=== PATIENT | female | born 1945 | race Caucasian/White ===

== ENCOUNTER 2020-06-08 09:06 | Outpatient (REF) | payer MEDICARE, SELFPAY | END 2020-06-08 09:07 | disposition home or self-care (01) | LOC: HO.LAB 09:06 | PROVIDERS: Visit Provider Internal Medicine | DX: Z20.822 Contact with and (suspected) exposure to COVID-19 (principal) | CPT/HCPCS: 36415; C9803; U0003; U0005 ==

== ENCOUNTER 2021-12-29 13:59 | Outpatient (REF) | payer OTHER, SELFPAY ==
[2021-12-29 16:30] LABS: Influenza A PCR NEGATIVE (Negative); Influenza B PCR NEGATIVE (Negative); Resp Syncy Virus RNA Qual PCR NEGATIVE (Negative); SARS COV2 PCR INHOUSE POSITIVE (Negative)
== END 2021-12-29 14:00 | disposition home or self-care (01) ==
LOC: HO.LNP 13:59
PROVIDERS: Visit Provider Family Medicine
DX: Z20.822 Contact with and (suspected) exposure to COVID-19 (principal); B34.9 Viral infection, unspecified
CPT/HCPCS: 0241U

== ENCOUNTER 2022-04-01 11:30 | Emergency (ER) | payer OTHER, SELFPAY ==
--- NOTE | ~2022-04-01 | CT_ITS ---
EXAMINATION: CT ABDOMEN AND PELVIS WITHOUT CONTRAST CLINICAL INFORMATION: Left flank pain. Evaluate for kidney stone. COMPARISON: 10/02/2017 TECHNIQUE: Multidetector volumetric imaging was performed from the superior aspect of the liver through the pubic symphysis. Sagittal and coronal reformatted images were obtained on the technologist's workstation. This CT examination was performed using dose optimization techniques as appropriate, variously including the following: *Automated exposure control *Adjustment of mA and/or kV according to patient size (this includes techniques or standardized protocols for targeted exams where dose is matched to indication/reason for exam; i.e. extremities or head) *Use of iterative reconstruction technique DLP: 951 mGy-cm FINDINGS: LUNG BASES: Minimal atelectasis of lower lobes. No pulmonary consolidation or pleural effusion. LIVER: The liver has normal size and shape. The hepatic steatosis has improved compared to 10/02/2017, and liver parenchyma has returned to a lower range of normal density. No evidence of liver mass. GALLBLADDER AND BILIARY TREE: Gallbladder is without radiopaque stones, wall thickening or pericholecystic fluid. No dilated bile ducts. PANCREAS: Normal. No edema, pancreatic ductal dilatation or mass. SPLEEN: Normal. ADRENAL GLANDS: Normal. KIDNEYS AND URETERS: The kidneys have normal size and cortical thickness. No perinephric edema or fluid collection. No urolithiasis or hydroureteronephrosis. BLADDER: Normal. No calculi or wall thickening. BOWEL AND PERITONEUM: There is either a very small hiatal hernia or mild gaseous distention of the esophageal vestibule. No evidence of edematous thickening of bowel griggs. The appendix is normal. Pancolonic diverticulosis without evidence of diverticulitis. No abdominal free fluid or free air. ABDOMINAL WALL: No significant findings. VASCULATURE: Atherosclerosis of the abdominal aorta without aneurysm. LYMPH NODES: No pathologic sized lymph nodes in the abdomen or pelvis. No inguinal lymphadenopathy. PELVIC VISCERA: Status post hysterectomy. No pelvic mass or free fluid. MUSCULOSKELETAL: Multilevel degenerative disc disease and multilevel spinal canal stenosis, which is worst at the L3-L4 and L4-L5 levels. 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 No suspicious bone lesions. CT/CT abdomen pelvis wo IV con IMPRESSION: * No acute imaging abnormalities in the abdomen or pelvis compared to 10/02/2017. * No nephrolithiasis or hydronephrosis. * Pancolonic diverticulosis without diverticulitis. * Multilevel degenerative disc disease and rotatory levoscoliosis of the lumbar spine. Chronic, severe spinal canal stenosis is present at L3-L4 and L4-L5.
--- NOTE | 2022-04-01 12:20 | ED.BACK ---
HPI - Back Pain/Injury General Chief Complaint: Back Pain/Injury <Kelsie Garcia CNP - Last Filed: 04/01/22 12:29> Stated Complaint: back pain <Kelsie Garcia CNP - Last Filed: 04/01/22 12:29> Time Seen by Provider: 04/01/22 13:40 <Kelsie Garcia CNP - Last Filed: 04/01/22 12:29> Source: patient <Jc Larios MD - Last Filed: 04/01/22 16:40> Mode of arrival: ambulatory <Jc Larios MD - Last Filed: 04/01/22 16:40> Limitations: language barrier <Jc Larios MD - Last Filed: 04/01/22 16:40> History of Present Illness HPI Narrative: 76-year-old female patient presents emergency department for evaluation of left-sided flank pain x2 weeks. Patient states the pain started suddenly while she was sitting. She does not recount any injury at the time of onset of the pain. She states the pain is a sharp, severe and is 8/10 at its worst. She states that since the onset the pain is been constant but waxes and wanes in intensity. The pain does not radiate to her abdomen or down her leg. She denied frequency, urgency or dysuria. She states this is her 1st episode of this type pain. She has been taking ibuprofen with some improvement of the pain. <Jc Larios MD - Last Filed: 04/01/22 16:40> MD elicited complaint: back pain <Jc Larios MD - Last Filed: 04/01/22 16:40> Onset (ago): week(s) (2) <Jc Larios MD - Last Filed: 04/01/22 16:40> Timing: constant (Waxes and wanes in intensity) <Jc Larios MD - Last Filed: 04/01/22 16:40> Severity: severe <Jc Larios MD - Last Filed: 04/01/22 16:40> Pain scale (0-10): 8 <Jc Larios MD - Last Filed: 04/01/22 16:40> Similar Symptoms Previously: No <Jc Larios MD - Last Filed: 04/01/22 16:40> Quality: sharp <Jc Larios MD - Last Filed: 04/01/22 16:40> Location: lumbar spine (Lumbar paraspinal muscles) <Jc Larios MD - Last Filed: 04/01/22 16:40> Radiation: none <Jc Larios MD - Last Filed: 04/01/22 16:40> Exacerbating factors: none <Jc Larios MD - Last Filed: 04/01/22 16:40> Relieving factors: none <Jc Larios MD - Last Filed: 04/01/22 16:40> Context: other (At rest) <Jc Larios MD - Last Filed: 04/01/22 16:40> Associated symptoms: denies other symptoms <Jc Larios MD - Last Filed: 04/01/22 16:40> Treatments prior to arrival: NSAIDS <Jc Larios MD - Last Filed: 04/01/22 16:40> Work related injury: No <Jc Larios MD - Last Filed: 04/01/22 16:40> Related Data Home Medications: Home Medications Medication Instructions Recorded Confirmed acetaminophen 650 mg 0 mg PO 12/29/21 tablet,extended release albuterol sulfate 90 mcg/actuation 0 mcg inhalation 12/29/21 aerosol inhaler (Ventolin HFA) amlodipine 5 mg tablet 5 mg PO DAILY 12/29/21 brimonidine 0.1 % eye drops 1 drp ophthalmic (eye) BID 12/29/21 (Alphagan P) fluticasone 250 mcg-salmeterol 50 1 ea inhalation BID 12/29/21 mcg/dose blistr powdr for inhalation (Wixela Inhub) losartan 100 1 tab PO DAILY 12/29/21 mg-hydrochlorothiazide 25 mg tablet multivitamin with folic acid 400 0 tab PO 12/29/21 mcg tablet (Daily-Clementina (with folic acid)) Previous Rx's Medication Instructions Recorded lidocaine 5 % topical patch 1 patch topical DAILY PRN pain #15 04/01/22 ea oxycodone 5 mg tablet 5 mg PO Q6H PRN pain #14 tabs 04/01/22 <Kelsie Garcia CNP - Last Filed: 04/01/22 12:29> Allergies/Adverse Reactions: Allergies Allergy/AdvReac Type Severity Reaction Status Date / Time Diltiazem HCl Allergy Unknown disoriented Uncoded 12/29/21 11:13 <Kelsie Garcia CNP - Last Filed: 04/01/22 12:29> Review of Systems Review of Systems: Yes all other systems are reviewed and are negative <Jc Larios MD - Last Filed: 04/01/22 16:40> [facility] Past Medical History [facility] Narrative: Past medical history: Hypertension, kidney infection. Past surgical history: Hernia repair, JUSTIN/BSO 5 years prior for uterine cancer. Social history: She denies tobacco, alcohol and drug use. <Jc Larios MD - Last Filed: 04/01/22 16:40> Social History Social History: Social History Alcohol intake: never Smoked in Last 30 Days: No Use of substances other than those prescribed or required for medical reasons: No Advance Directives: No <Kelsie Garcia CNP - Last Filed: 04/01/22 12:29> Physical Exam Vital Signs: Vital Signs: Last Vital Signs Temp 98.3 F 04/01/22 14:48 Pulse 72 04/01/22 14:48 Resp 16 04/01/22 14:48 BP 208/88 H 04/01/22 15:42 Pulse Ox 98 04/01/22 14:48 O2 Del Method 04/01/22 14:48 BMI result Body Mass Index 44.4 <Kelsie Garcia CNP - Last Filed: 04/01/22 12:29> Vital Signs: Last Vital Signs Temp 98.3 F 04/01/22 14:48 Pulse 72 04/01/22 14:48 Resp 16 04/01/22 14:48 BP 208/88 H 04/01/22 15:42 Pulse Ox 98 04/01/22 14:48 O2 Del Method 04/01/22 14:48 BMI result Body Mass Index 44.4 <MD Jean Vega Last Filed: 04/01/22 16:40> Const: General: cooperative and no acute distress <MD Jean Vega Last Filed: 04/01/22 16:40> Orientation/consciousness: oriented to person and oriented to place <MD Jean Vega Last Filed: 04/01/22 16:40> Limitations: no limitations <MD Jean Vega Last Filed: 04/01/22 16:40> HEENT: Head: Yes normal to inspection, Yes normocephalic and Yes atraumatic <MD Jean Vega Last Filed: 04/01/22 16:40> Ears: external ears normal <MD Jean Vega Last Filed: 04/01/22 16:40> General nose exam: Normal external nose present <MD Jean Vega Last Filed: 04/01/22 16:40> Face and sinus: Yes normal facial exam <MD Jean Vega Last Filed: 04/01/22 16:40> Mouth: Normal oral and palatal mucosa present <MD Jean Vega Last Filed: 04/01/22 16:40> Throat: Yes posterior oropharynx normal <MD Jean Vega Last Filed: 04/01/22 16:40> Eyes: General: appearance normal, both eyes and all related structures <MD Jean Vega Last Filed: 04/01/22 16:40> Pupils: Equal, round and reactive pupils present <MD Jean Vega Last Filed: 04/01/22 16:40> Neck: Neck: Yes normal visual inspection, Yes no lymphadenopathy, Yes trachea midline and Yes supple <MD Jean Vega Last Filed: 04/01/22 16:40> Chest: Chest palpation & inspection: normal inspection of the chest and normal palpation of entire chest wall <MD Jean Vega Last Filed: 04/01/22 16:40> Resp: Effort & Inspection: normal respiratory effort and able to speak in complete sentences <Jc Larios MD - Last Filed: 04/01/22 16:40> Auscultation: clear to auscultation bilaterally <MD Jean Vega Last Filed: 04/01/22 16:40> Cardio: Rate: regular rate <Jc Larios MD - Last Filed: 04/01/22 16:40> Rhythm: regular rhythm <Jc Larios MD - Last Filed: 04/01/22 16:40> Heart sounds: S1 normal heart sound present, S2 normal heart sound present and no murmurs <Jc Larios MD - Last Filed: 04/01/22 16:40> GI: Inspection: Yes normal to inspection <MD Jean Vega Last Filed: 04/01/22 16:40> Palpation (GI): Soft to palpation, nontender and no guarding <Jc Larios MD - Last Filed: 04/01/22 16:40> Auscultation: normal bowel sounds <MD Jean Vega Last Filed: 04/01/22 16:40> Back/Spine/Pelvis: Other: No spinal tenderness, patient does have tenderness palpation of her left lumbar sacral paraspinal muscles, there is no spasm of these muscles. <MD Jean Vega Last Filed: 04/01/22 16:40> Skin: General skin exam: no rashes or lesions noted <Jc Larios MD - Last Filed: 04/01/22 16:40> Neuro: General: oriented to person and oriented to place <MD Jean Vega Last Filed: 04/01/22 16:40> Cranial nerves: Yes CN's II-XII intact bilaterally and Yes Equal, round and reactive pupils present <MD Jean Vega Last Filed: 04/01/22 16:40> Cognition (Neuro): normal cognition <MD Jean Vega Last Filed: 04/01/22 16:40> Motor exam (neuro): 5/5 motor strength present throughout <Jc Larios MD - Last Filed: 04/01/22 16:40> Extrem: General: Yes normal to inspection <Jc Larios MD - Last Filed: 04/01/22 16:40> Psych: Appearance: grossly normal <Jc Larios MD - Last Filed: 04/01/22 16:40> Speech and movement: Normal speech and movement present <Jc Larios MD - Last Filed: 04/01/22 16:40> Affect: normal affect <Jc Larios MD - Last Filed: 04/01/22 16:40> Attitude: cooperative <Jc Larios MD - Last Filed: 04/01/22 16:40> Thought process: Normal thought process present <Jc Larios MD - Last Filed: 04/01/22 16:40> Thought content: Normal thought content present <Jc Larios MD - Last Filed: 04/01/22 16:40> Course Course Course Narrative: RME: 76-year-old female presenting to emergency department with complaints of left lower back pain, lateral side pain x 3 weeks, overall constant, made worse with position changes, while walking, and during the night with sleep. Also complaining of abdominal swelling/ bloating, pain with palpation left lower ABD. Denies fevers, chills, nausea, vomiting, constipation, diarrhea. Took tylenol a couple of times the first day without improvement, and did not take again. PE: diffuse L flank/ lower back tenderness, LLQ ABD tenderness with palpation Plan:CBC, CMP, Lipase, urinalysis <Kelsie Garcia CNP - Last Filed: 04/01/22 12:29> RME: 76-year-old female presenting to emergency department with complaints of left lower back pain, lateral side pain x 3 weeks, overall constant, made worse with position changes, while walking, and during the night with sleep. Also complaining of abdominal swelling/ bloating, pain with palpation left lower ABD. Denies fevers, chills, nausea, vomiting, constipation, diarrhea. Took tylenol a couple of times the first day without improvement, and did not take again. PE: diffuse L flank/ lower back tenderness, LLQ ABD tenderness with palpation Plan:CBC, CMP, Lipase, urinalysis 76-year-old female who presented to the emergency department for evaluation of left lower back pain x2 weeks with no radiation of the pain, pain came on at rest with no injury, the pain is been constant but waxing waning intensity with the pain being 8/10 at its worst. Physical examination did reveal lumbar sacral paraspinal muscle and lumbar spine. I did review the RME above. The patient's CBC and CMP were unremarkable. Urinalysis revealed 2+ leukocyte esterase, negative nitrates. Microscopic revealed 2 RBCs, 20 WBCs, 20 squamous cells, 1+ bacteria. This is catch specimen. CT scan of the abdomen pelvis did not reveal clear etiology for the patient's pain, there was no evidence of kidney stones or ureteral stones. 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 Patient did get improvement of her pain with acetaminophen 975 mg orally and 5 mg orally and oxycodone 5 mg. A lidocaine patch was applied to left lower back in the area of maximal tenderness. Patient was discharged home with a prescription for oxycodone lidocaine patches advised to take Tylenol. She was given printed and verbal instructions. <Jc Larios MD - Last Filed: 04/01/22 16:40> Medications Administered Discontinued Medications Generic Name Dose Route Start Last Admin Trade Name Freq PRN Reason Stop Dose Admin Acetaminophen 975 mg 04/01/22 13:54 04/01/22 14:05 Acetaminophen 325 Mg Tablet PO 04/01/22 13:55 975 mg ONCE STA Administration Oxycodone HCl 5 mg 04/01/22 13:54 04/01/22 14:05 Oxycodone Hcl Immed Release 5 Mg Tablet PO 04/01/22 13:55 5 mg ONCE STA Administration <Kelsie Garcia CNP - Last Filed: 04/01/22 12:29> Medications Administered Discontinued Medications Generic Name Dose Route Start Last Admin Trade Name Freq PRN Reason Stop Dose Admin Acetaminophen 975 mg 04/01/22 13:54 04/01/22 14:05 Acetaminophen 325 Mg Tablet PO 04/01/22 13:55 975 mg ONCE STA Administration Oxycodone HCl 5 mg 04/01/22 13:54 04/01/22 14:05 Oxycodone Hcl Immed Release 5 Mg Tablet PO 04/01/22 13:55 5 mg ONCE STA Administration <Jc Larios MD - Last Filed: 04/01/22 16:40> MDM - Back Pain/Injury Lab Data Result diagrams: : 04/01/22 13:00 04/01/22 13:00 <Kelsie Garcia CNP - Last Filed: 04/01/22 12:29> Labs: Lab Results 04/01/22 04/01/22 04/01/22 Range/Units 13:00 13:00 15:19 WBC 8.2 (4.8-10.8) X10*3/uL RBC 4.52 (4.20-5.50) X10*6/uL Hgb 12.8 (12.0-16.0) g/dl Hct 39.7 (37.0-47.0) % MCV 87.8 (80.0-98.0) fL MCH 28.3 (27.0-33.0) pg MCHC 32.2 (31.0-35.0) g/dl RDW 14.4 (11.0-16.0) % Plt Count 235 (160-400) X10*3/uL MPV 8.9 L (9.4-12.3) fL Immature Gran % (Auto) 0.2 (0.0-0.4) % Neut % (Auto) 66.7 (45-73) % Lymph % (Auto) 23.4 (20-40) % [place] % (Auto) 7.6 (2-11) % Eos % (Auto) 1.7 (0-4) % Baso % (Auto) 0.4 (0-2) % Lymph # (Auto) 1.9 (1.2-4.9) X10*3/uL [place] # (Auto) 0.6 (0.1-1.2) X10*3/uL Eos # (Auto) 0.1 (0.0-0.4) X10*3/uL Baso # (Auto) 0.0 (0.0-0.2) X10*3/uL Abs Immat Gran (auto) 0.02 (0.00-0.03) X10*3/uL Absolute Neuts (auto) 5.5 (2.0-8.3) x10*3/uL Absolute Nucleated RBC 0.000 (0.0-0.012) X10*3/uL Nucleated RBC % (auto) 0.0 (0.0-0.2) /100WBC Sodium 139 (135-145) mmol/L Potassium 4.3 (3.3-5.1) mmol/L Chloride 106 (96-108) mmol/L Carbon Dioxide 24 (22-29) mmol/L Anion Gap 13 (12-20) BUN 28 H (9-16) mg/dL Creatinine 0.84 (0.5-1.4) mg/dL Estim Creat Clear Calc 58.2 Estimated GFR > 60 Random Glucose 78 (60-115) mg/dL Calcium 9.3 (8.4-10.2) mg/dL Total Bilirubin 0.4 (0.0-1.0) mg/dL AST 11 (5-31) U/L ALT 11 (0-31) U/L Alkaline Phosphatase 82 (39-117) U/L Total Protein 7.3 (6.5-8.0) g/dL Albumin 4.0 (3.5-5.0) g/dL Lipase 24 (8-78) U/L Urine Color Yellow Urine Appearance Cloudy Urine pH 6.0 (5.0-9.0) Ur Specific [place] 1.020 (1.005-1.025) Urine Protein 30 (1+) H (Neg-Trace) mg/dL Urine Glucose (UA) Negative (Negative) mg/dL Urine Ketones Negative (Negative) mg/dL Urine Blood Negative (Negative) Urine Nitrite Negative (Negative) Ur Leukocyte Esterase Moderate (2+) H (Negative) Urine RBC 0-2 (0-2) /HPF Urine WBC 11-20 H (0-5) /HPF Ur Squamous Epith Cells 11-20 (0-2) /HPF Urine Bacteria 1+ (None Seen) Hyaline Casts 0-2 (0-2) /LPF <Kelsie Garcia, AYE - Last Filed: 04/01/22 12:29> Lab Results 04/01/22 04/01/22 04/01/22 Range/Units 13:00 13:00 15:19 WBC 8.2 (4.8-10.8) X10*3/uL RBC 4.52 (4.20-5.50) X10*6/uL Hgb 12.8 (12.0-16.0) g/dl Hct 39.7 (37.0-47.0) % MCV 87.8 (80.0-98.0) fL MCH 28.3 (27.0-33.0) pg MCHC 32.2 (31.0-35.0) g/dl RDW 14.4 (11.0-16.0) % Plt Count 235 (160-400) X10*3/uL MPV 8.9 L (9.4-12.3) fL Immature Gran % (Auto) 0.2 (0.0-0.4) % Neut % (Auto) 66.7 (45-73) % Lymph % (Auto) 23.4 (20-40) % [place] % (Auto) 7.6 (2-11) % Eos % (Auto) 1.7 (0-4) % Baso % (Auto) 0.4 (0-2) % Lymph # (Auto) 1.9 (1.2-4.9) X10*3/uL [place] # (Auto) 0.6 (0.1-1.2) X10*3/uL Eos # (Auto) 0.1 (0.0-0.4) X10*3/uL Baso # (Auto) 0.0 (0.0-0.2) X10*3/uL Abs Immat Gran (auto) 0.02 (0.00-0.03) X10*3/uL Absolute Neuts (auto) 5.5 (2.0-8.3) x10*3/uL Absolute Nucleated RBC 0.000 (0.0-0.012) X10*3/uL Nucleated RBC % (auto) 0.0 (0.0-0.2) /100WBC Sodium 139 (135-145) mmol/L Potassium 4.3 (3.3-5.1) mmol/L Chloride 106 (96-108) mmol/L Carbon Dioxide 24 (22-29) mmol/L Anion Gap 13 (12-20) BUN 28 H (9-16) mg/dL Creatinine 0.84 (0.5-1.4) mg/dL Estim Creat Clear Calc 58.2 Estimated GFR > 60 Random Glucose 78 (60-115) mg/dL Calcium 9.3 (8.4-10.2) mg/dL Total Bilirubin 0.4 (0.0-1.0) mg/dL AST 11 (5-31) U/L ALT 11 (0-31) U/L Alkaline Phosphatase 82 (39-117) U/L Total Protein 7.3 (6.5-8.0) g/dL Albumin 4.0 (3.5-5.0) g/dL Lipase 24 (8-78) U/L Urine Color Yellow Urine Appearance Cloudy Urine pH 6.0 (5.0-9.0) Ur Specific [place] 1.020 (1.005-1.025) Urine Protein 30 (1+) H (Neg-Trace) mg/dL Urine Glucose (UA) Negative (Negative) mg/dL Urine Ketones Negative (Negative) mg/dL Urine Blood Negative (Negative) Urine Nitrite Negative (Negative) Ur Leukocyte Esterase Moderate (2+) H (Negative) Urine RBC 0-2 (0-2) /HPF Urine WBC 11-20 H (0-5) /HPF Ur Squamous Epith Cells 11-20 (0-2) /HPF Urine Bacteria 1+ (None Seen) Hyaline Casts 0-2 (0-2) /LPF <Jc Larios MD - Last Filed: 04/01/22 16:40> Discharge Plan Discharge Clinical Impression: Back pain Qualifiers: Back pain location: low back pain Chronicity: acute Back pain laterality: left Sciatica presence: without sciatica Qualified Code(s): M54.50 - Low back pain, unspecified Degenerative joint disease (DJD) of lumbar spine Qualifiers: Spinal osteoarthritis complication: unspecified spinal osteoarthritis Qualified Code(s): M47.816 - Spondylosis without myelopathy or radiculopathy, lumbar region <Kelsie Garcia CNP - Last Filed: 04/01/22 12:29> Patient Disposition: Home, Self-Care <Kelsie Garcia CNP - Last Filed: 04/01/22 12:29> Instructions: Acute Low Back Pain (ED) <Kelsie Garcia CNP - Last Filed: 04/01/22 12:29> Additional Instructions: Your blood work was unremarkable. The CT scan of your abdomen pelvis did not reveal a clear cause for your back pain except that he will have arthritis of your lower spine which is most likely causing the pain. Take Tylenol (acetaminophen) 500 mg pills, 2 pills every 4-6 hours as needed for pain. For pain not relieved by Tylenol take oxycodone 5 mg pills, 1 pill every 4 hours as needed for pain. Do not drive or work while taking this medication since they can cause sleepiness. Oxycodone is a narcotic medication that can be addicting. If you are concerned about addiction you can ask the pharmacist for less pills or do not get this prescription filled. Use the lidocaine patch to the left side of the back or your having the pain. Apply the patch once a day and remove after 12 hours. Take your blood pressure medication when you get home and make sure that you take it daily. Follow-up with your doctor in 2 days. Please return to the emergency department if your symptoms get worse or if you develop any symptoms that are concerning to you. <Kelsie Garcia CNP - Last Filed: 04/01/22 12:29> Prescriptions: New oxycodone 5 mg tablet 5 mg PO Q6H PRN (Reason: pain) Qty: 14 0RF Rx Instructions: Patient may request partial refill; Partial Fill upon patient request. lidocaine 5 % adhesive patch,medicated 1 patch topical DAILY PRN (Reason: pain) Qty: 15 0RF Rx Instructions: leave on most painful area for up to 12 hrs No Action losartan-hydrochlorothiazide 100-25 mg tablet 1 tab PO DAILY fluticasone propion-salmeterol [Wixela Inhub] 250-50 mcg/dose blister with device 1 ea inhalation BID albuterol sulfate [Ventolin HFA] 90 mcg/actuation HFA aerosol inhaler 0 mcg inhalation Alphagan P 0.1 % drops 1 drp ophthalmic (eye) BID multivitamin with folic acid [Daily-Clementina (with folic acid)] 400 mcg tablet 0 tab PO amlodipine 5 mg tablet 5 mg PO DAILY acetaminophen 650 mg tablet extended release 0 mg PO <Kelsie Garcia CNP - Last Filed: 04/01/22 12:29>
[2022-04-01 12:21] VITALS: BP 145/91; PULSE 78; RESP 20; TEMP 36.3; O2SAT 98; BMI 44.4
[2022-04-01 13:04] LABS: MANUAL DIFF FLAG NO
[2022-04-01 13:05] LABS: Basophils Percent Auto 0.4 % (0-2); Eosinophils Absolute Auto 0.1 X10*3/uL (0.0-0.4); Eosinophils Percent Auto 1.7 % (0-4); Hematocrit 39.7 % (37.0-47.0); Hemoglobin 12.8 g/dl (12.0-16.0); Imm Gran Abs Auto 0.02 X10*3/uL (0.00-0.03); Imm Gran Pct Auto 0.2 % (0.0-0.4); Lymphocytes Absolute Auto 1.9 X10*3/uL (1.2-4.9); Lymphocytes Percent Auto 23.4 % (20-40); Mean Corpuscular HGB Conc 32.2 g/dl (31.0-35.0); Mean Corpuscular Hemoglobin 28.3 pg (27.0-33.0); Mean Corpuscular Volume 87.8 fL (80.0-98.0); Mean Platelet Volume 8.9 fL (9.4-12.3); Monocytes Absolute Auto 0.6 X10*3/uL (0.1-1.2); Monocytes Percent Auto 7.6 % (2-11); Neutrophils Absolute Auto 5.5 x10*3/uL (2.0-8.3); Neutrophils Percent Auto 66.7 % (45-73); Platelet Count 235 X10*3/uL (160-400); Red Blood Count 4.52 X10*6/uL (4.20-5.50); Red Cell Distribution Width 14.4 % (11.0-16.0); White Blood Count 8.2 X10*3/uL (4.8-10.8)
[2022-04-01 13:13] VITALS: BP 195/75; PULSE 78; RESP 18; TEMP 36.8; O2SAT 96
--- NOTE | 2022-04-01 13:19 | PC.NURSE ---
Addendum entered by Henrik Jimenez 04/01/22 15:44: Dr. Larios aware of BP Addendum entered by Henrik Jimenez 04/01/22 14:53: Provider aware of BP that is high Original Note: Provider aware of BP
[2022-04-01 13:28] LABS: Alanine Aminotransferase 11 U/L (0-31); Alkaline Phosphatase 82 U/L (39-117); Anion Gap 13 (12-20); Aspartate Amino Transferase 11 U/L (5-31); Bilirubin Total 0.4 mg/dL (0.0-1.0); Blood Urea Nitrogen 28 mg/dL (9-16); Calcium 9.3 mg/dL (8.4-10.2); Carbon Dioxide 24 mmol/L (22-29); Chloride 106 mmol/L (96-108); Creatinine Clr Calc Pharmacy 58.2; Estimated Glomerular Filt Rate > 60; Glucose Random 78 mg/dL (60-115); Lipase 24 U/L (8-78); Potassium 4.3 mmol/L (3.3-5.1); Sodium 139 mmol/L (135-145); Total Protein 7.3 g/dL (6.5-8.0)
[2022-04-01] MEDS: Acetaminophen 325 MG TABLET 975 MG PO (14:05)
[2022-04-01] MEDS: oxyCODONE HCl Immed Release 5 MG TABLET PO (14:05)
[2022-04-01 14:48] VITALS: BP 185/88; PULSE 72; RESP 16; TEMP 36.8; O2SAT 98
[2022-04-01 15:27] LABS: Appearance Urine Cloudy; Color Urine Yellow; Glucose Urine UA Negative (Negative); Leukocyte Esterase Urine Moderate (2+) (Negative); Nitrite Urine Negative (Negative); UMIC TRIGGER UACC YES; Urine Blood Negative (Negative); Urine Ketones Negative (Negative); Urine Protein 30 (1+) mg/dL (Neg-Trace)
[2022-04-01 15:41] LABS: Bacteria Urine 1+ (None Seen); Hyaline Casts Urine 0-2 /LPF (0-2); RBC Urine 0-2 /HPF (0-2); UACC Culture Trigger YES
[2022-04-01 15:42] VITALS: BP 208/88
[2022-04-01] MEDS: Lidocaine 4 % Patch ADH..PATCH 1 PATCH TRANSDERMA (16:40)
== END 2022-04-01 16:43 | disposition home or self-care (01) ==
PROVIDERS: Nurse Practitioner Family; Emergency Provider Emergency Medicine Emergency Medical Services
DX: M54.50 Low back pain, unspecified (principal); M47.816 Spondylosis without myelopathy or radiculopathy, lumbar region
CPT/HCPCS: 36415; 74176; 80053; 81001; 83690; 85025; 87086; 99284

== ENCOUNTER 2023-03-13 02:20 | Emergency (ER) | payer OTHER, SELFPAY ==
--- NOTE | ~2023-03-13 | CT_ITS ---
EXAMINATION: CT ABDOMEN AND PELVIS WITHOUT CONTRAST CLINICAL INFORMATION: Left flank pain COMPARISON: 04/01/2022. TECHNIQUE: Multidetector volumetric imaging was performed from the superior aspect of the liver through the pubic symphysis. Sagittal and coronal reformatted images were obtained on the technologist's workstation. This CT examination was performed using dose optimization techniques as appropriate, variously including the following: *Automated exposure control *Adjustment of mA and/or kV according to patient size (this includes techniques or standardized protocols for targeted exams where dose is matched to indication/reason for exam; i.e. extremities or head) *Use of iterative reconstruction technique DLP: 927 mGy-cm FINDINGS: LUNG BASES: There is scarring at the left lung base. LIVER, GALLBLADDER, AND BILIARY TREE: The liver is normal in size, shape, and attenuation. No focal hepatic lesion or biliary ductal dilatation is present. The gallbladder is unremarkable with no evidence of radiopaque gallstones, gallbladder wall thickening, or obvious pericholecystic inflammatory changes. PANCREAS: Unremarkable. SPLEEN: Unremarkable. ADRENAL GLANDS: Unremarkable. KIDNEYS AND URETERS: The kidneys are normal in size, shape, and attenuation. No hydronephrosis, hydroureter, or calculi seen. No perinephric stranding. BLADDER: Unremarkable. GASTROINTESTINAL TRACT: There is diffuse diverticulosis without evidence for acute diverticulitis. ABDOMINAL WALL: No significant hernia is appreciated. LYMPH NODES: Normal. VASCULAR: Unremarkable. PELVIC VISCERA: Unremarkable. OSSEOUS STRUCTURES: There is diffuse thoracolumbar disc degenerative change with multilevel thoracolumbar spinal canal narrowing and mild curvature of the lumbar spine to the left.. CT/CT abdomen pelvis wo IV con IMPRESSION: Diffuse diverticulosis without definitive evidence for acute diverticulitis. No acute intra-abdominal process. Fleischner guidelines were followed.
[2023-03-13 02:28] VITALS: BP 124/82; PULSE 72; O2SAT 98
[2023-03-13 02:37] VITALS: BP 198/83; PULSE 66; RESP 16; TEMP 36.9; O2SAT 97; BMI 48.5
--- NOTE | 2023-03-13 02:46 | ED_ITS ---
HPI - Back Pain/Injury General Chief Complaint: Back Pain/Injury Stated Complaint: lumbar pain Time Seen by Provider: 03/13/23 02:31 Source: patient and EMS Mode of arrival: EMS Limitations: no limitations History of Present Illness HPI Narrative: 77-year-old female came in for evaluation of Left-sided lower back pain radiating to the left groin area pain started about a week ago, pain is worse with movement and twisting her torso better when she sits still. Declined any trauma or injury to the back, patient had previous similar presentation with back pain last year. No fever, no chills, no dysuria, no frequent urination, no hematuria, no nausea, no vomiting, no diarrhea. Related Data Home Medications Medication Instructions Recorded Confirmed acetaminophen 650 mg 0 mg PO 12/29/21 tablet,extended release albuterol sulfate 90 mcg/actuation 0 mcg inhalation 12/29/21 aerosol inhaler (Ventolin HFA) amlodipine 5 mg tablet 5 mg PO DAILY 12/29/21 brimonidine 0.1 % eye drops 1 drp ophthalmic (eye) BID 12/29/21 (Alphagan P) fluticasone 250 mcg-salmeterol 50 1 ea inhalation BID 12/29/21 mcg/dose blistr powdr for inhalation (Wixela Inhub) losartan 100 1 tab PO DAILY 12/29/21 mg-hydrochlorothiazide 25 mg tablet multivitamin with folic acid 400 0 tab PO 12/29/21 mcg tablet (Daily-Clementina (with folic acid)) Previous Rx's Medication Instructions Recorded lidocaine 5 % topical patch 1 patch topical DAILY PRN pain #15 04/01/22 ea oxycodone 5 mg tablet 5 mg PO Q6H PRN pain #14 tabs 04/01/22 oxycodone 5 mg tablet 5 mg PO BID PRN pain #10 tabs 03/13/23 Allergies Allergy/AdvReac Type Severity Reaction Status Date / Time Diltiazem HCl Allergy Unknown disoriented Uncoded 12/29/21 11:13 Review of Systems 2 Review of Systems: All other systems are reviewed and are negative Constitutional: Reports as per HPI and Reports no additional constitutional complaints Eyes: Reports as per HPI and Reports no additional eye complaints Reports system reviewed and no additional complaints, except as documented Cardiovascular: Reports as per HPI and Reports no additional cardiovascular complaints Respiratory: Reports as per HPI and Reports no additional respiratory complaints Gastrointestinal: Reports as per HPI and Reports no additional gastrointestinal complaints Genitourinary: Reports no additional female genitourinary complaints Musculoskeletal: Reports no additional musculoskeletal complaints Skin/Breast: Reports system reviewed and no additional complaints, except as docu Psychiatric: Reports no additional psychiatric complaints Endocrine: Reports no additional endocrine complaints Hematologic/Lymphatic: Reports no additional hematologic/lymphatic complaints Allergic/Immunologic: Reports no additional allergic/immunologic complaints Reports system reviewed and no additional complaints, except as documented and Reports Abnormal speech present [facility] Social History Social History Alcohol intake: never Smoked in Last 30 Days: No Use of substances other than those prescribed or required for medical reasons: No Advance Directives: No Advance Directives Information Provided: No Physical Exam 2 Vital Signs: Vital Signs: Last Vital Signs Temp 97.8 F 03/13/23 03:48 Pulse 66 03/13/23 03:48 Resp 14 03/13/23 04:16 BP 159/73 H 03/13/23 04:16 Pulse Ox 94 03/13/23 03:48 O2 Del Method Room Air 03/13/23 03:48 BMI result Body Mass Index 48.5 Vital signs have been reviewed and appear to be correct. Blood pressure elevated. Heart rate normal. Respiratory rate normal. Temperature normal. Oxygen saturation normal. Appearance: Alert. Oriented X3. No acute distress. Head: Normal external exam. Normocephalic. Atraumatic. No Villegas signs noted. No raccoon eyes noted Eyes: PERRLA. EOMI. Conjunctiva and sclera normal. Eyelids normal. ENT: TM's Normal. Pharynx normal. Uvula midline. Moist mucous membranes. No trismus noted. No drooling noted. No muffled voice noted. Neck: Normal inspection. Neck supple. FROM. No adenopathy. Thyroid Normal. No meningeal signs. No neck mass noted. CVS: Normal heart rate and rhythm. Heart sound normal. No murmurs noted. Pulses normal throughout. Respiratory: No respiratory distress. Painless inspiration. Breath sounds normal. No wheezes/rales/rhonchi noted. Chest nontender. No accessory muscle usage noted or decreased air movement noted. Abdomen: Soft and nontender. Bowel sounds normal in all 4 quadrants. No distention noted. No organomegaly noted. No visible injury noted. Back: No CVA tenderness. Full range of motion noted. Skin: Skin warm and dry. Normal skin color. Normal skin turgor. No rashes/lesions/lacerations noted. Extremities: No lower extremity edema. Extremities exhibit normal range of motion. Extremities nontender. Neuro: Oriented X 3. Cranial nerve exam: II-XII are grossly intact No motor deficit. No sensory deficit. Reflexes normal. Course Course Course Narrative: Low back pain for 1 week patient had history of back pain in the past, received oxycodone in the emergency department patient feels better. Medications Administered Discontinued Medications Generic Name Dose Route Start Last Admin Trade Name Freq PRN Reason Stop Dose Admin Oxycodone HCl 5 mg 03/13/23 02:42 03/13/23 03:07 Oxycodone Hcl Immed Release 5 Mg Tablet PO 03/13/23 02:43 5 mg ONCE ONE Administration Medical Decision Making Differential Diagnosis Differential Diagnoses: The differential diagnosis associated with the presentation includes ( AAA, diverticulitis, muscular low back pain, lumbar radiculopathy, severe anemia, UTI, pyelonephritis, kidney stone, electrolyte abnormality.) Admission/Observation Consideration of admission/observation: Escalation of care including admission/observation considered Lab Data MDM Lab Attestation statement: I reviewed the patient's lab results. 03/13/23 03:25 03/13/23 03:25 Labs: Lab Results 03/13/23 Range/Units 03:25 WBC 6.6 (4.8-10.8) X10*3/uL RBC 4.10 L (4.20-5.50) X10*6/uL Hgb 11.9 L (12.0-16.0) g/dl Hct 37.1 (37.0-47.0) % MCV 90.5 (80.0-98.0) fL MCH 29.0 (27.0-33.0) pg MCHC 32.1 (31.0-35.0) g/dl RDW 13.7 (11.0-16.0) % Plt Count 210 (160-400) X10*3/uL MPV 8.9 L (9.4-12.3) fL Immature Gran % (Auto) 0.2 (0.0-0.4) % Neut % (Auto) 60.0 (45-73) % Lymph % (Auto) 26.5 (20-40) % [place] % (Auto) 10.1 (2-11) % Eos % (Auto) 2.7 (0-4) % Baso % (Auto) 0.5 (0-2) % Lymph # (Auto) 1.8 (1.2-4.9) X10*3/uL [place] # (Auto) 0.7 (0.1-1.2) X10*3/uL Eos # (Auto) 0.2 (0.0-0.4) X10*3/uL Baso # (Auto) 0.0 (0.0-0.2) X10*3/uL Abs Immat Gran (auto) 0.01 (0.00-0.03) X10*3/uL Absolute Neuts (auto) 4.0 (2.0-8.3) x10*3/uL Absolute Nucleated RBC 0.000 (0.0-0.012) X10*3/uL Nucleated RBC % (auto) 0.0 (0.0-0.2) /100WBC Sodium 141 (135-145) mmol/L Potassium 3.8 (3.3-5.1) mmol/L Chloride 111 H (96-108) mmol/L Carbon Dioxide 23 (22-29) mmol/L Anion Gap 11 L (12-20) BUN 18 H (9-16) mg/dL Creatinine 0.86 (0.5-1.4) mg/dL Estim Creat Clear Calc 59.1 Estimated GFR > 60 Random Glucose 105 (60-115) mg/dL Calcium 8.7 D (8.4-10.2) mg/dL Total Bilirubin 0.3 (0.0-1.0) mg/dL Direct Bilirubin 0.1 (0.0-0.5) mg/dL AST 13 (5-31) U/L ALT 9 (0-31) U/L Alkaline Phosphatase 62 (39-117) U/L Total Protein 7.1 (6.5-8.0) g/dL Albumin 3.7 (3.5-5.0) g/dL Lipase 19 (8-78) U/L Independent Interpretation I performed an independent interpretation of an: CT Scan ( Abdomen pelvis:Diffuse diverticulosis without definitive evidence for acute diverticulitis, No acute intra-abdominal process.) Radiology Impression Discussion of test interpretation with radiology: I have reviewed the radiologist's reading. Discharge Plan Discharge Clinical Impression: Strain of lumbar region Patient Disposition: Home, Self-Care Instructions: Muscle Strain (ED) Prescriptions: New oxycodone 5 mg tablet 5 mg PO BID PRN (Reason: pain) Qty: 10 0RF Rx Instructions: Partial Fill upon patient request. No Action oxycodone 5 mg tablet 5 mg PO Q6H PRN (Reason: pain) Qty: 14 0RF Rx Instructions: Patient may request partial refill; Partial Fill upon patient request. lidocaine 5 % adhesive patch,medicated 1 patch topical DAILY PRN (Reason: pain) Qty: 15 0RF Rx Instructions: leave on most painful area for up to 12 hrs losartan-hydrochlorothiazide 100-25 mg tablet 1 tab PO DAILY fluticasone propion-salmeterol [Wixela Inhub] 250-50 mcg/dose blister with device 1 ea inhalation BID albuterol sulfate [Ventolin HFA] 90 mcg/actuation HFA aerosol inhaler 0 mcg inhalation Alphagan P 0.1 % drops 1 drp ophthalmic (eye) BID multivitamin with folic acid [Daily-Clementina (with folic acid)] 400 mcg tablet 0 tab PO amlodipine 5 mg tablet 5 mg PO DAILY acetaminophen 650 mg tablet extended release 0 mg PO
[2023-03-13] MEDS: oxyCODONE HCl Immed Release 5 MG TABLET PO (03:07)
--- NOTE | 2023-03-13 03:17 | PC.NURSE ---
pt medicated per mar; tolerating po intake.
[2023-03-13 03:30] LABS: Basophils Percent Auto 0.5 % (0-2); Eosinophils Absolute Auto 0.2 X10*3/uL (0.0-0.4); Eosinophils Percent Auto 2.7 % (0-4); Hematocrit 37.1 % (37.0-47.0); Hemoglobin 11.9 g/dl (12.0-16.0); Imm Gran Abs Auto 0.01 X10*3/uL (0.00-0.03); Imm Gran Pct Auto 0.2 % (0.0-0.4); Lymphocytes Absolute Auto 1.8 X10*3/uL (1.2-4.9); Lymphocytes Percent Auto 26.5 % (20-40); MANUAL DIFF FLAG NO; Mean Corpuscular HGB Conc 32.1 g/dl (31.0-35.0); Mean Corpuscular Volume 90.5 fL (80.0-98.0); Mean Platelet Volume 8.9 fL (9.4-12.3); Monocytes Absolute Auto 0.7 X10*3/uL (0.1-1.2); Monocytes Percent Auto 10.1 % (2-11); Platelet Count 210 X10*3/uL (160-400); Red Cell Distribution Width 13.7 % (11.0-16.0); White Blood Count 6.6 X10*3/uL (4.8-10.8)
[2023-03-13 03:47] LABS: Alanine Aminotransferase 9 U/L (0-31); Albumin Level 3.7 g/dL (3.5-5.0); Alkaline Phosphatase 62 U/L (39-117); Anion Gap 11 (12-20); Aspartate Amino Transferase 13 U/L (5-31); Bilirubin Direct 0.1 mg/dL (0.0-0.5); Bilirubin Total 0.3 mg/dL (0.0-1.0); Blood Urea Nitrogen 18 mg/dL (9-16); Calcium 8.7 mg/dL (8.4-10.2); Carbon Dioxide 23 mmol/L (22-29); Chloride 111 mmol/L (96-108); Creatinine Clr Calc Pharmacy 59.1; Estimated Glomerular Filt Rate > 60; Glucose Random 105 mg/dL (60-115); Lipase 19 U/L (8-78); Potassium 3.8 mmol/L (3.3-5.1); Sodium 141 mmol/L (135-145); Total Protein 7.1 g/dL (6.5-8.0)
[2023-03-13 03:48] VITALS: BP 206/76; PULSE 66; RESP 17; TEMP 36.6; O2SAT 94
--- NOTE | 2023-03-13 03:53 | PC.NURSE ---
bp elevated; recheck at this time ; Dr. Rahman aware no new orders at this time. pt denies EAGLE/dizziness.
[2023-03-13 04:16] VITALS: BP 159/73; RESP 14
--- NOTE | 2023-03-13 05:10 | PC.NURSE ---
pt ambulatory to bathroom with steady gait; able to provide urine sample for ua; sent to lab.
[2023-03-13 05:27] LABS: Appearance Urine Clear; Color Urine Yellow; Glucose Urine UA Negative (Negative); Leukocyte Esterase Urine Negative (Negative); Nitrite Urine Negative (Negative); Specific Gravity - Urine 1.015 (1.005-1.025); UMIC TRIGGER UACC YES; Urine Blood Negative (Negative); Urine Ketones Negative (Negative); Urine Protein 30 (1+) mg/dL (Neg-Trace)
[2023-03-13 06:03] LABS: Bacteria Urine None Seen (None Seen); Hyaline Casts Urine 0-2 /LPF (0-2); RBC Urine 0-2 /HPF (0-2); Squamous Epithelial Cell Urine 0-2 /HPF (0-2); WBC Urine 0-5 /HPF (0-5)
[2023-03-13 06:30] VITALS: BP 186/69; PULSE 63; RESP 16; O2SAT 98
== END 2023-03-13 06:34 | disposition home or self-care (01) ==
PROVIDERS: Emergency Provider Emergency Medicine
DX: S39.012A Strain of muscle, fascia and tendon of lower back, initial encounter (principal); R10.2 Pelvic and perineal pain; X58.XXXA Exposure to other specified factors, initial encounter; Y93.9 Activity, unspecified; Y92.9 Unspecified place or not applicable; Y99.9 Unspecified external cause status; Z79.899 Other long term (current) drug therapy
CPT/HCPCS: 36415; 74176; 80048; 80076; 81001; 81003; 83690; 85025; 99284

== ENCOUNTER 2023-08-28 05:14 | Emergency (ER) | payer OTHER, SELFPAY ==
--- NOTE | ~2023-08-28 | CT_ITS ---
EXAMINATION: CT HEAD WITHOUT CONTRAST CLINICAL INFORMATION: Dizziness COMPARISON: CT head from 12/27/2018 TECHNIQUE: Contiguous axial imaging was performed from the skull base to vertex without intravenous administration of contrast. This CT examination was performed using dose optimization techniques as appropriate, variously including the following: *Automated exposure control *Adjustment of mA and/or kV according to patient size (this includes techniques or standardized protocols for targeted exams where dose is matched to indication/reason for exam; i.e. extremities or head) *Use of iterative reconstruction technique DLP: 659.94 mGy-cm FINDINGS: There is no evidence of acute intracranial hemorrhage or territorial infarction. Chronic white matter small vessel ischemic changes. No abnormal mass effect or midline shift is seen. Zendejas to white matter differentiation is well preserved. No extra-axial fluid collections are identified. The ventricles are normal in size. There is no abnormal attenuation within the brain parenchyma. Hyperostosis frontalis interna. The osseous structures and soft tissues are normal. The mastoid air cells and visualized portions of the paranasal sinuses are well aerated. CT/CT head/brain wo IV con IMPRESSION: 1. No acute intracranial pathology. 2. Chronic white matter small vessel ischemic changes.
[2023-08-28 05:21] VITALS: BP 180/90; BP 197/65; PULSE 70; PULSE 87; RESP 15; TEMP 36.6; O2SAT 95; O2SAT 96; BMI 44.4
--- NOTE | 2023-08-28 05:27 | ECG_ITS ---
Test Reason : DIZZINESS Blood Pressure : / mmHG Vent. Rate : 068 BPM Atrial Rate : 068 BPM P-R Int : 178 ms QRS Dur : 096 ms QT Int : 404 ms P-R-T Axes : 027 -17 031 degrees QTc Int : 429 ms Normal sinus rhythm Moderate voltage criteria for LVH, may be normal variant ( R in aVL , Juan Jose product ) Borderline ECG When compared with ECG of 27-DEC-2018 10:56, No significant change was found Referred By: Generic ED Physician Electronically Signed By:JAIRON RIVERA MD
[2023-08-28 05:49] LABS: MANUAL DIFF FLAG NO
[2023-08-28 05:51] LABS: Basophils Percent Auto 0.3 % (0-2); Eosinophils Absolute Auto 0.2 X10*3/uL (0.0-0.4); Eosinophils Percent Auto 2.6 % (0-4); Hematocrit 38.4 % (37.0-47.0); Hemoglobin 12.7 g/dl (12.0-16.0); Imm Gran Abs Auto 0.02 X10*3/uL (0.00-0.03); Imm Gran Pct Auto 0.3 % (0.0-0.4); Lymphocytes Absolute Auto 1.8 X10*3/uL (1.2-4.9); Lymphocytes Percent Auto 28.8 % (20-40); Mean Corpuscular HGB Conc 33.1 g/dl (31.0-35.0); Mean Corpuscular Hemoglobin 29.3 pg (27.0-33.0); Mean Corpuscular Volume 88.7 fL (80.0-98.0); Monocytes Absolute Auto 0.5 X10*3/uL (0.1-1.2); Neutrophils Absolute Auto 3.8 x10*3/uL (2.0-8.3); Platelet Count 219 X10*3/uL (160-400); Red Blood Count 4.33 X10*6/uL (4.20-5.50); Red Cell Distribution Width 14.1 % (11.0-16.0); White Blood Count 6.3 X10*3/uL (4.8-10.8)
[2023-08-28 05:59] VITALS: BP 197/65; PULSE 70; RESP 16; TEMP 36.6; O2SAT 96
[2023-08-28 06:05] LABS: Alanine Aminotransferase 15 U/L (0-31); Albumin Level 3.8 g/dL (3.5-5.0); Alkaline Phosphatase 68 U/L (39-117); Anion Gap 12 (12-20); Aspartate Amino Transferase 18 U/L (5-31); Bilirubin Total 0.4 mg/dL (0.0-1.0); Blood Urea Nitrogen 17 mg/dL (9-16); Calcium 9.1 mg/dL (8.4-10.2); Carbon Dioxide 26 mmol/L (22-29); Chloride 107 mmol/L (96-108); Creatinine Clr Calc Pharmacy 65.1; Estimated Glomerular Filt Rate > 60; Glucose Random 124 mg/dL (60-115); Potassium 3.7 mmol/L (3.3-5.1); Sodium 141 mmol/L (135-145); Total Protein 7.4 g/dL (6.5-8.0)
--- OUTSIDE RECORDS SUMMARY | 2023-08-28 06:05 | XMS_ITS | Continuity of Care Document ---
Author Organization [facility] Address Unknown Care Team Providers Care Back Digger Operator Name Role Phone Wil BECKHAM, Katy Mazariegos Primary Care Physician Encounter [facility] Date(s): 02/15/21 - 03/17/21 [facility] Allergies, Adverse Reactions, Alerts Substance Reaction Severity Status Ativan 1 Active 1Adverse effect: heightened anxiety reported Immunizations Given and Recorded Vaccine Date Status Refusal Reason SARS-CoV-2 (COVID-19) mRNA BNT-162b2 vac 09/10/20 Given SARS-CoV-2 (COVID-19) mRNA BNT-162b2 vac 08/20/20 Given influenza virus vaccine, inactivated 1 07/21/15 Gi salvatore influenza virus vaccine, inactivated 2 03/11/14 Gi salvatore pneumococcal 13-valent vaccine 01/13/15 Given Zoster Vaccine Live 03/17/14 Given tetanus/diphtheria/pertussis, acel(Tdap) 3 11/21/13 Given pneumococcal 23-valent vaccine 4 11/21/13 Given 1Admin Note: refuses 2Admin Note: pt refusing 3Result Comment: [11/21/2013] Ordered by Nilson Clifton 4Result Comment: [11/21/2013] Ordered by Zen Clifton Medications acetaminophen 650 mg oral tablet, extended release 1- 2 tablet, By Mouth, Every 8 hours, PRN Pain, (do not crush or chew) (not to exceed 6 tablets/day), # 100 tablet, 2 Refills, Maintenance, 01/20/21 15:16:00 EDT, ER Tablet, [id number], Partial fill upon patient request if the prescription is... Start Date: 01/20/21 Status: Ordered acetaminophen-codeine 300 mg-15 mg oral tablet 2 tablet, By Mouth, 2 times a day, PRN for pain, for 28 days, # 112 tablet, 0 Refills, Acute 03/23/21 17:06:00 EST, 02/23/21 17:06:00 EDT, [id number] Partial fill upon patient request if the prescription is for a schedule II opioid . Start Date: 02/23/21 Stop Date: 03/23/21 Status: Ordered amLODIPine 5 mg oral tablet 5 mg, 1, tablet, By Mouth, Daily, # 90 tablet, Refills 3, Tot. Refills 3, Maintenance, 10/27/20 19:35:00 EDT, Route to Pharmacy Electronically, [facility]pharm[facility] #[id number], 149.8, cm, 10/08/20 12:18:00 EDT, Height, 100.4, kg, 12/20/19 12:32:00 EDT, Dry Weight Start Date: 10/27/20 Status: Ordered Blood Pressure Monitor See Instructions, # 1 each, Maintenance, large cuff. DX: HTN, 05/12/15 13:32:29, Compound Start Date: 05/12/15 Status: Ordered CPAP Machine See Instructions, # 1 each, Maintenance, AutoCPAP 8-20, 09/14/18 17:50:04 EDT, Compound Start Date: 09/14/18 Status: Ordered duloxetine 20 mg oral enteric coated capsule 1 capsule, By Mouth, Daily, # 90 capsule, 1 Refills, [id number], 149.8, cm, 10/08/20 12:18:00 EDT, Height, 100.4, kg, 12/20/19 12:32:00 EDT, Dry Weight Start Date: 01/06/21 Status: Ordered Fish Oil 1000 mg oral capsule 1 capsule = 1,000 mg, By Mouth, 2 times a day, # 60 capsule, 11 Refills, Maintenance, 01/20/21 15:17:00 EDT, Capsule, [facility]/pharmacy #[id number], 149.8, cm, 01/20/21 13:08:00 EDT, Height, 100.4, kg, 12/20/2011:32:00 EDT, Dry Weight Start Date: 01/20/21 Status: Ordered hydrochlorothiazide-losartan 25 mg-100 mg oral tablet 1 tablet, By Mouth, Daily, # 90 tablet, 3 Refills, Maintenance, 10/27/20 19:34:00 EDT, [facility]/pharmacy#[id number], 1 tablet By Mouth Daily, 149.8, cm, 10/08/20 12:18:00 EDT, Height, 100.4, kg, 12/20/19 12:32:00 EDT, Dry Weight Start Date: 10/27/20 Status: Ordered lidocaine 5% topical ointment 1 application, Topically, 3 times a day, for shoulder or back pain. kinyarwanda. wash hands thoroughly after application, # 50 Gm, 2 Refills, Maintenance, 01/29/21 12:22:00 EDT, Ointment, [facility]/pharmacy #[id number], Partial fill upon patient request if the pres... Start Date: 01/29/21 Status: Ordered meclizine 25 mg oral tablet 1 tablet = 25 mg, By Mouth, Daily, PRN for dizziness, # 30 tablet, 1 Refills, Maintenance, 10/30/2009:34:00 EDT, Tablet, [facility]/pharmacy #[id number], 151, cm, 10/31/19 9:51:00 EDT, Height, 109.4, kg, 12/11/18 17:10:00 EDT, Dry Weight Start Date: 10/31/19 Status: Ordered Melatonin 3 mg oral tablet 1-3 tablet, By Mouth, Daily at bedtime, PRN for insomnia, Discontinue tizanidine, # 90 tablet, 3 Refills, Maintenance, 01/20/21 15:15:00 EDT, Tablet, [facility]/pharmacy #[id number], 1-3 tablet By Mouth Daily at bedtime,PRN:for insomnia,Instr:Discontinue tizanidin... Start Date: 01/20/21 Status: Ordered multivitamin Multiple Vitamins oral tablet 1 tablet, By Mouth, Daily, # 90 tablet, 3 Refills, Maintenance, 10/03/17 3:35:19 EDT, Tablet, 1 tablet By Mouth Daily Start Date: 10/03/17 Status: Ordered Shingrix intramuscular injection = 0.5 mL, Intramuscular, Once, repeat dose in 2 to 6 months, # 1 each, 0 Refills, Soft Stop, 07/29/20 14:09:00 EDT, Powder, [facility], Partial fill upon patient request if the prescription is for a schedule II opioid drug., 0.5 mL... Start Date: 07/29/20 Status: Ordered Spacer Spacer, See Instructions, # 1 each, Refills 0, Tot. Refills 0, Maintenance, Asthma (J45.909) CARMELA lifetime, 10/08/20 13:39:00 EDT, Compound, 149.8, cm, 10/08/20 12:18:00 EDT, Height, 100.4, kg, 12/20/19 12:32:00 EDT, Dry Weight Start Date: 10/08/20 Status: Ordered Ventolin HFA 108 mcg/inh inhalation aerosol with adapter 2 puffs, Inhalation, Every 6 hours, PRN for wheezing, use with spacer chamber, # 8 Gm, 6 Refills, Maintenance, 10/08/20 13:14:00 EDT, Aerosol, [id number], 149.8, cm, 10/08/20 12:18:00 EDT, Height, 100.4, kg, 12/20/19 12:32:00 EDT, Dry Weight Start Date: 10/08/20 Status: Ordered Voltaren 1% topical gel = 2 Gm, Topically, 4 times a day, # 100 Gm, 5 Refills, Maintenance, 01/20/21 15:17:00 EDT, [id number], Partial fill upon patient request if the prescription is for a schedule II opioid drug.,2 Gm Topically 4 times a day,x14 days, 149.8, cm, 0... Start Date: 01/20/21 Stop Date: 04/14/21 Status: Ordered Wixela Inhub 250 mcg-50 mcg inhalation powder 1 puffs, Inhalation, 2 times a day, # 180 Unknown, 1 Refills, Maintenance, 12/14/20 8:36:00 EDT, [id number], 90, resent under correct PCP, 1 puffs Inhalation 2 times a day, 149.8, cm, 10/08/20 12:18:00 EDT, Height, 100.4, kg, 12/20/19 12:32:00... Start Date: 12/14/20 Status: Ordered Problem List Condition Effective Dates Status Health Status Inform ant Benign hypertension with chr onic kidney disease, stage III(Confirmed) Active Bilateral cataracts(Confirmed) 1 Active CKD (chronic kidney disease) , stage III(Confirmed) Active Diverticulosis(Confirmed) 2 Active Elevated sed rate(Confirmed) Active GERD (gastroesophageal reflu x disease)(Confirmed) Active Generalized anxiety disorder(Confirmed) Active Glaucoma(Confirmed) Active Health Maintenance Alteration(Confirmed) 3 Active Status post bilateral knee replacements(Confirmed) 03/01/12 Active S/P JUSTIN-BSO (total abdominal hysterectomy and bilateral salpingo-oophorectomy)(Confirmed) 4 Active Osteoarthritis of lumbar spine(Confirmed) Active Mild persistent asthma(Confirmed) Active Depression, major, recurrent , mild(Confirmed) Active Hyperlipidemia, mixed(Confirmed) Active Morbid obesity with BMI of 4 0.0-44.9, adult(Confirmed) Active ANGEL (obstructive sleep apnea)(Confirmed) 5 01/30/19 Active OA (osteoarthritis)(Confirmed) 6 Active *[id number] Care Partn Kellee Rodriguez(Confirmed) Active 1followed by Dr. Grayson 2diverticulitis episode 01/04/2011. Went to [facility]. 3refuses colonoscopy secondary to endometrial carcinoma Stage 1A 5Untreated. See sleep medicine phone call: Eqipement to be removed due to non-use 6Arms, bilateral Social History Social History Type Response Smoking Status Never (less than 100 in lifetime) entered on: 02/18/21 Sex
--- OUTSIDE RECORDS SUMMARY | 2023-08-28 06:05 | XMS_ITS | Continuity of Care Document ---
Author Organization [facility] Address Unknown Care Team Providers Care Supervisor Marble Name Role Phone Wil BECKHAM, Katy Mazariegos Primary Care Physician [id number] Date(s): 01/22/21 - 03/24/21 [facility] Attending Physician: Katy De La Torre NP Admitting Physician: Katy De La Torre NP Allergies, Adverse Reactions, Alerts Substance Reaction Severity [...] Maintenance, 01/20/21 15:16:00 EDT, ER Tablet, [id number], Partial fill upon patient request if the prescription is... Start Date: 01/20/21 Status: Ordered amLODIPine 5 mg oral tablet 5 mg, 1, tablet, By Mouth, Daily, # 90 tablet, Refills 3, Tot. Refills 3, Maintenance, 10/27/20 19:35:00 EDT, Route to Pharmacy Electronically, [facility]/pharmacy #[id number], 149.8, cm, 10/08/20 12:18:00 EDT, Height, [...] Mouth, Daily, # 90 capsule, 1 Refills, [id number], 149.8, cm, 10/08/20 12:18:00 EDT, Height, 100.4, kg, 12/20/19 12:32:00 EDT, Dry Weight Start Date: 01/06/21 Status: Ordered Fish Oil 1000 mg oral capsule 1 capsule = 1,000 mg, By Mouth, 2 times a day, # 60 capsule, 11 Refills, Maintenance, 01/20/21 15:17:00 EDT, Capsule, [facility]/pharmacy #[id number], 149.8, cm, 01/20/21 13:08:00 EDT, Height, 100.4, kg, 12/20/2011:32:00 EDT, Dry Weight Start Date: 01/20/21 Status: Ordered hydrochlorothiazide-losartan 25 mg-100 mg oral tablet 1 tablet, By Mouth, Daily, # 90 tablet, 3 Refills, Maintenance, 10/27/20 19:34:00 EDT, [facility]/pharmacy#[id number], 1 tablet By Mouth Daily, 149.8, cm, 10/08/20 12:18:00 EDT, Height, 100.4, kg, 12/20/19 12:32:00 EDT, Dry Weight Start Date: 10/27/20 Status: Ordered lidocaine 5% topical ointment 1 application, Topically, 3 times a day, for shoulder or back pain. chadian. wash hands thoroughly after application, # 50 Gm, 2 Refills, Maintenance, 01/29/21 12:22:00 EDT, Ointment, [facility]/pharmacy #[id number], Partial fill upon patient request if the pres... Start Date: 01/29/21 Status: Ordered meclizine 25 mg oral tablet 1 tablet = 25 mg, By Mouth, Daily, PRN for dizziness, # 30 tablet, 1 Refills, Maintenance, 10/30/2009:34:00 EDT, Tablet, [facility]/pharmacy #[id number], 151, cm, 10/31/19 9:51:00 EDT, Height, 109.4, kg, 12/11/18 17:10:00 EDT, Dry Weight Start Date: 10/31/19 Status: Ordered Melatonin 3 mg oral tablet 1-3 tablet, By Mouth, Daily at bedtime, PRN for insomnia, Discontinue tizanidine, # 90 tablet, 3 Refills, Maintenance, 01/20/21 15:15:00 EDT, Tablet, [facility]/pharmacy #[id number], 1-3 tablet By Mouth Daily at bedtime,PRN:for [...] Refills, Soft Stop, 07/29/20 14:09:00 EDT, Powder, [facility], Partial fill upon patient request if the [...] 5 01/30/19 Active OA (osteoarthritis)(Confirmed) 6 Active *[phone] Care Partn Kellee Rodriguez(Confirmed) Active 1followed by Dr. Grayson 2diverticulitis episode 01/04/2011. Went to [facility]. 3refuses colonoscopy secondary to endometrial carcinoma Stage 1A 5Untreated. See sleep medicine phone call: Eqipement to be removed due to non-use 6Arms, bilateral Social History Social History Type Response Smoking Status Never (less than 100 in lifetime) entered on: 02/18/21 Sex
--- OUTSIDE RECORDS SUMMARY | 2023-08-28 06:05 | XMS_ITS | Continuity of Care Document ---
Author Organization [facility] Adult Address [address] [place] [address]- Care Team Providers Care Lap Hand Tool Name Role Phone Celeste BECKHAM, Aspen Primary Care Physician Encounter [facility] R [id number] Date(s): 10/31/19 - 11/07/19 [facility] Adult [address] [place] [address]- [facility] Encounter Diagnosis Preop examination(Discharge Diagnosis) - 10/31/19 Attending Physician: Russell Ramirez MD Allergies, Adverse Reactions, Alerts Substance Reaction Severity Status Ativan 1 Active 1Adverse effect: heightened anxiety reported Immunizations Given and Recorded Vaccine Date Status Refusal Reason influenza virus vaccine, inactivated 1 07/21/15 Gi salvatore influenza virus vaccine, inactivated 2 03/11/14 Gi salvatore pneumococcal 13-valent vaccine 01/13/15 Given Zoster Vaccine Live 03/17/14 Given tetanus/diphtheria/pertussis, acel(Tdap) 3 11/21/13 Given pneumococcal 23-valent vaccine 4 11/21/13 Given 1Admin Note: refuses 2Admin Note: pt refusing 3Result Comment: [11/21/2013] Ordered by Nilson Clifton 4Result Comment: [11/21/2013] Ordered by Zen Clifton Medications amLODIPine 5 mg oral tablet 5 mg, 1, tablet, By Mouth, Daily, # 90 tablet, Refills 0, Tot. Refills 0, Maintenance, 10/31/19 10:34:00 EDT, Route to Pharmacy Electronically, [facility]/pharmacy #[id number], 151, cm, 10/31/19 9:51:00 EDT, Height, 109.4, kg, 12/11/18 17:10:00 EDT, Dry Weight Start Date: 10/31/19 Status: Ordered Blood Pressure Monitor See Instructions, # 1 each, Maintenance, large cuff. DX: HTN, 05/12/15 13:32:29, Compound Start Date: 05/12/15 Status: Ordered CPAP Machine See Instructions, # 1 each, Maintenance, AutoCPAP 8-20, 09/14/18 17:50:04 EDT, Compound Start Date: 09/14/18 Status: Ordered Cymbalta 20 mg oral enteric coated capsule 1 capsule = 20 mg, By Mouth, Daily, # 30 capsule, 1 Refills, Maintenance, 07/08/19 8:57:00 EST, EC Capsule, [facility]/pharmacy #[id number], 151, cm, 06/06/19 15:24:00 EST, Height, 109.4, kg, 12/11/18 17:10:00 EDT, Dry Weight Start Date: 07/08/19 Status: Ordered Fish Oil 500 mg oral capsule 1 capsule = 500 mg, By Mouth, 2 times a day, # 180 capsule, 3 Refills, Maintenance, 05/09/19 10:47:00 EST Start Date: 05/09/19 Status: Ordered hydrochlorothiazide-losartan 25 mg-100 mg oral tablet 1 tablet, By Mouth, Daily, # 90 tablet, 1 Refills, Maintenance, 07/23/19 16:09:00 EDT, [facility]/pharmacy#[id number], 1 tablet By Mouth Daily, 151, cm, 06/06/19 15:24:00 EST, Height, 109.4, kg, 12/11/18 17:10:00 EDT, Dry Weight Start Date: 07/23/19 Status: Ordered ibuprofen 800 mg oral tablet 800 mg, 1, tablet, By Mouth, 2 times a day, PRN, # 60 tablet, Refills 1, Tot. Refills 1, Soft Stop,as needed for arthritis, 07/23/19 16:09:00 EDT, Route to Pharmacy Electronically, [facility]/pharmacy #[id number], 151, cm, 06/06/19 15:24:00 EST, Height, 109.4, kg... Start Date: 07/23/19 Stop Date: 09/21/19 Status: Ordered Lac-Hydrin 12% lotion 1 application, Topically, 2 times a day, # 400 Gm, 1 Refills, Maintenance, 09/17/19 11:45:00 EDT, Lotion, [facility]/pharmacy #[id number], 1 application Topically 2 times a day, 151, cm, 06/06/19 15:24:00 EST, Height, 109.4, kg, 12/11/18 17:10:00 EDT, Dry Weight Start Date: 09/17/19 Status: Ordered lidocaine 5% topical ointment 1 application, Topically, 3 times a day, wash hands thoroughly after application. norwegian, # 50 Gm,1 Refills, Maintenance, 02/27/19 16:48:00 EDT, Ointment, for bilateral shoulder and arm pain that has not responded to other medications, 1 application... Start Date: 02/27/19 Status: Ordered meclizine 25 mg oral tablet 1 tablet = 25 mg, By Mouth, Daily, PRN for dizziness, # 30 tablet, 1 Refills, Maintenance, 10/30/2009:34:00 EDT, Tablet, [facility]/pharmacy #[id number], 151, cm, 10/31/19 9:51:00 EDT, Height, 109.4, kg, 12/11/18 17:10:00 EDT, Dry Weight Start Date: 10/31/19 Status: Ordered multivitamin Multiple Vitamins oral tablet 1 tablet, By Mouth, Daily, # 90 tablet, 3 Refills, Maintenance, 10/03/17 3:35:19 EDT, Tablet, 1 tablet By Mouth Daily Start Date: 10/03/17 Status: Ordered omeprazole 20 mg oral enteric coated capsule 1 capsule = 20 mg, By Mouth, Daily, # 30 capsule, 3 Refills, Maintenance, 02/25/19 14:04:04 EDT, ECCapsule Start Date: 02/25/19 Status: Ordered tiZANidine 4 mg oral capsule 1 capsule = 4 mg, By Mouth, 3 times a day, # 270 capsule, 0 Refills, Maintenance, 07/23/19 16:09:00EDT, Capsule, [facility]/pharmacy #[id number], 151, cm, 06/06/19 15:24:00 EST, Height, 109.4, kg, 12/11/18 17:10:00 EDT, Dry Weight Start Date: 07/23/19 Status: Ordered traZODone 50 mg oral tablet See Instructions, 0.5 - 1 tablet By Mouth Daily at bedtime, # 30 each, Refills 1, Tot. Refills 1, Maintenance, 10/31/19 10:34:00 EDT, Instructions Replace Required Details, Route to Pharmacy Electronically, [facility]/pharmacy #[id number], 151, cm, 10/31/19 9:51:0... Start Date: 10/31/19 Status: Ordered Ventolin HFA 108 mcg/inh inhalation aerosol with adapter 2 puffs, Inhalation, Every 6 hours, PRN for wheezing, use with spacer chamber, # 8 Gm, 6 Refills, Maintenance, 08/24/17 11:08:17 EDT, Aerosol Start Date: 08/24/17 Status: Ordered Problem List Condition Effective Dates [...] 4 Active Osteoarthritis of lumbar spine(Confirmed) Active Depression, major, recurrent , mild(Confirmed) Active Morbid obesity with BMI of 4 0.0-44.9, adult(Confirmed) Active ANGEL (obstructive sleep apnea)(Confirmed) 5 01/30/19 Active OA (osteoarthritis)(Confirmed) 6 Active *[id number]-Care Partn Jeffery Mackenzie(Confirmed) Active 1followed by Dr. Grayson 2diverticulitis episode 01/04/2011. Went to [facility]. 3refuses colonoscopy secondary to endometrial carcinoma Stage 1A 5Untreated. See sleep medicine phone call: Eqipement to be removed due to non-use 6Arms, bilateral Diagnosis Diagnosis Type Effective Dates Health Status Clinical Service Informant Preop examination Discharge Diagnosis 10/31/19 Vital Signs Most recent to oldest [Reference Range]: 1 2 Height 151 cm (10/31/19 10:43 AM) 151 cm (10/31/19 9:51 AM) Weight 104.5 kg (10/31/19 9:51 AM) Oxygen Saturation [94-100 %] 98 % (10/31/19 9:51 AM) Pulse Rate [55-90 bpm] 71 bpm (10/31/19 9:51 AM) Body Mass Index [18.5-24.99] 45.83 *>HHI* (10/31/19 9:51 AM) Blood Pressure [90-138/55-84 mm Hg] 132/ 80mm Hg (10/31/19 10:43 AM) 140/80mm Hg *H* (10/31/19 9:51 AM) Blood pressure sites Arm, right (10/31/19 10:43 AM) Arm, right (10/31/19 9:51 AM) Social History Social History Type Response Smoking Status Never smoker entered on: 09/03/13 Sex
--- OUTSIDE RECORDS SUMMARY | 2023-08-28 06:05 | XMS_ITS | Continuity of Care Document ---
Author Organization [facility] Adult Address [address] [place] [address]- Care Team Providers Care Non Destructive Testing Inspector Name Role Phone Celeste BECKHAM, sApen Primary Care Physician Encounter [facility] Date(s): 06/06/19 - 06/13/19 [facility] Adult [address] [place] [id number]- [facility] Encounter Diagnosis Shoulder pain, bilateral(Discharge Diagnosis) - 06/06/19 Depression(Discharge Diagnosis) - 06/06/19 Insomnia(Discharge Diagnosis) - 06/06/19 Attending Physician: Aspen Alonso NP Allergies, Adverse Reactions, Alerts Substance Reaction [...] tablet, Refills 3, Tot. Refills 3, Maintenance, 02/25/19 13:24:42 EDT, Route to Pharmacy Electronically, [facility]- [id number], [facility] - [facility] Start Date: 02/25/19 Status: Ordered aspirin 81 mg oral tablet 1 tablet = 81 mg, By Mouth, Daily, # 30 tablet, 11 Refills, Maintenance, 09/18/18 9:16:20 EDT, Tablet Start Date: 09/18/18 Status: Ordered Blood Pressure Monitor See Instructions, # 1 each, Maintenance, large cuff. DX: HTN, 05/12/15 13:32:29, Compound Start Date: 05/12/15 Status: Ordered CPAP Machine See Instructions, # 1 each, Maintenance, AutoCPAP 8-20, 09/14/18 17:50:04 EDT, Compound Start Date: 09/14/18 Status: Ordered Cymbalta 20 mg oral enteric coated capsule 1 capsule = 20 mg, By Mouth, Daily, # 30 capsule, 1 Refills, Maintenance, 06/06/19 15:44:00 EST, ECCapsule, [facility]/pharmacy #[id number], 151, cm, 06/06/19 15:24:00 EST, Height, 109.4, kg, 12/11/18 17:10:00 EDT, Dry Weight Start Date: 06/06/19 Status: Ordered Fish Oil 500 mg oral capsule 1 capsule = 500 mg, By Mouth, 2 times a day, # 180 capsule, 3 Refills, Maintenance, 05/09/19 10:47:00 EST Start Date: 05/09/19 Status: Ordered hydrochlorothiazide-losartan 25 mg-100 mg oral tablet 1 tablet, By Mouth, Daily, # 90 tablet, 3 Refills, Maintenance, 11/21/18 14:25:41 EDT, 1 tablet By Mouth Daily Start Date: 11/21/18 Status: Ordered ibuprofen 800 mg oral tablet 800 mg, 1, tablet, By Mouth, 2 times a day, # 60 tablet, Refills 1, Tot. Refills 1, Soft Stop, 06/06/19 15:42:00 EST, Route to Pharmacy Electronically, [facility]/pharmacy #[id number], 151, cm, 06/06/19 15:24:00 EST, Height, 109.4, kg, 12/11/18 17:10:00 EDT, Dry W... Start Date: 06/06/19 Stop Date: 08/05/19 Status: Ordered lidocaine 5% topical ointment 1 application, Topically, 3 times a day, wash hands thoroughly after application. nigerian, # 50 Gm,1 Refills, Maintenance, 02/27/19 16:48:00 EDT, Ointment, for bilateral shoulder and arm pain that has not responded to other medications, 1 application... Start Date: 02/27/19 Status: Ordered meclizine 25 mg oral tablet 1 tablet = 25 mg, By Mouth, Daily, PRN for dizziness, # 30 tablet, 1 Refills, Maintenance, 199:02:47 EDT, Tablet Start Date: 12/04/18 Status: Ordered multivitamin Multiple Vitamins oral tablet 1 tablet, By Mouth, Daily, # 90 tablet, 3 Refills, Maintenance, 10/03/17 3:35:19 EDT, Tablet, 1 tablet By Mouth Daily Start Date: 10/03/17 Status: Ordered nystatin topical 802557 u/gm powder 1 application, Topically, 2 times a day, # 60 Gm, 3 Refills, Maintenance, 06/07/18 15:38:00 EST, Powder, 1 application Topically 2 times a day Start Date: 06/07/18 Status: Ordered omeprazole 20 mg oral enteric coated capsule 1 capsule = 20 mg, By Mouth, Daily, # 30 capsule, 3 Refills, Maintenance, 02/25/19 14:04:04 EDT, ECCapsule Start Date: 02/25/19 Status: Ordered tiZANidine 4 mg oral capsule 1 capsule = 4 mg, By Mouth, 3 times a day, # 90 capsule, 2 Refills, Maintenance, 06/06/19 15:41:00 EST, Capsule, [facility]/pharmacy #[id number], 151, cm, 06/06/19 15:24:00 EST, Height, 109.4, kg, 12/11/18 17:10:00 EDT, Dry Weight Start Date: 06/06/19 Status: Ordered traZODone 50 mg oral tablet See Instructions, 0.5 - 1 tablet By Mouth Daily at bedtime, # 30 each, Refills 1, Tot. Refills 1, Maintenance, 06/06/19 15:43:00 EST, Instructions Replace Required Details, Route to Pharmacy Electronically, [facility]/pharmacy #[id number], 151, cm, 06/06/19 15:24:... Start Date: 06/06/19 Status: Ordered Ventolin HFA 108 mcg/inh inhalation [...] 5 01/30/19 Active OA (osteoarthritis)(Confirmed) 6 Active *[id number] Partn Jeffery Mackenzie(Confirmed) Active 1followed by Dr. Grayson 2diverticulitis episode 01/04/2011. Went to [facility]. 3refuses colonoscopy secondary to endometrial carcinoma Stage 1A 5Untreated. See sleep medicine phone call: Eqipement to be removed due to non-use 6Arms, bilateral Diagnosis Diagnosis Type Effective Dates Health Status Clinical Service Informant Shoulder pain, bilateral Discharge Diagnosis 06/06/19 Depression Discharge Diagnosis 06/06/19 Insomnia Discharge Diagnosis 06/06/19 Vital Signs Most recent to oldest [Reference Range]: 1 Height 151 cm (06/06/19 3:24 PM) Weight 104.9 kg (06/06/19 3:24 PM) Oxygen Saturation [94-100 %] 97 % (06/06/19 3:24 PM) Pulse Rate [55-90 bpm] 90 bpm (06/06/19 3:24 PM) Body Mass Index [18.5-24.99] 46.01 *>HHI* (06/06/19 3:24 PM) Blood Pressure [90-138/55-84 mm Hg] 118/ 80mm Hg (06/06/19 3:24 PM) Temperature [96.8-100.4 DegF] 97.7 DegF (06/06/19 3:24 PM) Mode of Delivery (Oxygen) Room air (06/06/19 3:24 PM) Blood pressure sites Arm, right (06/06/19 3:24 PM) Temperature Route Oral (06/06/19 3:24 PM) Weight Obtained Via Standing scale (06/06/19 3:24 PM) Social History Social History Type Response Smoking Status Never smoker entered on: 09/03/13 Sex
--- OUTSIDE RECORDS SUMMARY | 2023-08-28 06:05 | XMS_ITS | Continuity of Care Document ---
Author Organization [facility] Adult Address [address] [place] [address]- Care Team Providers Care Auto Appraiser Name Role Phone Subha WRIGHT, Chiquita Primary Care Physician Encounter [facility] Date(s): 01/08/20 - 02/07/20 [facility] Adult [address] [place] [id number] [facility] Allergies, Adverse Reactions, Alerts Substance Reaction Severity [...] 10/31/19 10:34:00 EDT, Route to Pharmacy Electronically, [facility]/pharmacy #[id number], 151, cm, 10/31/19 9:51:00 EDT, Height, [...] Refills, Maintenance, 07/08/19 8:57:00 EST, EC Capsule, [facility]/pharmacy #[id number], 151, cm, 06/06/19 15:24:00 EST, Height, [...] tablet, 1 Refills, Maintenance, 07/23/19 16:09:00 EDT, [facility]/pharmacy#[id number], 1 tablet By Mouth Daily, 151, cm, 06/06/19 15:24:00 EST, Height, 109.4, kg, 12/11/18 17:10:00 EDT, Dry Weight Start Date: 07/23/19 Status: Ordered ibuprofen 800 mg oral tablet 800 mg, 1, tablet, By Mouth, 2 times a day, PRN, # 60 tablet, Refills 1, Tot. Refills 1, Soft Stop,as needed for arthritis, 01/09/20 15:17:00 EDT, Route to Pharmacy Electronically, [facility]/pharmacy #[id number], 149.8, cm, 12/26/19 11:12:00 EDT, Height, 100.4,... Start Date: 01/09/20 Stop Date: 03/09/20 Status: Ordered Lac-Hydrin 12% lotion 1 application, Topically, 2 times a day, # 400 Gm, 1 Refills, Maintenance, 09/17/19 11:45:00 EDT, Lotion, [facility], 1 application Topically 2 times a day, 151, cm, 06/06/19 15:24:00 EST, Height, 109.4, kg, 12/11/18 17:10:00 EDT, Dry Weight Start Date: 09/17/19 Status: Ordered lidocaine 5% topical ointment 1 application, Topically, 3 times a day, wash hands thoroughly after application. faroese, # 50 Gm,1 Refills, Maintenance, 02/27/19 16:48:00 EDT, Ointment, for bilateral shoulder and arm pain that has not responded to other medications, 1 application... Start Date: 02/27/19 Status: Ordered meclizine 25 mg oral tablet 1 tablet = 25 mg, By Mouth, Daily, PRN for dizziness, # 30 tablet, 1 Refills, Maintenance, 10/30/2009:34:00 EDT, Tablet, [facility]/pharmacy #[id number], 151, cm, 10/31/19 9:51:00 EDT, Height, [...] EDT, ECCapsule Start Date: 02/25/19 Status: Ordered oxyCODONE 5 mg oral tablet 5 mg, 1, tablet, By Mouth, Every 4 hours, PRN, Refills 0, Tot. Refills 0, Maintenance, Pain , Moderate, 12/26/19 8:19:00 EDT, Partial fill upon patient request Start Date: 12/26/19 Status: Ordered tiZANidine 4 mg oral capsule 1 capsule = 4 mg, By Mouth, 3 times a day, # 90 capsule, 0 Refills, Maintenance, 01/20/20 14:01:00 EDT, Capsule, [facility]/pharmacy #[id number], 149.8, cm, 12/26/19 11:12:00 EDT, Height, 100.4, kg, 12/20/19 12:32:00 EDT, Dry Weight Start Date: 01/20/20 Status: Ordered traZODone 50 mg oral tablet See Instructions, 0.5 - 1 tablet By Mouth Daily at bedtime, # 30 each, Refills 1, Tot. Refills 1, Maintenance, 10/31/19 10:34:00 EDT, Instructions Replace Required Details, Route to Pharmacy Electronically, [facility]/pharmacy #[id number], 151, cm, 10/31/19 9:51:0... Start Date: 10/31/19 [...] 5 01/30/19 Active OA (osteoarthritis)(Confirmed) 6 Active *[id number]-[facility] Partn Jeffery Mackenzie(Confirmed) Active 1followed by Dr. Grayson 2diverticulitis episode 01/04/2011. Went to [facility]. 3refuses colonoscopy secondary to endometrial carcinoma Stage 1A 5Untreated. See sleep medicine phone call: Eqipement to be removed due to non-use 6Arms, bilateral Social History Social History Type Response Smoking Status Never smoker entered on: 09/03/13 Sex
--- OUTSIDE RECORDS SUMMARY | 2023-08-28 06:05 | XMS_ITS | Continuity of Care Document ---
Author Organization [facility] Address [address] [place] [id number]- Care Team Providers Care Mounting Machine Operator Name Role Phone Lazara Thibodeaux MD Primary Care Physician [place] [facility] [place]23 [place] 04/06/23 [facility]/[address] [address]- [place] Allergies, Adverse Reactions, Alerts Substance Reaction Severity Status Ativan 1 anxiety Active Chocolate itching Active 1Adverse effect: heightened anxiety reported Immunizations [...] to exceed 6 tablets/day), # 100 tablet, 11 Refills, Maintenance, 07/22/22 12:36:00 EDT, ER Tablet, [id number], Partial fill upon patient request if the prescription i... Start Date: 07/22/22 Status: Ordered amLODIPine 5 mg oral tablet 5 mg, 1, tablet, By Mouth, Daily, # 30 tablet, Refills 11, Tot. Refills 11, Maintenance, 07/22/22 12:36:00 EDT, Route to Pharmacy Electronically, [facility]/pharmacy #[id number], 150, cm, 05/13/22 10:59:00 EST, Height, 108.2, kg, 04/21/21 14:07:00 EST, Dry Weight Start Date: 07/22/22 Status: Ordered Aspercreme Warming Pain Relief Patch 0.025% topical film See Instructions, Topically 3 times a day to affected area, # 42.5 Gm, 11 Refills, Acute 01/15/24 9:20:00 EDT, 01/13/23 9:20:00 EDT, [facility]/pharmacy #[id number], Partial fill upon patient request if the prescription is for a schedule II opioid drug., Topica... Start Date: 01/13/23 Stop Date: 01/15/24 Status: Ordered Blood Pressure Monitor See Instructions, # 1 each, Maintenance, large cuff. DX: HTN, 05/12/15 13:32:29, Compound Start Date: 05/12/15 Status: Ordered CPAP Machine See Instructions, # 1 each, Maintenance, AutoCPAP 8-20, 09/14/18 17:50:04 EDT, Compound Start Date: 09/14/18 Status: Ordered Diapers See Instructions, # 60 each, Refills 11, Tot. Refills 11, Maintenance, pull ups size large using 2/day Dx: incontinence, 04/03/23 9:13:00 EST, Supply, 150, cm, 01/06/23 9:32:00 EDT, Height, 107.54, kg, 01/06/23 9:32:00 EDT, Dry Weight Start Date: 04/03/23 Status: Ordered disposable bed pads disposable bed pads, See Instructions, # 60 each, Refills 11, Tot. Refills 11, Maintenance, using 2/day Dx: incontinence, 04/03/23 9:14:00 EST, Supply, 150, cm, 01/06/23 9:32:00 EDT, Height, 107.54, kg, 01/06/23 9:32:00 EDT, Dry Weight Start Date: 04/03/23 Status: Ordered duloxetine 20 mg oral enteric coated capsule 1 capsule, By Mouth, Daily, for 90 days, # 90 capsule, 3 Refills, Physician Stop 09/11/24 10:40:00 EDT, 09/17/23 10:40:00 EDT, [id number], 150, cm, 01/06/23 9:32:00 EDT, Height, 107.54, kg, 01/06/23 9:32:00 EDT, Dry Weight Start Date: 09/17/23 Stop Date: 09/11/24 Status: Ordered hydrochlorothiazide-losartan 25 mg-100 mg oral tablet 1 tablet, By Mouth, Daily, # 30 tablet, 11 Refills, Maintenance, 07/22/22 12:36:00 EDT, [id number], 1 tablet By Mouth Daily, 150, cm, 05/13/22 10:59:00 EST, Height, 108.2, kg, 04/21/21 14:07:00 EST, Dry Weight Start Date: 07/22/22 Status: Ordered lidocaine 5% topical ointment 1 application, Topically, 3 times a day, for shoulder or back pain. burkinan. wash hands thoroughly after application, # 50 Gm, 2 Refills, Maintenance, 07/22/22 12:36:00 EDT, Ointment, [id number], Partial fill upon patient request if the pres... Start Date: 07/22/22 Status: Ordered meclizine 25 mg oral tablet 1 tablet = 25 mg, By Mouth, 3 times a day, PRN for dizziness, # 30 tablet, 11 Refills, Acute 01/08/24 10:27:00 EDT, 07/24/23 12:37:00 EDT, Tablet, [id number], Partial fill upon patient request if the prescription is for a schedule II opioid dr... Start Date: 07/24/23 Stop Date: 01/08/24 Status: Ordered Melatonin 3 mg oral tablet 1-3 TABLET, By Mouth, Daily at bedtime, PRN NEEDED FOR SLEEP *STOP TIZANIDINE*, # 270 tablet, 11Refills, Maintenance, 07/22/22 12:36:00 EDT, [id number], 90, 1-3 TABLET By Mouth Daily at bedtime,PRN: NEEDED FOR SLEEP *STOP TIZANIDINE*, 15... Start Date: 07/22/22 Status: Ordered meloxicam 7.5 mg oral tablet 1 tablet = 7.5 mg, By Mouth, Daily, instead of nabumetone, # 30 tablet, 0 Refills, Maintenance, 03/10/23 10:02:00 EDT, Tablet, [id number], Partial fill upon patient request if the prescription is for a schedule II opioid drug., 150, cm, ... Start Date: 03/10/23 Status: Ordered multivitamin Multiple Vitamins oral tablet 1 tablet, By Mouth, Daily, # 30 tablet, 11 Refills, Maintenance, 07/22/22 12:36:00 EDT, Tablet, [facility], 1 tablet By Mouth Daily, 150, cm, 05/13/22 10:59:00 EST, Height, 108.2, kg, 04/21/21 14:07:00 EST, Dry Weight Start Date: 07/22/22 Status: Ordered nabumetone 750 mg oral tablet 1 tablet = 750 mg, By Mouth, 2 times a day, # 180 tablet, 3 Refills, Maintenance, 01/06/23 10:23:00EDT, Tablet, [id number], Partial fill upon patient request if the prescription is for a schedule II opioid drug., 150, cm, 01/06/23 9:32:00 EDT... Start Date: 01/06/23 Status: Ordered Spacer Spacer, See Instructions, # 1 each, Refills 11, Tot. Refills 11, Maintenance, Asthma (J45.909) CARMELA lifetime, 09/27/21 10:41:00 EDT, Compound, 150, cm, 09/27/21 10:05:00 EDT, Height, 108.2, kg, 04/21/21 14:07:00 EST, Dry Weight Start Date: 09/27/21 Status: Ordered Ventolin HFA 108 mcg/inh inhalation aerosol with adapter 2 puffs, Inhalation, Every 6 hours, PRN for wheezing, use with spacer chamber, # 18 Gm, 11 Refills,Maintenance, 01/06/23 10:27:00 EDT, Aerosol, [id number], 150, cm, 01/06/23 9:32:00 EDT, Height, 107.54, kg, 01/06/23 9:32:00 EDT, Dry Weight Start Date: 01/06/23 Status: Ordered Voltaren 1% topical gel = 2 Gm, Topically, 4 times a day, # 100 Gm, 11 Refills, Maintenance, 07/22/22 12:36:00 EDT, [id number], Partial fill upon patient request if the prescription is for a schedule II opioid drug., 2 Gm Topically 4 times a day, 150, cm, 05/13/22 10... Start Date: 07/22/22 Status: Ordered wipes wipes, See Instructions, # 2 pack/packet, Refills 11, Tot. Refills 11, Maintenance, for use with diaper changes Dx: incontinence, 04/03/23 9:14:00 EST, Supply, 150, cm, 01/06/23 9:32:00 EDT, Height, 107.54, kg, 01/06/23 9:32:00 EDT, Dry Weight Start Date: 04/03/23 Status: Ordered Wixela Inhub 250 mcg-50 mcg inhalation powder 1 puffs, Inhalation, 2 times a day, # 1 each, 11 Refills, Maintenance, 07/22/22 12:36:00 EDT, [id number], resent under correct PCP, 1 puffs Inhalation 2 times a day, 150, cm, 05/13/22 10:59:00 EST, Height, 108.2, kg, 04/21/21 14:07:00 EST, Dry... 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 Confirmed Active Diverticulosis 2 Confirmed Active Elevated sed rate Confirmed Active GERD (gastroesophageal reflux disease) Confirmed Active Generalized anxiety disorder Confirmed Active Glaucoma Confirmed Active Health Maintenance Alteration 3 Confirmed Active Status post bilateral knee replacements Confirmed 03/01/12 Active S/P JUSTIN-BSO (total abdominal hysterectomy and bilateral salpingo-oophorectomy ) 4 Confirmed Active Imbalance Confirmed Active Osteoarthritis of lumbar spine Confirmed Active Mild persistent asthma Confirmed Active Depression, major, recurrent, mild Confirmed Active Hyperlipidemia, mixed Confirmed Active Morbid obesity with BMI of 40.0-44.9, adult Confirmed Active ANGEL (obstructive sleep apnea) 5 Confirmed 01/30/19 Active OA (osteoarthritis) 6 Confirmed Active OA (osteoarthritis) of hip Confirmed Active *[id number] Printing Pressman Kellee Rodriguez Confirmed Active Severe obesity Confirmed Active Urine incontinence Confirmed Active 1followed by Dr. Grayson 2diverticulitis episode 01/04/2011. Went to [facility] 3refuses colonoscopy secondary to endometrial carcinoma Stage 1A 5Untreated. See sleep medicine phone call: Eqipement to be removed due to non-use 6Arms, bilateral Social History Social History Type Response Smoking Status Never (less than 100 in lifetime) entered on: 02/18/21 Sex Patient Care team information Care Team Personnel Name: Celine Max RN Position: [facility] SN RN Member Role: Primary Care Nurse Name: Briana Nicole RN Position: [facility] Onco RN Member Role: Primary Care Nurse Name: Lazara Thibodeaux MD Position: [facility] Physician - Primary Care Member Role: PCP Address: Address: [address] [place] [id number]- Name: Magdalena Reyes Position: [facility] Outreach Member Role: Lifetime Consulting Physician Name: Leesa Cross RN Position: [facility] RN Member Role: Primary Care Nurse Name: Hermelinda Santacruz RN Position: [facility] RN Member Role: Primary Care Nurse Care Team Related Persons Name: HARMAN BAY Address: home Name: KEL[place] Address: [place] [address]
--- OUTSIDE RECORDS SUMMARY | 2023-08-28 06:06 | XMS_ITS | Continuity of Care Document ---
Author Organization [facility] Address [address] [place] [address]- Care Team Providers Care Booth Manager Name Role Phone Lazara Thibodeaux MD Primary Care Physician [phone] [id number]/24/[facility]/[place] [address]- Attending Physician: Lazara Thibodeaux MD Admitting Physician: Lazara Thibodeaux MD Referring Physician: Lazara Thibodeaux MD Allergies, Adverse Reactions, Alerts Substance Reaction [...] tablets/day), # 100 tablet, 11 Refills, Maintenance, 09/27/21 10:40:00 EDT, ER Tablet, [facility]/pharmacy #[id number], Partial fill upon patient request if the prescription i... Start Date: 09/27/21 Status: Ordered amLODIPine 5 mg oral tablet 5 mg, 1, tablet, By Mouth, Daily, # 30 tablet, Refills 11, Tot. Refills 11, Maintenance, 09/27/21 10:40:00 EDT, Route to Pharmacy Electronically, [facility]/pharmacy #[id number], 150, cm, 09/27/21 10:05:00 EDT, Height, 108.2, kg, 04/21/21 14:07:00 EST, Dry Weight Start Date: 09/27/21 Status: Ordered Blood Pressure Monitor See Instructions, # 1 each, Maintenance, large cuff. DX: HTN, 05/12/15 13:32:29, Compound Start Date: 05/12/15 Status: Ordered CPAP Machine See Instructions, # 1 each, Maintenance, AutoCPAP 8-20, 09/14/18 17:50:04 EDT, Compound Start Date: 09/14/18 Status: Ordered duloxetine 20 mg oral enteric coated capsule 1 capsule, By Mouth, Daily, for 30 days, # 30 capsule, 11 Refills, Physician Stop 09/22/22 10:40:00EDT, 09/27/21 10:40:00 EDT, [facility]/pharmacy #207, 150, cm, 09/27/21 10:05:00 EDT, Height, 108.2, kg, 04/21/21 14:07:00 EST, Dry Weight Start Date: 09/27/21 Stop Date: 09/22/22 Status: Ordered hydrochlorothiazide-losartan 25 mg-100 mg oral tablet 1 tablet, By Mouth, Daily, # 30 tablet, 11 Refills, Maintenance, 09/27/21 10:41:00 EDT, [facility]/pharmacy #[id number], 1 tablet By Mouth Daily, 150, cm, 09/27/21 10:05:00 EDT, Height, 108.2, kg, 04/21/21 14:07:00 EST, Dry Weight Start Date: 09/27/21 Status: Ordered lidocaine 5% topical ointment 1 application, Topically, 3 times a day, for shoulder or back pain. macedonian. wash hands thoroughly after application, # 50 Gm, 2 Refills, Maintenance, 01/29/21 12:22:00 EDT, Ointment, [facility]/pharmacy #[id number], Partial fill upon patient request if the pres... Start Date: 01/29/21 Status: Ordered meclizine 25 mg oral tablet 1 tablet = 25 mg, By Mouth, 3 times a day, PRN for dizziness, # 30 tablet, 0 Refills, Acute 09/28/22 10:42:00 EDT, 09/27/21 10:42:00 EDT, Tablet, [facility]/pharmacy #[id number], Partial fill upon patient requestif the prescription is for a schedule II opioid cortez... Start Date: 09/27/21 Stop Date: 09/28/22 Status: Ordered Melatonin 3 mg oral tablet 1-3 tablet, By Mouth, Daily at bedtime, PRN for insomnia, Discontinue tizanidine, # 60 tablet, 11 Refills, Maintenance, 09/27/21 10:41:00 EDT, Tablet, [facility]/pharmacy #[id number], 1-3 tablet By Mouth Daily atbedtime,PRN:for insomnia,Instr:Discontinue tizanidi... Start Date: 09/27/21 Status: Ordered multivitamin Multiple Vitamins oral tablet 1 tablet, By Mouth, Daily, # 30 tablet, 11 Refills, Maintenance, 09/27/21 10:42:00 EDT, Tablet, [facility]/pharmacy #207, 1 tablet By Mouth Daily, 150, cm, 09/27/21 10:05:00 EDT, Height, 108.2, kg, 04/21/21 14:07:00 EST, Dry Weight Start Date: 09/27/21 Status: Ordered Spacer Spacer, See Instructions, # [...] spacer chamber, # 18 Gm, 11 Refills,Maintenance, 09/27/21 10:40:00 EDT, Aerosol, [facility]/pharmacy #[id number], 150, cm, 09/27/21 10:05:00 EDT, Height, 108.2, kg, 04/21/21 14:07:00 EST, Dry Weight Start Date: 09/27/21 Status: Ordered Voltaren 1% topical gel = 2 Gm, Topically, 4 times a day, # 100 Gm, 11 Refills, Maintenance, 09/27/21 10:40:00 EDT, [facility]/pharmacy #[id number], Partial fill upon patient request if the prescription is for a schedule II opioid drug., 2 Gm Topically 4 times a day, 150, cm, 09/27/21 10... Start Date: 09/27/21 Status: Ordered Wixela Inhub 250 mcg-50 mcg inhalation powder 1 puffs, Inhalation, 2 times a day, # 1 each, 11 Refills, Maintenance, 09/27/21 10:41:00 EDT, [facility]/pharmacy #207, resent under correct PCP, 1 puffs Inhalation 2 times a day, 150, cm, 09/27/21 10:05:00 EDT, Height, 108.2, kg, 04/21/21 14:07:00 EST, Dry... Start Date: 09/27/21 Status: Ordered Problem List Condition Confirmation Course [...] Active OA (osteoarthritis) of hip Confirmed Active *[id number] Intern Kellee Rodriguez Confirmed Active Severe obesity Confirmed Active 1followed by Dr. Grayson 2diverticulitis episode 01/04/2011. Went to [facility] 3refuses colonoscopy secondary to endometrial carcinoma Stage 1A 5Untreated. See sleep medicine phone call: Eqipement to be removed due to non-use 6Arms, bilateral Social History Social History Type Response Smoking Status Never (less than 100 in lifetime) entered on: 02/18/21 Sex Patient Care team information Care Team Personnel Name: Winter GATN, Celine Position: [facility] RN Member Role: Primary Care Nurse Name: Briana Nicole RN Position: [facility] Onco RN Member Role: Primary Care Nurse Name: Lazara Thibodeaux MD Position: [facility] Primary Care Physician Member Role: PCP Address: Address: [address] [place] [address] Name: Magdalena Reyes Position: [facility] Outreach Member Role: Lifetime Consulting Physician Name: Leesa Cross RN Position: [facility] RN Member Role: Primary Care Nurse Name: Hermelinda Santacruz RN Position: [facility] RN Member Role: Primary Care Nurse Care Team Related Persons Name: HARMAN BAY Address: home Name: KELSI SCHMID Address: [place] [address]
--- OUTSIDE RECORDS SUMMARY | 2023-08-28 06:06 | XMS_ITS | Continuity of Care Document ---
Author Organization [facility] Address Unknown Care Team Providers Care Sound Cutter Name Role Phone Maria Howard MD Primary Care Physician Encounter [facility] [place] Date(s): 03/22/21 - 06/09/21 [facility] Attending Physician: Anibal Valadez MD Admitting Physician: Anibal Valadez MD Allergies, Adverse Reactions, Alerts Substance Reaction [...] Maintenance, 01/20/21 15:16:00 EDT, ER Tablet, [id number], Partial fill upon patient request if the prescription is... Start Date: 01/20/21 Status: Ordered amLODIPine 5 mg oral tablet 5 mg, 1, tablet, By Mouth, Daily, # 90 tablet, Refills 3, Tot. Refills 3, Maintenance, 10/27/20 19:35:00 EDT, Route to Pharmacy Electronically, [facility]/pharmacy #[id number], 149.8, cm, 10/08/20 12:18:00 EDT, Height, [...] 90 capsule, 1 Refills, [facility] STORE [id number], 149.8, cm, 10/08/20 12:18:00 EDT, Height, 100.4, kg, 12/20/19 12:32:00 EDT, Dry Weight Start Date: 01/06/21 Status: Ordered hydrochlorothiazide-losartan 25 mg-100 mg oral tablet 1 tablet, By Mouth, Daily, # 90 tablet, 3 Refills, Maintenance, 10/27/20 19:34:00 EDT, [facility]/pharmacy#[id number], 1 tablet By Mouth Daily, 149.8, cm, 10/08/20 12:18:00 EDT, Height, 100.4, kg, 12/20/19 12:32:00 EDT, Dry Weight Start Date: 10/27/20 Status: Ordered lidocaine 5% topical ointment 1 application, Topically, 3 times a day, for shoulder or back pain. mosotho. wash hands thoroughly after application, # 50 Gm, 2 Refills, Maintenance, 01/29/21 12:22:00 EDT, Ointment, [facility]/pharmacy #[id number], Partial fill upon patient request if the pres... Start Date: 01/29/21 Status: Ordered meclizine 25 mg oral tablet 1 tablet = 25 mg, By Mouth, Daily, PRN for dizziness, # 30 tablet, 1 Refills, Maintenance, 04/07/2114:36:00 EST, Tablet, [facility]/pharmacy #[id number], 149.8, cm, 03/29/21 10:32:00 EST, Height, 100.4, kg, 12/20/19 12:32:00 EDT, Dry Weight Start Date: 04/07/21 Status: Ordered Melatonin 3 mg oral tablet 1-3 tablet, By Mouth, Daily at bedtime, PRN for insomnia, Discontinue tizanidine, # 90 tablet, 0 Refills, Maintenance, 05/25/21 18:09:00 EST, Tablet, [facility], 1-3 tablet By Mouth Daily at bedtime,PRN:for insomnia,Instr:Discontinue tiz... Start Date: 05/25/21 Status: Ordered multivitamin Multiple Vitamins oral tablet 1 tablet, By Mouth, Daily, # 90 tablet, 3 Refills, Maintenance, 10/03/17 3:35:19 EDT, Tablet, 1 tablet By Mouth Daily Start Date: 10/03/17 Status: Ordered oxyCODONE 5 mg oral tablet 5 mg, 1, tablet, By Mouth, Every 6 hours, PRN, Refills 0, Tot. Refills 0, Maintenance, Pain , Moderate, 04/22/21 10:13:00 EST, Partial fill upon patient request if the prescription is for a schedule II opioid drug. Start Date: 04/22/21 Status: Ordered Shingrix intramuscular injection = 0.5 mL, Intramuscular, Once, repeat dose in 2 to 6 months, # 1 each, 0 Refills, Soft Stop, 07/29/20 14:09:00 EDT, Powder, [facility], Partial fill upon patient request if the [...] 5 01/30/19 Active OA (osteoarthritis)(Confirmed) 6 Active *[id number] Care Partn Kellee Rodriguez(Confirmed) Active Severe obesity(Confirmed) Active 1followed by Dr. Grayson 2diverticulitis episode 01/04/2011. Went to [facility]. 3refuses colonoscopy secondary to endometrial carcinoma Stage 1A 5Untreated. See sleep medicine phone call: Eqipement to be removed due to non-use 6Arms, bilateral Social History Social History Type Response Smoking Status Never (less than 100 in lifetime) entered on: 02/18/21 Sex
--- OUTSIDE RECORDS SUMMARY | 2023-08-28 06:06 | XMS_ITS | Continuity of Care Document ---
Author Organization [facility] Address Unknown Care Team Providers Care Business Services Tech Name Role Phone Wil BECKHAM, Katy Mazariegos Primary Care Physician [place] [facility] [place]s): 03/04/21 - 04/03/21 [facility] Allergies, Adverse Reactions, Alerts Substance Reaction [...] Maintenance, 01/20/21 15:16:00 EDT, ER Tablet, [id number], Partial fill upon patient request if the prescription is... Start Date: 01/20/21 Status: Ordered amLODIPine 5 mg oral tablet 5 mg, 1, tablet, By Mouth, Daily, # 90 tablet, Refills 3, Tot. Refills 3, Maintenance, 10/27/20 19:35:00 EDT, Route to Pharmacy Electronically, [facility]/pharmacy #[id number], 149.8, cm, 10/08/20 12:18:00 EDT, Height, [...] Mouth, Daily, # 90 capsule, 1 Refills, [facility]ORE [id number], 149.8, cm, 10/08/20 12:18:00 EDT, Height, 100.4, kg, 12/20/19 12:32:00 EDT, Dry Weight Start Date: 01/06/21 Status: Ordered Fish Oil 1000 mg oral capsule 1 capsule = 1,000 mg, By Mouth, 2 times a day, # 60 capsule, 11 Refills, Maintenance, 01/20/21 15:17:00 EDT, Capsule, [facility]/pharmacy #207, 149.8, cm, 01/20/21 13:08:00 EDT, Height, 100.4, kg, 12/20/2011:32:00 EDT, Dry Weight Start Date: 01/20/21 Status: Ordered hydrochlorothiazide-losartan 25 mg-100 mg oral tablet 1 tablet, By Mouth, Daily, # 90 tablet, 3 Refills, Maintenance, 10/27/20 19:34:00 EDT, [facility]/pharmacy#[id number], 1 tablet By Mouth Daily, 149.8, cm, 10/08/20 12:18:00 EDT, Height, 100.4, kg, 12/20/19 12:32:00 EDT, Dry Weight Start Date: 10/27/20 Status: Ordered lidocaine 5% topical ointment 1 application, Topically, 3 times a day, for shoulder or back pain. honduran. wash hands thoroughly after application, # 50 Gm, 2 Refills, Maintenance, 01/29/21 12:22:00 EDT, [facility]ment, [id number] Partial fill upon patient request if the pres... Start Date: 01/29/21 Status: Ordered meclizine 25 mg oral tablet 1 tablet = 25 mg, By Mouth, Daily, PRN for dizziness, # 30 tablet, 1 Refills, Maintenance, 10/30/2009:34:00 EDT, Tablet, [facility]/pharmacy #[id number], 151, cm, 10/31/19 9:51:00 EDT, Height, 109.4, kg, 12/11/18 17:10:00 EDT, Dry Weight Start Date: 10/31/19 Status: Ordered Melatonin 3 mg oral tablet 1-3 tablet, By Mouth, Daily at bedtime, PRN for insomnia, Discontinue tizanidine, # 90 tablet, 3 Refills, Maintenance, 01/20/21 15:15:00 EDT, [facility]t, [id number]-3 tablet By Mouth Daily at [...] Refills, Soft Stop, 07/29/20 14:09:00 EDT, Powder, [facility], Partial fill upon patient request [...] 5 01/30/19 Active OA (osteoarthritis)(Confirmed) 6 Active *[id number] Care Partn sheldon Rodriguez(Confirmed) Active Severe obesity(Confirmed) Active 1followed by Dr. Grayson 2diverticulitis episode 01/04/2011. Went to [facility]. 3refuses colonoscopy secondary to endometrial carcinoma Stage 1A 5Untreated. See sleep medicine phone call: Eqipement to be removed due to non-use 6Arms, bilateral Social History Social History Type Response Smoking Status Never (less than 100 in lifetime) entered on: 02/18/21 Sex
--- OUTSIDE RECORDS SUMMARY | 2023-08-28 06:06 | XMS_ITS | Continuity of Care Document ---
Author Organization [facility] Address [address] [place] [address]- Care Team Providers Care Oil Field Pipeline Supervisor Name Role Phone Lazara Thibodeaux MD Primary Care Physician [place] [facility] [id number] Date(s): 07/22/22 - 08/21/22 [facility]/[address] [address]- Attending Physician: Admtr, Ar8 Allergies, Adverse Reactions, Alerts Substance Reaction Severity [...] Maintenance, 07/22/22 12:36:00 EDT, ER Tablet, [id number], Partial fill upon patient request if the prescription i... Start Date: 07/22/22 Status: Ordered amLODIPine 5 mg oral tablet 5 mg, 1, tablet, By Mouth, Daily, # 30 tablet, Refills 11, Tot. Refills 11, Maintenance, 07/22/22 12:36:00 EDT, Route to Pharmacy Electronically, [facility]/pharmacy #207, 150, cm, 05/13/22 10:59:00 EST, Height, 108.2, kg, 04/21/21 14:07:00 EST, Dry Weight Start Date: 07/22/22 Status: Ordered Blood Pressure Monitor See Instructions, [...] # 30 capsule, 11 Refills, Physician Stop 09/17/23 10:40:00EDT, 09/22/22 10:40:00 EDT, [facility]/pharmacy #207, 150, cm, 05/13/22 10:59:00 EST, Height, 108.2, kg, 04/21/21 14:07:00 EST, Dry Weight Start Date: 09/22/22 Stop Date: 09/17/23 Status: Ordered hydrochlorothiazide-losartan 25 mg-100 mg oral tablet 1 tablet, By Mouth, Daily, # 30 tablet, 11 Refills, Maintenance, 07/22/22 12:36:00 EDT, [facility]/pharmacy #207, 1 tablet By Mouth Daily, 150, cm, 05/13/22 10:59:00 EST, Height, 108.2, kg, 04/21/21 14:07:00 EST, Dry Weight Start Date: 07/22/22 Status: Ordered lidocaine 5% topical ointment 1 application, Topically, 3 times a day, for shoulder or back pain. turks and caicos islander. wash hands thoroughly after application, # 50 Gm, 2 Refills, Maintenance, 07/22/22 12:36:00 EDT, Ointment, [facility]/pharmacy #[id number], Partial fill upon patient request if the pres... Start Date: 07/22/22 Status: Ordered meclizine 25 mg oral tablet 1 tablet = 25 mg, By Mouth, 3 times a day, PRN for dizziness, # 30 tablet, 11 Refills, Acute 07/24/23 12:37:00 EDT, 09/28/22 10:42:00 EDT, Tablet, [facility]/pharmacy #207, Partial fill upon patient request if the prescription is for a schedule II opioid dr... Start Date: 09/28/22 Stop Date: 07/24/23 Status: Ordered Melatonin 3 mg oral tablet 1-3 TABLET, By Mouth, Daily at bedtime, PRN NEEDED FOR SLEEP *STOP TIZANIDINE*, # 270 tablet, 11Refills, Maintenance, 07/22/22 12:36:00 EDT, [facility]/pharmacy #207, 90, 1-3 TABLET By Mouth Daily at bedtime,PRN: NEEDED FOR SLEEP *STOP TIZANIDINE*, 15... Start Date: 07/22/22 Status: Ordered multivitamin Multiple Vitamins oral tablet 1 tablet, By Mouth, Daily, # 30 tablet, 11 Refills, Maintenance, 07/22/22 12:36:00 EDT, Tablet, [facility]/pharmacy #207, 1 tablet By Mouth Daily, 150, cm, 05/13/22 10:59:00 EST, Height, 108.2, kg, 04/21/21 14:07:00 EST, Dry Weight Start Date: 07/22/22 Status: Ordered nabumetone 750 mg oral tablet 1 tablet = 750 mg, By Mouth, 2 times a day, # 60 tablet, 0 Refills, Maintenance, 07/22/22 12:36:00 EDT, Tablet, [facility]/pharmacy #207, Partial fill upon patient request if the prescription is for a schedule II opioid drug., 150, cm, 05/13/22 10:59:00 EST... Start Date: 07/22/22 Status: Ordered Spacer Spacer, See Instructions, # [...] spacer chamber, # 18 Gm, 11 Refills,Maintenance, 07/22/22 12:36:00 EDT, Aerosol, [id number], 150, cm, 05/13/22 10:59:00 EST, Height, 108.2, kg, 04/21/21 14:07:00 EST, Dry Weight Start Date: 07/22/22 Status: Ordered Voltaren 1% topical gel = 2 Gm, Topically, 4 times a day, # 100 Gm, 11 Refills, Maintenance, 07/22/22 12:36:00 EDT, [id number], Partial fill upon patient request if the prescription is for a schedule II opioid drug., 2 Gm Topically 4 times a day, 150, cm, 05/13/22 10... Start Date: 07/22/22 Status: Ordered Wixela Inhub 250 mcg-50 mcg [...] Active OA (osteoarthritis) of hip Confirmed Active *[id number] Technical Support Assistant Kellee Rodriguez Confirmed Active Severe obesity Confirmed Active 1followed by Dr. Grayson 2diverticulitis episode 01/04/2011. Went to [facility] 3refuses colonoscopy secondary to endometrial carcinoma Stage 1A 5Untreated. See sleep medicine phone call: Eqipement to be removed due to non-use 6Arms, bilateral Social History Social History Type Response Smoking Status Never (less than 100 in lifetime) entered on: 02/18/21 Sex Note * Event Display: IR Special Procedures, Non-BH Authored Date: * Event Display: Non BH Cardiovascular Results Authored Date: * Angelic WRIGHT, Pati Martin: REVIEW Event Display: Non BH Lab Results Authored Date: * Event Display: X-Ray Hip/Groin, Non- BH Authored Date: * Liliana Clifton NP: REVIEW Event Display: Bone Density, Non-BH Authored Date: * Liliana Clifton NP: REVIEW Event Display: Laboratory Result Scanned Authored Date: * Event Display: Non BH Lab Results Authored Date: * Kylah Beltran: SIGN Kylah Beltran: SIGN, MODIFY Kylah Beltran: MODIFY, MODIFY, PERFORM, MODIFY, MODIFY, MODIFY, MODIFY, MODIFY, MODIFY, SIGN, VERIFY, MODIFY Event Display: Care Team Progress Note Authored Date: Patient: IRAJ BETH Age: 66 years Sex: Female : 1945 Associated Diagnoses: None Author: Yenni Jeffers Visit Information Chief Complaint: Care Team Progress Note. History of Present Illness - Pt has declined mental health services. 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 Care seems to be appropriate. House is clean her meals are made. Patient has refused prefills and does not want a nurse in the hime. She has struggle with medication compliance. Past Medical History Problem list All Problems Seasonal allergies / Confirmed Osteoarthritis / Confirmed Hypertension / Confirmed Hyperlipidemia / SNOMED CT 35781536 / Confirmed Glaucoma / Confirmed Edema / Confirmed Diverticulosis / SNOMED CT 6666377192 / Confirmed DDD (degenerative disc disease), lumbar / SNOMED CT [id number] / Confirmed Asthma / Confirmed Allergies Allergic Reactions (Selected) NKA Current medications (Selected) Outpatient Medications Incomplete Alphagan eye drops: Alphagan eye drops, 1 drop, Ophth Solution, Eyes, Both, Once, Routine, 03/21/078:00:00, 03/21/07 8:00:00, Stop date 03/21/07 8:00:00 Prescriptions Ordered Advair Diskus 500 mcg-50 mcg inhalation powder: 1 puffs, Inhalation, 2 times a day, # 60 each, 5 Refills, Maintenance Diovan HCT 12.5 mg-160 mg oral tablet: 1 tablet, By Mouth, 2 times a day, # 60 tablet, 5 Refills, Maintenance Lipitor 20 mg oral tablet: 1 tablet = 20 mg, By Mouth, Daily, DC other lipid lowering agents, # 30 tablet, 5 Refills, Maintenance Nebulizer Machine: See Instructions, 1, 0, 0, 06/11/08 16:03:47, as directed, ADS OPPTHS, Constant Indicator, Nebulizer Machine ProAir HFA 90 mcg/inh inhalation aerosol with adapter: 2 puffs, Inhalation, 4 times a day, PRN as needed for wheezing, # 1 each, 5 Refills, Maintenance Vicodin 500 mg-5 mg oral tablet: 1 tablet, By Mouth, 2 times a day, PRN as needed for pain, # 24 tablet, 0 Refills, Maintenance Vitamin D 20831 iu oral capsule: 1 capsule = 50,000 International_Units, By Mouth, Every week, # 8 capsule, 0 Refills, Maintenance acetaminophen 500 mg oral tablet: 2 tablet = 1,000 mg, By Mouth, 3 times a day, PRN for pain, turks and ca[place] islander directions DC IBUPROFEN, # 120 tablet, 0 Refills, Maintenance, Tablet albuterol 0.083% inhalation solution: 3 mL = 2.5 mg, Inhalation, Every 4 hours, PRN Wheezing/Shortness of Breath, turks and caicos islander please, # 100 each, 2 Refills, Maintenance automatic bp machine: automatic bp machine, See Instructions, # 1 units, Refills 0, Tot. Refills 0,Maintenance, use as directed, 02/03/10 13:55:26 calcium-vitamin D 600 mg-400 intl units oral tablet: 1 tablet, By Mouth, 2 times a day, # 60 tablet, 5 Refills, Maintenance, Tablet loratadine 10 mg oral tablet: See Instructions, 1 tab by mouth daily in the evening., # 30 tablet, 3 Refills, Maintenance omeprazole 20 mg oral enteric coated tablet: 1 tablet = 20 mg, By Mouth, Daily, # 30 tablet, 3 Refills, Maintenance walker with a seat and wheels: walker with a seat and wheels, See Instructions, # 1 units, Refills 0, Tot. Refills 0, Maintenance, as directed to assist in ambulation, 01/05/10 12:34:33 Documented Medications Documented Alphagan P 0.1% ophthalmic solution: 1, drops, Eyes, Both, 2 times a day, 0, 0, 10/30/06 13:10:53, Print JOSE Number, [id number], Constant Indicator Physical Examination Vital Signs Weight : Weight lb/oz. 02/22/2012 14:10 Weight lb/oz 227 lb 11 oz Impression and Plan Bilateral replacement of knee joints DDD (degenerative disc disease), lumbar Hyperlipidemia Moderate persistent asthma HTN - Hypertension Comprehensive Plan as follows --[facility] nurse will see if patient would accept blister packing through [facility] --[facility] will process PT referral --refused flu vax --bone density overdue --assess desire for pneumovax and zostavax--[facility] will book nurse visit if patient agrees--previouslydeclined -- check again with patient to see if willing to attend ophthalmology appt med list reviewed, diagnosis list updated, health maintenance needs reviewed, goal is improve med compliance and possibly address mental health further if patient will allow >30 mins on care coordination * yKlah Beltran: PERFORM Event Display: Care Team Progress Note Authored Date: [facility] nurse healthcare specialist presen at the care coordination meeting. * Debby Tucker: PERFORM Event Display: Radiology Results Scanned Authored Date: [id number] * Adwoa Johnsonrimar: PERFORM Event Display: Radiology Results Scanned Authored Date: [id number] * Debby Tucker: PERFORM Event Display: Radiology Results Scanned Authored Date: [id number] Patient Care team information Care Team Personnel Name: Celine Max RN Position: [facility] SN RN Member Role: Primary Care Nurse Name: Briana Nicole RN Position: [facility] Onco RN Member Role: Primary Care Nurse Name: Lazara Thibodeaux MD Position: [facility] Primary Care Physician Member Role: PCP Address: Address: [address] [place] [id number]- Name: Magdalena Reyes Position: [facility] Outreach Member Role: Lifetime Consulting Physician Name: Leesa Cross RN Position: [facility] RN Member Role: Primary Care Nurse Name: Hermelinda Santacruz RN Position: [facility] RN Member Role: Primary Care Nurse Care Team Related Persons Name: HARMAN BAY Address: home Name: [address] [place] Address: [place] [address]
--- OUTSIDE RECORDS SUMMARY | 2023-08-28 06:06 | XMS_ITS | Continuity of Care Document ---
Author Organization [facility] Address [address] [place] [address]- Care Team Providers Care Staff Reporter Name Role Phone Subha WRIGHT, Chiquita Primary Care Physician Encounter [facility] Date(s): 06/08/20 - 07/08/20 [facility] [address] [place] [address]- Attending Physician: Benjy Sal Admitting Physician: Admtr, Benjy Referring Physician: Admtr, Ar8 Allergies, Adverse Reactions, Alerts [...] Comment: [11/21/2013] Ordered by Zen Clifton Medications Advair Diskus 250 mcg-50 mcg inhalation powder 1, puffs, Inhalation, 2 times a day, # 180 each, Refills 1, Tot. Refills 1, Maintenance, 06/08/20 11:21:00 EST, Powder, Route to Pharmacy Electronically, [id number], [facility]/pharmacy #[id number], 149.8, cm, 06/08/20 10:55:00 EST, Heigh... Start Date: 06/08/20 Status: Ordered amLODIPine 5 mg oral tablet 5 mg, 1, tablet, By Mouth, Daily, # 90 tablet, Refills 1, Tot. Refills 1, Maintenance, 03/02/20 11:53:00 EDT, Route to Pharmacy Electronically, [facility]/pharmacy #207, 149.8, cm, 12/26/19 11:12:00 EDT, Height, 100.4, kg, 12/20/19 12:32:00 EDT, Dry Weight Start Date: 03/02/20 Status: Ordered Blood Pressure Monitor See Instructions, [...] Refills, Maintenance, 07/08/19 8:57:00 EST, EC Capsule, [facility]/pharmacy #[id number], 151, cm, 06/06/19 15:24:00 EST, Height, [...] Daily, # 90 tablet, 1 Refills, Maintenance, 05/12/20 14:40:00 EST, [facility]/pharmacy#[id number], 1 tablet By Mouth Daily, 149.8, cm, 12/26/19 11:12:00 EDT, Height, 100.4, kg, 12/20/19 12:32:00 EDT, Dry Weight Start Date: 05/12/20 Status: Ordered Lac-Hydrin 12% lotion 1 application, Topically, 2 times a day, # 400 Gm, 1 Refills, Maintenance, 09/17/19 11:45:00 EDT, Lotion, [facility]/pharmacy #[id number], 1 application Topically 2 times a day, 151, cm, 06/06/19 15:24:00 EST, Height, 109.4, kg, 12/11/18 17:10:00 EDT, Dry Weight Start Date: 09/17/19 Status: Ordered lidocaine 5% topical ointment 1 application, Topically, 3 times a day, wash hands thoroughly after application. telugu, # 50 Gm,1 Refills, Maintenance, 02/27/19 16:48:00 EDT, Ointment, for bilateral shoulder and arm pain that has not responded to other medications, 1 application... Start Date: 02/27/19 Status: Ordered meclizine 25 mg oral tablet 1 tablet = 25 mg, By Mouth, Daily, PRN for dizziness, # 30 tablet, 1 Refills, Maintenance, 10/30/2009:34:00 EDT, Tablet, [facility]/pharmacy #[id number], 151, cm, 10/31/19 9:51:00 EDT, Height, 109.4, kg, 12/11/18 17:10:00 EDT, Dry Weight Start Date: 10/31/19 Status: Ordered meclizine 25 mg oral tablet 1 tablet = 25 mg, By Mouth, Daily, PRN for dizziness, # 30 tablet, 1 Refills, Maintenance, 219:25:00 EST, Tablet, [facility]/pharmacy #[id number], 149.8, cm, 06/08/20 10:55:00 EST, Height, 100.4, kg, 12/20/19 12:32:00 EDT, Dry Weight Start Date: 07/07/20 Status: Ordered multivitamin Multiple Vitamins oral tablet [...] day, # 90 capsule, 0 Refills, Maintenance, 07/07/20 9:25:00 EST, Capsule, [facility]/pharmacy #[id number], 149.8, cm, 06/08/20 10:55:00 EST, Height, 100.4, kg, 12/20/19 12:32:00 EDT, Dry Weight Start Date: 07/07/20 Status: Ordered traZODone 50 mg oral tablet See Instructions, 0.5 - 1 tablet By Mouth Daily at bedtime, # 30 each, Refills 1, Tot. Refills 1, Maintenance, 10/31/19 10:34:00 EDT, Instructions Replace Required Details, Route to Pharmacy Electronically, [facility]/pharmacy #[id number], 151, cm, 10/31/19 9:51:0... Start Date: 10/31/19 Status: Ordered Ventolin HFA 108 mcg/inh inhalation aerosol with adapter 2 puffs, Inhalation, Every 6 hours, PRN for wheezing, use with spacer chamber, # 8 Gm, 6 Refills, Maintenance, 06/08/20 11:14:00 EST, [facility]erosol, [id number], 149.8, cm, 06/08/20 10:55:00 EST, Height, 100.4, kg, 12/20/19 12:32:00 EDT, Dry Weight Start Date: 06/08/20 Status: Ordered Problem List Condition Effective Dates [...] 5 01/30/19 Active OA (osteoarthritis)(Confirmed) 6 Active *[phone] Care Partn Kellee [place](Confirmed) Active 1followed by Dr. Grayson 2diverticulitis episode 01/04/2011. Went to [facility]. 3refuses colonoscopy secondary to endometrial carcinoma Stage 1A 5Untreated. See sleep medicine phone call: Eqipement to be removed due to non-use 6Arms, bilateral Social History Social History Type Response Smoking Status Never smoker entered on: 09/03/13 Sex
--- OUTSIDE RECORDS SUMMARY | 2023-08-28 06:06 | XMS_ITS | Continuity of Care Document ---
Author Organization [facility] Address [address] [place] [address]- Care Team Providers Care Sap Business Objects Consultant Name Role Phone Subha WRIGHT, Chiquita Primary Care Physician Encounter [facility] Date(s): 11/16/19 - 12/16/19 [facility] [address] [place] [address]- [facility] Allergies, Adverse Reactions, Alerts Substance [...] 07/23/19 16:09:00 EDT, Route to Pharmacy Electronically, [facility]/pharmacy #[id number], 151, cm, 06/06/19 15:24:00 EST, Height, 109.4, kg... Start Date: 07/23/19 Stop Date: 09/21/19 Status: Ordered Lac-Hydrin 12% lotion 1 application, Topically, 2 times a day, # 400 Gm, 1 Refills, Maintenance, 09/17/19 11:45:00 EDT, Lotion, [facility]/pharmacy #[id number], 1 application Topically 2 times a day, 151, cm, 06/06/19 15:24:00 EST, Height, 109.4, kg, 12/11/18 17:10:00 EDT, Dry Weight Start Date: 09/17/19 Status: Ordered lidocaine 5% topical ointment 1 application, Topically, 3 times a day, wash hands thoroughly after application. barbadian, # 50 Gm,1 Refills, Maintenance, 02/27/19 16:48:00 [...] capsule, 0 Refills, Maintenance, 07/23/19 16:09:00EDT, Capsule, [facility]/pharmacy #[id number], 151, [...] to Pharmacy Electronically, [facility]/pharmacy #[id number], 151, cm, 10/31/19 9:51:0... Start Date: 10/31/19 [...] 5 01/30/19 Active OA (osteoarthritis)(Confirmed) 6 Active *[phone]-Care Barrettn Jeffery Mackenzie(Confirmed) Active 1followed by Dr. Grayson 2diverticulitis episode 01/04/2011. Went to [facility] 3refuses colonoscopy secondary to endometrial carcinoma Stage 1A 5Untreated. See sleep medicine phone call: Eqipement to be removed due to non-use 6Arms, bilateral Social History Social History Type Response Smoking Status Never smoker entered on: 09/03/13 Sex
--- OUTSIDE RECORDS SUMMARY | 2023-08-28 06:06 | XMS_ITS | Continuity of Care Document ---
Author Organization [facility] Address [address] [place] [address]- Care Team Providers Care Multiple Pressure Riveter Operator Name Role Phone Lazara Thibodeaux MD Primary Care Physician Encounter [facility] Date(s): 03/28/22 - 04/27/22 [facility]/[address] [address]- [place] Allergies, Adverse Reactions, Alerts Substance Reaction [...] Refills, Maintenance, 09/27/21 10:40:00 EDT, ER Tablet, [id number], Partial fill upon patient request if the prescription i... Start Date: 09/27/21 Status: Ordered amLODIPine 5 mg oral tablet 5 mg, 1, tablet, By Mouth, Daily, # 30 tablet, Refills 11, Tot. Refills 11, Maintenance, 09/27/21 10:40:00 EDT, Route to Pharmacy Electronically, [facility]/pharmacy #207, 150, cm, 09/27/21 10:05:00 EDT, Height, [...] Physician Stop 09/22/22 10:40:00EDT, 09/27/21 10:40:00 EDT, [facility]/pharmacy #207, 150, cm, 09/27/21 10:05:00 EDT, Height, 108.2, kg, 04/21/21 14:07:00 EST, Dry Weight Start Date: 09/27/21 Stop Date: 09/22/22 Status: Ordered hydrochlorothiazide-losartan 25 mg-100 mg oral tablet 1 tablet, By Mouth, Daily, # 30 tablet, 11 Refills, Maintenance, 09/27/21 10:41:00 EDT, [facility]/pharmacy #207, 1 tablet By Mouth Daily, 150, cm, 09/27/21 10:05:00 EDT, Height, 108.2, kg, 04/21/21 14:07:00 EST, Dry Weight Start Date: 09/27/21 Status: Ordered lidocaine 5% topical ointment 1 application, Topically, 3 times a day, for shoulder or back pain. latvian. wash hands thoroughly after application, # 50 Gm, 2 Refills, Maintenance, 01/29/21 12:22:00 EDT, Ointment, [facility]/pharmacy #[id number], Partial fill upon patient request if the pres... Start Date: 01/29/21 Status: Ordered meclizine 25 mg oral tablet 1 tablet = 25 mg, By Mouth, 3 times a day, PRN for dizziness, # 30 tablet, 0 Refills, Acute 09/28/22 10:42:00 EDT, 09/27/21 10:42:00 EDT, Tablet, [facility]/pharmacy #207, Partial fill upon patient requestif the prescription is for a schedule II opioid cortez... Start Date: 09/27/21 Stop Date: 09/28/22 Status: Ordered Melatonin 3 mg oral tablet 1-3 tablet, By Mouth, Daily at bedtime, PRN for insomnia, Discontinue tizanidine, # 60 tablet, 11 Refills, Maintenance, 09/27/21 10:41:00 EDT, Tablet, [facility]/pharmacy #[id number], 1-3 tablet By Mouth Daily atbedtime,PRN:for insomnia,Instr:Discontinue tizanidi... Start Date: 09/27/21 Status: Ordered multivitamin Multiple Vitamins oral tablet 1 tablet, By Mouth, Daily, # 30 tablet, 11 Refills, Maintenance, 09/27/21 10:42:00 EDT, Tablet, [facility]/pharmacy #[id number], 1 tablet By Mouth Daily, 150, cm, [...] Gm, 11 Refills,Maintenance, 09/27/21 10:40:00 EDT, Aerosol, [facility]/pharmacy #2070, 150, cm, 09/27/21 10:05:00 EDT, Height, 108.2, kg, 04/21/21 14:07:00 EST, Dry Weight Start Date: 09/27/21 Status: Ordered Voltaren 1% topical gel = 2 Gm, Topically, 4 times a day, # 100 Gm, 11 Refills, Maintenance, 09/27/21 10:40:00 EDT, [id number], Partial fill upon patient request if the prescription is for a schedule II opioid drug., 2 Gm Topically 4 times a day, 150, cm, 09/27/21 10... Start Date: 09/27/21 Status: Ordered Wixela Inhub 250 mcg-50 mcg inhalation powder 1 puffs, Inhalation, 2 times a day, # 1 each, 11 Refills, Maintenance, 09/27/21 10:41:00 EDT, [id number], resent under correct PCP, [...] Active OA (osteoarthritis) of hip Confirmed Active *[phone] Molding Manager Kellee Rodriguez Confirmed Active Severe obesity Confirmed Active 1followed by Dr. Grayson 2diverticulitis episode 01/04/2011. Went to [facility]. 3refuses colonoscopy secondary to endometrial carcinoma Stage 1A 5Untreated. See sleep medicine phone call: Eqipement to be removed due to non-use 6Arms, bilateral Social History Social History Type Response Smoking Status Never (less than 100 in lifetime) entered on: 02/18/21 Sex Patient Care team information Care Team Personnel Name: Celine Max RN Position: [facility] RN Member Role: Primary Care Nurse Name: Briana Nicole RN Position: [facility] Onco RN Member Role: Primary Care Nurse Name: Lazara Thibodeaux MD Position: [facility] Primary Care Physician Member Role: PCP Address: Address: [address] [place] [id number]- Name: Magdalena Reyes Position: [facility] Outreach Member Role: Lifetime Consulting Physician Name: Leesa Cross RN Position: [facility] RN Member Role: Primary Care Nurse Name: Hermelinda Santacruz RN Position: [facility] RN Member Role: Primary Care Nurse Care Team Related Persons Name: HARMAN BAY Address: home Name: KELSI SCH[place]ID Address: [place] [address]
--- OUTSIDE RECORDS SUMMARY | 2023-08-28 06:06 | XMS_ITS | Continuity of Care Document ---
Author Organization [facility] Address [address] [place] [address]- Care Team Providers Care Azure Principal Solution Specialist Name Role Phone Lazara Thibodeaux MD Primary Care Physician Encounter [facility] [place] Date(s): 07/17/23 - 08/16/23 [facility]/[address] [address]- Allergies, Adverse Reactions, Alerts Substance Reaction Severity [...] to exceed 6 tablets/day), # 100 tablet, 3 Refills, Maintenance, 07/10/23 11:29:00 EST, ER Tablet, [facility], Partial fill upon patient request if the prescriptio... Start Date: 07/10/23 Status: Ordered amLODIPine 5 mg oral tablet 5 mg, 1, tablet, By Mouth, Daily, # 90 tablet, Refills 3, Tot. Refills 3, Maintenance, 07/10/23 11:29:00 EST, Route to Pharmacy Electronically, [facility], 150, cm, 07/10/23 10:33:00 EST, Height, 105.81, kg, 07/10/23 10:33:00 EST, Dry Weight Start Date: 07/10/23 Status: Ordered Aspercreme Warming Pain Relief Patch 0.025% topical film See Instructions, Topically 3 times a day to affected area, # 42.5 Gm, 3 Refills, Acute 07/10/24 11:29:00 EST, 01/15/24 9:20:00 EDT, [facility], Partial fill upon patient request if the prescription is for a schedule II opioid drug., To... Start Date: 01/15/24 Stop Date: 07/10/24 Status: Ordered Blood Pressure Monitor See Instructions, [...] Dry Weight Start Date: 04/03/23 Status: Ordered diclofenac 1% topical gel 1 application, Topically, 4 times a day, not to exceed 32 grams/day 2gm/application/area, # 100 Gm,11 Refills, Maintenance, 07/10/23 11:33:00 EST, Gel, [facility], Partial fill upon patient request if the prescription is for a schedule I... Start Date: 07/10/23 Status: Ordered disposable bed pads disposable bed [...] # 90 capsule, 3 Refills, Physician Stop 09/01/26 10:40:00 EDT, 09/06/25 10:40:00 EDT, [facility], 150, cm, 07/10/23 10:33:00 EST, Height, 105.81, kg, 07/10/23 10:33:00 EST, Dry Weight Start Date: 09/06/25 Stop Date: 09/01/26 Status: Ordered hydrochlorothiazide-losartan 25 mg-100 mg oral tablet 1 tablet, By Mouth, Daily, # 90 tablet, 3 Refills, Maintenance, 07/10/23 11:31:00 EST, [facility], 1 tablet By Mouth Daily, 150, cm, 07/10/23 10:33:00 EST, Height, 105.81, kg, 07/10/23 10:33:00 EST, Dry Weight Start Date: 07/10/23 Status: Ordered ibuprofen 600 mg oral tablet 600 mg, 1, tablet, By Mouth, 3 times a day, # 90 tablet, Refills 0, Tot. Refills 0, Acute 08/10/24 11:43:00 EDT, 07/10/24 11:42:00 EST, Route to Pharmacy Electronically, [facility], Partial fill upon patient request if the prescription is... Start Date: 07/10/24 Stop Date: 08/10/24 Status: Ordered ibuprofen 600 mg oral tablet 600 mg, 1, tablet, By Mouth, 3 times a day, # 90 tablet, Refills 0, Tot. Refills 0, Acute 07/10/24 11:42:00 EST, 07/10/23 11:41:00 EST, Route to Pharmacy Electronically, [facility], Partial fill upon patient request if the prescription is... Start Date: 07/10/23 Stop Date: 07/10/24 Status: Ordered lidocaine 5% topical ointment 1 application, Topically, 3 times a day, for shoulder or back pain. icelandic. wash hands thoroughly after application, # 50 Gm, 3 Refills, Maintenance, 07/10/23 11:31:00 EST, Ointment, [facility], Partial fill upon patient request if the... Start Date: 07/10/23 Status: Ordered meclizine 25 mg oral tablet 1 tablet = 25 mg, By Mouth, 3 times a day, PRN for dizziness, for 30 days, # 90 tablet, 11 Refills,Acute 05/02/25 10:27:00 EST, 05/07/24 10:27:00 EST, Tablet, [facility], Partial fill upon patient request if the prescription is for a sche... Start Date: 05/07/24 Stop Date: 05/02/25 Status: Ordered Melatonin 3 mg oral tablet 1-3 TABLET, By Mouth, Daily at bedtime, PRN NEEDED FOR SLEEP *STOP TIZANIDINE*, # 60 tablet, 3 Refills, Maintenance, 07/10/23 11:31:00 EST, [facility], 1-3 TABLET By Mouth Daily atbedtime,PRN: NEEDED FOR SLEEP *STOP TIZANIDINE*, 150,... Start Date: 07/10/23 Status: Ordered multivitamin Multiple Vitamins oral tablet 1 tablet, By Mouth, Daily, # 90 tablet, 3 Refills, Maintenance, 07/10/23 11:32:00 EST, Tablet, [facility], 1 tablet By Mouth Daily, 150, cm, 07/10/23 10:33:00 EST, Height, 105.81, kg,07/10/23 10:33:00 EST, Dry Weight Start Date: 07/10/23 Status: Ordered Spacer Spacer, See Instructions, # [...] use with spacer chamber, # 18 Gm, 3 Refills, Maintenance, 07/10/23 11:29:00 EST, Aerosol, [facility], 150, cm, 07/10/23 10:33:00 EST, Height, 105.81, kg, 07/10/23 10:33:00 EST, Dry Weight Start Date: 07/10/23 Status: Ordered wipes wipes, See Instructions, # [...] day, # 1 each, 11 Refills, Maintenance, 07/10/23 11:31:00 EST, [facility], resent under correct PCP, 1 puffs Inhalation 2 times a day, 150, cm, 07/09/2409:33:00 EST, Height, 105.81, kg, 07/10/23 10:33:00 EST... Start Date: 07/10/23 Status: Ordered Problem List Condition Confirmation Course [...] Active OA (osteoarthritis) of hip Confirmed Active *[id number] Equipment Records Supervisor Kellee Rodriguze Confirmed Active Severe obesity Confirmed Active Urine incontinence Confirmed Active 1followed by Dr. Grayson 2diverticulitis episode 01/04/2011. Went to [facility] 3refuses colonoscopy secondary to endometrial carcinoma Stage 1A 5Untreated. See sleep medicine phone call: Eqipement to be removed due to non-use 6Arms, bilateral Social History Social History Type Response Smoking Status Never (less than 100 in lifetime) entered on: 02/18/21 Sex Patient Care team information Care Team Personnel Name: Celine Max RN Position: [facility] SN RN Member Role: Primary Care Nurse Name: Briana Nicole RN Position: [facility] Onco RN Member Role: Primary Care Nurse Name: Lazara Thibodeaux MD Position: [facility] Physician - Primary Care Member Role: PCP Address: Address: [address] [place] [id number]- Name: Magdalena Reyes Position: [facility] Outreach Member Role: Lifetime Consulting Physician Name: Leesa Cross RN Position: [facility] SN RN Member Role: Primary Care Nurse Name: Hermelinda Santacruz RN Position: [facility] RN Member Role: Primary Care Nurse Care Team Related Persons Name: HARMAN BAY Address: home Name: KELSI [place] Address: [place] [address]
--- OUTSIDE RECORDS SUMMARY | 2023-08-28 06:06 | XMS_ITS | Continuity of Care Document ---
Author Organization [facility] Address [address] [place] [address]- Care Team Providers Care Television Reporter Name Role Phone Lazara Thibodeaux MD Primary Care Physician [phone] [place] [facility] [place](s): 01/12/23 - 02/11/23 [facility]/[address] [address]- [place] Allergies, Adverse Reactions, Alerts Substance Reaction [...] Maintenance, 07/22/22 12:36:00 EDT, ER Tablet, [id number], Partial fill upon patient request if the prescription i... Start Date: 07/22/22 Status: Ordered amLODIPine 5 mg oral tablet 5 mg, 1, tablet, By Mouth, Daily, # 30 tablet, Refills 11, Tot. Refills 11, Maintenance, 07/22/22 12:36:00 EDT, Route to Pharmacy Electronically, [facility]/pharmacy #207, 150, cm, 05/13/22 10:59:00 EST, Height, 108.2, kg, 04/21/21 14:07:00 EST, Dry Weight Start Date: 07/22/22 Status: Ordered Aspercreme Warming Pain Relief Patch 0.025% topical film See Instructions, Topically 3 times a day to affected area, # 42.5 Gm, 11 Refills, Acute 01/15/24 9:20:00 EDT, 01/13/23 9:20:00 EDT, [facility]/pharmacy #207, Partial fill upon patient request if [...] Stop 09/11/24 10:40:00 EDT, 09/17/23 10:40:00 EDT, [facility]/pharmacy #207, 150, cm, 01/06/23 9:32:00 EDT, Height, 107.54, kg, 01/06/23 9:32:00 EDT, Dry Weight Start Date: 09/17/23 Stop Date: 09/11/24 Status: Ordered hydrochlorothiazide-losartan 25 mg-100 mg oral tablet 1 tablet, By Mouth, Daily, # 30 tablet, 11 Refills, Maintenance, 07/22/22 12:36:00 EDT, [facility]/pharmacy #[id number], 1 tablet By Mouth Daily, 150, cm, 05/13/22 10:59:00 EST, Height, 108.2, kg, 04/21/21 14:07:00 EST, Dry Weight Start Date: 07/22/22 Status: Ordered lidocaine 5% topical ointment 1 application, Topically, 3 times a day, for shoulder or back pain. frisian. wash hands thoroughly after application, # 50 Gm, 2 Refills, Maintenance, 07/22/22 12:36:00 EDT, Ointment, [facility]/pharmacy #[id number], Partial fill upon patient request if the pres... Start Date: 07/22/22 Status: Ordered meclizine 25 mg oral tablet 1 tablet = 25 mg, By Mouth, 3 times a day, PRN for dizziness, # 30 tablet, 11 Refills, Acute 01/08/24 10:27:00 EDT, 07/24/23 12:37:00 EDT, Tablet, [facility]/pharmacy #207, Partial fill upon patient request if the prescription is for a schedule II opioid dr... Start Date: 07/24/23 Stop Date: 01/08/24 Status: Ordered Melatonin 3 mg oral tablet 1-3 TABLET, By Mouth, Daily at bedtime, PRN NEEDED FOR SLEEP *STOP TIZANIDINE*, # 270 tablet, 11Refills, Maintenance, 07/22/22 12:36:00 EDT, [facility]/pharmacy #[id number], 90, 1-3 TABLET By Mouth Daily at bedtime,PRN: NEEDED FOR SLEEP *STOP TIZANIDINE*, 15... Start Date: 07/22/22 Status: Ordered multivitamin Multiple Vitamins oral tablet 1 tablet, By Mouth, Daily, # 30 tablet, 11 Refills, Maintenance, 07/22/22 12:36:00 EDT, Tablet, [facility]/pharmacy #[id number], 1 tablet By Mouth Daily, 150, cm, 05/13/22 10:59:00 EST, Height, 108.2, kg, 04/21/21 14:07:00 EST, Dry Weight Start Date: 07/22/22 Status: Ordered nabumetone 750 mg oral tablet 1 tablet = 750 mg, By Mouth, 2 times a day, # 180 tablet, 3 Refills, Maintenance, 01/06/23 10:23:00EDT, Tablet, [id number], Partial fill upon patient [...] 11 Refills,Maintenance, 01/06/23 10:27:00 EDT, Aerosol, [id number], 150, cm, 01/06/23 9:32:00 EDT, [...] Active OA (osteoarthritis) of hip Confirmed Active *[id number] Green Marketer Kellee Rodriguez Confirmed Active Severe obesity Confirmed Active 1followed by Dr. Grayson 2diverticulitis episode 01/04/2011. Went to [facility] 3refuses colonoscopy secondary to endometrial carcinoma Stage 1A 5Untreated. See sleep medicine phone call: Eqipement to be removed due to non-use 6Arms, bilateral Social History Social History Type Response Smoking Status Never (less than 100 in lifetime) entered on: 02/18/21 Sex Patient Care team information Care Team Personnel Name: Celine Max RN Position: [facility] SN RN Member Role: Primary Care Nurse Name: Briana Nicole RN Position: [facility] Onco RN Member Role: Primary Care Nurse Name: Lazara Thibodeaux MD Position: [facility] Physician - Primary Care Member Role: PCP Address: Address: [address] [place] [address]- Name: Magdalena Reyes Position: [facility] Outreach Member Role: Lifetime Consulting Physician Name: Leesa Cross RN Position: [facility] RN Member Role: Primary Care Nurse Name: Hermelinda Santacruz RN Position: [facility] RN Member Role: Primary Care Nurse Care Team Related Persons Name: HARMAN BAY Address: home Name: KELSI SCHMID Address: [place] [address]
--- OUTSIDE RECORDS SUMMARY | 2023-08-28 06:06 | XMS_ITS | Continuity of Care Document ---
Author Organization [facility] Address [address] [place] [address]- Care Team Providers Care Cracker Sprayer Name Role Phone Wil BECKHAM, Katy Mazariegos Primary Care Physician Encounter [facility] [place] Date(s): 03/05/21 - 04/10/[address] [address] Attending Physician: Darryl Yanes MD Admitting Physician: Darryl Yanes MD Referring Physician: Darryl Yanes MD Allergies, Adverse Reactions, Alerts Substance Reaction [...] Maintenance, 01/20/21 15:16:00 EDT, ER Tablet, [id number], Partial fill upon patient request if the prescription is... Start Date: 01/20/21 Status: Ordered amLODIPine 5 mg oral tablet 5 mg, 1, tablet, By Mouth, Daily, # 90 tablet, Refills 3, Tot. Refills 3, Maintenance, 10/27/20 19:35:00 EDT, Route to Pharmacy Electronically, [facility]/pharmacy #207, 149.8, cm, 10/08/20 12:18:00 EDT, Height, [...] Daily, # 90 capsule, 1 Refills, [id number], 149.8, cm, 10/08/20 12:18:00 EDT, Height, 100.4, kg, 12/20/19 12:32:00 EDT, Dry Weight Start Date: 01/06/21 Status: Ordered Fish Oil 1000 mg oral capsule 1 capsule = 1,000 mg, By Mouth, 2 times a day, # 60 capsule, 11 Refills, Maintenance, 01/20/21 15:17:00 EDT, Capsule, [facility]/pharmacy #207, 149.8, cm, 01/20/21 13:08:00 EDT, Height, 100.4, kg, 12/20/2011:32:00 EDT, Dry Weight Start Date: 01/20/21 Status: Ordered hydrochlorothiazide-losartan 25 mg-100 mg oral tablet 1 tablet, By Mouth, Daily, # 90 tablet, 3 Refills, Maintenance, 10/27/20 19:34:00 EDT, [facility]/pharmacy#[id number], 1 tablet By Mouth Daily, 149.8, cm, 10/08/20 12:18:00 EDT, Height, 100.4, kg, 12/20/19 12:32:00 EDT, Dry Weight Start Date: 10/27/20 Status: Ordered lidocaine 5% topical ointment 1 application, Topically, 3 times a day, for shoulder or back pain. bruneian. wash hands thoroughly after application, # 50 Gm, 2 Refills, Maintenance, 01/29/21 12:22:00 EDT, Ointment, [facility]/pharmacy #[id number], Partial fill upon patient request if the pres... Start Date: 01/29/21 Status: Ordered meclizine 25 mg oral tablet 1 tablet = 25 mg, By Mouth, Daily, PRN for dizziness, # 30 tablet, 1 Refills, Maintenance, 04/07/2114:36:00 EST, Tablet, [facility]/pharmacy #[id number], 149.8, cm, 03/29/21 10:32:00 EST, Height, 100.4, kg, 12/20/19 12:32:00 EDT, Dry Weight Start Date: 04/07/21 Status: Ordered Melatonin 3 mg oral tablet 1-3 tablet, By Mouth, Daily at bedtime, PRN for insomnia, Discontinue tizanidine, # 90 tablet, 3 Refills, Maintenance, 01/20/21 15:15:00 EDT, Tablet, [facility]/pharmacy #207, 1-3 tablet By Mouth Daily at bedtime,PRN:for [...] Refills, Soft Stop, 07/29/20 14:09:00 EDT, Powder, [facility], Partial fill upon patient request if the [...] 5 01/30/19 Active OA (osteoarthritis)(Confirmed) 6 Active *[id number] Care Partn Kellee Rodriguez(Confirmed) Active Severe obesity(Confirmed) Active 1followed by Dr. Grayson 2diverticulitis episode 01/04/2011. Went to [facility]. 3refuses colonoscopy secondary to endometrial carcinoma Stage 1A 5Untreated. See sleep medicine phone call: Eqipement to be removed due to non-use 6Arms, bilateral Social History Social History Type Response Smoking Status Never (less than 100 in lifetime) entered on: 02/18/21 Sex
--- OUTSIDE RECORDS SUMMARY | 2023-08-28 06:06 | XMS_ITS | Continuity of Care Document ---
Author Organization [facility] Address [address] [place] [address]- Care Team Providers Care Parking Regulation Enforcement Officer Name Role Phone Wil BECKHAM, Katy Mazariegos Primary Care Physician Encounter [facility] [place] Date(s): 03/11/21 - 04/10/[address] [address] Attending Physician: AdmBenjy douglas Admitting Physician: Admtr, Benjy Referring Physician: Admtr, [...] Maintenance, 01/20/21 15:16:00 EDT, ER Tablet, [id number], Partial fill upon patient request if the prescription is... Start Date: 01/20/21 Status: Ordered amLODIPine 5 mg oral tablet 5 mg, 1, tablet, By Mouth, Daily, # 90 tablet, Refills 3, Tot. Refills 3, Maintenance, 10/27/20 19:35:00 EDT, Route to Pharmacy Electronically, [facility]/pharmacy #[id number], 149.8, cm, 10/08/20 12:18:00 EDT, Height, [...] Mouth, Daily, # 90 capsule, 1 Refills, [id number], 149.8, cm, 10/08/20 12:18:00 EDT, Height, 100.4, kg, 12/20/19 12:32:00 EDT, Dry Weight Start Date: 01/06/21 Status: Ordered Fish Oil 1000 mg oral capsule 1 capsule = 1,000 mg, By Mouth, 2 times a day, # 60 capsule, 11 Refills, Maintenance, 01/20/21 15:17:00 EDT, Capsule, [facility]/pharmacy #[id number], 149.8, cm, 01/20/21 13:08:00 EDT, Height, 100.4, kg, 12/20/2011:32:00 EDT, Dry Weight Start Date: 01/20/21 Status: Ordered hydrochlorothiazide-losartan 25 mg-100 mg oral tablet 1 tablet, By Mouth, Daily, # 90 tablet, 3 Refills, Maintenance, 10/27/20 19:34:00 EDT, [facility]/pharmacy#[id number], 1 tablet By Mouth Daily, 149.8, cm, 10/08/20 12:18:00 EDT, Height, 100.4, kg, 12/20/19 12:32:00 EDT, Dry Weight Start Date: 10/27/20 Status: Ordered lidocaine 5% topical ointment 1 application, Topically, 3 times a day, for shoulder or back pain. syriac. wash hands thoroughly after application, # 50 Gm, 2 Refills, Maintenance, 01/29/21 12:22:00 EDT, Ointment, [facility]/pharmacy #[id number], Partial fill upon patient request if the pres... Start Date: 01/29/21 Status: Ordered meclizine 25 mg oral tablet 1 tablet = 25 mg, By Mouth, Daily, PRN for dizziness, # 30 tablet, 1 Refills, Maintenance, 04/07/2114:36:00 EST, Tablet, [facility]/pharmacy #207, 149.8, cm, 03/29/21 10:32:00 EST, Height, 100.4, kg, 12/20/19 12:32:00 EDT, Dry Weight Start Date: 04/07/21 Status: Ordered Melatonin 3 mg oral tablet 1-3 tablet, By Mouth, Daily at bedtime, PRN for insomnia, Discontinue tizanidine, # 90 tablet, 3 Refills, Maintenance, 01/20/21 15:15:00 EDT, Tablet, [facility]/pharmacy #207, 1-3 tablet By Mouth Daily at [...] Refills, Soft Stop, 07/29/20 14:09:00 EDT, Powder, [facility], Partial fill upon patient request if [...] 5 01/30/19 Active OA (osteoarthritis)(Confirmed) 6 Active *[id number] [facility] [place](Confirmed) Active Severe obesity(Confirmed) Active 1followed by Dr. Grayson 2diverticulitis episode 01/04/2011. Went to [facility] 3refuses colonoscopy secondary to endometrial carcinoma Stage 1A 5Untreated. See sleep medicine phone call: Eqipement to be removed due to non-use 6Arms, bilateral Social History Social History Type Response Smoking Status Never (less than 100 in lifetime) entered on: 02/18/21 Sex
--- OUTSIDE RECORDS SUMMARY | 2023-08-28 06:06 | XMS_ITS | Continuity of Care Document ---
Author Organization [facility] Address [address] [place] [address]- Care Team Providers Care Mixed Animal Veterinarian Name Role Phone Freddy BECKHAM, Sophie Alvarado Primary Care Physici an [place] [facility] [place] [facility] [place] [address] [place] [address]- Attending Physician: Freddy BECKHAM, Sophie Alvarado Admitting Physician: Freddy BECKHAM, Sophie Alvarado Allergies, Adverse Reactions, Alerts Substance Reaction Severity [...] 11:21:00 EST, Powder, Route to Pharmacy Electronically, [id number], [facility]/pharmacy #[id number], 149.8, cm, 06/08/20 10:55:00 EST, Heigh... Start Date: 06/08/20 Status: Ordered amLODIPine 5 mg oral tablet 5 mg, 1, tablet, By Mouth, Daily, # 90 tablet, Refills 3, Tot. Refills 3, Maintenance, 10/27/20 19:35:00 EDT, Route to Pharmacy Electronically, [facility]/pharmacy #[id number], 149.8, cm, 10/08/20 12:18:00 EDT, Height, 100.4, [...] capsule = 20 mg, By Mouth, Daily, for depression label in Azeri, # 30 capsule, 2 Refills, Maintenance, 10/08/20 13:15:00 EDT, EC Capsule, [facility]/pharmacy #[id number], 149.8, cm, 10/08/20 12:18:00 EDT, Height, 100.4, kg, 12/20/19 12:32:00 EDT, Dry Weight Start Date: 10/08/20 Status: Ordered diclofenac 1% topical gel 1 application, Topically, 4 times a day, # 100 Gm, 5 Refills, Maintenance, 07/29/20 13:23:00 EDT, Gel, [facility]/pharmacy #[id number], Partial fill upon patient request if the prescription is for a schedule II opioid drug., 149.8, cm, 07/15/20 8:10:00 EST, Height... Start Date: 07/29/20 Status: Ordered Fish Oil 1000 mg oral capsule 1 capsule = 1,000 mg, By Mouth, 2 times a day, to repleace fish oil 500mg, # 60 capsule, 0 Refills,Maintenance, 11/23/20 15:31:00 EDT, Capsule, [facility]/pharmacy #[id number], Partial fill upon patient request if the prescription is for a schedule II opioid drug... Start Date: 11/23/20 Status: Ordered hydrochlorothiazide-losartan 25 mg-100 mg oral tablet 1 tablet, By Mouth, Daily, # 90 tablet, 3 Refills, Maintenance, 10/27/20 19:34:00 EDT, [facility]/pharmacy#[id number], 1 tablet By Mouth Daily, 149.8, cm, 10/08/20 12:18:00 EDT, Height, 100.4, kg, 12/20/19 12:32:00 EDT, Dry Weight Start Date: 10/27/20 Status: Ordered meclizine 25 mg oral tablet 1 tablet = 25 mg, By Mouth, Daily, PRN for dizziness, # 30 tablet, 1 Refills, Maintenance, 10/30/2009:34:00 EDT, Tablet, [facility]/pharmacy #207, 151, cm, 10/31/19 9:51:00 EDT, Height, [...] Refills, Soft Stop, 07/29/20 14:09:00 EDT, Powder, [facility], Partial fill upon patient request if the prescription is for a schedule II opioid drug., 0.5 mL... Start Date: 07/29/20 Status: Ordered Spacer Spacer, See Instructions, # 1 each, Refills 0, Tot. Refills 0, Maintenance, Asthma (J45.909) [facility] lifetime, 10/08/20 13:39:00 EDT, Compound, 149.8, cm, 10/08/20 12:18:00 EDT, Height, 100.4, kg, 12/20/19 12:32:00 EDT, Dry Weight Start Date: 10/08/20 Status: Ordered tiZANidine 4 mg oral capsule 1 capsule = 4 mg, By Mouth, 2 times a day, PRN muscle spasm, # 180 capsule, 0 Refills, Maintenance,10/08/20 13:37:00 EDT, Capsule, [id number], 149.8, cm, 10/08/20 12:18:00 EDT, [...] Dry Weight Start Date: 10/08/20 Status: Ordered Problem List Condition Effective Dates [...] 5 01/30/19 Active OA (osteoarthritis)(Confirmed) 6 Active *[id number] Care Partn sheldon Rodriguez(Confirmed) Active 1followed by Dr. Grayson 2diverticulitis episode 01/04/2011. Went to [facility]. 3refuses colonoscopy secondary to endometrial carcinoma Stage 1A 5Untreated. See sleep medicine phone call: Eqipement to be removed due to non-use 6Arms, bilateral Social History Social History Type Response Smoking Status Never (less than 100 in lifetime); Tobacco user in household: No entered on: 07/29/20 Sex
--- OUTSIDE RECORDS SUMMARY | 2023-08-28 06:06 | XMS_ITS | Continuity of Care Document ---
Author Organization [facility] Address Unknown Care Team Providers Care Booster Operator Name Role Phone Wil BECKHAM, Katy Mazariegos Primary Care Physician Encounter [facility] [place] Date(s): 01/29/21 - 02/28/21 [facility] Allergies, Adverse Reactions, Alerts Substance Reaction [...] Maintenance, 01/20/21 15:16:00 EDT, ER Tablet, [id number], Partial fill upon patient request if the prescription is... Start Date: 01/20/21 Status: Ordered acetaminophen-codeine 300 mg-15 mg oral tablet 2 tablet, By Mouth, 2 times a day, PRN for pain, for 28 days, # 112 tablet, 0 Refills, Acute 03/23/21 17:06:00 EST, 02/23/21 17:06:00 EDT, [id number] Partial fill upon patient request if the prescription is for a schedule II opioid . Start Date: 02/23/21 Stop Date: 03/23/21 Status: Ordered amLODIPine 5 mg oral tablet 5 mg, 1, tablet, By Mouth, Daily, # 90 tablet, Refills 3, Tot. Refills 3, Maintenance, 10/27/20 19:35:00 EDT, Route to Pharmacy Electronically, [facility]/pharmacy #[id number], 149.8, cm, 10/08/20 12:18:00 EDT, [...] Mouth, Daily, # 90 capsule, 1 Refills, [facility], 149.8, cm, 10/08/20 12:18:00 EDT, Height, 100.4, kg, 12/20/19 12:32:00 EDT, Dry Weight Start Date: 01/06/21 Status: Ordered Fish Oil 1000 mg oral capsule 1 capsule = 1,000 mg, By Mouth, 2 times a day, # 60 capsule, 11 Refills, Maintenance, 01/20/21 15:17:00 EDT, Capsule, [facility]/pharmacy #207, 149.8, cm, 01/20/21 13:08:00 EDT, Height, 100.4, kg, 12/20/2011:32:00 EDT, Dry Weight Start Date: 01/20/21 Status: Ordered hydrochlorothiazide-losartan 25 mg-100 mg oral tablet 1 tablet, By Mouth, Daily, # 90 tablet, 3 Refills, Maintenance, 10/27/20 19:34:00 EDT, [facility]/pharmacy#[id number], 1 tablet By Mouth Daily, 149.8, cm, 10/08/20 12:18:00 EDT, Height, 100.4, kg, 12/20/19 12:32:00 EDT, Dry Weight Start Date: 10/27/20 Status: Ordered lidocaine 5% topical ointment 1 application, Topically, 3 times a day, for shoulder or back pain. sami. wash hands thoroughly after application, # 50 Gm, 2 Refills, Maintenance, 01/29/21 12:22:00 EDT, Ointment, [facility]/pharmacy #[id number], Partial fill upon patient request if the pres... Start Date: 01/29/21 Status: Ordered meclizine 25 mg oral tablet 1 tablet = 25 mg, By Mouth, Daily, PRN for dizziness, # 30 tablet, 1 Refills, Maintenance, 10/30/2009:34:00 EDT, Tablet, [facility]/pharmacy #207, 151, cm, 10/31/19 9:51:00 EDT, Height, 109.4, kg, 12/11/18 17:10:00 EDT, Dry Weight Start Date: 10/31/19 Status: Ordered Melatonin 3 mg oral tablet 1-3 tablet, By Mouth, Daily at bedtime, PRN for insomnia, Discontinue tizanidine, # 90 tablet, 3 Refills, Maintenance, 01/20/21 15:15:00 EDT, Tablet, [facility]/pharmacy #[id number], 1-3 tablet By [...] Refills, Soft Stop, 07/29/20 14:09:00 EDT, Powder, [facility], Partial fill upon patient request if the prescription is for a schedule II opioid drug., 0.5 mL... Start Date: 07/29/20 Status: Ordered Spacer Spacer, See Instructions, # 1 each, Refills 0, Tot. Refills 0, Maintenance, Asthma (J45.909) CARMEAL lifetime, 10/08/20 13:39:00 EDT, Compound, 149.8, cm, 10/08/20 12:18:00 EDT, Height, 100.4, kg, 12/20/19 12:32:00 EDT, Dry Weight Start Date: 10/08/20 Status: Ordered Ventolin HFA 108 mcg/inh inhalation aerosol with adapter 2 puffs, Inhalation, Every 6 hours, PRN for wheezing, use with spacer chamber, # 8 Gm, 6 Refills, Maintenance, 10/08/20 13:14:00 EDT, [facility]erosol, [facility], 149.8, cm, 10/08/20 12:18:00 EDT, Height, [...] 5 01/30/19 Active OA (osteoarthritis)(Confirmed) 6 Active *[id number] Care Partn Kellee Rodriguez(Confirmed) Active 1followed by Dr. Grayson 2diverticulitis episode 01/04/2011. Went to [facility]. 3refuses colonoscopy secondary to endometrial carcinoma Stage 1A 5Untreated. See sleep medicine phone call: Eqipement to be removed due to non-use 6Arms, bilateral Social History Social History Type Response Smoking Status Never (less than 100 in lifetime) entered on: 02/18/21 Sex
--- OUTSIDE RECORDS SUMMARY | 2023-08-28 06:06 | XMS_ITS | Continuity of Care Document ---
Author Organization [facility] Address [address] [place] [address]- Care Team Providers Care Stock Unloader Name Role Phone Lazara Thibodeaux MD Primary Care Physician Encounter [facility] [place] Date(s): 03/10/23 - 05/07/23 [facility]/[address] [address]- Attending Physician: Lazara Thibodeaux MD Admitting Physician: Lazara Thibodeaux MD Allergies, Adverse Reactions, [...] Maintenance, 07/22/22 12:36:00 EDT, ER Tablet, [id number], Partial fill upon patient request if the prescription i... Start Date: 07/22/22 Status: Ordered amLODIPine 5 mg oral tablet 5 mg, 1, tablet, By Mouth, Daily, # 30 tablet, Refills 11, Tot. Refills 11, Maintenance, 07/22/22 12:36:00 EDT, Route to Pharmacy Electronically, [facility]/pharmacy #[id number], 150, cm, 05/13/22 10:59:00 EST, Height, 108.2, kg, 04/21/21 14:07:00 EST, Dry Weight Start Date: 07/22/22 Status: Ordered Aspercreme Warming Pain Relief Patch 0.025% topical film See Instructions, Topically 3 times a day to affected area, # 42.5 Gm, 11 Refills, Acute 01/15/24 9:20:00 EDT, 01/13/23 9:20:00 EDT, [facility]/pharmacy #[id number], Partial fill upon patient request if [...] tablet, 11 Refills, Maintenance, 07/22/22 12:36:00 EDT, [facility]/pharmacy #[id number], 1 tablet By Mouth Daily, 150, cm, 05/13/22 10:59:00 EST, Height, 108.2, kg, 04/21/21 14:07:00 EST, Dry Weight Start Date: 07/22/22 Status: Ordered lidocaine 5% topical ointment 1 application, Topically, 3 times a day, for shoulder or back pain. equatorial guinean. wash hands thoroughly after application, # 50 [...] tablet, 11Refills, Maintenance, 07/22/22 12:36:00 EDT, [facility], 90, 1-3 TABLET By Mouth Daily at bedtime,PRN: NEEDED FOR SLEEP *STOP TIZANIDINE*, 15... Start Date: 07/22/22 Status: Ordered meloxicam 7.5 mg oral tablet 1 tablet = 7.5 mg, By Mouth, Daily, instead of nabumetone, # 30 tablet, 0 Refills, Maintenance, 03/10/23 10:02:00 EDT, Tablet, [facility]/pharmacy #[id number], Partial fill upon patient request if the prescription is for a schedule II opioid drug., 150, cm, ... Start Date: 03/10/23 Status: Ordered multivitamin Multiple Vitamins oral tablet 1 tablet, By Mouth, Daily, # 30 tablet, 11 Refills, Maintenance, 07/22/22 12:36:00 EDT, Tablet, [facility]/pharmacy #[id number], 1 tablet By Mouth Daily, 150, cm, 05/13/22 10:59:00 EST, Height, 108.2, kg, 04/21/21 14:07:00 EST, Dry Weight Start Date: 07/22/22 Status: Ordered nabumetone 750 mg oral tablet 1 tablet = 750 mg, By Mouth, 2 times a day, # 180 tablet, 3 Refills, Maintenance, 01/06/23 10:23:00EDT, Tablet, [facility]/pharmacy #207, Partial fill upon patient request if [...] Refills, Maintenance, 07/22/22 12:36:00 EDT, [facility], resent under correct PCP, 1 puffs [...] Active OA (osteoarthritis) of hip Confirmed Active *[id number] Chain Saw Operator Kellee Rodriguez Confirmed Active Severe obesity Confirmed Active Urine incontinence Confirmed Active 1followed by Dr. Grayson 2diverticulitis episode 01/04/2011. Went to [facility] 3refuses colonoscopy secondary to endometrial carcinoma Stage 1A 5Untreated. See sleep medicine phone call: Eqipement to be removed due to non-use 6Arms, bilateral Social History Social History Type Response Smoking Status Never (less than 100 in lifetime) entered on: 02/18/21 Sex Patient Care team information Care Team Personnel Name: Celine Max RN Position: [facility] SN RN Member Role: Primary Care Nurse Name: Briana Nicole RN Position: [facility] Onco RN Member Role: Primary Care Nurse Name: Lazara Thibodeaux MD Position: [facility] Physician - Primary Care Member Role: PCP Address: Address: [address] [place] [id number]- Name: Magdalena Reyes Position: [facility] Outreach Member Role: Lifetime Consulting Physician Name: Leesa Cross RN Position: [facility] SN RN Member Role: Primary Care Nurse Name: Hermelinda Santacruz RN Position: [facility] RN Member Role: Primary Care Nurse Care Team Related Persons Name: HARMAN BAY Address: home Name: KELSI SCHMID Address: [place] [address]
--- OUTSIDE RECORDS SUMMARY | 2023-08-28 06:06 | XMS_ITS | Continuity of Care Document ---
Author Organization [facility] Address Unknown Care Team Providers Care Pediatric Allergist Name Role Phone Wil BECKHAM, Katy Mazariegos Primary Care Physician Encounter [facility] [place] Date(s): 01/29/21 - 02/28/21 [facility] Allergies, Adverse Reactions, Alerts Substance Reaction Severity [...] Maintenance, 01/20/21 15:16:00 EDT, ER Tablet, [facility], Partial fill upon patient request if the prescription is... Start Date: 01/20/21 Status: Ordered acetaminophen-codeine 300 mg-15 mg oral tablet 2 tablet, By Mouth, 2 times a day, PRN for pain, for 28 days, # 112 tablet, 0 Refills, Acute 03/23/21 17:06:00 EST, 02/23/21 17:06:00 EDT, [id number] Partial fill upon patient request if the prescription is for a schedule II opioid . Start Date: 02/23/21 Stop Date: 03/23/21 Status: Ordered amLODIPine 5 mg oral tablet 5 mg, 1, tablet, By Mouth, Daily, # 90 tablet, Refills 3, Tot. Refills 3, Maintenance, 10/27/20 19:35:00 EDT, Route to Pharmacy Electronically, [facility]/pharmacy #[id number], 149.8, cm, 10/08/20 12:18:00 EDT, [...] Mouth, Daily, # 90 capsule, 1 Refills, [facility] 7[facility], 149.8, cm, 10/08/20 12:18:00 EDT, Height, 100.4, kg, 12/20/19 12:32:00 EDT, Dry Weight Start Date: 01/06/21 Status: Ordered Fish Oil 1000 mg oral capsule 1 capsule = 1,000 mg, By Mouth, 2 times a day, # 60 capsule, 11 Refills, Maintenance, 01/20/21 15:17:00 EDT, Capsule, [facility]/pharmacy #207, 149.8, cm, 01/20/21 13:08:00 EDT, Height, 100.4, kg, 12/20/2011:32:00 EDT, Dry Weight Start Date: 01/20/21 Status: Ordered hydrochlorothiazide-losartan 25 mg-100 mg oral tablet 1 tablet, By Mouth, Daily, # 90 tablet, 3 Refills, Maintenance, 10/27/20 19:34:00 EDT, [facility]/pharmacy#[id number], 1 tablet By Mouth Daily, 149.8, cm, 10/08/20 12:18:00 EDT, Height, 100.4, kg, 12/20/19 12:32:00 EDT, Dry Weight Start Date: 10/27/20 Status: Ordered lidocaine 5% topical ointment 1 application, Topically, 3 times a day, for shoulder or back pain. maori. wash hands thoroughly after application, # 50 Gm, 2 Refills, Maintenance, 01/29/21 12:22:00 EDT, Ointment, [facility]/pharmacy #[id number], Partial fill upon patient request if the pres... Start Date: 01/29/21 Status: Ordered meclizine 25 mg oral tablet 1 tablet = 25 mg, By Mouth, Daily, PRN for dizziness, # 30 tablet, 1 Refills, Maintenance, 10/30/2009:34:00 EDT, Tablet, [facility]/pharmacy #207, 151, cm, 10/31/19 9:51:00 EDT, Height, 109.4, kg, 12/11/18 17:10:00 EDT, Dry Weight Start Date: 10/31/19 Status: Ordered Melatonin 3 mg oral tablet 1-3 tablet, By Mouth, Daily at bedtime, PRN for insomnia, Discontinue tizanidine, # 90 tablet, 3 Refills, Maintenance, 01/20/21 15:15:00 EDT, Tablet, [facility]/pharmacy #[id number], 1-3 tablet By Mouth Daily [...] Refills, Soft Stop, 07/29/20 14:09:00 EDT, Powder, [facility], Partial fill upon patient request [...] 5 01/30/19 Active OA (osteoarthritis)(Confirmed) 6 Active *[id number] Care Partn Kellee Rodriguez(Confirmed) Active 1followed by Dr. Grayson 2diverticulitis episode 01/04/2011. Went to [facility]. 3refuses colonoscopy secondary to endometrial carcinoma Stage 1A 5Untreated. See sleep medicine phone call: Eqipement to be removed due to non-use 6Arms, bilateral Social History Social History Type Response Smoking Status Never (less than 100 in lifetime) entered on: 02/18/21 Sex
--- OUTSIDE RECORDS SUMMARY | 2023-08-28 06:06 | XMS_ITS | Continuity of Care Document ---
Author Organization [facility] Address [address] [place] [address]- Care Team Providers Care Delinquent Tax Collector Name Role Phone Lazara Thibodeaux MD Primary Care Physician [place] [facility] [place](s): 01/06/23 - 02/05/23 [facility]/[address] [address]- Attending Physician: Benjy Sal Allergies, Adverse Reactions, Alerts Substance Reaction Severity [...] Maintenance, 07/22/22 12:36:00 EDT, ER Tablet, [id number], Partial fill upon patient request if the [...] a day, for shoulder or back pain. nepalese. wash hands thoroughly after application, # 50 [...] 07/24/23 12:37:00 EDT, Tablet, [facility]/pharmacy #[id number], Partial fill upon patient request if the prescription is for a schedule II opioid drEric. Start Date: 07/24/23 Stop Date: 01/08/24 Status: [...] tablet, 3 Refills, Maintenance, 01/06/23 10:23:00EDT, Tablet, [facility]/pharmacy #[id number], Partial fill upon [...] 11 Refills,Maintenance, 01/06/23 10:27:00 EDT, [facility]erosol, [facility], 150, cm, 01/06/23 9:32:00 EDT, Height, [...] Active OA (osteoarthritis) of hip Confirmed Active *[id number] Information Security Kellee Rodriguez Confirmed Active Severe obesity Confirmed Active 1followed by Dr. Grayson 2diverticulitis episode 01/04/2011. Went to [facility] 3refuses colonoscopy secondary to endometrial carcinoma Stage 1A 5Untreated. See sleep medicine phone call: Eqipement to be removed due to non-use 6Arms, bilateral Social History Social History Type Response Smoking Status Never (less than 100 in lifetime) entered on: 02/18/21 Sex Cardiology * Event Display: Non Cardiovascular Results Authored Date: Laboratory * Angelic WRIGHT, Pati S: REVIEW Event Display: Non Lab Results Authored Date: * Etienne BECKHAM, Liliana J: REVIEW Event Display: Laboratory Result Scanned Authored Date: * Event Display: Non BH Lab Results Authored Date: Note * Kylah Beltran: SIGN Kylah Beltran: SIGN, MODIFY Kylah Beltran: MODIFY, MODIFY, PERFORM, MODIFY, MODIFY, MODIFY, MODIFY, MODIFY, MODIFY, SIGN, VERIFY, MODIFY Event Display: Care Team Progress Note Authored Date: [id number] Patient: IRAJ BETH Age: 66 years Sex: Female : 1945 Associated Diagnoses: None Author: Yenni Jeffers Visit Information Chief Complaint: Care Team Progress Note. History of Present Illness - Pt has declined mental health services. Her ex-boyfriend is her SUBACUTE NURSE. Care seems to be appropriate. House is clean her meals are made. Patient has refused prefills and does not want a nurse in the hime. She has struggle with medication compliance. Past Medical History Problem list All Problems Seasonal allergies / Confirmed Osteoarthritis / Confirmed Hypertension / Confirmed Hyperlipidemia / SNOMED CT 67216685 / Confirmed Glaucoma / Confirmed Edema / Confirmed Diverticulosis / SNOMED CT 8910893664 / Confirmed DDD (degenerative disc disease), lumbar / SNOMED CT [id number] / Confirmed Asthma / Confirmed Allergies Allergic [...] 24 tablet, 0 Refills, Maintenance Vitamin D 16250 iu oral capsule: 1 capsule = 50,000 International_Units, By Mouth, Every week, # 8 capsule, 0 Refills, Maintenance acetaminophen 500 mg oral tablet: 2 tablet = 1,000 mg, By Mouth, 3 times a day, PRN for pain, nepalese directions DC IBUPROFEN, # 120 tablet, 0 Refills, Maintenance, Tablet albuterol 0.083% inhalation solution: 3 mL = 2.5 mg, Inhalation, Every 4 hours, PRN Wheezing/Shortness of Breath, nepalese please, # 100 each, 2 Refills, Maintenance [...] 0, 0, 10/30/06 13:10:53, Print JOSE Number, [id number], Constant Indicator Physical Examination Vital Signs Weight [...] allow >30 mins on care coordination * Kylah Beltran: PERFORM Event Display: Care Team Progress Note Authored Date: [id number] SCo nurse care associate presen at the care coordination meeting. Radiology * Event Display: IR Special Procedures, Non-BH Authored Date: * Event Display: X-Ray Hip/Groin, Non- BH Authored Date: * Liliana Clifton NP J: REVIEW Event Display: Bone Density, Non-BH Authored Date: * Debby Tucker: PERFORM Event Display: Radiology Results Scanned Authored Date: [id number] * Consuelo Johnson: PERFORM Event Display: Radiology Results Scanned Authored Date: [id number] * Debby Tucker: PERFORM Event Display: Radiology Results Scanned Authored Date: [id number] Patient Care team information Care Team Personnel Name: Celine Max RN Position: [facility] SN RN Member Role: Primary Care Nurse Name: Briana Nicole RN Position: [facility] Onco RN Member Role: Primary Care Nurse Name: Lazara Thibodeaux MD Position: [facility] Physician - Primary Care Member Role: PCP Address: Address: [address] [place] [id number]- Name: Magdalena Reyes Position: [facility] Outreach Member Role: Lifetime Consulting Physician Name: Leesa Cross RN Position: [facility] RN Member Role: Primary Care Nurse Name: Hermelinda Santacruz RN Position: [facility] RN Member Role: Primary Care Nurse Care Team Related Persons Name: HARMAN BAY Address: home Name: SCHMID KELSI Address: [place] [address]
--- OUTSIDE RECORDS SUMMARY | 2023-08-28 06:06 | XMS_ITS | Continuity of Care Document ---
Author Organization [facility] Address [address] [place] [address]- Care Team Providers Care Harvest Manager Name Role Phone Subha WRIGHT, Chiquita Primary Care Physician Encounter [facility] [place] Date(s): 05/20/20 - 06/19/20 [facility] [address] [place] [address]- Allergies, Adverse Reactions, Alerts Substance Reaction Severity [...] 11:21:00 EST, Powder, Route to Pharmacy Electronically, [id number], [facility]/pharmacy #[id number], 149.8, cm, 06/08/20 10:55:00 EST, Heigh... Start Date: 06/08/20 Status: Ordered amLODIPine 5 mg oral tablet 5 mg, 1, tablet, By Mouth, Daily, # 90 tablet, Refills 1, Tot. Refills 1, Maintenance, 03/02/20 11:53:00 EDT, Route to Pharmacy Electronically, [facility]/pharmacy #207, 149.8, cm, 12/26/19 11:12:00 [...] Refills, Maintenance, 07/08/19 8:57:00 EST, EC Capsule, [facility]/pharmacy #[id number], 151, cm, 06/06/19 15:24:00 EST, Height, 109.4, [...] tablet, 1 Refills, Maintenance, 05/12/20 14:40:00 EST, [facility]/pharmacy#207, 1 tablet By Mouth Daily, 149.8, cm, 12/26/19 11:12:00 EDT, Height, 100.4, kg, 12/20/19 12:32:00 EDT, Dry Weight Start Date: 05/12/20 Status: Ordered Lac-Hydrin 12% lotion 1 application, Topically, 2 times a day, # 400 Gm, 1 Refills, Maintenance, 09/17/19 11:45:00 EDT, Lotion, [facility]/pharmacy #207, 1 application Topically 2 times a day, 151, cm, 06/06/19 15:24:00 EST, Height, 109.4, kg, 12/11/18 17:10:00 EDT, Dry Weight Start Date: 09/17/19 Status: Ordered lidocaine 5% topical ointment 1 application, Topically, 3 times a day, wash hands thoroughly after application. bengali, # 50 Gm,1 Refills, Maintenance, 02/27/19 16:48:00 EDT, Ointment, for bilateral shoulder and arm pain that has not responded to other medications, 1 application... Start Date: 02/27/19 Status: Ordered meclizine 25 mg oral tablet 1 tablet = 25 mg, By Mouth, Daily, PRN for dizziness, # 30 tablet, 1 Refills, Maintenance, 10/30/2009:34:00 EDT, Tablet, [facility]/pharmacy #[id number], 151, cm, 10/31/19 9:51:00 [...] patient request Start Date: 12/26/19 Status: Ordered traZODone 50 mg oral tablet See Instructions, 0.5 - 1 tablet By Mouth Daily at bedtime, # 30 each, Refills 1, Tot. Refills 1, Maintenance, 10/31/19 10:34:00 EDT, Instructions Replace Required Details, Route to Pharmacy Electronically, [facility]/pharmacy #[id number], 151, cm, 10/31/19 9:51:0... [...] 5 01/30/19 Active OA (osteoarthritis)(Confirmed) 6 Active *[id number] Care Partn Kellee Rodriguez(Confirmed) Active 1followed by Dr. Grayson 2diverticulitis episode 01/04/2011. Went to [facility]. 3refuses colonoscopy secondary to endometrial carcinoma Stage 1A 5Untreated. See sleep medicine phone call: Eqipement to be removed due to non-use 6Arms, bilateral Social History Social History Type Response Smoking Status Never smoker entered on: 09/03/13 Sex
--- OUTSIDE RECORDS SUMMARY | 2023-08-28 06:06 | XMS_ITS | Continuity of Care Document ---
Author Organization [facility] ter Address [address] [place] [id number]- Care Team Providers Care Applied Behavior Science Specialist Name Role Phone Wil BECKHAM, Katy Mazariegos Primary Care Physician Encounter [facility] [place] Date(s): 04/21/21 - 04/22/[address] [address] Discharge Disposition: A-D/C Home Attending Physician: Papi Norton MD Admitting Physician: Papi Norton MD Referring Physician: Papi Norton MD Allergies, Adverse Reactions, Alerts Substance Reaction [...] Refills, Maintenance, 01/20/21 15:16:00 EDT, ER Tablet, [facility]/pharmacy #[id number], Partial fill upon patient request if the prescription is... Start Date: 01/20/21 Status: Ordered amLODIPine 5 mg oral tablet 5 mg, 1, tablet, By Mouth, Daily, # 90 tablet, Refills 3, Tot. Refills 3, Maintenance, 10/27/20 19:35:00 EDT, Route to Pharmacy Electronically, [facility]/pharmacy #207, 149.8, cm, 10/08/20 12:18:00 EDT, Height, 100.4, kg, 12/20/19 12:32:00 EDT, Dry Weight Start Date: 10/27/20 Status: Ordered amLODIPine 5 mg oral tablet 5 mg, Tablet, By Mouth, 04/22/21 9:00:00 EST Start Date: 04/22/21 Stop Date: 04/22/21 Status: Completed Blood Pressure Monitor See Instructions, # 1 each, Maintenance, large cuff. DX: HTN, 05/12/15 13:32:29, Compound Start Date: 05/12/15 Status: Ordered CPAP Machine See Instructions, # 1 each, Maintenance, AutoCPAP 8-20, 09/14/18 17:50:04 EDT, Compound Start Date: 09/14/18 Status: Ordered duloxetine 20 mg oral enteric coated capsule 1 capsule, By Mouth, Daily, # 90 capsule, 1 Refills, [id number], 149.8, cm, 10/08/20 12:18:00 EDT, Height, 100.4, kg, 12/20/19 12:32:00 EDT, Dry Weight Start Date: 01/06/21 Status: Ordered hydrochlorothiazide-losartan 25 mg-100 mg oral tablet 1 tablet, By Mouth, Daily, # 90 tablet, 3 Refills, Maintenance, 10/27/20 19:34:00 EDT, [facility]/pharmacy#[id number], 1 tablet By Mouth Daily, 149.8, cm, 10/08/20 12:18:00 EDT, Height, 100.4, kg, 12/20/19 12:32:00 EDT, Dry Weight Start Date: 10/27/20 Status: Ordered lidocaine 5% topical ointment 1 application, Topically, 3 times a day, for shoulder or back pain. amharic. wash hands thoroughly after application, # 50 Gm, 2 Refills, Maintenance, 01/29/21 12:22:00 EDT, Ointment, [facility]/pharmacy #207, Partial fill upon patient request if the pres... Start Date: 01/29/21 Status: Ordered meclizine 25 mg oral tablet 1 tablet = 25 mg, By Mouth, Daily, PRN for dizziness, # 30 tablet, 1 Refills, Maintenance, 04/07/2114:36:00 EST, Tablet, [facility]/pharmacy #[id number], 149.8, cm, 03/29/21 10:32:00 EST, Height, 100.4, kg, 12/20/19 12:32:00 EDT, Dry Weight Start Date: 04/07/21 Status: Ordered Melatonin 3 mg oral tablet 1-3 tablet, By Mouth, Daily at bedtime, PRN for insomnia, Discontinue tizanidine, # 90 tablet, 3 Refills, Maintenance, 01/20/21 15:15:00 EDT, Tablet, [facility]/pharmacy #[id number], 1-3 tablet By Mouth Daily at [...] opioid drug. Start Date: 04/22/21 Status: Ordered oxyCODONE 5 mg oral tablet 10 mg, Tablet, By Mouth, Every 6 hours, PRN for Pain , Severe, Routine, 04/21/21 11:39:00 EST Start Date: 04/21/21 Stop Date: 04/22/21 Status: Discontinued Shingrix intramuscular injection = 0.5 mL, Intramuscular, Once, repeat dose in 2 to 6 months, # 1 each, 0 Refills, Soft Stop, 07/29/20 14:09:00 EDT, Powder, [facility], Partial fill upon patient request if [...] 6 Refills, Maintenance, 10/08/20 13:14:00 EDT, Aerosol, [facility]/pharmacy #207, 149.8, cm, 10/08/20 12:18:00 EDT, [...] 1 Refills, Maintenance, 12/14/20 8:36:00 EDT, [facility], 90, resent under correct PCP, 1 puffs [...] 5 01/30/19 Active OA (osteoarthritis)(Confirmed) 6 Active *[id number] Care Partn Kellee Rodriguez(Confirmed) Active Severe obesity(Confirmed) Active 1followed by Dr. Grayson 2diverticulitis episode 01/04/2011. Went to [facility]. 3refuses colonoscopy secondary to endometrial carcinoma Stage 1A 5Untreated. See sleep medicine phone call: Eqipement to be removed due to non-use 6Arms, bilateral Vital Signs Most recent to oldest [Reference Range]: 1 2 3 Height 150 cm (04/22/21 7:04 AM) 150 cm (04/22/21 5:26 AM) 150 cm (04/21/21 11:55 PM) Weight 108.2 kg (04/21/21 2:07 PM) 104.5 kg (04/21/21 8:47 AM) 104.5 kg (04/16/21 3:18 PM) Oxygen Saturation [94-100 %] 100 % (04/22/21 7:04 AM) 97 % (04/22/21 5:26 AM) 97 % (04/21/21 11:55 PM) Pulse Rate [55-90 bpm] 78 bpm (04/22/21 7:04 AM) 79 bpm (04/22/21 5:26 AM) 109 bpm *H* (04/21/21 11:55 PM) Body Mass Index [18.5-24.99] 48.09 *>HHI* (04/21/21 2:07 PM) 46.44 *>HHI* (04/21/21 8:47 AM) 46.44 *>HHI* (04/16/21 3:18 PM) Blood Pressure [90-138/55-84 mm Hg] 147/63mm Hg *H* (04/22/21 7:41 AM) 147/63mm Hg *H* (04/22/21 7:04 AM) 121/73mm Hg (04/22/21 5:26 AM) Respiratory Rate [16-30 br/min] 18 br/min (04/22/21 7:42 AM) 18 br/min (04/22/21 7:04 AM) 18 br/min (04/22/21 5:26 AM) Temperature [96.8-100.4 DegF] 99.0 DegF (04/22/21 7:04 AM) 98.4 DegF (04/22/21 5:26 AM) 99.3 DegF (04/21/21 11:55 PM) Liters per Minute 2 L/min (04/21/21 12:00 PM) 5 L/min (04/21/21 11:30 AM) 5 L/min (04/21/21 11:15 AM) Mode of Delivery (Oxygen) Room air (04/22/21 7:04 AM) Room air (04/22/21 5:26 AM) Room air (04/21/21 11:55 PM) Blood pressure sites Arm, right (04/22/21 5:26 AM) Arm, right (04/21/21 11:55 PM) Arm, right (04/21/21 7:57 PM) Temperature Route Oral (04/22/21 7:04 AM) Oral (04/22/21 5:26 AM) Oral (04/21/21 11:55 PM) Dry Weight 108.2 kg (04/21/21 2:07 PM) 105.3 kg (04/21/21 8:47 AM) 104.5 kg (04/16/21 3:18 PM) Weight Obtained Via Bed scale (04/21/21 2:07 PM) Patient/family stated (04/16/21 3:18 PM) Dry Weight Obtained Via Standing scale (04/21/21 8:47 AM) Patient/family stated (04/16/21 3:18 PM) Social History Social History Type Response Smoking Status Never (less than 100 in lifetime) entered on: 02/18/21 Sex
--- OUTSIDE RECORDS SUMMARY | 2023-08-28 06:06 | XMS_ITS | Continuity of Care Document ---
Author Organization [facility] Adult Address [address] [place] [address]- Care Team Providers Care Adjunct Phlebotomy Instructor Name Role Phone Celeste BECKHAM, Aspen Primary Care Physician [phone] [place] [facility] [place] 08[place]16/19 [facility] [address] [place] [address]- [facility] Attending Physician: Not on Staff, Attending MD Allergies, Adverse Reactions, Alerts Substance Reaction [...] 13:24:42 EDT, Route to Pharmacy Electronically, [facility]- [id number], [facility] Start Date: 02/25/19 Status: Ordered aspirin 81 [...] Refills, Maintenance, 07/08/19 8:57:00 EST, EC Capsule, [facility]/pharmacy #[id number], 151, cm, 06/06/19 15:24:00 EST, Height, 109.4, kg, 12/11/18 17:10:00 EDT, Dry Weight Start Date: 07/08/19 Status: Ordered Fish Oil 500 mg oral capsule 1 capsule = 500 mg, By Mouth, 2 times a day, # 180 capsule, 3 Refills, Maintenance, 05/09/19 10:47:00 EST Start Date: 05/09/19 Status: Ordered gabapentin 100 mg oral capsule 1, capsule, By Mouth, 3 times a day, # 270 capsule, Refills 1, Tot. Refills 0, Maintenance, 08/06/19 9:46:00 EDT, Route to Pharmacy Electronically, [id number], 151, cm, 06/06/19 15:24:00 EST, Height, 109.4, kg, 12/11/18 17:10:00 EDT, Dry Weight Start Date: 08/06/19 Status: Ordered hydrochlorothiazide-losartan 25 mg-100 mg oral tablet 1 tablet, By Mouth, Daily, # 90 tablet, 1 Refills, Maintenance, 07/23/19 16:09:00 EDT, [facility]/pharmacy#[id number], 1 tablet By Mouth Daily, 151, cm, 06/06/19 15:24:00 EST, Height, 109.4, kg, 12/11/18 17:10:00 EDT, Dry Weight Start Date: 07/23/19 Status: Ordered ibuprofen 800 mg oral tablet 800 mg, 1, tablet, By Mouth, 2 times a day, PRN, # 60 tablet, Refills 1, Tot. Refills 1, Soft Stop,as needed for arthritis, 07/23/19 16:09:00 EDT, Route to Pharmacy Electronically, [facility]/pharmacy #[id number], 151, cm, 06/06/19 15:24:00 EST, Height, 109.4, kg... Start Date: 07/23/19 Stop Date: 09/21/19 Status: Ordered lidocaine 5% topical ointment 1 application, Topically, 3 times a day, wash hands thoroughly after application. italian, # 50 Gm,1 Refills, Maintenance, 02/27/19 16:48:00 EDT, Ointment, for bilateral shoulder and arm pain that has not responded to other medications, 1 application... Start Date: 02/27/19 Status: Ordered meclizine 25 mg oral tablet 1 tablet = 25 mg, By Mouth, Daily, PRN for dizziness, # 30 tablet, 0 Refills, Maintenance, 07/23/2015:09:00 EDT, Tablet, [facility]/pharmacy #[id number], 151, cm, 06/06/19 15:24:00 EST, Height, 109.4, kg, 12/11/18 17:10:00 EDT, Dry Weight Start Date: 07/23/19 Status: Ordered multivitamin Multiple Vitamins oral tablet 1 tablet, By Mouth, Daily, # 90 tablet, 3 Refills, Maintenance, 10/03/17 3:35:19 EDT, Tablet, 1 tablet By Mouth Daily Start Date: 10/03/17 Status: Ordered nystatin topical [id number] u/gm powder 1 application, Topically, 2 times [...] capsule, 0 Refills, Maintenance, 07/23/19 16:09:00EDT, Capsule, [facility]/pharmacy #[id number], 151, cm, 06/06/19 15:24:00 EST, Height, 109.4, kg, 12/11/18 17:10:00 EDT, Dry Weight Start Date: 07/23/19 Status: Ordered traZODone 50 mg oral tablet See Instructions, 0.5 - 1 tablet By Mouth Daily at bedtime, # 30 each, Refills 1, Tot. Refills 1, Maintenance, 07/05/19 9:34:00 EST, Instructions Replace Required Details, Route to Pharmacy Electronically, [facility]/pharmacy #[id number], 151, cm, 06/06/19 15:24:0... Start Date: 07/05/19 Status: Ordered Ventolin HFA 108 mcg/inh inhalation [...] 5 01/30/19 Active OA (osteoarthritis)(Confirmed) 6 Active *[id number]-[facility] Partn Jeffery Mackenzie(Confirmed) Active 1followed by Dr. Grayson 2diverticulitis episode 01/04/2011. Went to [facility]. 3refuses colonoscopy secondary to endometrial carcinoma Stage 1A 5Untreated. See sleep medicine phone call: Eqipement to be removed due to non-use 6Arms, bilateral Social History Social History Type Response Smoking Status Never smoker entered on: 09/03/13 Sex
--- OUTSIDE RECORDS SUMMARY | 2023-08-28 06:06 | XMS_ITS | Continuity of Care Document ---
Author Organization [facility] Address [address] [place] [address]- Care Team Providers Care Cover Cutter Name Role Phone Lazara Thibodeaux MD Primary Care Physician [place] [facility] [place]23 - 07/23/23 [facility]/[address] [address]- Attending Physician: Lazara Thibodeaux MD Admitting Physician: [...] Stop 09/11/24 10:40:00 EDT, 09/17/23 10:40:00 EDT, [facility]/pharmacy #[id number], 150, cm, 01/06/23 9:32:00 EDT, Height, 107.54, kg, 01/06/23 9:32:00 EDT, Dry Weight Start Date: 09/17/23 Stop Date: 09/11/24 Status: Ordered duloxetine 20 mg oral enteric coated capsule 1 capsule, By Mouth, Daily, for 90 days, # 90 capsule, 3 Refills, Physician Stop 09/06/25 10:40:00 EDT, 09/11/24 10:40:00 EDT, [facility], 150, cm, 07/10/23 10:33:00 EST, Height, 105.81, kg, 07/10/23 10:33:00 EST, Dry Weight Start Date: 09/11/24 Stop Date: 09/06/25 Status: Ordered duloxetine 20 mg oral enteric [...] a day, for shoulder or back pain. hebrew. wash hands thoroughly after application, # 50 [...] 3 Refills, Maintenance, 07/10/23 11:32:00 EST, Tablet, [facility], 1 tablet By Mouth Daily, [...] 3 Refills, Maintenance, 07/10/23 11:29:00 EST, Aerosol, [facility], 150, cm, 07/10/23 10:33:00 EST, [...] each, 11 Refills, Maintenance, 07/10/23 11:31:00 EST, [facility], resent under correct PCP, 1 puffs Inhalation 2 times a day, 150, cm, 07/09/2409:33:00 EST, Height, 105.81, kg, 07/10/23 10:33:00 EST... Start Date: 3/4/24 Status: Ordered Problem List Condition Confirmation Course [...] Active OA (osteoarthritis) of hip Confirmed Active *[id number] Roller Engraver Kellee Rodriguez Confirmed Active Severe obesity Confirmed Active Urine incontinence Confirmed Active 1followed by Dr. Grayson 2diverticulitis episode 01/04/2011. Went to [facility] 3refuses colonoscopy secondary to endometrial carcinoma Stage 1A 5Untreated. See sleep medicine phone call: Eqipement to be removed due to non-use 6Arms, bilateral Social History Social History Type Response Smoking Status Never (less than 100 in lifetime) entered on: 02/18/21 Sex Patient Care team information Care Team Personnel Name: Celine Max RN Position: [facility] SN RN Member Role: Primary Care Nurse Name: Briana Nicole RN Position: [facility] Onco RN Member Role: Primary Care Nurse Name: Lazara Thibodeaux MD Position: [facility] Physician - Primary Care Member Role: PCP Address: Address: [address] [place] [address]- Name: Magdalena Reyes Position: [facility] Outreach Member Role: Lifetime Consulting Physician Name: Leesa Cross RN Position: [facility] SN RN Member Role: Primary Care Nurse Name: Hermelinda Santacruz RN Position: [facility] RN Member Role: Primary Care Nurse Care Team Related Persons Name: HARMAN BAY Address: home Name: KELSI SCHMID Address: [place] [address]
--- OUTSIDE RECORDS SUMMARY | 2023-08-28 06:06 | XMS_ITS | Continuity of Care Document ---
Author Organization [facility] Address [address] [place] [address]- Care Team Providers Care Utility Supervisor [employer] Name Role Phone Freddy BECKHAM, Sophie Alvarado Primary Care Physici an Encounter [facility] Date(s): 09/04/20 - 10/04/20 [facility] [address] [place] [address]- Allergies, Adverse Reactions, Alerts Substance Reaction Severity [...] 11:21:00 EST, Powder, Route to Pharmacy Electronically, [id number], [facility]/pharmacy #[id number], 149.8, cm, 06/08/20 10:55:00 EST, Heigh... Start Date: 06/08/20 Status: Ordered amLODIPine 5 mg oral tablet 5 mg, 1, tablet, By Mouth, Daily, # 90 tablet, Refills 1, Tot. Refills 1, Maintenance, 03/02/20 11:53:00 EDT, Route to Pharmacy Electronically, [facility]/pharmacy #207, 149.8, cm, 12/26/19 11:12:00 EDT, [...] Refills, Maintenance, 07/08/19 8:57:00 EST, EC Capsule, [facility]/pharmacy #207, 151, cm, 06/06/19 15:24:00 EST, Height, 109.4, kg, 12/11/18 17:10:00 EDT, Dry Weight Start Date: 07/08/19 Status: Ordered diclofenac 1% topical gel 1 application, Topically, 4 times a day, # 100 Gm, 5 Refills, Maintenance, 07/29/20 13:23:00 EDT, Gel, [facility]/pharmacy #[id number], Partial fill upon patient request if the prescription is for a schedule II opioid drug., 149.8, cm, 07/15/20 8:10:00 EST, Height... Start Date: 07/29/20 Status: Ordered Fish Oil 500 mg oral capsule 1 capsule = 500 mg, By Mouth, 2 times a day, # 180 capsule, 3 Refills, Maintenance, 05/09/19 10:47:00 EST Start Date: 05/09/19 Status: Ordered hydrochlorothiazide-losartan 25 mg-100 mg oral tablet 1 tablet, By Mouth, Daily, # 90 tablet, 1 Refills, Maintenance, 05/12/20 14:40:00 EST, [facility]/pharmacy#[id number], 1 tablet By Mouth [...] a day, wash hands thoroughly after application. ukrainian, # 50 Gm,1 Refills, Maintenance, 02/27/19 16:48:00 EDT, Ointment, for bilateral shoulder and arm pain that has not responded to other medications, 1 application... Start Date: 02/27/19 Status: Ordered meclizine 25 mg oral tablet 1 tablet = 25 mg, By Mouth, Daily, PRN for dizziness, # 30 tablet, 1 Refills, Maintenance, 10/30/2009:34:00 EDT, Tablet, [facility]/pharmacy #[id number], 151, cm, 10/31/19 9:51:00 EDT, Height, 109.4, kg, 12/11/18 17:10:00 EDT, Dry Weight Start Date: 10/31/19 Status: Ordered meclizine 25 mg oral tablet 1 tablet = 25 mg, By Mouth, Daily, PRN for dizziness, # 30 tablet, 1 Refills, Maintenance, :25:00 EST, Tablet, [facility]/pharmacy #[id number], 149.8, cm, 06/08/20 10:55:00 EST, Height, [...] patient request Start Date: 12/26/19 Status: Ordered Shingrix intramuscular injection = 0.5 mL, Intramuscular, Once, repeat dose in 2 to 6 months, # 1 each, 0 Refills, Soft Stop, 07/29/20 14:09:00 EDT, Powder, [facility], Partial fill upon patient request if the prescription is for a schedule II opioid drug., 0.5 mL... Start Date: 07/29/20 Status: Ordered tiZANidine 4 mg oral capsule 1 capsule = 4 mg, By Mouth, 3 times a day, # 180 capsule, 0 Refills, Maintenance, 07/31/20 7:10:00 EDT, Capsule, [facility], 149.8, cm, 07/29/20 13:29:00 EDT, Height, 100.4, kg, 12/20/19 12:32:00 EDT, Dry Weight Start Date: 07/31/20 Stop Date: 09/29/20 Status: Ordered traZODone 50 mg oral tablet See Instructions, 0.5 - 1 tablet By Mouth Daily at bedtime, # 30 each, Refills 1, Tot. Refills 1, Maintenance, 10/31/19 10:34:00 EDT, Instructions Replace Required Details, Route to Pharmacy Electronically, [facility]/pharmacy #[id number], 151, cm, 10/31/19 9:51:0... Start Date: 10/31/19 Status: Ordered Tylenol 8 Hour 650 mg oral tablet, extended release 2 tablet = 1,300 mg, By Mouth, Every 8 hours, PRN as needed for fever, for 30 days, # 200 tablet, 3Refills, Acute 11/26/20 13:34:00 EDT, 07/29/20 13:34:00 EDT, ER Tablet, [facility]/pharmacy #[id number], Partialfill upon patient request if the prescription is fo... Start Date: 07/29/20 Stop Date: 11/26/20 Status: Ordered Ventolin HFA 108 mcg/inh inhalation aerosol with adapter 2 puffs, Inhalation, Every 6 hours, PRN for wheezing, use with spacer chamber, # 8 Gm, 6 Refills, Maintenance, 06/08/20 11:14:00 EST, Aerosol, [facility]/pharmacy #[id number], 149.8, cm, 06/08/20 10:55:00 EST, Height, [...] 5 01/30/19 Active OA (osteoarthritis)(Confirmed) 6 Active *[id number] Care Partn sheldon Rodriguez(Confirmed) Active 1followed by Dr. Grayson 2diverticulitis episode 01/04/2011. Went to [facility]. 3refuses colonoscopy secondary to endometrial carcinoma Stage 1A 5Untreated. See sleep medicine phone call: Eqipement to be removed due to non-use 6Arms, bilateral Social History Social History Type Response Smoking Status Never (less than 100 in lifetime); Tobacco user in household: No entered on: 07/29/20 Sex
--- OUTSIDE RECORDS SUMMARY | 2023-08-28 06:06 | XMS_ITS | Continuity of Care Document ---
Author Organization [facility] Address Unknown Care Team Providers Care Student Counselor Name Role Phone Maria Howard MD Primary Care Physician Encounter [facility] [place] Date(s): 04/12/21 - 05/12/21 [facility] Attending Physician: Matheus Johnson MD Admitting Physician: Matheus Johnson MD Allergies, Adverse Reactions, Alerts Substance Reaction [...] Maintenance, 01/20/21 15:16:00 EDT, ER Tablet, [id number], Partial fill upon patient request if the prescription is... Start Date: 01/20/21 Status: Ordered amLODIPine 5 mg oral tablet 5 mg, 1, tablet, By Mouth, Daily, # 90 tablet, Refills 3, Tot. Refills 3, Maintenance, 10/27/20 19:35:00 EDT, Route to Pharmacy Electronically, [facility]/pharmacy #[id number], 149.8, cm, 10/08/20 12:18:00 EDT, Height, [...] Mouth, Daily, # 90 capsule, 1 Refills, [id number], 149.8, cm, 10/08/20 12:18:00 EDT, Height, 100.4, kg, 12/20/19 12:32:00 EDT, Dry Weight Start Date: 01/06/21 Status: Ordered hydrochlorothiazide-losartan 25 mg-100 mg oral tablet 1 tablet, By Mouth, Daily, # 90 tablet, 3 Refills, Maintenance, 10/27/20 19:34:00 EDT, [facility]/pharmacy#[id number], 1 tablet By Mouth Daily, 149.8, cm, 10/08/20 12:18:00 EDT, Height, 100.4, kg, 12/20/19 12:32:00 EDT, Dry Weight Start Date: 10/27/20 Status: Ordered lidocaine 5% topical ointment 1 application, Topically, 3 times a day, for shoulder or back pain. [facility]. wash hands thoroughly after application, # 50 Gm, 2 Refills, Maintenance, 01/29/21 12:22:00 EDT, Ointment, [facility]/pharmacy #[id number], Partial fill upon patient request if the pres... Start Date: 01/29/21 Status: Ordered meclizine 25 mg oral tablet 1 tablet = 25 mg, By Mouth, Daily, PRN for dizziness, # 30 tablet, 1 Refills, Maintenance, 04/07/2114:36:00 EST, Tablet, [id number] 149.8, cm, 03/29/21 10:32:00 EST, Height, 100.4, kg, 12/20/19 12:32:00 EDT, Dry Weight Start Date: 04/07/21 Status: Ordered Melatonin 3 mg oral tablet 1-3 tablet, By Mouth, Daily at bedtime, PRN for insomnia, Discontinue tizanidine, # 90 tablet, 3 Refills, Maintenance, 01/20/21 15:15:00 EDT, Tablet, [facility]/pharmacy #[id number], 1-3 tablet By Mouth Daily at [...] Refills, Soft Stop, 07/29/20 14:09:00 EDT, Powder, [facility], Partial fill upon patient request if the prescription is for a schedule II opioid drug., 0.5 mL... Start Date: 07/29/20 Status: Ordered Spacer Spacer, See Instructions, # 1 each, Refills 0, Tot. Refills 0, Maintenance, Asthma (J45.909) CARMELA lifetime, 10/08/20 13:39:00 EDT, Compound, 149.8, cm, 10/08/20 12:18:00 EDT, Height, 100.4, kg, 08/14/20 12:32:00 EDT, Dry Weight Start Date: 10/08/20 [...] 5 01/30/19 Active OA (osteoarthritis)(Confirmed) 6 Active *[phone] Care Partn Kellee [place](Confirmed) Active Severe obesity(Confirmed) Active 1followed by Dr. Grayson 2diverticulitis episode 01/04/2011. Went to [facility]. 3refuses colonoscopy secondary to endometrial carcinoma Stage 1A 5Untreated. See sleep medicine phone call: Eqipement to be removed due to non-use 6Arms, bilateral Social History Social History Type Response Smoking Status Never (less than 100 in lifetime) entered on: 02/18/21 Sex
--- OUTSIDE RECORDS SUMMARY | 2023-08-28 06:06 | XMS_ITS | Continuity of Care Document ---
Author Organization [facility] Address [address] [place] [id number]- Care Team Providers Care Outside Maintenance Worker Name Role Phone Lazara Thibodeaux MD Primary Care Physician [phone] [place] [facility] [place]23 - 07/05/23 [facility]/[address] [address]- [place] Allergies, Adverse Reactions, Alerts Substance Reaction [...] Maintenance, 07/22/22 12:36:00 EDT, ER Tablet, [id number], Partial fill upon patient request if the prescription i... Start Date: 07/22/22 Status: Ordered amLODIPine 5 mg oral tablet 5 mg, 1, tablet, By Mouth, Daily, # 30 tablet, Refills 11, Tot. Refills 11, Maintenance, 07/22/22 12:36:00 EDT, Route to Pharmacy Electronically, [facility]/pharmacy #[id number], 150, cm, 05/13/22 10:59:00 EST, Height, 108.2, kg, 04/21/21 14:07:00 EST, Dry Weight Start Date: 07/22/22 Status: Ordered Aspercreme Warming Pain Relief Patch 0.025% topical film See Instructions, Topically 3 times a day to affected area, # 42.5 Gm, 11 Refills, Acute 01/15/24 9:20:00 EDT, 01/13/23 9:20:00 EDT, [facility]/pharmacy #[id number], Partial fill upon patient [...] tablet, 11 Refills, Maintenance, 07/22/22 12:36:00 EDT, [facility]/pharmacy #[id number], 1 tablet By Mouth Daily, 150, cm, 05/13/22 10:59:00 EST, Height, 108.2, kg, 04/21/21 14:07:00 EST, Dry Weight Start Date: 07/22/22 Status: Ordered lidocaine 5% topical ointment 1 application, Topically, 3 times a day, for shoulder or back pain. eritrean. wash hands thoroughly after application, # 50 Gm, 2 Refills, Maintenance, 07/22/22 12:36:00 EDT, Ointment, [facility]/pharmacy #[id number], Partial fill upon patient [...] prescription is for a schedule II opioid drCarrillo.. Start Date: 07/24/23 Stop Date: 01/08/24 Status: [...] Refills, Maintenance, 07/22/22 12:36:00 EDT, Tablet, [id number], 1 tablet By Mouth Daily, 150, [...] Gm, 11 Refills, Maintenance, 07/22/22 12:36:00 EDT, [facility]/pharmacy #[id number], Partial fill upon patient [...] each, 11 Refills, Maintenance, 07/22/22 12:36:00 EDT, [facility]/pharmacy #[id number], resent under correct PCP, 1 puffs [...] Active OA (osteoarthritis) of hip Confirmed Active *[id number] Officer Lieutenant Kellee Rodriguez Confirmed Active Severe obesity Confirmed Active Urine incontinence Confirmed Active 1followed by Dr. Grayson 2diverticulitis episode 01/04/2011. Went to [facility] 3refuses colonoscopy secondary to endometrial carcinoma Stage 1A 5Untreated. See sleep medicine phone call: Eqipement to be removed due to non-use 6Arms, bilateral Social History Social History Type Response Smoking Status Never (less than 100 in lifetime) entered on: 02/18/21 Sex Patient Care team information Care Team Personnel Name: Celine Max RN Position: [facility] SN RN Member Role: Primary Care Nurse Name: Briana Nicole RN Position: [facility] Onco RN Member Role: Primary Care Nurse Name: Lazara Thibodeaux MD Position: [facility] Physician - Primary Care Member Role: PCP Address: Address: [address] [place] [address]- Name: Magdalena Reyes Position: [facility] Outreach Member Role: Lifetime Consulting Physician Name: Leesa Cross RN Position: [facility] RN Member Role: Primary Care Nurse Name: Hermelinda Santacruz RN Position: [facility] RN Member Role: Primary Care Nurse Care Team Related Persons Name: HARMAN BAY Address: home Name: KELSI SCH[place] Address: [place] [address]
--- OUTSIDE RECORDS SUMMARY | 2023-08-28 06:06 | XMS_ITS | Continuity of Care Document ---
Author Organization [facility] Address Unknown Care Team Providers Care It Program Manager Name Role Phone Lazara Thibodeaux MD Primary Care Physician [phone] [place] [facility] [place] 07/23/21 - 08/22/21 [facility] Allergies, Adverse Reactions, Alerts Substance [...] Maintenance, 01/20/21 15:16:00 EDT, ER Tablet, [facility], Partial fill upon patient request if the prescription is... Start Date: 01/20/21 Status: Ordered amLODIPine 5 mg oral tablet 5 mg, 1, tablet, By Mouth, Daily, # 90 tablet, Refills 3, Tot. Refills 3, Maintenance, 10/27/20 19:35:00 EDT, Route to Pharmacy Electronically, [facility]/pharmacy #[id number], 149.8, cm, 10/08/20 [...] Mouth, Daily, # 90 capsule, 1 Refills, [facility] STORE [id number], 149.8, cm, 10/08/20 12:18:00 EDT, Height, 100.4, kg, 12/20/19 12:32:00 EDT, Dry Weight Start Date: 01/06/21 Status: Ordered hydrochlorothiazide-losartan 25 mg-100 mg oral tablet 1 tablet, By Mouth, Daily, # 90 tablet, 3 Refills, Maintenance, 10/27/20 19:34:00 EDT, [facility]/pharmacy#[id number], 1 tablet By Mouth Daily, 149.8, cm, 10/08/20 12:18:00 EDT, Height, 100.4, kg, 12/20/19 12:32:00 EDT, Dry Weight Start Date: 10/27/20 Status: Ordered lidocaine 5% topical ointment 1 application, Topically, 3 times a day, for shoulder or back pain. hungarian. wash hands thoroughly after application, # 50 Gm, 2 Refills, Maintenance, 01/29/21 12:22:00 EDT, Ointment, [facility]/pharmacy #[id number], Partial fill upon patient request if the pres... Start Date: 01/29/21 Status: Ordered meclizine 25 mg oral tablet 1 tablet = 25 mg, By Mouth, Daily, PRN for dizziness, # 30 tablet, 1 Refills, Maintenance, 04/07/2114:36:00 EST, Tablet, [facility]/pharmacy #[id number], 149.8, cm, 03/29/21 10:32:00 EST, Height, 100.4, kg, 12/20/19 12:32:00 EDT, Dry Weight Start Date: 04/07/21 Status: Ordered Melatonin 3 mg oral tablet 1-3 tablet, By Mouth, Daily at bedtime, PRN for insomnia, Discontinue tizanidine, # 90 tablet, 0 Refills, Maintenance, 05/25/21 18:09:00 EST, Tablet, [facility] 3, 1-3 tablet By Mouth Daily at [...] Refills, Soft Stop, 07/29/20 14:09:00 EDT, Powder, [facility], Partial fill upon patient request [...] 5 01/30/19 Active OA (osteoarthritis)(Confirmed) 6 Active *[id number] Care Partn Kellee Rodriguez(Confirmed) Active Severe obesity(Confirmed) Active 1followed by Dr. Grayson 2diverticulitis episode 01/04/2011. Went to [facility] 3refuses colonoscopy secondary to endometrial carcinoma Stage 1A 5Untreated. See sleep medicine phone call: Eqipement to be removed due to non-use 6Arms, bilateral Social History Social History Type Response Smoking Status Never (less than 100 in lifetime) entered on: 02/18/21 Sex
--- OUTSIDE RECORDS SUMMARY | 2023-08-28 06:06 | XMS_ITS | Continuity of Care Document ---
Author Organization [facility] Address Unknown Care Team Providers Care Strategic Business Development Name Role Phone Lazara Thibodeaux MD Primary Care Physician [place] [facility] [place] [id number] Date(s): 09/27/21 - 10/27/21 [facility] Attending Physician: AdmtrBenjy Allergies, Adverse Reactions, Alerts Substance Reaction Severity [...] Maintenance, 09/27/21 10:40:00 EDT, ER Tablet, [id number], Partial fill upon patient request if the prescription i... Start Date: 09/27/21 Status: Ordered amLODIPine 5 mg oral tablet 5 mg, 1, tablet, By Mouth, Daily, # 30 tablet, Refills 11, Tot. Refills 11, Maintenance, 09/27/21 10:40:00 EDT, Route to Pharmacy Electronically, [facility]/pharmacy #207, 150, cm, 09/27/21 10:05:00 EDT, Height, [...] Physician Stop 09/22/22 10:40:00EDT, 09/27/21 10:40:00 EDT, [facility]/pharmacy #1, 150, cm, 09/27/21 10:05:00 EDT, Height, 108.2, kg, 04/21/21 14:07:00 EST, Dry Weight Start Date: 09/27/21 Stop Date: 09/22/22 Status: Ordered hydrochlorothiazide-losartan 25 mg-100 mg oral tablet 1 tablet, By Mouth, Daily, # 30 tablet, 11 Refills, Maintenance, 09/27/21 10:41:00 EDT, [facility]/pharmacy #207, 1 tablet By Mouth Daily, 150, cm, 09/27/21 10:05:00 EDT, Height, 108.2, kg, 04/21/21 14:07:00 EST, Dry Weight Start Date: 09/27/21 Status: Ordered lidocaine 5% topical ointment 1 application, Topically, 3 times a day, for shoulder or back pain. malaysian. wash hands thoroughly after application, # 50 Gm, 2 Refills, Maintenance, 01/29/21 12:22:00 EDT, Ointment, [facility]/pharmacy #[id number], Partial fill upon patient request if the pres... Start Date: 01/29/21 Status: Ordered meclizine 25 mg oral tablet 1 tablet = 25 mg, By Mouth, 3 times a day, PRN for dizziness, # 30 tablet, 0 Refills, Acute 09/28/22 10:42:00 EDT, 09/27/21 10:42:00 EDT, Tablet, [facility]/pharmacy #[id number], Partial fill upon patient requestif the prescription is for a schedule II opioid cortez... Start Date: 09/27/21 Stop Date: 09/28/22 Status: Ordered Melatonin 3 mg oral tablet 1-3 tablet, By Mouth, Daily at bedtime, PRN for insomnia, Discontinue tizanidine, # 60 tablet, 11 Refills, Maintenance, 09/27/21 10:41:00 EDT, Tablet, [facility]/pharmacy #[id number], 1-3 tablet By Mouth Daily atbedtime,PRN:for insomnia,Instr:Discontinue tizanidi... Start Date: 09/27/21 Status: Ordered multivitamin Multiple Vitamins oral tablet 1 tablet, By Mouth, Daily, # 30 tablet, 11 Refills, Maintenance, 09/27/21 10:42:00 EDT, Tablet, [facility]/pharmacy #[id number], 1 tablet By Mouth Daily, 150, [...] Gm, 11 Refills,Maintenance, 09/27/21 10:40:00 EDT, Aerosol, [facility]/pharmacy #[id number], 150, cm, 09/27/21 10:05:00 EDT, Height, 108.2, kg, 04/21/21 14:07:00 EST, Dry Weight Start Date: 09/27/21 Status: Ordered Voltaren 1% topical gel = 2 Gm, Topically, 4 times a day, # 100 Gm, 11 Refills, Maintenance, 09/27/21 10:40:00 EDT, 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) Active Diverticulosis(Confirmed) 2 Active Elevated sed rate(Confirmed) Active GERD (gastroesophageal reflu x disease)(Confirmed) Active Generalized anxiety disorder(Confirmed) Active Glaucoma(Confirmed) Active Health Maintenance Alteration(Confirmed) 3 Active Status post bilateral knee replacements(Confirmed) 03/01/12 Active S/P JUSTIN-BSO (total abdominal hysterectomy and bilateral salpingo-oophorectomy)(Confirmed) 4 Active Imbalance(Confirmed) Active Osteoarthritis of lumbar spine(Confirmed) Active Mild persistent asthma(Confirmed) Active Depression, major, recurrent , mild(Confirmed) Active Hyperlipidemia, mixed(Confirmed) Active Morbid obesity with BMI of 4 0.0-44.9, adult(Confirmed) Active ANGEL (obstructive sleep apnea)(Confirmed) 5 01/30/19 Active OA (osteoarthritis)(Confirmed) 6 Active OA (osteoarthritis) of hip(Confirmed) Active *[id number] Care Partn er Kellee [place](Confirmed) Active Severe obesity(Confirmed) Active 1followed by Dr. Grayson 2diverticulitis episode 01/04/2011. Went to [facility] 3refuses colonoscopy secondary to endometrial carcinoma Stage 1A 5Untreated. See sleep medicine phone call: Eqipement to be removed due to non-use 6Arms, bilateral Social History Social History Type Response Smoking Status Never (less than 100 in lifetime) entered on: 02/18/21 Sex
--- OUTSIDE RECORDS SUMMARY | 2023-08-28 06:06 | XMS_ITS | Continuity of Care Document ---
Author Organization [facility] Address [address] [place] [address]- Care Team Providers Care Public Relations Director Name Role Phone Wil BECKHAM, Katy Mazariegos Primary Care Physician En[place] [facility] [place] Date(s): 08/12/20 - 09/11/20 [facility] De Ivana [address] [place] [id number]- Allergies, Adverse Reactions, Alerts Substance Reaction Severity [...] 11:21:00 EST, Powder, Route to Pharmacy Electronically, [id number], [facility]/pharmacy #207, 149.8, cm, 06/08/20 10:55:00 EST, Heigh... Start Date: 06/08/20 Status: Ordered amLODIPine 5 mg oral tablet 5 mg, 1, tablet, By Mouth, Daily, # 90 tablet, Refills 1, Tot. Refills 1, Maintenance, 03/02/20 11:53:00 EDT, Route to Pharmacy Electronically, [facility]/pharmacy #207, 149.8, cm, 12/26/19 11:12:00 EDT, [...] Refills, Maintenance, 07/08/19 8:57:00 EST, EC Capsule, [facility]/pharmacy #207, 151, cm, 06/06/19 15:24:00 EST, Height, 109.4, kg, 12/11/18 17:10:00 EDT, Dry Weight Start Date: 07/08/19 Status: Ordered diclofenac 1% topical gel 1 application, Topically, 4 times a day, # 100 Gm, 5 Refills, Maintenance, 07/29/20 13:23:00 EDT, Gel, [facility]/pharmacy #[id number], Partial fill upon patient request [...] tablet, 1 Refills, Maintenance, 05/12/20 14:40:00 EST, [id number], 1 tablet By Mouth Daily, 149.8, cm, [...] a day, wash hands thoroughly after application. east timore[place], # 50 Gm,1 Refills, Maintenance, 02/27/19 16:48:00 EDT, Ointment, for bilateral shoulder and arm pain that has not responded to other medications, 1 application... Start Date: 02/27/19 Status: Ordered meclizine 25 mg oral tablet 1 tablet = 25 mg, By Mouth, Daily, PRN for dizziness, # 30 tablet, 1 Refills, Maintenance, 10/30/2009:34:00 EDT, Tablet, [facility], 151, cm, 10/31/19 9:51:00 EDT, Height, 109.4, kg, 12/11/18 17:10:00 EDT, Dry Weight Start Date: 10/31/19 Status: Ordered meclizine 25 mg oral tablet 1 tablet = 25 mg, By Mouth, Daily, PRN for dizziness, # 30 tablet, 1 Refills, Maintenance, :25:00 EST, Tablet, [id number], 149.8, cm, 06/08/20 10:55:00 EST, [...] Refills, Soft Stop, 07/29/20 14:09:00 EDT, Powder, [facility], Partial fill upon patient request if the prescription is for a schedule II opioid drug., 0.5 mL... Start Date: 07/29/20 Status: Ordered tiZANidine 4 mg oral capsule 1 capsule = 4 mg, By Mouth, 3 times a day, # 180 capsule, 0 Refills, Maintenance, 07/31/20 7:10:00 EDT, Capsule, [facility], 149.8, cm, 07/29/20 13:29:00 EDT, Height, 100.4, kg, 12/20/19 12:32:00 EDT, Dry Weight Start Date: 07/31/20 Stop Date: 09/29/20 Status: Ordered traZODone 50 mg oral tablet See Instructions, 0.5 - 1 tablet By Mouth Daily at bedtime, # 30 each, Refills 1, Tot. Refills 1, Maintenance, 10/31/19 10:34:00 EDT, Instructions Replace Required Details, Route to Pharmacy Electronically, [facility]/pharmacy #[id number], 151, cm, 10/31/19 9:51:0... Start Date: 10/31/19 Status: Ordered Tylenol 8 Hour 650 mg oral tablet, extended release 2 tablet = 1,300 mg, By Mouth, Every 8 hours, PRN as needed for fever, for 30 days, # 200 tablet, 3Refills, Acute 11/26/20 13:34:00 EDT, 07/29/20 13:34:00 EDT, ER Tablet, [facility]/pharmacy #[id number], Partialfill upon patient request if the prescription is fo... Start Date: 07/29/20 Stop Date: 11/26/20 Status: Ordered Ventolin HFA 108 mcg/inh inhalation aerosol with adapter 2 puffs, Inhalation, Every 6 hours, PRN for wheezing, use with spacer chamber, # 8 Gm, 6 Refills, Maintenance, 06/08/20 11:14:00 EST, Aerosol, [facility]/pharmacy #[id number], 149.8, cm, 06/08/20 10:55:00 EST, [...] 5 01/30/19 Active OA (osteoarthritis)(Confirmed) 6 Active *[id number] Care Partn er Kellee Rodriguez(Confirmed) Active 1followed by Dr. Grayson 2diverticulitis episode 01/04/2011. Went to [facility]. 3refuses colonoscopy secondary to endometrial carcinoma Stage 1A 5Untreated. See sleep medicine phone call: Eqipement to be removed due to non-use 6Arms, bilateral Social History Social History Type Response Smoking Status Never (less than 100 in lifetime); Tobacco user in household: No entered on: 07/29/20 Sex
--- OUTSIDE RECORDS SUMMARY | 2023-08-28 06:07 | XMS_ITS | Continuity of Care Document ---
Author Organization [facility] Address [address] [place] [address]- Care Team Providers Care Economics Instructor Name Role Phone Lazara Thibodeaux MD Primary Care Physician [place] [facility] [place] 12/28/22 - 01/27/23 [facility]/[address] [address]- [place] Allergies, Adverse Reactions, Alerts Substance Reaction [...] Maintenance, 07/22/22 12:36:00 EDT, ER Tablet, [id number], Partial fill upon patient request if the prescription i... Start Date: 07/22/22 Status: Ordered amLODIPine 5 mg oral tablet 5 mg, 1, tablet, By Mouth, Daily, # 30 tablet, Refills 11, Tot. Refills 11, Maintenance, 07/22/22 12:36:00 EDT, Route to Pharmacy Electronically, [facility]/pharmacy #207, 150, cm, 05/13/22 10:59:00 EST, Height, 108.2, kg, 04/21/21 14:07:00 EST, Dry Weight Start Date: 07/22/22 Status: Ordered Aspercreme Warming Pain Relief Patch 0.025% topical film See Instructions, Topically 3 times a day to affected area, # 42.5 Gm, 11 Refills, Acute 01/15/24 9:20:00 EDT, 01/13/23 9:20:00 EDT, [facility]/pharmacy #207, Partial fill upon patient request [...] 09/11/24 10:40:00 EDT, 09/17/23 10:40:00 EDT, [facility]/pharmacy #207, 150, cm, 01/06/23 9:32:00 EDT, Height, 107.54, kg, 01/06/23 9:32:00 EDT, Dry Weight Start Date: 09/17/23 Stop Date: 09/11/24 Status: Ordered hydrochlorothiazide-losartan 25 mg-100 mg oral tablet 1 tablet, By Mouth, Daily, # 30 tablet, 11 Refills, Maintenance, 07/22/22 12:36:00 EDT, [facility]/pharmacy #[id number], 1 tablet By Mouth Daily, 150, cm, 05/13/22 10:59:00 EST, Height, 108.2, kg, 04/21/21 14:07:00 EST, Dry Weight Start Date: 07/22/22 Status: Ordered lidocaine 5% topical ointment 1 application, Topically, 3 times a day, for shoulder or back pain. wolof. wash hands thoroughly after application, # 50 Gm, 2 Refills, Maintenance, 07/22/22 12:36:00 EDT, Ointment, [facility]/pharmacy #[id number], Partial fill upon patient request if the pres... Start Date: 07/22/22 Status: Ordered meclizine 25 mg oral tablet 1 tablet = 25 mg, By Mouth, 3 times a day, PRN for dizziness, # 30 tablet, 11 Refills, Acute 01/08/24 10:27:00 EDT, 07/24/23 12:37:00 EDT, Tablet, [facility]/pharmacy #207, Partial fill upon patient request if the prescription is for a schedule II opioid dr... Start Date: 07/24/23 Stop Date: 01/08/24 Status: Ordered Melatonin 3 mg oral tablet 1-3 TABLET, By Mouth, Daily at bedtime, PRN NEEDED FOR SLEEP *STOP TIZANIDINE*, # 270 tablet, 11Refills, Maintenance, 07/22/22 12:36:00 EDT, [facility]/pharmacy #[id number], 90, 1-3 TABLET By Mouth Daily at bedtime,PRN: NEEDED FOR SLEEP *STOP TIZANIDINE*, 15... Start Date: 07/22/22 Status: Ordered multivitamin Multiple Vitamins oral tablet 1 tablet, By Mouth, Daily, # 30 tablet, 11 Refills, Maintenance, 07/22/22 12:36:00 EDT, Tablet, [facility]/pharmacy #[id number], 1 tablet By Mouth Daily, [...] Active OA (osteoarthritis) of hip Confirmed Active *[id number] Visual Associate Kellee Rodriguez Confirmed Active Severe obesity Confirmed Active 1followed by Dr. Grayson 2diverticulitis episode 01/04/2011. Went to [facility] 3refuses colonoscopy secondary to endometrial carcinoma [...] Primary Care Member Role: PCP Address: Address: [address] [place] [id number]- Name: Magdalena Reyes Position: [facility] Outreach Member Role: Lifetime Consulting Physician Name: Leesa Cross RN Position: [facility] RN Member Role: Primary Care Nurse Name: Hermelinda Santacruz RN Position: [facility] RN Member Role: Primary Care Nurse Care Team Related Persons Name: HARMAN BAY Address: home Name: KELSI [place]ID Address: [place] [address]
--- OUTSIDE RECORDS SUMMARY | 2023-08-28 06:07 | XMS_ITS | Continuity of Care Document ---
Author Organization [facility] Address [address] [place] [address]- Care Team Providers Care Curriculum Facilitator Name Role Phone Freddy BECKHAM, Sophie Alvarado Primary Care Physici an [place] [facility] [place] [facility] Ivana [address] [place] [id number]- Attending Physician: Admtr, Ar8 Allergies, Adverse Reactions, [...] 11:21:00 EST, Powder, Route to Pharmacy Electronically, [id number], [facility]/pharmacy #[id number], 149.8, cm, 06/08/20 10:55:00 EST, Heigh... Start Date: 06/08/20 Status: Ordered amLODIPine 5 mg oral tablet 5 mg, 1, tablet, By Mouth, Daily, # 90 tablet, Refills 3, Tot. Refills 3, Maintenance, 10/27/20 19:35:00 EDT, Route to Pharmacy Electronically, [facility]/pharmacy #[id number], 149.8, cm, 10/08/20 12:18:00 EDT, Height, [...] By Mouth, Daily, for depression label in Occitan, # 30 capsule, 2 Refills, Maintenance, 10/08/20 13:15:00 EDT, EC Capsule, [facility]/pharmacy #[id number], 149.8, cm, 10/08/20 12:18:00 EDT, Height, 100.4, kg, 12/20/19 12:32:00 EDT, Dry Weight Start Date: 10/08/20 Status: Ordered diclofenac 1% topical gel 1 application, Topically, 4 times a day, # 100 Gm, 5 Refills, Maintenance, 07/29/20 13:23:00 EDT, Gel, [facility]/pharmacy #207, Partial fill upon patient request if the prescription is for a schedule II opioid drug., 149.8, cm, 07/15/20 8:10:00 EST, Height... Start Date: 07/29/20 Status: Ordered Fish Oil 1000 mg oral capsule 1 capsule = 1,000 mg, By Mouth, 2 times a day, to repleace fish oil 500mg, # 60 capsule, 0 Refills,Maintenance, 11/23/20 15:31:00 EDT, Capsule, [facility]/pharmacy #[id number], Partial fill upon patient request if the prescription is for a schedule II opioid drug... Start Date: 11/23/20 Status: Ordered hydrochlorothiazide-losartan 25 mg-100 mg oral tablet 1 tablet, By Mouth, Daily, # 90 tablet, 3 Refills, Maintenance, 10/27/20 19:34:00 EDT, [facility]/pharmacy#[id number], 1 tablet By Mouth Daily, 149.8, cm, 10/08/20 12:18:00 EDT, Height, 100.4, kg, 12/20/19 12:32:00 EDT, Dry Weight Start Date: 10/27/20 Status: Ordered meclizine 25 mg oral tablet 1 tablet = 25 mg, By Mouth, Daily, PRN for dizziness, # 30 tablet, 1 Refills, Maintenance, 10/30/2009:34:00 EDT, Tablet, [facility]/pharmacy #207, 151, cm, 10/31/19 9:51:00 EDT, Height, [...] Refills, Soft Stop, 07/29/20 14:09:00 EDT, Powder, [facility], Partial fill upon patient request [...] 5 01/30/19 Active OA (osteoarthritis)(Confirmed) 6 Active *[id number] Care Partn Kellee Rodriguez(Confirmed) Active 1followed by Dr. Grayson 2diverticulitis episode 01/04/2011. Went to [facility]. 3refuses colonoscopy secondary to endometrial carcinoma Stage 1A 5Untreated. See sleep medicine phone call: Eqipement to be removed due to non-use 6Arms, bilateral Social History Social History Type Response Smoking Status Never (less than 100 in lifetime); Tobacco user in household: No entered on: 07/29/20 Sex
--- OUTSIDE RECORDS SUMMARY | 2023-08-28 06:07 | XMS_ITS | Continuity of Care Document ---
Author Organization [facility] Address [address] [place] [address]- Care Team Providers Care Creative Services Designer Name Role Phone Lazara Thibodeaux MD Primary Care Physician [phone] Encounter [facility] Date(s): 03/09/23 - 04/08/23 [facility]/[address] [address]- [place] Allergies, Adverse Reactions, Alerts Substance Reaction [...] Maintenance, 07/22/22 12:36:00 EDT, ER Tablet, [id number], Partial fill upon patient request if the prescription i... Start Date: 07/22/22 Status: Ordered amLODIPine 5 mg oral tablet 5 mg, 1, tablet, By Mouth, Daily, # 30 tablet, Refills 11, Tot. Refills 11, Maintenance, 07/22/22 12:36:00 EDT, Route to Pharmacy Electronically, [facility]/pharmacy #[id number], 150, cm, 05/13/22 10:59:00 EST, Height, 108.2, kg, 04/21/21 14:07:00 EST, Dry Weight Start Date: 07/22/22 Status: Ordered Aspercreme Warming Pain Relief Patch 0.025% topical film See Instructions, Topically 3 times a day to affected area, # 42.5 Gm, 11 Refills, Acute 01/15/24 9:20:00 EDT, 01/13/23 9:20:00 EDT, [facility]/pharmacy #[id number], Partial fill upon patient request if [...] Active OA (osteoarthritis) of hip Confirmed Active *[id number] Molded Grid And Parts Inspector Kellee Rodriguez Confirmed Active Severe obesity Confirmed Active Urine incontinence Confirmed Active 1followed by Dr. Grayson 2diverticulitis episode 01/04/2011. Went to [facility] 3refuses colonoscopy secondary to endometrial carcinoma Stage 1A 5Untreated. See sleep medicine phone call: Eqipement to be removed due to non-use 6Arms, bilateral Social History Social History Type Response Smoking Status Never (less than 100 in lifetime) entered on: 02/18/21 Sex Patient Care team information Care Team Personnel Name: Celine Max RN Position: [facility] SN RN Member Role: Primary Care Nurse Name: Briana Nicole RN Position: [facility] Onco RN Member Role: Primary Care Nurse Name: Lazara Thibodeaux MD Position: [facility] Physician - Primary Care Member Role: PCP Address: Address: [address] [place] [address]- Name: Magdalena Reyes Position: [facility] Outreach Member Role: Lifetime Consulting Physician Name: Leesa Cross RN Position: [facility] RN Member Role: Primary Care Nurse Name: Hermelinda Santacruz RN Position: [facility] RN Member Role: Primary Care Nurse Care Team Related Persons Name: HARMAN BAY Address: home Name: KELSI SCHMID Address: [place] [address]
--- OUTSIDE RECORDS SUMMARY | 2023-08-28 06:07 | XMS_ITS | Continuity of Care Document ---
Author Organization [facility] Address Unknown Care Team Providers Care Photograph Finisher Name Role Phone Maria Howard MD Primary Care Physician Encounter [facility] Date(s): 04/12/21 - 05/12/21 [facility] Attending Physician: Matheus Johnson MD Admitting Physician: [...] Maintenance, 01/20/21 15:16:00 EDT, ER Tablet, [id number], Partial fill upon patient request if the prescription is... Start Date: 01/20/21 Status: Ordered amLODIPine 5 mg oral tablet 5 mg, 1, tablet, By Mouth, Daily, # 90 tablet, Refills 3, Tot. Refills 3, Maintenance, 10/27/20 19:35:00 EDT, Route to Pharmacy Electronically, [facility]/pharmacy #[id number], 149.8, cm, 10/08/20 12:18:00 EDT, [...] Daily, # 90 capsule, 1 Refills, [facility] STORE [id number], 149.8, cm, 10/08/20 12:18:00 EDT, Height, 100.4, kg, 12/20/19 12:32:00 EDT, Dry Weight Start Date: 01/06/21 Status: Ordered hydrochlorothiazide-losartan 25 mg-100 mg oral tablet 1 tablet, By Mouth, Daily, # 90 tablet, 3 Refills, Maintenance, 10/27/20 19:34:00 EDT, [facility]/pharmacy#[id number], 1 tablet By Mouth Daily, 149.8, cm, 10/08/20 12:18:00 EDT, Height, 100.4, kg, 12/20/19 12:32:00 EDT, Dry Weight Start Date: 10/27/20 Status: Ordered lidocaine 5% topical ointment 1 application, Topically, 3 times a day, for shoulder or back pain. mauritanian. wash hands thoroughly after application, # 50 Gm, 2 Refills, Maintenance, 01/29/21 12:22:00 EDT, Ointment, [facility]/pharmacy #[id number], Partial fill upon patient request if the pres... Start Date: 01/29/21 Status: Ordered meclizine 25 mg oral tablet 1 tablet = 25 mg, By Mouth, Daily, PRN for dizziness, # 30 tablet, 1 Refills, Maintenance, 04/07/2114:36:00 EST, [id number] 149.8, cm, 03/29/21 10:32:00 EST, Height, 100.4, kg, 12/20/19 12:32:00 EDT, Dry Weight Start Date: 04/07/21 Status: Ordered Melatonin 3 mg oral tablet 1-3 tablet, By Mouth, Daily at bedtime, PRN for insomnia, Discontinue tizanidine, # 90 tablet, 3 Refills, Maintenance, 01/20/21 15:15:00 EDT, Tablet, [facility]/pharmacy #[id number], 1-3 tablet By Mouth Daily [...] Refills, Soft Stop, 07/29/20 14:09:00 EDT, Powder, [facility], Partial fill upon patient request if [...] 5 01/30/19 Active OA (osteoarthritis)(Confirmed) 6 Active *[id number] Care Partn Kellee [place](Confirmed) Active Severe obesity(Confirmed) Active 1followed by Dr. Grayson 2diverticulitis episode 01/04/2011. Went to [facility]. 3refuses colonoscopy secondary to endometrial carcinoma Stage 1A 5Untreated. See sleep medicine phone call: Eqipement to be removed due to non-use 6Arms, bilateral Social History Social History Type Response Smoking Status Never (less than 100 in lifetime) entered on: 02/18/21 Sex
--- OUTSIDE RECORDS SUMMARY | 2023-08-28 06:07 | XMS_ITS | Continuity of Care Document ---
Author Organization [facility] Address [address] [place] [address]- Care Team Providers Care Patient Biller Name Role Phone Lazara Thibodeaux MD Primary Care Physician [place] [facility] [place]s): 07/27/23 - 08/26/23 [facility]/[address] [address]- Allergies, Adverse Reactions, Alerts Substance Reaction Severity [...] a day, for shoulder or back pain. cuban. wash hands thoroughly after application, # 50 [...] Active OA (osteoarthritis) of hip Confirmed Active *[id number] File Keeper Kellee Rodriguez Confirmed Active Severe obesity Confirmed Active Urine incontinence Confirmed Active 1followed by Dr. Grayson 2diverticulitis episode 01/04/2011. Went to [facility] 3refuses colonoscopy secondary to endometrial carcinoma Stage 1A 5Untreated. See sleep medicine phone call: Eqipement to be removed due to non-use 6Arms, bilateral Social History Social History Type Response Smoking Status Never (less than 100 in lifetime) entered on: 02/18/21 Sex Patient Care team information Care Team Personnel Name: Celine Max RN Position: [facility] SN RN Member Role: Primary Care Nurse Name: Briana Nicole RN Position: [facility] Onco RN Member Role: Primary Care Nurse Name: Lazara Thibodeaux MD Position: [facility] Physician - Primary Care Member Role: PCP Address: Address: [address] [place] [address]- Name: Magdalena Reyes Position: [facility] Outreach Member Role: Lifetime Consulting Physician Name: Leesa Cross RN Position: [facility] RN Member Role: Primary Care Nurse Name: Hermelinda Santacruz RN Position: [facility] RN Member Role: Primary Care Nurse Care Team Related Persons Name: HARMAN BAY Address: home Name: KELSI SCHMID Address: [place] [address]
--- OUTSIDE RECORDS SUMMARY | 2023-08-28 06:07 | XMS_ITS | Continuity of Care Document ---
Author Organization [facility] ter Address [address] [place] [address]- Care Team Providers Care Anode Adjuster Name Role Phone Freddy BECKHAM, Sophie Alvarado Primary Care Physici an Encounter [facility] Date(s): 10/15/20 - 11/16/[address] [address]- Attending Physician: Freddy BECKHAM, Sophie Alvarado Admitting Physician: Freddy BECKHAM, Sophie Alvarado Referring Physician: Freddy BECKHAM, Sophie Alvarado Allergies, Adverse [...] 11:21:00 EST, Powder, Route to Pharmacy Electronically, [id number], [id number] 149.8, cm, 06/08/20 10:55:00 EST, Heigh... Start Date: 06/08/20 Status: Ordered amLODIPine 5 mg oral tablet 5 mg, 1, tablet, By Mouth, Daily, # 90 tablet, Refills 3, Tot. Refills 3, Maintenance, 10/27/20 19:35:00 EDT, Route to Pharmacy Electronically, [facility]/pharmacy #[id number], 149.8, cm, 10/08/20 12:18:00 [...] By Mouth, Daily, for depression label in Danish, # 30 capsule, 2 Refills, Maintenance, 10/08/20 13:15:00 EDT, EC Capsule, [facility]/pharmacy #2070, 149.8, cm, 10/08/20 12:18:00 EDT, Height, 100.4, kg, 12/20/19 12:32:00 EDT, Dry Weight Start Date: 10/08/20 Status: Ordered diclofenac 1% topical gel 1 application, Topically, 4 times a day, # 100 Gm, 5 Refills, Maintenance, 07/29/20 13:23:00 EDT, Gel, [facility]/pharmacy #[id number], Partial fill upon patient request if the prescription is for a schedule II opioid drug., 149.8, cm, 07/15/20 8:10:00 EST, Height... Start Date: 07/29/20 Status: Ordered Fish Oil 500 mg oral capsule 1 capsule = 500 mg, By Mouth, 2 times a day, # 180 capsule, 3 Refills, Maintenance, 10/08/20 13:43:00 EDT, [facility]/pharmacy #[id number], 149.8, cm, 10/08/20 12:18:00 EDT, Height, 100.4, kg, 12/20/19 12:32:00 EDT, Dry Weight Start Date: 10/08/20 Status: Ordered hydrochlorothiazide-losartan 25 mg-100 mg oral tablet 1 tablet, By Mouth, Daily, # 90 tablet, 3 Refills, Maintenance, 10/27/20 19:34:00 EDT, [facility]/pharmacy#2071, 1 tablet By Mouth Daily, 149.8, cm, 10/08/20 12:18:00 EDT, Height, 100.4, kg, 12/20/19 12:32:00 EDT, Dry Weight Start Date: 10/27/20 Status: Ordered meclizine 25 mg oral tablet 1 tablet = 25 mg, By Mouth, Daily, PRN for dizziness, # 30 tablet, 1 Refills, Maintenance, 10/30/2009:34:00 EDT, Tablet, [facility]/pharmacy #207, 151, cm, 10/31/19 9:51:00 [...] Dry Weight Start Date: 10/08/20 Status: Ordered Tylenol 8 Hour 650 mg oral tablet, extended release 2 tablet = 1,300 mg, By Mouth, Every 8 hours, PRN as needed for fever, for 30 days, # 200 tablet, 3Refills, Acute 11/26/20 13:34:00 EDT, 07/29/20 13:34:00 EDT, ER Tablet, [id number], Partial[facility] upon patient request if the [...] 5 01/30/19 Active OA (osteoarthritis)(Confirmed) 6 Active *[id number] Care Partn Kellee Rodriguez(Confirmed) Active 1followed by Dr. Grayson 2diverticulitis episode 01/04/2011. Went to [facility]. 3refuses colonoscopy secondary to endometrial carcinoma Stage 1A 5Untreated. See sleep medicine phone call: Eqipement to be removed due to non-use 6Arms, bilateral Social History Social History Type Response Smoking Status Never (less than 100 in lifetime); Tobacco user in household: No entered on: 07/29/20 Sex
--- OUTSIDE RECORDS SUMMARY | 2023-08-28 06:07 | XMS_ITS | Continuity of Care Document ---
Author Organization [facility] ter Address [address] [place] [address]- Care Team Providers Care Barrel Racer Name Role Phone Celeste BECKHAM, Aspen Primary Care Physician [phone] Encounter [facility] Date(s): 12/25/19 - 12/26/[address] [address]- [facility] Discharge Disposition: A-D/C Home Attending Physician: Papi [...] 10/31/19 10:34:00 EDT, Route to Pharmacy Electronically, [facility]/pharmacy #[id number], 151, cm, 10/31/19 9:51:00 [...] Refills, Maintenance, 07/08/19 8:57:00 EST, EC Capsule, [facility]/pharmacy #[id number], 151, cm, 06/06/19 15:24:00 [...] tablet, 1 Refills, Maintenance, 07/23/19 16:09:00 EDT, [facility]/pharmacy#[id number], 1 tablet By Mouth Daily, 151, cm, 06/06/19 15:24:00 EST, Height, 109.4, kg, 12/11/18 17:10:00 EDT, Dry Weight Start Date: 07/23/19 Status: Ordered ibuprofen 800 mg oral tablet 800 mg, 1, tablet, By Mouth, 2 times a day, PRN, # 60 tablet, Refills 1, Tot. Refills 1, Soft Stop,as needed for arthritis, 07/23/19 16:09:00 EDT, Route to Pharmacy Electronically, [facility]/pharmacy #[id number], 151, cm, 06/06/19 15:24:00 [...] a day, wash hands thoroughly after application. polish, # 50 Gm,1 Refills, Maintenance, 02/27/19 16:48:00 EDT, Ointment, for bilateral shoulder and arm pain that has not responded to other medications, 1 application... Start Date: 02/27/19 Status: Ordered meclizine 25 mg oral tablet 1 tablet = 25 mg, By Mouth, Daily, PRN for dizziness, # 30 tablet, 1 Refills, Maintenance, 10/30/2009:34:00 EDT, Tablet, [id number], 151, cm, 10/31/19 9:51:00 EDT, Height, [...] capsule, 0 Refills, Maintenance, 07/23/19 16:09:00EDT, Capsule, [id number], 151, cm, 06/06/19 15:24:00 EST, Height, 109.4, kg, 12/11/18 17:10:00 EDT, Dry Weight Start Date: 07/23/19 Status: Ordered traZODone 50 mg oral tablet See Instructions, 0.5 - 1 tablet By Mouth Daily at bedtime, # 30 each, Refills 1, Tot. Refills 1, Maintenance, 10/31/19 10:34:00 EDT, Instructions Replace Required Details, Route to Pharmacy Electronically, [facility]/pharmacy #[id number], 151, cm, 10/31/19 9:51:0... [...] 5 01/30/19 Active OA (osteoarthritis)(Confirmed) 6 Active *[id number]-Care Partn Jeffery Mackenzie(Confirmed) Active 1followed by Dr. Grayson 2diverticulitis episode 01/04/2011. Went to [facility]. 3refuses colonoscopy secondary to endometrial carcinoma Stage 1A 5Untreated. See sleep medicine phone call: Eqipement to be removed due to non-use 6Arms, bilateral Vital Signs Most recent to oldest [Reference Range]: 1 2 3 Height 149.8 cm (12/26/19 11:12 AM) 149.8 cm (12/26/19 7:11 AM) 149.8 cm (12/26/19 5:02 AM) Weight 104 kg (12/25/19 7:04 AM) 100.4 kg (12/20/19 12:32 PM) Oxygen Saturation [94-100 %] 98 % (12/26/19 11:12 AM) 94 % (12/26/19 7:11 AM) 96 % (12/26/19 5:02 AM) Pulse Rate [55-90 bpm] 67 bpm (12/26/19 11:12 AM) 77 bpm (12/26/19 7:11 AM) 70 bpm (12/26/19:02 AM) Body Mass Index [18.5-24.99] 46.35 *>HHI* (12/25/19 7:04 AM) 44.74 *>HHI* (12/20/19 12:32 PM) Blood Pressure [90-138/55-84 mm Hg] 105/42mm Hg (12/26/19 11:12 AM) 135/72mm Hg (12/26/19 7:11 AM) 123/46mm Hg (12/26/19 5:02 AM) Respiratory Rate [16-30 br/min] 18 br/min (12/26/19 11:12 AM) 18 br/min (12/26/19 7:11 AM) 18 br/min (12/26/19 6:55 AM) Temperature [96.8-100.4 DegF] 98.1 DegF (12/26/19 11:12 AM) 98.2 DegF (12/26/19 7:11 AM) 97.8 DegF (12/26/19 5:02 AM) Liters per Minute 6 L/min (12/25/19 10:00 AM) 6 L/min (12/25/19 9:45 AM) 6 L/min (12/25/19 9:30 AM) Mode of Delivery (Oxygen) Room air (12/26/19 11:12 AM) Room air (12/26/19 7:11 AM) Room air (12/26/19 5:02 AM) Blood pressure sites Arm, right (12/26/19 11:12 AM) Arm, left (12/26/19 7:11 AM) Arm, right (12/25/19 4:18 PM) Temperature Route Oral (12/26/19 11:12 AM) Oral (12/26/19 7:11 AM) Oral (12/26/19 5:02 AM) Dry Weight 100.4 kg (12/20/19 12:32 PM) Weight Obtained Via Standing scale (12/25/19 7:04 AM) Patient/family stated (12/20/19 12:32 PM) Dry Weight Obtained Via Patient/family s tated (12/20/19 12:32 PM) Social History Social History Type Response Smoking Status Never smoker entered on: 09/03/13 Sex
--- OUTSIDE RECORDS SUMMARY | 2023-08-28 06:07 | XMS_ITS | Continuity of Care Document ---
Author Organization [facility] Address [address] [place] [address]- Care Team Providers Care Doctor Of Nursing Practice Name Role Phone Lazara Thibodeaux MD Primary Care Physician En[place] [facility] [id number] Date(s): 05/13/22 - 06/12/22 [facility] [address]- Attending Physician: Admtr, Ar8 Allergies, Adverse Reactions, [...] Maintenance, 09/27/21 10:40:00 EDT, ER Tablet, [id number], Partial fill upon patient request if the prescription i... Start Date: 09/27/21 Status: Ordered amLODIPine 5 mg oral tablet 5 mg, 1, tablet, By Mouth, Daily, # 30 tablet, Refills 11, Tot. Refills 11, Maintenance, 09/27/21 10:40:00 EDT, Route to Pharmacy Electronically, [facility]/pharmacy #[id number], 150, cm, 09/27/21 10:05:00 EDT, Height, [...] Physician Stop 09/22/22 10:40:00EDT, 09/27/21 10:40:00 EDT, [facility]/pharmacy #207, 150, cm, 09/27/21 10:05:00 EDT, Height, 108.2, kg, 04/21/21 14:07:00 EST, Dry Weight Start Date: 09/27/21 Stop Date: 09/22/22 Status: Ordered hydrochlorothiazide-losartan 25 mg-100 mg oral tablet 1 tablet, By Mouth, Daily, # 30 tablet, 11 Refills, Maintenance, 09/27/21 10:41:00 EDT, [facility]/pharmacy #[id number], 1 tablet By Mouth Daily, 150, cm, 09/27/21 10:05:00 EDT, Height, 108.2, kg, 04/21/21 14:07:00 EST, Dry Weight Start Date: 09/27/21 Status: Ordered lidocaine 5% topical ointment 1 application, Topically, 3 times a day, for shoulder or back pain. tristanian. wash hands thoroughly after application, # 50 Gm, 2 Refills, Maintenance, 01/29/21 12:22:00 EDT, Ointment, [facility]/pharmacy #[id number], Partial fill upon patient request if the pres... Start Date: 01/29/21 Status: Ordered meclizine 25 mg oral tablet 1 tablet = 25 mg, By Mouth, 3 times a day, PRN for dizziness, # 30 tablet, 0 Refills, Acute 09/28/22 10:42:00 EDT, 09/27/21 10:42:00 EDT, Tablet, [facility]/pharmacy #[id number], Partial fill upon patient requestif the prescription is for a schedule II opioid cortez... Start Date: 09/27/21 Stop Date: 09/28/22 Status: Ordered Melatonin 3 mg oral tablet 1-3 TABLET, By Mouth, Daily at bedtime, PRN NEEDED FOR SLEEP *STOP TIZANIDINE*, # 270 tablet, 11Refills, Maintenance, 05/18/22 9:54:00 EST, [facility] STORE [id number], 90, TAKE 1-3 TABLET BY MOUTH EVERY DAYAT BEDTIME NEEDED FOR SLEEP *STOP TIZANIDINE*, 1... Start Date: 05/18/22 Status: Ordered multivitamin Multiple Vitamins oral tablet 1 tablet, By Mouth, Daily, # 30 tablet, 11 Refills, Maintenance, 09/27/21 10:42:00 EDT, Tablet, [facility]/pharmacy #[id number], 1 tablet By Mouth Daily, 150, cm, 09/27/21 10:05:00 EDT, Height, 108.2, kg, 04/21/21 14:07:00 EST, Dry Weight Start Date: 09/27/21 Status: Ordered nabumetone 750 mg oral tablet 1 tablet = 750 mg, By Mouth, 2 times a day, # 60 tablet, 0 Refills, Maintenance, 05/13/22 11:54:00 EST, Tablet, [facility]/pharmacy #[id number], Partial fill upon patient request if the prescription is for a schedule II opioid drug., 150, cm, 05/13/22 10:59:00 EST... Start Date: 05/13/22 Status: Ordered Spacer Spacer, See Instructions, # [...] Gm, 11 Refills,Maintenance, 09/27/21 10:40:00 EDT, Aerosol, [id number], 150, cm, 09/27/21 10:05:00 EDT, Height, [...] Active OA (osteoarthritis) of hip Confirmed Active *[id number] Engrosser Kellee Rodriguez Confirmed Active Severe obesity Confirmed Active 1followed by Dr. Grayson 2diverticulitis episode 01/04/2011. Went to [facility] 3refuses colonoscopy secondary to [...] Results Authored Date: * Angelic WRIGHT, Pati S: REVIEW Event Display: Non BH Lab Results [...] mental health services. 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 Care seems to be appropriate. House is clean her meals are made. Patient has refused prefills and does not want a nurse in the hime. She has struggle with medication compliance. Past Medical History Problem list All Problems Seasonal allergies / Confirmed Osteoarthritis / Confirmed Hypertension / Confirmed Hyperlipidemia / SNOMED CT [id number] / Confirmed Glaucoma / Confirmed Edema / Confirmed Diverticulosis / SNOMED CT 5210320389 / Confirmed DDD (degenerative disc disease), lumbar / SNOMED CT [id number] / Confirmed Asthma / Confirmed Allergies Allergic [...] 24 tablet, 0 Refills, Maintenance Vitamin D 99924 iu oral capsule: 1 capsule = 50,000 International_Units, By Mouth, Every week, # 8 capsule, 0 Refills, Maintenance acetaminophen 500 mg oral tablet: 2 tablet = 1,000 mg, By Mouth, 3 times a day, PRN for pain, tristanian directions DC IBUPROFEN, # 120 tablet, 0 Refills, Maintenance, Tablet albuterol 0.083% inhalation solution: 3 mL = 2.5 mg, Inhalation, Every 4 hours, PRN Wheezing/Shortness of Breath, tristanian please, # 100 each, 2 Refills, Maintenance [...] 0, 0, 10/30/06 13:10:53, Print JOSE Number, [id number], Constant Indicator Physical Examination Vital Signs Weight [...] Display: Care Team Progress Note Authored Date: [id number] SCo nurse gericare aide teacher presen at the care coordination meeting. * Debby Tucker: PERFORM Event Display: Radiology Results Scanned Authored Date: [id number] * Adwoa Johnsonrimar: PERFORM Event Display: Radiology Results Scanned Authored Date: [id number] * Debby Tucker: PERFORM Event Display: Radiology Results Scanned Authored Date: [id number] Patient Care team information Care Team Personnel Name: Celine Max RN Position: [facility] SN RN Member Role: Primary Care Nurse Name: Briana Nicole RN Position: [facility] Onco RN Member Role: Primary Care Nurse Name: Lazara Thibodeaux MD Position: [facility] Primary Care Physician Member Role: PCP Address: Address: [address] [place] [address]- Name: Magdalena Reyes Position: [facility] Outreach Member Role: Lifetime Consulting Physician Name: Leesa Cross RN Position: [facility] RN Member Role: Primary Care Nurse Name: Hermelinda Santacruz RN Position: [facility] RN Member Role: Primary Care Nurse Care Team Related Persons Name: HARMAN BAY Address: home Name: KELSI SCH[place] Address: [place] [address]
--- OUTSIDE RECORDS SUMMARY | 2023-08-28 06:07 | XMS_ITS | Continuity of Care Document ---
Author Organization [facility] Address [address] [place] [address]- Care Team Providers Care Chief Investment Officer Name Role Phone Lazara Thibodeaux MD Primary Care Physician [phone] Encounter [facility] [place] Date(s): 12/28/22 - 01/29/23 [facility]/[address] [address]- Attending Physician: Lazara Thibodeaux MD Admitting Physician: [...] 07/22/22 12:36:00 EDT, Route to Pharmacy Electronically, [facility]/pharmacy #[id number], 150, cm, 05/13/22 10:59:00 EST, Height, 108.2, kg, 04/21/21 14:07:00 EST, Dry Weight Start Date: 07/22/22 Status: Ordered Aspercreme Warming Pain Relief Patch 0.025% topical film See Instructions, Topically 3 times a day to affected area, # 42.5 Gm, 11 Refills, Acute 01/15/24 9:20:00 EDT, 01/13/23 9:20:00 EDT, [facility]/pharmacy #[id number], Partial fill upon patient request [...] Stop 09/11/24 10:40:00 EDT, 09/17/23 10:40:00 EDT, [facility]/pharmacy #207, 150, cm, 01/06/23 9:32:00 EDT, Height, 107.54, kg, 01/06/23 9:32:00 EDT, Dry Weight Start Date: 09/17/23 Stop Date: 09/11/24 Status: Ordered hydrochlorothiazide-losartan 25 mg-100 mg oral tablet 1 tablet, By Mouth, Daily, # 30 tablet, 11 Refills, Maintenance, 07/22/22 12:36:00 EDT, [facility]/pharmacy #[id number], 1 tablet By Mouth Daily, 150, cm, 05/13/22 10:59:00 EST, Height, 108.2, kg, 04/21/21 14:07:00 EST, Dry Weight Start Date: 07/22/22 Status: Ordered lidocaine 5% topical ointment 1 application, Topically, 3 times a day, for shoulder or back pain. croatian. wash hands thoroughly after application, # 50 Gm, 2 Refills, Maintenance, 07/22/22 12:36:00 EDT, Ointment, [facility]/pharmacy #[id number], Partial fill upon patient request if the pres... Start Date: 07/22/22 Status: Ordered meclizine 25 mg oral tablet 1 tablet = 25 mg, By Mouth, 3 times a day, PRN for dizziness, # 30 tablet, 11 Refills, Acute 01/08/24 10:27:00 EDT, 07/24/23 12:37:00 EDT, Tablet, [facility]/pharmacy #207, Partial fill upon patient request if the prescription is for a schedule II opioid drCarrillo.. Start Date: 07/24/23 Stop Date: 01/08/24 Status: Ordered Melatonin 3 mg oral tablet 1-3 TABLET, By Mouth, Daily at bedtime, PRN NEEDED FOR SLEEP *STOP TIZANIDINE*, # 270 tablet, 11Refills, Maintenance, 07/22/22 12:36:00 EDT, [facility]/pharmacy #207, 90, 1-3 TABLET By Mouth Daily at bedtime,PRN: NEEDED FOR SLEEP *STOP TIZANIDINE*, 15... Start Date: 07/22/22 Status: Ordered multivitamin Multiple Vitamins oral tablet 1 tablet, By Mouth, Daily, # 30 tablet, 11 Refills, Maintenance, 07/22/22 12:36:00 EDT, Tablet, [facility]/pharmacy #[id number], 1 tablet By Mouth Daily, [...] Gm, 11 Refills,Maintenance, 01/06/23 10:27:00 EDT, Aerosol, [facility]/pharmacy #[id number], 150, cm, 01/06/23 9:32:00 EDT, Height, 107.54, kg, 01/06/23 9:32:00 EDT, Dry Weight Start Date: 01/06/23 Status: Ordered Voltaren 1% topical gel = 2 Gm, Topically, 4 times a day, # 100 Gm, 11 Refills, Maintenance, 07/22/22 12:36:00 EDT, [facility]/pharmacy #[id number], Partial fill upon patient request [...] Active OA (osteoarthritis) of hip Confirmed Active *[id number] Aircraft Maintenance Technician Kellee Rodriguez Confirmed Active Severe obesity Confirmed [...] Team Personnel Name: Celine Max RN Position: [facility] SN RN Member Role: Primary Care Nurse Name: Briana Nicole RN Position: [facility] Onco RN Member Role: Primary Care Nurse Name: Lazara Thibodeaux MD Position: [facility] Physician - Primary Care Member Role: PCP Address: Address: [address] [place] [address]- Name: Magdalena Reyes Position: [facility] Outreach Member Role: Lifetime Consulting Physician Name: Leesa Cross RN Position: [facility] RN Member Role: Primary Care Nurse Name: Hermelinda Santacruz RN Position: [facility] RN Member Role: Primary Care Nurse Care Team Related Persons Name: HARMAN BAY Address: home Name: KELSI SCHMID Address: [place] [address]
--- OUTSIDE RECORDS SUMMARY | 2023-08-28 06:07 | XMS_ITS | Continuity of Care Document ---
Author Organization [facility] Address [address] [place] [address]- Care Team Providers Care Public Accountant Name Role Phone Lazara Thibodeaux MD Primary Care Physician Encounter [facility] [id number] Date(s): 08/11/22 - 09/16/[address] [address] Attending Physician: Lazara Thibodeaux MD Admitting Physician: [...] Refills, Maintenance, 07/22/22 12:36:00 EDT, ER Tablet, [facility]/pharmacy #[id number], Partial fill upon patient request if the prescription i... Start Date: 07/22/22 Status: Ordered amLODIPine 5 mg oral tablet 5 mg, 1, tablet, By Mouth, Daily, # 30 tablet, Refills 11, Tot. Refills 11, Maintenance, 07/22/22 12:36:00 EDT, Route to Pharmacy Electronically, [facility]/pharmacy #207, 150, cm, 05/13/22 10:59:00 EST, [...] Physician Stop 09/17/23 10:40:00EDT, 09/22/22 10:40:00 EDT, [facility]/pharmacy #207, 150, cm, 05/13/22 10:59:00 EST, Height, 108.2, kg, 04/21/21 14:07:00 EST, Dry Weight Start Date: 09/22/22 Stop Date: 09/17/23 Status: Ordered hydrochlorothiazide-losartan 25 mg-100 mg oral tablet 1 tablet, By Mouth, Daily, # 30 tablet, 11 Refills, Maintenance, 07/22/22 12:36:00 EDT, [facility]/pharmacy #207, 1 tablet By Mouth Daily, 150, cm, 05/13/22 10:59:00 EST, Height, 108.2, kg, 04/21/21 14:07:00 EST, Dry Weight Start Date: 07/22/22 Status: Ordered lidocaine 5% topical ointment 1 application, Topically, 3 times a day, for shoulder or back pain. panamanian. wash hands thoroughly after application, # 50 Gm, 2 Refills, Maintenance, 07/22/22 12:36:00 EDT, Ointment, [facility]/pharmacy #207, Partial fill upon patient request if the pres... Start Date: 07/22/22 Status: Ordered meclizine 25 mg oral tablet 1 tablet = 25 mg, By Mouth, 3 times a day, PRN for dizziness, # 30 tablet, 11 Refills, Acute 07/24/23 12:37:00 EDT, 09/28/22 10:42:00 EDT, Tablet, [facility]/pharmacy #[id number], Partial fill upon patient request if the prescription is for a schedule II opioid drCarrillo.. Start Date: 09/28/22 Stop Date: 07/24/23 Status: Ordered Melatonin 3 mg oral tablet 1-3 TABLET, By Mouth, Daily at bedtime, PRN NEEDED FOR SLEEP *STOP TIZANIDINE*, # 270 tablet, 11Refills, Maintenance, 07/22/22 12:36:00 EDT, [facility]/pharmacy #[id number], 90, 1-3 TABLET By Mouth Daily at bedtime,PRN: NEEDED FOR SLEEP *STOP TIZANIDINE*, 15... Start Date: 07/22/22 Status: Ordered multivitamin Multiple Vitamins oral tablet 1 tablet, By Mouth, Daily, # 30 tablet, 11 Refills, Maintenance, 07/22/22 12:36:00 EDT, Tablet, [facility]/pharmacy #[id number], 1 tablet By Mouth Daily, 150, cm, 05/13/22 10:59:00 EST, Height, 108.2, kg, 04/21/21 14:07:00 EST, Dry Weight Start Date: 07/22/22 Status: Ordered nabumetone 750 mg oral tablet 1 tablet = 750 mg, By Mouth, 2 times a day, # 60 tablet, 0 Refills, Maintenance, 07/22/22 12:36:00 EDT, Tablet, [facility]/pharmacy #[id number], Partial fill upon patient request if [...] Active OA (osteoarthritis) of hip Confirmed Active *[id number] Kinesiology Professor Kellee Rodrgiuez Confirmed Active Severe obesity Confirmed Active 1followed by Dr. Grayson 2diverticulitis episode 01/04/2011. Went to [facility]. 3refuses colonoscopy secondary to endometrial carcinoma Stage 1A 5Untreated. See sleep medicine phone call: Eqipement to be removed due to non-use 6Arms, bilateral Social History Social History Type Response Smoking Status Never (less than 100 in lifetime) entered on: 02/18/21 Sex Patient Care team information Care Team Personnel Name: Celine Max RN Position: [facility] SN RN Member Role: Primary Care Nurse Name: Briana Nicole RN Position: [facility] Onco RN Member Role: Primary Care Nurse Name: Lazara Thibodeaux MD Position: [facility] Primary Care Physician Member Role: PCP Address: Address: [address] [place] [address]- Name: Magdalena Reyes Position: [facility] Outreach Member Role: Lifetime Consulting Physician Name: Leesa Cross RN Position: [facility] RN Member Role: Primary Care Nurse Name: Hermelinda Santacruz RN Position: [facility] RN Member Role: Primary Care Nurse Care Team Related Persons Name: HARMAN BAY Address: home Name: KELSI SCHMID Address: [place] [address]
--- OUTSIDE RECORDS SUMMARY | 2023-08-28 06:07 | XMS_ITS | Continuity of Care Document ---
Author Organization [facility] Address Unknown Care Team Providers Care Body Cleaner Name Role Phone Maria Howard MD Primary Care Physician [place] [facility] Date(s): 04/12/21 - 05/13/21 [facility] Attending Physician: Matheus Johnson MD Admitting Physician: Matheus Johnson MD Allergies, Adverse Reactions, Alerts Substance Reaction Severity Status Ativan 1 anxiety Active Chocolate itching Active 1Adverse effect: heightened anxiety reported Immunizations Given and Recorded Vaccine Date Status Refusal Reason SARS-CoV-2 (COVID-19) mRNA BNT-162b2 vac 09/10/20 Given SARS-CoV-2 (COVID-19) mRNA BNT-162b2 vac 08/20/20 Given influenza virus vaccine, inactivated 1 07/21/15 Gi salvaotre influenza virus vaccine, inactivated 2 03/11/14 Gi [...] Maintenance, 01/20/21 15:16:00 EDT, ER Tablet, [facility]acy [id number], Partial fill upon patient request if the prescription is... Start Date: 01/20/21 Status: Ordered amLODIPine 5 mg oral tablet 5 mg, 1, tablet, By Mouth, Daily, # 90 tablet, Refills 3, Tot. Refills 3, Maintenance, 10/27/20 19:35:00 EDT, Route to Pharmacy Electronically, [facility]/pharmacy #[id number], 149.8, cm, 10/08/20 [...] Mouth, Daily, # 90 capsule, 1 Refills, [facility] STORE [id number], 149.8, cm, 10/08/20 12:18:00 EDT, Height, 100.4, kg, 12/20/19 12:32:00 EDT, Dry Weight Start Date: 01/06/21 Status: Ordered hydrochlorothiazide-losartan 25 mg-100 mg oral tablet 1 tablet, By Mouth, Daily, # 90 tablet, 3 Refills, Maintenance, 10/27/20 19:34:00 EDT, [facility]/pharmacy#[id number], 1 tablet By Mouth Daily, 149.8, cm, 10/08/20 12:18:00 EDT, Height, 100.4, kg, 12/20/19 12:32:00 EDT, Dry Weight Start Date: 10/27/20 Status: Ordered lidocaine 5% topical ointment 1 application, Topically, 3 times a day, for shoulder or back pain. finnish. wash hands thoroughly after application, # 50 Gm, 2 Refills, Maintenance, 01/29/21 12:22:00 EDT, Ointment, [facility]/pharmacy #[id number], Partial fill upon patient request if the pres... Start Date: 01/29/21 Status: Ordered meclizine 25 mg oral tablet 1 tablet = 25 mg, By Mouth, Daily, PRN for dizziness, # 30 tablet, 1 Refills, Maintenance, 04/07/2114:36:00 EST, [id number] 149.8, cm, 03/29/21 10:32:00 EST, Height, 100.4, kg, 12/20/19 12:32:00 EDT, Dry Weight Start Date: 04/07/21 Status: Ordered Melatonin 3 mg oral tablet 1-3 tablet, By Mouth, Daily at bedtime, PRN for insomnia, Discontinue tizanidine, # 90 tablet, 3 Refills, Maintenance, 01/20/21 15:15:00 EDT, Tablet, [facility]/pharmacy #[id number], 1-3 tablet By [...] Refills, Soft Stop, 07/29/20 14:09:00 EDT, Powder, [facility], Partial fill upon patient request if [...] 5 01/30/19 Active OA (osteoarthritis)(Confirmed) 6 Active *[id number] Care Partn Kellee [place](Confirmed) Active Severe obesity(Confirmed) Active 1followed by Dr. Grayson 2diverticulitis episode 01/04/2011. Went to [facility]. 3refuses colonoscopy secondary to endometrial carcinoma Stage 1A 5Untreated. See sleep medicine phone call: Eqipement to be removed due to non-use 6Arms, bilateral Social History Social History Type Response Smoking Status Never (less than 100 in lifetime) entered on: 02/18/21 Sex
--- OUTSIDE RECORDS SUMMARY | 2023-08-28 06:07 | XMS_ITS | Continuity of Care Document ---
Author Organization [facility] Address [address] [place] [address]- Care Team Providers Care Transformation Consultant Name Role Phone Lazara Thibodeaux MD Primary Care Physician [place] [facility] [place] 07/17/23 - 08/16/23 [facility]/[address] [address]- Allergies, Adverse Reactions, Alerts Substance Reaction Severity [...] Active OA (osteoarthritis) of hip Confirmed Active *[id number] Nib Finisher Kellee Rodriguez Confirmed Active Severe obesity Confirmed Active Urine incontinence Confirmed Active 1followed by Dr. Grayson 2diverticulitis episode 01/04/2011. Went to [facility] 3refuses colonoscopy secondary to endometrial carcinoma Stage 1A 5Untreated. See sleep medicine phone call: Eqipement to be removed due to non-use 6Arms, bilateral Social History Social History Type Response Smoking Status Never (less than 100 in lifetime) entered on: 02/18/21 Sex Patient Care team information Care Team Personnel Name: Celine Max RN Position: [facility] SN RN Member Role: Primary Care Nurse Name: Briana Nicole RN Position: [facility] Onco RN Member Role: Primary Care Nurse Name: Lazara Thibodeaux MD Position: [facility] Physician - Primary Care Member Role: PCP Address: Address: [address] [place] [address]- Name: Magdalena Reyes Position: [facility] Outreach Member Role: Lifetime Consulting Physician Name: Leesa Cross RN Position: [facility] SN RN Member Role: Primary Care Nurse Name: Hermelinda Santacruz RN Position: [facility] RN Member Role: Primary Care Nurse Care Team Related Persons Name: HARMAN BAY Address: home Name: KELSI [place] Address: [place] [address]
--- OUTSIDE RECORDS SUMMARY | 2023-08-28 06:07 | XMS_ITS | Continuity of Care Document ---
Author Organization [facility] Address [address] [place] [address]- Care Team Providers Care Director Nicu Name Role Phone Lazara Thibodeaux MD Primary Care Physician [phone] Encounter [facility] Date(s): 08/17/22 - 09/16/[address] [address] Attending Physician: Benjy Sal Admitting Physician: AdmBenjy douglas Referring Physician: Admtr ArAvinash Allergies, Adverse Reactions, Alerts Substance Reaction Severity [...] Refills, Maintenance, 07/22/22 12:36:00 EDT, ER Tablet, [facility]/pharmacy #[id number], Partial fill upon patient request if the prescription i... Start Date: 07/22/22 Status: Ordered amLODIPine 5 mg oral tablet 5 mg, 1, tablet, By Mouth, Daily, # 30 tablet, Refills 11, Tot. Refills 11, Maintenance, 07/22/22 12:36:00 EDT, Route to Pharmacy Electronically, [facility]/pharmacy #207, 150, cm, 05/13/22 10:59:00 [...] Physician Stop 09/17/23 10:40:00EDT, 09/22/22 10:40:00 EDT, [facility]/pharmacy #[id number], 150, cm, 05/13/22 10:59:00 EST, Height, 108.2, kg, 04/21/21 14:07:00 EST, Dry Weight Start Date: 09/22/22 Stop Date: 09/17/23 Status: Ordered hydrochlorothiazide-losartan 25 mg-100 mg oral tablet 1 tablet, By Mouth, Daily, # 30 tablet, 11 Refills, Maintenance, 07/22/22 12:36:00 EDT, [facility]/pharmacy #207, 1 tablet By Mouth Daily, 150, cm, 05/13/22 10:59:00 EST, Height, 108.2, kg, 04/21/21 14:07:00 EST, Dry Weight Start Date: 07/22/22 Status: Ordered lidocaine 5% topical ointment 1 application, Topically, 3 times a day, for shoulder or back pain. swedish. wash hands thoroughly after application, # 50 Gm, 2 Refills, Maintenance, 07/22/22 12:36:00 EDT, Ointment, [facility]/pharmacy #207, Partial fill upon patient request if the pres... Start Date: 07/22/22 Status: Ordered meclizine 25 mg oral tablet 1 tablet = 25 mg, By Mouth, 3 times a day, PRN for dizziness, # 30 tablet, 11 Refills, Acute 07/24/23 12:37:00 EDT, 09/28/22 10:42:00 EDT, Tablet, [facility]/pharmacy #[id number], Partial fill upon patient request if the prescription is for a schedule II opioid dr... Start Date: 09/28/22 Stop Date: 07/24/23 Status: Ordered Melatonin 3 mg oral tablet 1-3 TABLET, By Mouth, Daily at bedtime, PRN NEEDED FOR SLEEP *STOP TIZANIDINE*, # 270 tablet, 11Refills, Maintenance, 07/22/22 12:36:00 EDT, [facility]/pharmacy #[id number], 90, 1-3 TABLET By Mouth Daily at bedtime,PRN: NEEDED FOR SLEEP *STOP TIZANIDINE*, 15... Start Date: 07/22/22 Status: Ordered multivitamin Multiple Vitamins oral tablet 1 tablet, By Mouth, Daily, # 30 tablet, 11 Refills, Maintenance, 07/22/22 12:36:00 EDT, Tablet, [facility]/pharmacy #[id number], 1 tablet By Mouth Daily, 150, cm, 05/13/22 10:59:00 EST, Height, 108.2, kg, 04/21/21 14:07:00 EST, Dry Weight Start Date: 07/22/22 Status: Ordered nabumetone 750 mg oral tablet 1 tablet = 750 mg, By Mouth, 2 times a day, # 60 tablet, 0 Refills, Maintenance, 07/22/22 12:36:00 EDT, Tablet, [facility]/pharmacy #[id number], Partial fill upon patient request [...] Active OA (osteoarthritis) of hip Confirmed Active *[id number] Plate Glass Installer Helper Kellee Rodriguez Confirmed Active Severe obesity Confirmed Active 1followed by Dr. Grayson 2diverticulitis episode 01/04/2011. Went to [facility] 3refuses colonoscopy secondary to endometrial carcinoma Stage 1A 5Untreated. See sleep medicine phone call: Eqipement to be removed due to non-use 6Arms, bilateral Social History Social History Type Response Smoking Status Never (less than 100 in lifetime) entered on: 02/18/21 Sex Patient Care team information Care Team Personnel Name: Celine Max RN Position: [facility] SN RN Member Role: Primary Care Nurse Name: Briana Nicole RN Position: [facility] Onco RN Member Role: Primary Care Nurse Name: Lazara Thibodeaux MD Position: [facility] Primary Care Physician Member Role: PCP Address: Address: [address] [place] [id number]- Name: Magdalena Reyes Position: [facility] Outreach Member Role: Lifetime Consulting Physician Name: Leesa Cross RN Position: [facility] RN Member Role: Primary Care Nurse Name: Hermelinda Santacruz RN Position: [facility] RN Member Role: Primary Care Nurse Care Team Related Persons Name: HARMAN BAY Address: home Name: KELSI SCHMID Address: [place] [address]
--- OUTSIDE RECORDS SUMMARY | 2023-08-28 06:07 | XMS_ITS | Continuity of Care Document ---
Author Organization [facility] Address [address] [place] [address]- Care Team Providers Care Canvas Shop Laborer Name Role Phone Celeste BECKHAM, Asp[place] Primary Care Physician [place] [facility] Date(s): 09/18/19 - 10/18/19 [facility] [address] [place] [address]- [facility] Attending Physician: Admmisael, Benjy Admitting Physician: Admtr, Benjy Referring Physician: Admtr, [...] Comment: [11/21/2013] Ordered by [facility]if[facility] Medications Albuterol HFA inhaler Albuterol HFA inhaler, 2, puffs, Inhalation, 4 times a day, PRN Wheezing/Shortness of Breath, # 1 each, Refills 5, Tot. Refills 5, Maintenance, 09/03/19 11:25:00 EDT, Supply, 151, cm, 06/06/19 15:24:00 EST, Height, 109.4, kg, 12/11/18 17:10:00 EDT, . Start Date: 09/03/19 Status: Ordered amLODIPine 5 mg oral tablet 5 mg, 1, tablet, By Mouth, Daily, # 90 tablet, Refills 3, Tot. Refills 3, Maintenance, 02/25/19 13:24:42 EDT, Route to Pharmacy Electronically, [facility]- [id number], [facility] Start Date: 02/25/19 Status: Ordered [...] Refills, Maintenance, 07/08/19 8:57:00 EST, EC Capsule, [facility]/pharmacy #[id number], 151, cm, 06/06/19 15:24:00 EST, [...] 08/06/19 9:46:00 EDT, Route to Pharmacy Electronically, [facility] STORE [id number], 151, cm, 06/06/19 15:24:00 EST, Height, 109.4, kg, 12/11/18 17:10:00 EDT, Dry Weight Start Date: 08/06/19 Status: Ordered hydrochlorothiazide-losartan 25 mg-100 mg oral tablet 1 tablet, By Mouth, Daily, # 90 tablet, 1 Refills, Maintenance, 07/23/19 16:09:00 EDT, [facility]/pharmacy#[id number], 1 tablet By Mouth Daily, 151, cm, 06/06/19 15:24:00 EST, Height, 109.4, kg, 12/11/18 17:10:00 EDT, Dry Weight Start Date: 07/23/19 Status: Ordered ibuprofen 800 mg oral tablet 800 mg, 1, tablet, By Mouth, 2 times a day, PRN, # 60 tablet, Refills 1, Tot. Refills 1, Soft Stop,as needed for arthritis, 07/23/19 16:09:00 EDT, Route to Pharmacy Electronically, [facility]/pharmacy #207, 151, cm, 06/06/19 15:24:00 EST, Height, 109.4, kg... Start Date: 07/23/19 Stop Date: 09/21/19 Status: Ordered Lac-Hydrin 12% lotion 1 application, Topically, 2 times a day, # 400 Gm, 1 Refills, Maintenance, 09/17/19 11:45:00 EDT, Lotion, [facility]/pharmacy #[id number], 1 application Topically 2 times a day, 151, cm, 06/06/19 15:24:00 EST, Height, 109.4, kg, 12/11/18 17:10:00 EDT, Dry Weight Start Date: 09/17/19 Status: Ordered lidocaine 5% topical ointment 1 application, Topically, 3 times a day, wash hands thoroughly after application. belarusian, # 50 Gm,1 Refills, Maintenance, 02/27/19 16:48:00 EDT, Ointment, for bilateral shoulder and arm pain that has not responded to other medications, 1 application... Start Date: 02/27/19 Status: Ordered meclizine 25 mg oral tablet 1 tablet = 25 mg, By Mouth, Daily, PRN for dizziness, # 30 tablet, 0 Refills, Maintenance, 07/23/2015:09:00 EDT, Tablet, [facility]/pharmacy #[id number], 151, cm, 06/06/19 15:24:00 EST, Height, 109.4, kg, 12/11/18 17:10:00 EDT, Dry Weight Start Date: 07/23/19 Status: Ordered multivitamin Multiple Vitamins oral tablet 1 tablet, By Mouth, Daily, # 90 tablet, 3 Refills, Maintenance, 10/03/17 3:35:19 EDT, Tablet, 1 tablet By Mouth Daily Start Date: 10/03/17 Status: Ordered nystatin topical 513489 u/gm powder 1 application, Topically, 2 times [...] capsule, 0 Refills, Maintenance, 07/23/19 16:09:00EDT, Capsule, [facility]/pharmacy #[id number], 151, cm, 06/06/19 15:24:00 EST, Height, 109.4, kg, 12/11/18 17:10:00 EDT, Dry Weight Start Date: 07/23/19 Status: Ordered traZODone 50 mg oral tablet See Instructions, 0.5 - 1 tablet By Mouth Daily at bedtime, # 30 each, Refills 1, Tot. Refills 1, Maintenance, 07/05/19 9:34:00 EST, Instructions Replace Required Details, Route to Pharmacy Electronically, [facility]/pharmacy #[id number], 151, cm, 06/06/19 15:24:0... Start Date: [...] 5 01/30/19 Active OA (osteoarthritis)(Confirmed) 6 Active *[id number]-[facility] Partn Jeffery Mackenzie(Confirmed) Active 1followed by Dr. Grayson 2diverticulitis episode 01/04/2011. Went to [facility]. 3refuses colonoscopy secondary to endometrial carcinoma Stage 1A 5Untreated. See sleep medicine phone call: Eqipement to be removed due to non-use 6Arms, bilateral Social History Social History Type Response Smoking Status Never smoker entered on: 09/03/13 Sex
--- OUTSIDE RECORDS SUMMARY | 2023-08-28 06:07 | XMS_ITS | Continuity of Care Document ---
Author Organization [facility] Address [address] [place] [address]- Care Team Providers Care Tag Meter Operator Name Role Phone Celeste BECKHAM, Aspen Primary Care Physician Encounter [facility] Date(s): 07/23/19 - 10/18/19 [facility] [address] [place] [address]- [facility] Attending Physician: Aspen Alonso NP Allergies, Adverse [...] 02/25/19 13:24:42 EDT, Route to Pharmacy Electronically, TNPDP_ID- [id number], [facility]-5 [facility] Start Date: 02/25/19 Status: Ordered aspirin 81 [...] Refills, Maintenance, 07/08/19 8:57:00 EST, EC Capsule, [facility]/pharmacy #[id number], 151, cm, 06/06/19 15:24:00 EST, [...] 08/06/19 9:46:00 EDT, Route to Pharmacy Electronically, [facility] STORE [id number], 151, cm, 06/06/19 15:24:00 EST, Height, 109.4, kg, 12/11/18 17:10:00 EDT, Dry Weight Start Date: 08/06/19 Status: Ordered hydrochlorothiazide-losartan 25 mg-100 mg oral tablet 1 tablet, By Mouth, Daily, # 90 tablet, 1 Refills, Maintenance, 07/23/19 16:09:00 EDT, [facility]/pharmacy#[id number], 1 tablet By Mouth Daily, 151, cm, 06/06/19 15:24:00 EST, Height, 109.4, kg, 12/11/18 17:10:00 EDT, Dry Weight Start Date: 07/23/19 Status: Ordered ibuprofen 800 mg oral tablet 800 mg, 1, tablet, By Mouth, 2 times a day, PRN, # 60 tablet, Refills 1, Tot. Refills 1, Soft Stop,as needed for arthritis, 07/23/19 16:09:00 EDT, Route to Pharmacy Electronically, [facility]/pharmacy #207, 151, cm, 06/06/19 15:24:00 EST, Height, 109.4, kg... Start Date: 07/23/19 Stop Date: 09/21/19 Status: Ordered Lac-Hydrin 12% lotion 1 application, Topically, 2 times a day, # 400 Gm, 1 Refills, Maintenance, 09/17/19 11:45:00 EDT, Lotion, [facility]/pharmacy #207, 1 application Topically 2 times a day, 151, cm, 06/06/19 15:24:00 EST, Height, 109.4, kg, 12/11/18 17:10:00 EDT, Dry Weight Start Date: 09/17/19 Status: Ordered lidocaine 5% topical ointment 1 application, Topically, 3 times a day, wash hands thoroughly after application. upper sorbian, # 50 Gm,1 Refills, Maintenance, 02/27/19 16:48:00 EDT, Ointment, for bilateral shoulder and arm pain that has not responded to other medications, 1 application... Start Date: 02/27/19 Status: Ordered meclizine 25 mg oral tablet 1 tablet = 25 mg, By Mouth, Daily, PRN for dizziness, # 30 tablet, 0 Refills, Maintenance, 07/23/2015:09:00 EDT, Tablet, [facility]/pharmacy #207, 151, cm, 06/06/19 15:24:00 EST, Height, 109.4, kg, 12/11/18 17:10:00 EDT, Dry Weight Start Date: 07/23/19 Status: Ordered multivitamin Multiple Vitamins oral tablet 1 tablet, By Mouth, Daily, # 90 tablet, 3 Refills, Maintenance, 10/03/17 3:35:19 EDT, Tablet, 1 tablet By Mouth Daily Start Date: 10/03/17 Status: Ordered nystatin topical 276212 u/gm powder 1 application, Topically, 2 times [...] capsule, 0 Refills, Maintenance, 07/23/19 16:09:00EDT, Capsule, [facility]/pharmacy #[id number], 151, cm, 06/06/19 15:24:00 EST, Height, 109.4, kg, 12/11/18 17:10:00 EDT, Dry Weight Start Date: 07/23/19 Status: Ordered traZODone 50 mg oral tablet See Instructions, 0.5 - 1 tablet By Mouth Daily at bedtime, # 30 each, Refills 1, Tot. Refills 1, Maintenance, 07/05/19 9:34:00 EST, Instructions Replace Required Details, Route to Pharmacy Electronically, [facility]/pharmacy #[id number], 151, cm, 06/06/19 15:24:0... Start [...] 5 01/30/19 Active OA (osteoarthritis)(Confirmed) 6 Active *[id number]-[facility] Partn Jeffery Mackenzie(Confirmed) Active 1followed by Dr. Grayson 2diverticulitis episode 01/04/2011. Went to [facility]. 3refuses colonoscopy secondary to endometrial carcinoma Stage 1A 5Untreated. See sleep medicine phone call: Eqipement to be removed due to non-use 6Arms, bilateral Social History Social History Type Response Smoking Status Never smoker entered on: 09/03/13 Sex
--- OUTSIDE RECORDS SUMMARY | 2023-08-28 06:07 | XMS_ITS | Continuity of Care Document ---
Author Organization [facility] Adult Address [address] [place] [address]- Care Team Providers Care Diesel Retrofit Designer Name Role Phone Wil BECKHAM, Katy Mazariegos Primary Care Physician Encounter [facility] Date(s): 07/06/20 - 08/05/20 [facility] [address] [place] [address]- Allergies, Adverse Reactions, Alerts Substance Reaction Severity [...] 11:21:00 EST, Powder, Route to Pharmacy Electronically, [id number], [facility]/pharmacy #[id number], 149.8, cm, 06/08/20 10:55:00 EST, Heigh... Start Date: 06/08/20 Status: Ordered amLODIPine 5 mg oral tablet 5 mg, 1, tablet, By Mouth, Daily, # 90 tablet, Refills 1, Tot. Refills 1, Maintenance, 03/02/20 11:53:00 EDT, Route to Pharmacy Electronically, [facility]/pharmacy #207, 149.8, cm, 12/26/19 11:12:00 [...] Refills, Maintenance, 07/08/19 8:57:00 EST, EC Capsule, [facility]/pharmacy #207, 151, cm, 06/06/19 15:24:00 EST, Height, 109.4, kg, 12/11/18 17:10:00 EDT, Dry Weight Start Date: 07/08/19 Status: Ordered diclofenac 1% topical gel 1 application, Topically, 4 times a day, # 100 Gm, 5 Refills, Maintenance, 07/29/20 13:23:00 EDT, Gel, [facility]/pharmacy #[id number], Partial fill upon patient [...] tablet, 1 Refills, Maintenance, 05/12/20 14:40:00 EST, [facility]/pharmacy#[id number], 1 tablet By Mouth Daily, 149.8, cm, 12/26/19 11:12:00 EDT, Height, 100.4, kg, 12/20/19 12:32:00 EDT, Dry Weight Start Date: 05/12/20 Status: Ordered Lac-Hydrin 12% lotion 1 application, Topically, 2 times a day, # 400 Gm, 1 Refills, Maintenance, 09/17/19 11:45:00 EDT, Lotion, [facility]/pharmacy #[id number], 1 application Topically 2 times a day, 151, cm, 06/06/19 15:24:00 EST, Height, 109.4, kg, 12/11/18 17:10:00 EDT, Dry Weight Start Date: 09/17/19 Status: Ordered lidocaine 5% topical ointment 1 application, Topically, 3 times a day, wash hands thoroughly after application. bulgarian, # 50 Gm,1 Refills, Maintenance, 02/27/19 16:48:00 EDT, Ointment, for bilateral shoulder and arm pain that has not responded to other medications, 1 application... Start Date: 02/27/19 Status: Ordered meclizine 25 mg oral tablet 1 tablet = 25 mg, By Mouth, Daily, PRN for dizziness, # 30 tablet, 1 Refills, Maintenance, 10/30/2009:34:00 EDT, Tablet, [facility]/pharmacy #[id number], 151, cm, 10/31/19 9:51:00 EDT, Height, 109.4, kg, 12/11/18 17:10:00 EDT, Dry Weight Start Date: 10/31/19 Status: Ordered meclizine 25 mg oral tablet 1 tablet = 25 mg, By Mouth, Daily, PRN for dizziness, # 30 tablet, 1 Refills, Maintenance, 219:25:00 EST, Tablet, [facility]/pharmacy #[id number], 149.8, cm, 06/08/20 10:55:00 [...] Refills, Soft Stop, 07/29/20 14:09:00 EDT, Powder, [facility], Partial fill upon patient request if the prescription is for a schedule II opioid drug., 0.5 mL... Start Date: 07/29/20 Status: Ordered tiZANidine 4 mg oral capsule 1 capsule = 4 mg, By Mouth, 3 times a day, # 180 capsule, 0 Refills, Maintenance, 07/31/20 7:10:00 EDT, Capsule, [facility], 149.8, cm, 07/29/20 13:29:00 EDT, Height, 100.4, kg, 12/20/19 12:32:00 EDT, Dry Weight Start Date: 07/31/20 Stop Date: 09/29/20 Status: Ordered traZODone 50 mg oral tablet See Instructions, 0.5 - 1 tablet By Mouth Daily at bedtime, # 30 each, Refills 1, Tot. Refills 1, Maintenance, 10/31/19 10:34:00 EDT, Instructions Replace Required Details, Route to Pharmacy Electronically, [facility]/pharmacy #[id number], 151, cm, 10/31/19 9:51:0... [...] Refills, Maintenance, 06/08/20 11:14:00 EST, Aerosol, [facility], 149.8, cm, 06/08/20 10:55:00 EST, Height, 100.4, [...] 5 01/30/19 Active OA (osteoarthritis)(Confirmed) 6 Active *[id number] Care Partn Kellee Rodriguez(Confirmed) Active 1followed by Dr. Grayson 2diverticulitis episode 01/04/2011. Went to [facility]. 3refuses colonoscopy secondary to endometrial carcinoma Stage 1A 5Untreated. See sleep medicine phone call: Eqipement to be removed due to non-use 6Arms, bilateral Social History Social History Type Response Smoking Status Never (less than 100 in lifetime); Tobacco user in household: No entered on: 07/29/20 Sex
--- OUTSIDE RECORDS SUMMARY | 2023-08-28 06:07 | XMS_ITS | Continuity of Care Document ---
Author Organization [facility] Address [address] [place] [address]- Care Team Providers Care Concrete Pump Operator Helper Name Role Phone Subha WRIGHT, Chiquita Primary Care Physician Encounter [facility] Date(s): 01/20/20 - 02/19/20 [facility] [address] [place] [id number] Allergies, Adverse Reactions, Alerts Substance [...] 10/31/19 10:34:00 EDT, Route to Pharmacy Electronically, [facility]/pharmacy #[id number], 151, cm, 10/31/19 [...] Refills, Maintenance, 07/08/19 8:57:00 EST, EC Capsule, [facility]/pharmacy #[id number], 151, cm, 06/06/19 [...] tablet, 1 Refills, Maintenance, 07/23/19 16:09:00 EDT, [facility]/pharmacy#[id number], 1 tablet By Mouth Daily, 151, cm, 06/06/19 15:24:00 EST, Height, 109.4, kg, 12/11/18 17:10:00 EDT, Dry Weight Start Date: 07/23/19 Status: Ordered ibuprofen 800 mg oral tablet 800 mg, 1, tablet, By Mouth, 2 times a day, PRN, # 60 tablet, Refills 1, Tot. Refills 1, Soft Stop,as needed for arthritis, 01/09/20 15:17:00 EDT, Route to Pharmacy Electronically, [facility]/pharmacy #207, 149.8, cm, 12/26/19 [...] tablet, 1 Refills, Maintenance, 10/30/2009:34:00 EDT, Tablet, [facility]/pharmacy #[id number], 151, cm, 10/31/19 [...] day, # 90 capsule, 0 Refills, Maintenance, 02/18/20 13:29:00 EDT, Capsule, [facility]/pharmacy #[id number], 149.8, cm, 12/26/19 11:12:00 EDT, Height, 100.4, kg, 12/20/19 12:32:00 EDT, Dry Weight Start Date: 02/18/20 Status: Ordered traZODone 50 mg oral tablet See Instructions, 0.5 - 1 tablet By Mouth Daily at bedtime, # 30 each, Refills 1, Tot. Refills 1, Maintenance, 10/31/19 10:34:00 EDT, Instructions Replace Required Details, Route to Pharmacy Electronically, [facility]/pharmacy #[id number], 151, cm, 10/31/19 [...] 5 01/30/19 Active OA (osteoarthritis)(Confirmed) 6 Active *[id number]-[facility] Partn Jeffery Mackenzie(Confirmed) Active 1followed by Dr. Grayson 2diverticulitis episode 01/04/2011. Went to [facility]. 3refuses colonoscopy secondary to endometrial carcinoma Stage 1A 5Untreated. See sleep medicine phone call: Eqipement to be removed due to non-use 6Arms, bilateral Social History Social History Type Response Smoking Status Never smoker entered on: 09/03/13 Sex
--- OUTSIDE RECORDS SUMMARY | 2023-08-28 06:07 | XMS_ITS | Continuity of Care Document ---
Author Organization [facility] Address Unknown Care Team Providers Care Trouble Tracer Name Role Phone Wil BECKHAM, Katy Mazariegos Primary Care Physician Encounter [facility] Date(s): 03/22/21 - 04/21/21 [facility] Allergies, Adverse Reactions, Alerts Substance Reaction [...] Maintenance, 01/20/21 15:16:00 EDT, ER Tablet, [id number], Partial fill upon patient request if the prescription is... Start Date: 01/20/21 Status: Ordered amLODIPine 5 mg oral tablet 5 mg, 1, tablet, By Mouth, Daily, # 90 tablet, Refills 3, Tot. Refills 3, Maintenance, 10/27/20 19:35:00 EDT, Route to Pharmacy Electronically, [facility]/pharmacy #207, 149.8, cm, 10/08/20 12:18:00 EDT, Height, [...] Daily, # 90 capsule, 1 Refills, [facility] STORE 06193, 149.8, cm, 10/08/20 12:18:00 EDT, Height, 100.4, kg, 12/20/19 12:32:00 EDT, Dry Weight Start Date: 01/06/21 Status: Ordered hydrochlorothiazide-losartan 25 mg-100 mg oral tablet 1 tablet, By Mouth, Daily, # 90 tablet, 3 Refills, Maintenance, 10/27/20 19:34:00 EDT, [facility], 1 tablet By Mouth Daily, 149.8, cm, 10/08/20 12:18:00 EDT, Height, 100.4, kg, 12/20/19 12:32:00 EDT, Dry Weight Start Date: 10/27/20 Status: Ordered lidocaine 5% topical ointment 1 application, Topically, 3 times a day, for shoulder or back pain. slovak. wash hands thoroughly after application, # 50 Gm, 2 Refills, Maintenance, 01/29/21 12:22:00 EDT, Ointment, [id number], Partial fill upon patient request if the pres... Start Date: 01/29/21 Status: Ordered meclizine 25 mg oral tablet 1 tablet = 25 mg, By Mouth, Daily, PRN for dizziness, # 30 tablet, 1 Refills, Maintenance, 04/07/2114:36:00 EST, Tablet, [facility], 149.8, cm, 03/29/21 10:32:00 EST, Height, 100.4, kg, 12/20/19 12:32:00 EDT, Dry Weight Start Date: 04/07/21 Status: Ordered Melatonin 3 mg oral tablet 1-3 tablet, By Mouth, Daily at bedtime, PRN for insomnia, Discontinue tizanidine, # 90 tablet, 3 Refills, Maintenance, 01/20/21 15:15:00 EDT, Tablet, [facility]/pharmacy #2070, 1-3 tablet By Mouth Daily at [...] Refills, Soft Stop, 07/29/20 14:09:00 EDT, Powder, [facility], Partial fill upon patient request if [...] Refills, Maintenance, 10/08/20 13:14:00 EDT, Aerosol, [facility]/pharmacy #207, 149.8, cm, 10/08/20 12:18:00 EDT, Height, 100.4, kg, 12/20/19 12:32:00 EDT, Dry Weight Start Date: 10/08/20 Status: Ordered Voltaren 1% topical gel = 2 Gm, Topically, 4 times a day, # 100 Gm, 5 Refills, Maintenance, 01/20/21 15:17:00 EDT, [facility]/pharmacy #[id number], Partial fill upon patient request [...] 5 01/30/19 Active OA (osteoarthritis)(Confirmed) 6 Active *[id number] Care Partn sheldon Rodriguez(Confirmed) Active Severe obesity(Confirmed) Active 1followed by Dr. Grayson 2diverticulitis episode 01/04/2011. Went to [facility]. 3refuses colonoscopy secondary to endometrial carcinoma Stage 1A 5Untreated. See sleep medicine phone call: Eqipement to be removed due to non-use 6Arms, bilateral Social History Social History Type Response Smoking Status Never (less than 100 in lifetime) entered on: 02/18/21 Sex
--- OUTSIDE RECORDS SUMMARY | 2023-08-28 06:07 | XMS_ITS | Continuity of Care Document ---
Author Organization [facility] Address [address] [place] [address]- Care Team Providers Care Trim Crew Supervisor Name Role Phone Lazara Thibodeaux MD Primary Care Physician Encounter [facility] Date(s): 04/07/23 - 05/07/23 [facility]/[address] [address]- Attending Physician: Benjy Sal Allergies, Adverse Reactions, [...] Maintenance, 07/22/22 12:36:00 EDT, ER Tablet, [id number], Partial fill upon patient request if the prescription i... Start Date: 07/22/22 Status: Ordered amLODIPine 5 mg oral tablet 5 mg, 1, tablet, By Mouth, Daily, # 30 tablet, Refills 11, Tot. Refills 11, Maintenance, 07/22/22 12:36:00 EDT, Route to Pharmacy Electronically, [facility]/pharmacy #[id number], 150, cm, 05/13/22 10:59:00 EST, Height, 108.2, kg, 04/21/21 14:07:00 EST, Dry Weight Start Date: 07/22/22 Status: Ordered Aspercreme Warming Pain Relief Patch 0.025% topical film See Instructions, Topically 3 times a day to affected area, # 42.5 Gm, 11 Refills, Acute 01/15/24 9:20:00 EDT, 01/13/23 9:20:00 EDT, [facility]/pharmacy #[id number], Partial fill upon [...] 10:40:00 EDT, 09/17/23 10:40:00 EDT, [facility]/pharmacy #[id number], 150, cm, 01/06/23 9:32:00 EDT, Height, 107.54, kg, 01/06/23 9:32:00 EDT, Dry Weight Start Date: 09/17/23 Stop Date: 09/11/24 Status: Ordered hydrochlorothiazide-losartan 25 mg-100 mg oral tablet 1 tablet, By Mouth, Daily, # 30 tablet, 11 Refills, Maintenance, 07/22/22 12:36:00 EDT, [facility]/pharmacy #207, 1 tablet By Mouth Daily, 150, cm, 05/13/22 10:59:00 EST, Height, 108.2, kg, 04/21/21 14:07:00 EST, Dry Weight Start Date: 07/22/22 Status: Ordered lidocaine 5% topical ointment 1 application, Topically, 3 times a day, for shoulder or back pain. new zealander. wash hands thoroughly after application, # 50 Gm, 2 Refills, Maintenance, 07/22/22 12:36:00 EDT, Ointment, [facility]/pharmacy #[id number], Partial fill upon [...] 3 Refills, Maintenance, 01/06/23 10:23:00EDT, Tablet, [id number], Partial fill upon patient request if [...] Gm, 11 Refills, Maintenance, 07/22/22 12:36:00 EDT, [facility]/pharmacy #[id number], Partial fill upon [...] Active OA (osteoarthritis) of hip Confirmed Active *[id number] Lining Marker Kellee Rodriguez Confirmed Active Severe obesity Confirmed Active Urine incontinence Confirmed Active 1followed by Dr. Grayson 2diverticulitis episode 01/04/2011. Went to [facility] 3refuses colonoscopy secondary to endometrial carcinoma Stage 1A 5Untreated. See sleep medicine phone call: Eqipement to be removed due to non-use 6Arms, bilateral Social History Social History Type Response Smoking Status Never (less than 100 in lifetime) entered on: 02/18/21 Sex Cardiology * Event Display: Non BH Cardiovascular Results Authored Date: Laboratory * Angelic WRIGHT, Pati S: REVIEW Event Display: Non BH Lab Results Authored Date: * Event Display: Non BH Lab Results Authored Date: * Etienne MANAGER CAR, Liliana J: REVIEW Event Display: Laboratory Result Scanned Authored Date: Note * Kylah Beltran: SIGN [...] mental health services. Her ex-boyfriend is her STEAMER TENDER. Care seems to be appropriate. House is clean her meals are made. Patient has refused prefills and does not want a nurse in the hime. She has struggle with medication compliance. Past Medical History Problem list All Problems Seasonal allergies / Confirmed Osteoarthritis / Confirmed Hypertension / Confirmed Hyperlipidemia / SNOMED CT [id number] / Confirmed Glaucoma / Confirmed Edema / Confirmed Diverticulosis / SNOMED CT 4940490683 / Confirmed DDD (degenerative disc disease), lumbar / SNOMED CT [id number] / Confirmed Asthma / Confirmed Allergies Allergic [...] 24 tablet, 0 Refills, Maintenance Vitamin D 82355 iu oral capsule: 1 capsule = 50,000 International_Units, By Mouth, Every week, # 8 capsule, 0 Refills, Maintenance acetaminophen 500 mg oral tablet: 2 tablet = 1,000 mg, By Mouth, 3 times a day, PRN for pain, new zealander directions DC IBUPROFEN, # 120 tablet, 0 Refills, Maintenance, Tablet albuterol 0.083% inhalation solution: 3 mL = 2.5 mg, Inhalation, Every 4 hours, PRN Wheezing/Shortness of Breath, new zealander please, # 100 each, 2 Refills, Maintenance [...] 0, 0, 10/30/06 13:10:53, Print JOSE Number, [id number], Constant Indicator Physical Examination Vital Signs Weight [...] Team Progress Note Authored Date: [facility]Co nurse personal care worker presdaylin at the care coordination meeting. Radiology * Event Display: IR Special Procedures, Non-BH Authored Date: * Event Display: X-Ray Hip/Groin, Non- BH Authored Date: * Etienne BECKHAM, Liliana J: REVIEW Event Display: Bone Density, Non-BH Authored Date: * Debby Tucker.: PERFORM Event Display: Radiology Results Scanned Authored Date: [id number] * Consuelo Johnson: PERFORM Event Display: Radiology Results Scanned Authored Date: [id number] * Debby Tucker.: PERFORM Event Display: Radiology Results Scanned Authored Date: [id number] Patient Care team information Care Team Personnel Name: Celine Max RN Position: [facility] SN RN Member Role: Primary Care Nurse Name: Briana Nicole RN Position: [facility] Onco RN Member Role: Primary Care Nurse Name: Lazara Thibodeaux MD Position: [facility] Physician - Primary Care Member Role: PCP Address: Address: [address] [place] [address] Name: Magdalena Reyes Position: [facility] Outreach Member Role: Lifetime Consulting Physician Name: Leesa Cross RN Position: [facility] SN RN Member Role: Primary Care Nurse Name: Hermelinda Santacruz RN Position: [facility] RN Member Role: Primary Care Nurse Care Team Related Persons Name: HARMAN BAY Address: home Name: KELSI [place] Address: [place] [address]
--- OUTSIDE RECORDS SUMMARY | 2023-08-28 06:07 | XMS_ITS | Continuity of Care Document ---
Author Organization [facility] Address [address] [place] [address]- Care Team Providers Care Processes Chemical Design Engineer Name Role Phone Subha WRIGHT, Chiquita Primary Care Physician Encounter [facility] Date(s): 02/13/20 - 03/14/20 [facility] [address] [place] [address]- Allergies, Adverse Reactions, Alerts Substance Reaction Severity [...] 03/02/20 11:53:00 EDT, Route to Pharmacy Electronically, [facility]/pharmacy #[id number], 149.8, cm, 12/26/19 11:12:00 EDT, [...] Refills, Maintenance, 07/08/19 8:57:00 EST, EC Capsule, [facility]/pharmacy #[id number], 151, cm, 06/06/19 15:24:00 EST, [...] tablet, 1 Refills, Maintenance, 07/23/19 16:09:00 EDT, [facility]/pharmacy#2071, 1 tablet By Mouth Daily, 151, cm, 06/06/19 15:24:00 EST, Height, 109.4, kg, 12/11/18 17:10:00 EDT, Dry Weight Start Date: 07/23/19 Status: Ordered ibuprofen 800 mg oral tablet 800 mg, 1, tablet, By Mouth, 2 times a day, PRN, # 60 tablet, Refills 1, Tot. Refills 1, Soft Stop,as needed for arthritis, 01/09/20 15:17:00 EDT, Route to Pharmacy Electronically, [facility]/pharmacy #207, 149.8, cm, 12/26/19 11:12:00 EDT, [...] a day, wash hands thoroughly after application. turkmen, # 50 Gm,1 Refills, Maintenance, 02/27/19 16:48:00 EDT, Ointment, for bilateral shoulder and arm pain that has not responded to other medications, 1 application... Start Date: 02/27/19 Status: Ordered meclizine 25 mg oral tablet 1 tablet = 25 mg, By Mouth, Daily, PRN for dizziness, # 30 tablet, 1 Refills, Maintenance, 10/30/2009:34:00 EDT, Tablet, [facility]/pharmacy #[id number], 151, cm, 10/31/19 9:51:00 EDT, [...] 0 Refills, Maintenance, 02/18/20 13:29:00 EDT, Capsule, [facility]/pharmacy #2071, 149.8, cm, 12/26/19 11:12:00 EDT, Height, 100.4, kg, 12/20/19 12:32:00 EDT, Dry Weight Start Date: 02/18/20 Status: Ordered traZODone 50 mg oral tablet See Instructions, 0.5 - 1 tablet By Mouth Daily at bedtime, # 30 each, Refills 1, Tot. Refills 1, Maintenance, 10/31/19 10:34:00 EDT, Instructions Replace Required Details, Route to Pharmacy Electronically, [facility]/pharmacy #[id number], 151, cm, 10/31/19 9:51:0... Start [...] 5 01/30/19 Active OA (osteoarthritis)(Confirmed) 6 Active *[id number]-[facility] Partn Jeffery Mackenzie(Confirmed) Active 1followed by Dr. Grayson 2diverticulitis episode 01/04/2011. Went to [facility]. 3refuses colonoscopy secondary to endometrial carcinoma Stage 1A 5Untreated. See sleep medicine phone call: Eqipement to be removed due to non-use 6Arms, bilateral Social History Social History Type Response Smoking Status Never smoker entered on: 09/03/13 Sex
--- OUTSIDE RECORDS SUMMARY | 2023-08-28 06:07 | XMS_ITS | Continuity of Care Document ---
Author Organization [facility] Address [address] [place] [address]- Care Team Providers Care Merchandise Handler Name Role Phone Katy De La Torre NP Primary Care Physician [place] [facility] [place] 08/29/20 [facility] [address] [address]- Allergies, Adverse Reactions, Alerts Substance Reaction Severity Status Ativan 1 Active 1Adverse effect: heightened anxiety reported Immunizations Given and Recorded Vaccine Date Status Refusal Reason SARS-CoV-2 (COVID-19) mRNA BNT-162b2 vac 08/20/20 Given [...] 11:21:00 EST, Powder, Route to Pharmacy Electronically, [id number], [facility]/pharmacy #[id number], 149.8, cm, 06/08/20 10:55:00 EST, Heigh... Start Date: 06/08/20 Status: Ordered amLODIPine 5 mg oral tablet 5 mg, 1, tablet, By Mouth, Daily, # 90 tablet, Refills 1, Tot. Refills 1, Maintenance, 03/02/20 11:53:00 EDT, [facility] 149.8, cm, 12/26/19 11:12:00 EDT, Height, [...] Refills, Maintenance, 07/08/19 8:57:00 EST, EC Capsule, [facility]/pharmacy #207, 151, cm, 06/06/19 15:24:00 EST, Height, 109.4, kg, 12/11/18 17:10:00 EDT, Dry Weight Start Date: 07/08/19 Status: Ordered diclofenac 1% topical gel 1 application, Topically, 4 times a day, # 100 Gm, 5 Refills, Maintenance, 07/29/20 13:23:00 EDT, Gel, [facility]/pharmacy #[id number], Partial fill upon patient request [...] a day, wash hands thoroughly after application. kuwaiti, # 50 Gm,1 Refills, Maintenance, 02/27/19 16:48:00 EDT, Ointment, for bilateral shoulder and arm pain that has not responded to other medications, 1 application... Start Date: 02/27/19 Status: Ordered meclizine 25 mg oral tablet 1 tablet = 25 mg, By Mouth, Daily, PRN for dizziness, # 30 tablet, 1 Refills, Maintenance, 10/30/2009:34:00 EDT, Tablet, [facility]/pharmacy #207, 151, cm, 10/31/19 9:51:00 EDT, [...] Refills, Soft Stop, 07/29/20 14:09:00 EDT, Powder, [facility], Partial fill upon patient request if the prescription is for a schedule II opioid drug., 0.5 mL... Start Date: 07/29/20 Status: Ordered tiZANidine 4 mg oral capsule 1 capsule = 4 mg, By Mouth, 3 times a day, # 180 capsule, 0 Refills, Maintenance, 07/31/20 7:10:00 EDT, Capsule, [facility], 149.8, cm, 07/29/20 13:29:00 EDT, Height, 100.4, kg, 12/20/19 12:32:00 EDT, Dry Weight Start Date: 07/31/20 Stop Date: 09/29/20 Status: Ordered traZODone 50 mg oral tablet See Instructions, 0.5 - 1 tablet By Mouth Daily at bedtime, # 30 each, Refills 1, Tot. Refills 1, Maintenance, 10/31/19 10:34:00 EDT, Instructions Replace Required Details, Route to Pharmacy Electronically, [facility]/pharmacy #[id number], 151, cm, 10/31/19 9:51:0... Start Date: 10/31/19 Status: Ordered Tylenol 8 Hour 650 mg oral tablet, extended release 2 tablet = 1,300 mg, By Mouth, Every 8 hours, PRN as needed for fever, for 30 days, # 200 tablet, 3Refills, Acute 11/26/20 13:34:00 EDT, 07/29/20 13:34:00 EDT, ER Tablet, [facility]/pharmacy #[id number], Partialfill upon patient request if the prescription is fo... Start Date: 07/29/20 Stop Date: 11/26/20 Status: Ordered Ventolin HFA 108 mcg/inh inhalation aerosol with adapter 2 puffs, Inhalation, Every 6 hours, PRN for wheezing, use with spacer chamber, # 8 Gm, 6 Refills, Maintenance, 06/08/20 11:14:00 EST, Aerosol, [facility]/pharmacy #[id number], 149.8, cm, 06/08/20 10:55:00 EST, [...] 5 01/30/19 Active OA (osteoarthritis)(Confirmed) 6 Active *[id number] Care Partn sheldon Rodriguez(Confirmed) Active 1followed by Dr. Grayson 2diverticulitis episode 01/04/2011. Went to [facility]. 3refuses colonoscopy secondary to endometrial carcinoma Stage 1A 5Untreated. See sleep medicine phone call: Eqipement to be removed due to non-use 6Arms, bilateral Social History Social History Type Response Smoking Status Never (less than 100 in lifetime); Tobacco user in household: No entered on: 07/29/20 Sex
--- OUTSIDE RECORDS SUMMARY | 2023-08-28 06:07 | XMS_ITS | Continuity of Care Document ---
Author Organization [facility] Address [address] [place] [address]- Care Team Providers Care Booky Name Role Phone Lazara Thibodeaux MD Primary Care Physician [place] [facility] [place] [facility]CT [facility] [id number] Date(s): 03/25/22 - 04/24/22 [facility]/[address] [address]- Attending Physician: Admtr, Ar8 Allergies, Adverse Reactions, [...] Maintenance, 09/27/21 10:40:00 EDT, ER Tablet, [id number], Partial fill upon patient request if the prescription i... Start Date: 09/27/21 Status: Ordered amLODIPine 5 mg oral tablet 5 mg, 1, tablet, By Mouth, Daily, # 30 tablet, Refills 11, Tot. Refills 11, Maintenance, 09/27/21 10:40:00 EDT, Route to Pharmacy Electronically, [facility]/pharmacy #[id number], 150, cm, 09/27/21 10:05:00 EDT, Height, [...] Physician Stop 09/22/22 10:40:00EDT, 09/27/21 10:40:00 EDT, [facility]/pharmacy #207, 150, cm, 09/27/21 10:05:00 EDT, Height, 108.2, kg, 04/21/21 14:07:00 EST, Dry Weight Start Date: 09/27/21 Stop Date: 09/22/22 Status: Ordered hydrochlorothiazide-losartan 25 mg-100 mg oral tablet 1 tablet, By Mouth, Daily, # 30 tablet, 11 Refills, Maintenance, 09/27/21 10:41:00 EDT, [facility]/pharmacy #[id number], 1 tablet By Mouth Daily, 150, cm, 09/27/21 10:05:00 EDT, Height, 108.2, kg, 04/21/21 14:07:00 EST, Dry Weight Start Date: 09/27/21 Status: Ordered lidocaine 5% topical ointment 1 application, Topically, 3 times a day, for shoulder or back pain. northern irish. wash hands thoroughly after application, # 50 Gm, 2 Refills, Maintenance, 01/29/21 12:22:00 EDT, Ointment, [facility]/pharmacy #207, Partial fill upon patient request if the pres... Start Date: 01/29/21 Status: Ordered meclizine 25 mg oral tablet 1 tablet = 25 mg, By Mouth, 3 times a day, PRN for dizziness, # 30 tablet, 0 Refills, Acute 09/28/22 10:42:00 EDT, 09/27/21 10:42:00 EDT, Tablet, [facility]/pharmacy #207, Partial fill upon patient requestif the prescription is for a schedule II opioid cortez... Start Date: 09/27/21 Stop Date: 09/28/22 Status: Ordered Melatonin 3 mg oral tablet 1-3 tablet, By Mouth, Daily at bedtime, PRN for insomnia, Discontinue tizanidine, # 60 tablet, 11 Refills, Maintenance, 09/27/21 10:41:00 EDT, Tablet, [facility]/pharmacy #[id number], 1-3 tablet By Mouth Daily atbedtime,PRN:for insomnia,Instr:Discontinue tizanidi... Start Date: 09/27/21 Status: Ordered multivitamin Multiple Vitamins oral tablet 1 tablet, By Mouth, Daily, # 30 tablet, 11 Refills, Maintenance, 09/27/21 10:42:00 EDT, Tablet, [facility]/pharmacy #[id number], 1 tablet By Mouth Daily, 150, [...] Gm, 11 Refills,Maintenance, 09/27/21 10:40:00 EDT, Aerosol, [facility]/pharmacy #[id number], 150, cm, 09/27/21 10:05:00 EDT, Height, [...] Active OA (osteoarthritis) of hip Confirmed Active *[id number] Black Leather Buffer Kellee Rodriguez Confirmed Active Severe obesity Confirmed Active 1followed by Dr. Grayson 2diverticulitis episode 01/04/2011. Went to [facility] 3refuses colonoscopy secondary to endometrial carcinoma Stage [...] Progress Note Authored Date: Patient: IRAJ BETH [facility]: [id number] Age: 66 years Sex: Female : 1945 Associated Diagnoses: None Author: Yenni Jeffers Visit Information Chief Complaint: Care Team Progress Note. History of Present Illness - Pt has declined mental health services. Her ex-boyfriend is her MEDICAL RECORD ADMINISTRATOR. Care seems to be appropriate. House is clean her meals are made. Patient has refused prefills and does not want a nurse in the hime. She has struggle with medication compliance. Past Medical History Problem list All Problems Seasonal allergies / Confirmed Osteoarthritis / Confirmed Hypertension / Confirmed Hyperlipidemia / SNOMED CT 54708789 / Confirmed Glaucoma / Confirmed Edema / Confirmed Diverticulosis / SNOMED CT 6913694177 / Confirmed DDD (degenerative disc disease), lumbar / SNOMED CT [id number] / Confirmed Asthma / Confirmed Allergies Allergic [...] 24 tablet, 0 Refills, Maintenance Vitamin D 32378 iu oral capsule: 1 capsule = 50,000 International_Units, By Mouth, Every week, # 8 capsule, 0 Refills, Maintenance acetaminophen 500 mg oral tablet: 2 tablet = 1,000 mg, By Mouth, 3 times a day, PRN for pain, northern irish directions DC IBUPROFEN, # 120 tablet, 0 Refills, Maintenance, Tablet albuterol 0.083% inhalation solution: 3 mL = 2.5 mg, Inhalation, Every 4 hours, PRN Wheezing/Shortness of Breath, northern irish please, # 100 each, 2 Refills, Maintenance [...] 0, 0, 10/30/06 13:10:53, Print JOSE Number, [id number], Constant Indicator Physical Examination Vital Signs Weight [...] Display: Care Team Progress Note Authored Date: [id number] [facility] nurse health and social care teacher presen at the care coordination meeting. * Debby Tucker: PERFORM Event Display: Radiology Results Scanned Authored Date: [id number] * Consuelo Johnson: PERFORM Event Display: Radiology Results Scanned Authored Date: [id number] * Debby Tucker: PERFORM Event Display: Radiology Results Scanned Authored Date: [id number] Patient Care team information Care Team Personnel Name: Celine Max RN Position: [facility] RN Member Role: Primary Care Nurse Name: Briana Nicole RN Position: [facility] Onco RN Member Role: Primary Care Nurse Name: Lazara Thibodeaux MD Position: [facility] Primary Care Physician Member Role: PCP Address: Address: [address] [place] [id number] Name: Magdalena Reyes Position: [facility] Outreach Member Role: Lifetime Consulting Physician Name: Leesa Cross RN Position: [facility] RN Member Role: Primary Care Nurse Name: Hermelinda Santacruz RN Position: [facility] RN Member Role: Primary Care Nurse Care Team Related Persons Name: HARMAN BAY Address: home Name: KELSI [place] Address: [place] [address]
--- OUTSIDE RECORDS SUMMARY | 2023-08-28 06:07 | XMS_ITS | Continuity of Care Document ---
Author Organization [facility] Address [address] [place] [address]- Care Team Providers Care Custodial Manager Name Role Phone Lazara Thibodeaux MD Primary Care Physician [place] [facility] [place]/22 [facility]/[address] [address]- [place] Allergies, Adverse Reactions, Alerts Substance Reaction [...] Maintenance, 09/27/21 10:40:00 EDT, ER Tablet, [id number], Partial fill upon patient request if the prescription i... Start Date: 09/27/21 Status: Ordered amLODIPine 5 mg oral tablet 5 mg, 1, tablet, By Mouth, Daily, # 30 tablet, Refills 11, Tot. Refills 11, Maintenance, 09/27/21 10:40:00 EDT, Route to Pharmacy Electronically, [facility]/pharmacy #207, 150, cm, 09/27/21 10:05:00 EDT, Height, [...] Physician Stop 09/22/22 10:40:00EDT, 09/27/21 10:40:00 EDT, [facility]/pharmacy #207, 150, cm, 09/27/21 10:05:00 EDT, Height, 108.2, kg, 04/21/21 14:07:00 EST, Dry Weight Start Date: 09/27/21 Stop Date: 09/22/22 Status: Ordered hydrochlorothiazide-losartan 25 mg-100 mg oral tablet 1 tablet, By Mouth, Daily, # 30 tablet, 11 Refills, Maintenance, 09/27/21 10:41:00 EDT, [facility]/pharmacy #207, 1 tablet By Mouth Daily, 150, cm, 09/27/21 10:05:00 EDT, Height, 108.2, kg, 04/21/21 14:07:00 EST, Dry Weight Start Date: 09/27/21 Status: Ordered lidocaine 5% topical ointment 1 application, Topically, 3 times a day, for shoulder or back pain. italian. wash hands thoroughly after application, # 50 Gm, 2 Refills, Maintenance, 01/29/21 12:22:00 EDT, Ointment, [facility]/pharmacy #[id number], Partial fill upon patient request if the pres... Start Date: 01/29/21 Status: Ordered meclizine 25 mg oral tablet 1 tablet = 25 mg, By Mouth, 3 times a day, PRN for dizziness, # 30 tablet, 0 Refills, Acute 09/28/22 10:42:00 EDT, 09/27/21 10:42:00 EDT, Tablet, [facility]/pharmacy #[id number], Partial fill upon patient requestif the prescription is for a schedule II opioid cortez... Start Date: 09/27/21 Stop Date: 09/28/22 Status: Ordered Melatonin 3 mg oral tablet 1-3 tablet, By Mouth, Daily at bedtime, PRN for insomnia, Discontinue tizanidine, # 60 tablet, 11 Refills, Maintenance, 09/27/21 10:41:00 EDT, Tablet, [facility]/pharmacy #[id number], 1-3 tablet By Mouth Daily atbedtime,PRN:for insomnia,Instr:Discontinue tizanidi... Start Date: 09/27/21 Status: Ordered multivitamin Multiple Vitamins oral tablet 1 tablet, By Mouth, Daily, # 30 tablet, 11 Refills, Maintenance, 09/27/21 10:42:00 EDT, Tablet, [facility]/pharmacy #[id number], 1 tablet By Mouth Daily, 150, cm, 09/27/21 10:05:00 EDT, Height, 108.2, kg, 04/21/21 14:07:00 EST, Dry Weight Start Date: 09/27/21 Status: Ordered nabumetone 750 mg oral tablet 1 tablet = 750 mg, By Mouth, 2 times a day, # 60 tablet, 0 Refills, Maintenance, 05/13/22 11:54:00 EST, Tablet, [facility]/pharmacy #[id number], Partial fill upon patient request [...] Active OA (osteoarthritis) of hip Confirmed Active *[id number] Plastic Surgery Technician Kellee Rodriguez Confirmed Active Severe obesity Confirmed Active 1followed by Dr. Grayson 2diverticulitis episode 01/04/2011. Went to [facility] 3refuses colonoscopy secondary to endometrial carcinoma Stage 1A 5Untreated. See sleep medicine phone call: Eqipement to be removed due to non-use 6Arms, bilateral Social History Social History Type Response Smoking Status Never (less than 100 in lifetime) entered on: 02/18/21 Sex Patient Care team information Care Team Personnel Name: Celine Max RN Position: [facility] SN RN Member Role: Primary Care Nurse Name: Briana Nicole RN Position: [facility] Onco RN Member Role: Primary Care Nurse Name: Lazara Thibodeaux MD Position: [facility] Primary Care Physician Member Role: PCP Address: Address: [address] [place] [address]- Name: Magdalena Reyes Position: [facility] Outreach Member Role: Lifetime Consulting Physician Name: Leesa Cross RN Position: [facility] RN Member Role: Primary Care Nurse Name: Hermelinda Santacruz RN Position: [facility] RN Member Role: Primary Care Nurse Care Team Related Persons Name: HARMAN BAY Address: home Name: KELSI [place] Address: [place] [address]
--- OUTSIDE RECORDS SUMMARY | 2023-08-28 06:07 | XMS_ITS | Continuity of Care Document ---
Author Organization [facility] Address [address] [place] [address]- Care Team Providers Care Association Executive Name Role Phone Lazara Thibodeaux MD Primary Care Physician Encounter [facility] [place] [facility]CT [facility] [id number] Date(s): 10/18/21 - 11/17/[address] [address]- Attending Physician: Benjy Sal Admitting Physician: AdmtrBenjy Referring Physician: Admtr, Ar8 Allergies, Adverse Reactions, [...] Refills, Maintenance, 09/27/21 10:40:00 EDT, ER Tablet, [facility]/pharmacy #[id number], Partial fill upon patient request if the prescription i... Start Date: 09/27/21 Status: Ordered amLODIPine 5 mg oral tablet 5 mg, 1, tablet, By Mouth, Daily, # 30 tablet, Refills 11, Tot. Refills 11, Maintenance, 09/27/21 10:40:00 EDT, Route to Pharmacy Electronically, [facility]/pharmacy #207, 150, cm, 09/27/21 10:05:00 [...] Physician Stop 09/22/22 10:40:00EDT, 09/27/21 10:40:00 EDT, [facility]/pharmacy #207, 150, cm, 09/27/21 10:05:00 EDT, Height, 108.2, kg, 04/21/21 14:07:00 EST, Dry Weight Start Date: 09/27/21 Stop Date: 09/22/22 Status: Ordered hydrochlorothiazide-losartan 25 mg-100 mg oral tablet 1 tablet, By Mouth, Daily, # 30 tablet, 11 Refills, Maintenance, 09/27/21 10:41:00 EDT, [facility]/pharmacy #[id number], 1 tablet By Mouth Daily, 150, cm, 09/27/21 10:05:00 EDT, Height, 108.2, kg, 04/21/21 14:07:00 EST, Dry Weight Start Date: 09/27/21 Status: Ordered lidocaine 5% topical ointment 1 application, Topically, 3 times a day, for shoulder or back pain. ivorian. wash hands thoroughly after application, # 50 Gm, 2 Refills, Maintenance, 01/29/21 12:22:00 EDT, Ointment, [facility]/pharmacy #[id number], Partial fill upon patient request if the pres... Start Date: 01/29/21 Status: Ordered meclizine 25 mg oral tablet 1 tablet = 25 mg, By Mouth, 3 times a day, PRN for dizziness, # 30 tablet, 0 Refills, Acute 09/28/22 10:42:00 EDT, 09/27/21 10:42:00 EDT, Tablet, [facility]/pharmacy #207, Partial fill upon patient requestif the prescription is for a schedule II opioid cortez... Start Date: 09/27/21 Stop Date: 09/28/22 Status: Ordered Melatonin 3 mg oral tablet 1-3 tablet, By Mouth, Daily at bedtime, PRN for insomnia, Discontinue tizanidine, # 60 tablet, 11 Refills, Maintenance, 09/27/21 10:41:00 EDT, Tablet, [facility]/pharmacy #207, 1-3 tablet By Mouth Daily atbedtime,PRN:for insomnia,Instr:Discontinue tizanidi... Start Date: 09/27/21 Status: Ordered multivitamin Multiple Vitamins oral tablet 1 tablet, By Mouth, Daily, # 30 tablet, 11 Refills, Maintenance, 09/27/21 10:42:00 EDT, Tablet, [facility]/pharmacy #207, 1 tablet By [...] Gm, 11 Refills,Maintenance, 09/27/21 10:40:00 EDT, Aerosol, [facility]/pharmacy #[id number], 150, cm, 09/27/21 10:05:00 EDT, Height, 108.2, kg, 04/21/21 14:07:00 EST, Dry Weight Start Date: 09/27/21 Status: Ordered Voltaren 1% topical gel = 2 Gm, Topically, 4 times a day, # 100 Gm, 11 Refills, Maintenance, 09/27/21 10:40:00 EDT, [facility]/pharmacy #[id number], Partial fill upon patient request if the prescription is for a schedule II opioid drug., 2 Gm Topically 4 times a day, 150, cm, 09/27/21 10... Start Date: 09/27/21 Status: Ordered Wixela Inhub 250 mcg-50 mcg inhalation powder 1 puffs, Inhalation, 2 times a day, # 1 each, 11 Refills, Maintenance, 09/27/21 10:41:00 EDT, [facility]/pharmacy #207, resent under correct PCP, 1 puffs [...] 6 Active OA (osteoarthritis) of hip(Confirmed) Active *[id number] Care Partn er Kellee Rodriguez(Confirmed) Active Severe obesity(Confirmed) Active 1followed by Dr. Grayson 2diverticulitis episode 01/04/2011. Went to [facility]. 3refuses colonoscopy secondary to endometrial carcinoma Stage 1A 5Untreated. See sleep medicine phone call: Eqipement to be removed due to non-use 6Arms, bilateral Social History Social History Type Response Smoking Status Never (less than 100 in lifetime) entered on: 02/18/21 Sex
--- OUTSIDE RECORDS SUMMARY | 2023-08-28 06:07 | XMS_ITS | Continuity of Care Document ---
Author Organization [facility] Address [address] [place] [address]- Care Team Providers Care Psychology Associate Name Role Phone Celeste BECKHAM, Aspen Primary Care Physician Encounter [facility] [place] Date(s): 06/19/19 - 06/19/[address] [address]- [facility] Attending Physician: Yenni Horan Allergies, Adverse Reactions, Alerts Substance Reaction Severity [...] 13:24:42 EDT, Route to Pharmacy Electronically, [facility]_ID- [id number], [facility] Start Date: 02/25/19 Status: Ordered aspirin [...] 1 Refills, Maintenance, 06/06/19 15:44:00 EST, ECCapsule, [facility]/pharmacy #[id number], 151, cm, 06/06/19 15:24:00 [...] 06/06/19 15:42:00 EST, Route to Pharmacy Electronically, [facility]/pharmacy #[id number], 151, cm, 06/06/19 15:24:00 EST, Height, 109.4, kg, 12/11/18 17:10:00 EDT, Dry W... Start Date: 06/06/19 Stop Date: 08/05/19 Status: Ordered lidocaine 5% topical ointment 1 application, Topically, 3 times a day, wash hands thoroughly after application. korean, # 50 Gm,1 Refills, Maintenance, 02/27/19 16:48:00 [...] Start Date: 10/03/17 Status: Ordered nystatin topical 568020 u/gm powder 1 application, Topically, 2 times [...] 2 Refills, Maintenance, 06/06/19 15:41:00 EST, Capsule, [facility]/pharmacy #[id number], 151, cm, 06/06/19 15:24:00 EST, Height, 109.4, kg, 12/11/18 17:10:00 EDT, Dry Weight Start Date: 06/06/19 Status: Ordered traZODone 50 mg oral tablet See Instructions, 0.5 - 1 tablet By Mouth Daily at bedtime, # 30 each, Refills 1, Tot. Refills 1, Maintenance, 06/06/19 15:43:00 EST, Instructions Replace Required Details, Route to Pharmacy Electronically, [facility]/pharmacy #[id number], 151, cm, 06/06/19 15:24:... Start Date: [...] 5 01/30/19 Active OA (osteoarthritis)(Confirmed) 6 Active *[id number]-[facility] Partn Jeffery Mackenzie(Confirmed) Active 1followed by Dr. Grayson 2diverticulitis episode 01/04/2011. Went to [facility]. 3refuses colonoscopy secondary to endometrial carcinoma Stage 1A 5Untreated. See sleep medicine phone call: Eqipement to be removed due to non-use 6Arms, bilateral Social History Social History Type Response Smoking Status Never smoker entered on: 09/03/13 Sex
--- OUTSIDE RECORDS SUMMARY | 2023-08-28 06:08 | XMS_ITS | Continuity of Care Document ---
Author Organization [facility] ter Address [address] [place] [address]- Care Team Providers Care Dope Firer Name Role Phone Lazara Thibodeaux MD Primary Care Physician Encounter [facility] Date(s): 07/18/22 - 08/17/[address] [address] Allergies, Adverse Reactions, Alerts Substance Reaction Severity [...] Maintenance, 07/22/22 12:36:00 EDT, ER Tablet, [id number], Partial fill upon patient request if the prescription i... Start Date: 07/22/22 Status: Ordered amLODIPine 5 mg oral tablet 5 mg, 1, tablet, By Mouth, Daily, # 30 tablet, Refills 11, Tot. Refills 11, Maintenance, 07/22/22 12:36:00 EDT, Route to Pharmacy Electronically, [facility]/pharmacy #207, 150, cm, 05/13/22 10:59:00 EST, Height, [...] Physician Stop 09/17/23 10:40:00EDT, 09/22/22 10:40:00 EDT, [facility]/pharmacy #207, 150, cm, 05/13/22 10:59:00 EST, Height, 108.2, kg, 04/21/21 14:07:00 EST, Dry Weight Start Date: 09/22/22 Stop Date: 09/17/23 Status: Ordered hydrochlorothiazide-losartan 25 mg-100 mg oral tablet 1 tablet, By Mouth, Daily, # 30 tablet, 11 Refills, Maintenance, 07/22/22 12:36:00 EDT, [facility]/pharmacy #207, 1 tablet By Mouth Daily, 150, cm, 05/13/22 10:59:00 EST, Height, 108.2, kg, 04/21/21 14:07:00 EST, Dry Weight Start Date: 07/22/22 Status: Ordered lidocaine 5% topical ointment 1 application, Topically, 3 times a day, for shoulder or back pain. georgian. wash hands thoroughly after application, # 50 Gm, 2 Refills, Maintenance, 07/22/22 12:36:00 EDT, Ointment, [facility]/pharmacy #207, Partial fill upon patient request if the pres... Start Date: 07/22/22 Status: Ordered meclizine 25 mg oral tablet 1 tablet = 25 mg, By Mouth, 3 times a day, PRN for dizziness, # 30 tablet, 11 Refills, Acute 07/24/23 12:37:00 EDT, 09/28/22 10:42:00 EDT, Tablet, [facility]/pharmacy #[id number], Partial fill upon patient request if the prescription is for a schedule II opioid dr... Start Date: 09/28/22 Stop Date: 07/24/23 Status: Ordered Melatonin 3 mg oral tablet 1-3 TABLET, By Mouth, Daily at bedtime, PRN NEEDED FOR SLEEP *STOP TIZANIDINE*, # 270 tablet, 11Refills, Maintenance, 07/22/22 12:36:00 EDT, [facility]/pharmacy #207, 90, 1-3 TABLET By Mouth Daily at bedtime,PRN: NEEDED FOR SLEEP *STOP TIZANIDINE*, 15... Start Date: 07/22/22 Status: Ordered multivitamin Multiple Vitamins oral tablet 1 tablet, By Mouth, Daily, # 30 tablet, 11 Refills, Maintenance, 07/22/22 12:36:00 EDT, Tablet, [facility]/pharmacy #207, 1 tablet By Mouth Daily, 150, cm, 05/13/22 10:59:00 EST, Height, 108.2, kg, 04/21/21 14:07:00 EST, Dry Weight Start Date: 07/22/22 Status: Ordered nabumetone 750 mg oral tablet 1 tablet = 750 mg, By Mouth, 2 times a day, # 60 tablet, 0 Refills, Maintenance, 07/22/22 12:36:00 EDT, Tablet, [facility]/pharmacy #207, Partial fill upon patient request if [...] Active OA (osteoarthritis) of hip Confirmed Active *[id number] Music Typographer Kellee Rodriguez Confirmed Active Severe obesity Confirmed Active 1followed by Dr. Grayson 2diverticulitis episode 01/04/2011. Went to [facility] 3refuses colonoscopy secondary to endometrial carcinoma Stage 1A 5Untreated. See sleep medicine phone call: Eqipement to be removed due to non-use 6Arms, bilateral Social History Social History Type Response Smoking Status Never (less than 100 in lifetime) entered on: 02/18/21 Sex Patient Care team information Care Team Personnel Name: Celine Max RN Position: [facility] SN RN Member Role: Primary Care Nurse Name: Briana Nicole RN Position: [facility] Onco RN Member Role: Primary Care Nurse Name: Lazara Thibodeaux MD Position: [facility] Primary Care Physician Member Role: PCP Address: Address: [address] [place] [address]- Name: Magdalena Reyes Position: [facility] Outreach Member Role: Lifetime Consulting Physician Name: Leesa Cross RN Position: [facility] RN Member Role: Primary Care Nurse Name: Hermelinda Santacruz RN Position: [facility] RN Member Role: Primary Care Nurse Care Team Related Persons Name: HARMAN BAY Address: home Name: KELSI SCH[place] Address: [place] [address]
--- OUTSIDE RECORDS SUMMARY | 2023-08-28 06:08 | XMS_ITS | Continuity of Care Document ---
Author Organization [facility] Address [address] [place] [address]- Care Team Providers Care Maintenance Truck Driver Name Role Phone Subha WRIGHT, Chiquita Primary Care Physician Encounter [facility] Date(s): 10/31/19 - 11/30/19 [facility] [address] [place] [address]- [facility] Attending Physician: Benjy Sal Admitting Physician: AdmBenjy douglas Referring Physician: AdmtrBenjy Allergies, Adverse Reactions, Alerts Substance [...] 10/31/19 10:34:00 EDT, Route to Pharmacy Electronically, [facility]/pharmacy #[id number], 151, cm, 10/31/19 [...] Refills, Maintenance, 07/08/19 8:57:00 EST, EC Capsule, [facility]/pharmacy #[id number], 151, cm, 06/06/19 [...] tablet, 1 Refills, Maintenance, 07/23/19 16:09:00 EDT, [facility]/pharmacy#[id number], 1 tablet [...] 07/23/19 16:09:00 EDT, Route to Pharmacy Electronically, [facility]/pharmacy #[id number], 151, cm, 06/06/19 [...] a day, wash hands thoroughly after application. egyptian, # 50 Gm,1 Refills, Maintenance, 02/27/19 16:48:00 EDT, Ointment, for bilateral shoulder and arm pain that has not responded to other medications, 1 application... Start Date: 02/27/19 Status: Ordered meclizine 25 mg oral tablet 1 tablet = 25 mg, By Mouth, Daily, PRN for dizziness, # 30 tablet, 1 Refills, Maintenance, 10/30/2009:34:00 EDT, Tablet, [facility]/pharmacy #[id number], 151, cm, 10/31/19 9:51:00 EDT, Height, [...] Replace Required Details, Route to Pharmacy Electronically, [facility]/pharmacy #[id number], 151, cm, 10/31/19 9:51:0... Start Date: 10/31/19 [...] 5 01/30/19 Active OA (osteoarthritis)(Confirmed) 6 Active *[id number]-Care Partn Jeffery Mackenzie(Confirmed) Active 1followed by Dr. Grayson 2diverticulitis episode 01/04/2011. Went to [facility]. 3refuses colonoscopy secondary to endometrial carcinoma Stage 1A 5Untreated. See sleep medicine phone call: Eqipement to be removed due to non-use 6Arms, bilateral Social History Social History Type Response Smoking Status Never smoker entered on: 09/03/13 Sex
--- OUTSIDE RECORDS SUMMARY | 2023-08-28 06:08 | XMS_ITS | Continuity of Care Document ---
Author Organization [facility] Address Unknown Care Team Providers Care Proced Tech Name Role Phone Lazara Thiboedaux MD Primary Care Physician Encounter [facility] [id number] Date(s): 10/18/21 - 11/17/21 [facility] Allergies, Adverse Reactions, Alerts Substance Reaction Severity [...] Maintenance, 09/27/21 10:40:00 EDT, ER Tablet, [id number], Partial fill upon patient request if the prescription i... Start Date: 09/27/21 Status: Ordered amLODIPine 5 mg oral tablet 5 mg, 1, tablet, By Mouth, Daily, # 30 tablet, Refills 11, Tot. Refills 11, Maintenance, 09/27/21 10:40:00 EDT, Route to Pharmacy Electronically, [facility]/pharmacy #207, 150, cm, 09/27/21 10:05:00 EDT, [...] Stop 09/22/22 10:40:00EDT, 09/27/21 10:40:00 EDT, [facility]/pharmacy #207, 150, cm, 09/27/21 10:05:00 EDT, Height, 108.2, kg, 04/21/21 14:07:00 EST, Dry Weight Start Date: 09/27/21 Stop Date: 09/22/22 Status: Ordered hydrochlorothiazide-losartan 25 mg-100 mg oral tablet 1 tablet, By Mouth, Daily, # 30 tablet, 11 Refills, Maintenance, 09/27/21 10:41:00 EDT, [facility]/pharmacy #[id number], 1 tablet By Mouth Daily, 150, cm, 09/27/21 10:05:00 EDT, Height, 108.2, kg, 04/21/21 14:07:00 EST, Dry Weight Start Date: 09/27/21 Status: Ordered lidocaine 5% topical ointment 1 application, Topically, 3 times a day, for shoulder or back pain. armenian. wash hands thoroughly after application, # 50 Gm, 2 Refills, Maintenance, 01/29/21 12:22:00 EDT, Ointment, [id number], Partial fill upon patient request if the pres... Start Date: 01/29/21 Status: Ordered meclizine 25 mg oral tablet 1 tablet = 25 mg, By Mouth, 3 times a day, PRN for dizziness, # 30 tablet, 0 Refills, Acute 09/28/22 10:42:00 EDT, 09/27/21 10:42:00 EDT, Tablet, [facility]/pharmacy #[id number], Partial fill upon patient requestif the prescription is for a schedule II opioid cortez... Start Date: 09/27/21 Stop Date: 09/28/22 Status: Ordered Melatonin 3 mg oral tablet 1-3 tablet, By Mouth, Daily at bedtime, PRN for insomnia, Discontinue tizanidine, # 60 tablet, 11 Refills, Maintenance, 09/27/21 10:41:00 EDT, Tablet, [facility]/pharmacy #[id number], 1-3 tablet By Mouth Daily atbedtime,PRN:for insomnia,Instr:Discontinue tizanidi... Start Date: 09/27/21 Status: Ordered multivitamin Multiple Vitamins oral tablet 1 tablet, By Mouth, Daily, # 30 tablet, 11 Refills, Maintenance, 09/27/21 10:42:00 EDT, Tablet, [facility]/pharmacy #[id number], 1 tablet By Mouth Daily, [...] 11 Refills,Maintenance, 09/27/21 10:40:00 EDT, Aerosol, [facility]/pharmacy #[id number], 150, cm, 09/27/21 10:05:00 EDT, Height, 108.2, kg, 04/21/21 14:07:00 EST, Dry Weight Start Date: 09/27/21 Status: Ordered Voltaren 1% topical gel = 2 Gm, Topically, 4 times a day, # 100 Gm, 11 Refills, Maintenance, 09/27/21 10:40:00 EDT, [facility]/pharmacy [...] 6 Active OA (osteoarthritis) of hip(Confirmed) Active *[id number] Care Partn sheldon Rodriguez(Confirmed) Active Severe obesity(Confirmed) Active 1followed by Dr. Grayson 2diverticulitis episode 01/04/2011. Went to [facility]. 3refuses colonoscopy secondary to endometrial carcinoma Stage 1A 5Untreated. See sleep medicine phone call: Eqipement to be removed due to non-use 6Arms, bilateral Social History Social History Type Response Smoking Status Never (less than 100 in lifetime) entered on: 02/18/21 Sex
--- OUTSIDE RECORDS SUMMARY | 2023-08-28 06:08 | XMS_ITS | Continuity of Care Document ---
Author Organization [facility] Address Unknown Care Team Providers Care Derrick Hand Name Role Phone Maria Howard MD Primary Care Physician Encounter [facility] Date(s): 04/08/21 - 05/08/21 [facility] Allergies, Adverse Reactions, Alerts Substance Reaction [...] Maintenance, 01/20/21 15:16:00 EDT, ER Tablet, [id number], Partial fill upon patient request if the prescription is... Start Date: 01/20/21 Status: Ordered amLODIPine 5 mg oral tablet 5 mg, 1, tablet, By Mouth, Daily, # 90 tablet, Refills 3, Tot. Refills 3, Maintenance, 10/27/20 19:35:00 EDT, Route to Pharmacy Electronically, [facility]/pharmacy #[id number], 149.8, cm, 10/08/20 12:18:00 EDT, [...] Mouth, Daily, # 90 capsule, 1 Refills, [facility] STORE [id number], 149.8, cm, 10/08/20 12:18:00 EDT, Height, 100.4, kg, 12/20/19 12:32:00 EDT, Dry Weight Start Date: 01/06/21 Status: Ordered hydrochlorothiazide-losartan 25 mg-100 mg oral tablet 1 tablet, By Mouth, Daily, # 90 tablet, 3 Refills, Maintenance, 10/27/20 19:34:00 EDT, [facility]/pharmacy#[id number], 1 tablet By Mouth Daily, 149.8, cm, 10/08/20 12:18:00 EDT, Height, 100.4, kg, 12/20/19 12:32:00 EDT, Dry Weight Start Date: 10/27/20 Status: Ordered lidocaine 5% topical ointment 1 application, Topically, 3 times a day, for shoulder or back pain. omani. wash hands thoroughly after application, # 50 Gm, 2 Refills, Maintenance, 01/29/21 12:22:00 EDT, Ointment, [facility]/pharmacy #[id number], Partial fill upon patient request if the pres... Start Date: 01/29/21 Status: Ordered meclizine 25 mg oral tablet 1 tablet = 25 mg, By Mouth, Daily, PRN for dizziness, # 30 tablet, 1 Refills, Maintenance, 04/07/2114:36:00 EST, Tablet, [facility]/pharmacy #[id number], 149.8, cm, 03/29/21 10:32:00 EST, Height, 100.4, kg, 12/20/19 12:32:00 EDT, Dry Weight Start Date: 04/07/21 Status: Ordered Melatonin 3 mg oral tablet 1-3 tablet, By Mouth, Daily at bedtime, PRN for insomnia, Discontinue tizanidine, # 90 tablet, 3 Refills, Maintenance, 01/20/21 15:15:00 EDT, Tablet, [facility]/pharmacy #[id number], 1-3 tablet By Mouth Daily [...] Refills, Soft Stop, 07/29/20 14:09:00 EDT, Powder, [facility], Partial fill upon patient request if [...] 5 01/30/19 Active OA (osteoarthritis)(Confirmed) 6 Active *[id number] Care Partn Kellee Rodriguez(Confirmed) Active Severe obesity(Confirmed) Active 1followed by Dr. Grayson 2diverticulitis episode 01/04/2011. Went to [facility] 3refuses colonoscopy secondary to endometrial carcinoma Stage 1A 5Untreated. See sleep medicine phone call: Eqipement to be removed due to non-use 6Arms, bilateral Social History Social History Type Response Smoking Status Never (less than 100 in lifetime) entered on: 02/18/21 Sex
--- OUTSIDE RECORDS SUMMARY | 2023-08-28 06:08 | XMS_ITS | Continuity of Care Document ---
Author Organization [facility] Address [address] [place] [address]- Care Team Providers Care Central Stores Attendant Name Role Phone Lazara Thibodeaux MD Primary Care Physician Encounter [facility] Date(s): 02/22/23 - 04/24/[address] [address]- Encounter Diagnosis Dependence on wheelchair(Final) - Discharge Disposition: A-D/C Home Attending Physician: Lazara Thibodeaux MD Admitting Physician: [...] tablets/day), # 100 tablet, 11 Refills, Maintenance, 03/17/23 12:36:00 EDT, ER Tablet, [facility]/pharmacy #[id number], Partial fill upon patient request if the prescription i... Start Date: 07/22/22 Status: Ordered amLODIPine 5 mg oral tablet 5 mg, 1, tablet, By Mouth, Daily, # 30 tablet, Refills 11, Tot. Refills 11, Maintenance, 07/22/22 12:36:00 EDT, Route to Pharmacy Electronically, [facility]/pharmacy #[id number], 150, cm, 05/13/22 10:59:00 EST, Height, 108.2, kg, 04/21/21 14:07:00 EST, Dry Weight Start Date: 07/22/22 Status: Ordered Aspercreme Warming Pain Relief Patch 0.025% topical film See Instructions, Topically 3 times a day to affected area, # 42.5 Gm, 11 Refills, Acute 01/15/24 9:20:00 EDT, 01/13/23 9:20:00 EDT, [facility]/pharmacy #[id number], Partial fill upon patient request if [...] Stop 09/11/24 10:40:00 EDT, 09/17/23 10:40:00 EDT, [facility]/pharmacy #[id number], 150, cm, 01/06/23 9:32:00 EDT, Height, 107.54, kg, 01/06/23 9:32:00 EDT, Dry Weight Start Date: 09/17/23 Stop Date: 09/11/24 Status: Ordered hydrochlorothiazide-losartan 25 mg-100 mg oral tablet 1 tablet, By Mouth, Daily, # 30 tablet, 11 Refills, Maintenance, 07/22/22 12:36:00 EDT, [id number], 1 tablet By Mouth Daily, [...] 270 tablet, 11Refills, Maintenance, 07/22/22 12:36:00 EDT, [facility]/pharmacy #[id number], 90, 1-3 TABLET By Mouth Daily [...] 11 Refills, Maintenance, 07/22/22 12:36:00 EDT, Tablet, [facility]/pharmacy #[id number], 1 tablet By Mouth Daily, 150, cm, 05/13/22 10:59:00 EST, Height, 108.2, kg, 04/21/21 14:07:00 EST, Dry Weight Start Date: 07/22/22 Status: Ordered nabumetone 750 mg oral tablet 1 tablet = 750 mg, By Mouth, 2 times a day, # 180 tablet, 3 Refills, Maintenance, 01/06/23 10:23:00EDT, Tablet, [facility]/pharmacy #207, Partial fill upon patient request if [...] Active OA (osteoarthritis) of hip Confirmed Active *[id number] Economic Historian Kellee Rodriguez Confirmed Active Severe obesity Confirmed Active Urine incontinence Confirmed Active 1followed by Dr. Grayson 2diverticulitis episode 01/04/2011. Went to [facility] 3refuses colonoscopy secondary to endometrial carcinoma Stage 1A 5Untreated. See sleep medicine phone call: Eqipement to be removed due to non-use 6Arms, bilateral Social History Social History Type Response Smoking Status Never (less than 100 in lifetime) entered on: 02/18/21 Sex Patient Care team information Care Team Personnel Name: Celine Max RN Position: [facility] SN RN Member Role: Primary Care Nurse Name: Briana Nicole RN Position: [facility] Onco RN Member Role: Primary Care Nurse Name: Lazara Thibodeaux MD Position: [facility] Physician - Primary Care Member Role: PCP Address: Address: [address] [place] [address]- Name: Magdalena Reyes Position: [facility] Outreach Member Role: Lifetime Consulting Physician Name: Leesa Cross RN Position: [facility] SN RN Member Role: Primary Care Nurse Name: Hermelinda Santacruz RN Position: [facility] RN Member Role: Primary Care Nurse Care Team Related Persons Name: HARMAN BAY Address: home Name: KELSI SCHMID Address: [place] [address]
--- OUTSIDE RECORDS SUMMARY | 2023-08-28 06:08 | XMS_ITS | Continuity of Care Document ---
Author Organization [facility] Address [address] [place] [address]- Care Team Providers Care Tank Calibrator Name Role Phone Celeste BECKHAM, Aspen Primary Care Physician Encounter [facility] Date(s): 06/06/19 - 06/16/19 [facility] [address] [place] [address]- [facility] Attending Physician: Benjy Sal Admitting Physician: AdmtrBenjy Referring Physician: Admtr, Benjy Allergies, Adverse Reactions, Alerts Substance Reaction Severity [...] 13:24:42 EDT, Route to Pharmacy Electronically, [facility]- [id number], [facility] [...] Maintenance, 06/06/19 15:44:00 EST, ECCapsule, [facility]/pharmacy #[id number], 151, cm, 06/06/19 15:24:00 EST, [...] EST, Route to Pharmacy Electronically, [facility]/pharmacy #[id number], 151, cm, 06/06/19 15:24:00 EST, Height, 109.4, kg, 12/11/18 17:10:00 EDT, Dry W... Start Date: 06/06/19 Stop Date: 08/05/19 Status: Ordered lidocaine 5% topical ointment 1 application, Topically, 3 times a day, wash hands thoroughly after application. malagasy, # 50 Gm,1 Refills, Maintenance, 02/27/19 16:48:00 [...] Start Date: 10/03/17 Status: Ordered nystatin topical 313360 u/gm powder 1 application, Topically, 2 times [...] Maintenance, 06/06/19 15:41:00 EST, Capsule, [facility]/pharmacy #[id number], 151, cm, 06/06/19 15:24:00 EST, Height, 109.4, kg, 12/11/18 17:10:00 EDT, Dry Weight Start Date: 06/06/19 Status: Ordered traZODone 50 mg oral tablet See Instructions, 0.5 - 1 tablet By Mouth Daily at bedtime, # 30 each, Refills 1, Tot. Refills 1, Maintenance, 06/06/19 15:43:00 EST, Instructions Replace Required Details, Route to Pharmacy Electronically, [facility]/pharmacy #[id number], 151, cm, 06/06/19 15:24:... Start Date: [...] 5 01/30/19 Active OA (osteoarthritis)(Confirmed) 6 Active *[id number][facility](Conf[facility]) Active 1followed by Dr. Grayson 2diverticulitis episode 01/04/2011. Went to [place]. 3refuses colonoscopy secondary to endometrial carcinoma Stage 1A 5Untreated. See sleep medicine phone call: Eqipement to be removed due to non-use 6Arms, bilateral Social History Social History Type Response Smoking Status Never smoker entered on: 09/03/13 Sex
--- OUTSIDE RECORDS SUMMARY | 2023-08-28 06:08 | XMS_ITS | Continuity of Care Document ---
Author Organization [facility] ter Address [address] [place] [address]- Care Team Providers Care Orchid Worker Name Role Phone Celeste BECKHAM, Aspen Primary Care Physician [phone] Encounter [facility] Date(s): 07/02/19 - 08/25/[address] [address]- [facility] Attending Physician: Ian Grayson MD Admitting Physician: Ian Grayson MD Allergies, Adverse Reactions, Alerts Substance Reaction [...] 13:24:42 EDT, Route to Pharmacy Electronically, [facility]- [id number], [facility] [...] Refills, Maintenance, 07/08/19 8:57:00 EST, EC Capsule, [facility]/pharmacy #[id number], 151, cm, 06/06/19 15:24:00 EST, Height, [...] 08/06/19 9:46:00 EDT, Route to Pharmacy Electronically, [facility] [id number], 151, cm, 06/06/19 15:24:00 EST, Height, 109.4, kg, 12/11/18 17:10:00 EDT, Dry Weight Start Date: 08/06/19 Status: Ordered hydrochlorothiazide-losartan 25 mg-100 mg oral tablet 1 tablet, By Mouth, Daily, # 90 tablet, 1 Refills, Maintenance, 07/23/19 16:09:00 EDT, [facility]/pharmacy#[id number], 1 tablet By Mouth Daily, 151, cm, 06/06/19 15:24:00 EST, Height, 109.4, kg, 12/11/18 17:10:00 EDT, Dry Weight Start Date: 07/23/19 Status: Ordered ibuprofen 800 mg oral tablet 800 mg, 1, tablet, By Mouth, 2 times a day, PRN, # 60 tablet, Refills 1, Tot. Refills 1, Soft Stop,as needed for arthritis, 07/23/19 16:09:00 EDT, Route to Pharmacy Electronically, [facility]/pharmacy #[id number], 151, cm, 06/06/19 15:24:00 EST, Height, 109.4, kg... Start Date: 07/23/19 Stop Date: 09/21/19 Status: Ordered lidocaine 5% topical ointment 1 application, Topically, 3 times a day, wash hands thoroughly after application. tuvaluan, # 50 Gm,1 Refills, Maintenance, 02/27/19 16:48:00 EDT, Ointment, for bilateral shoulder and arm pain that has not responded to other medications, 1 application... Start Date: 02/27/19 Status: Ordered meclizine 25 mg oral tablet 1 tablet = 25 mg, By Mouth, Daily, PRN for dizziness, # 30 tablet, 0 Refills, Maintenance, 07/23/2015:09:00 EDT, Tablet, [facility]/pharmacy #[id number], 151, cm, 06/06/19 15:24:00 EST, Height, 109.4, kg, 12/11/18 17:10:00 EDT, Dry Weight Start Date: 07/23/19 Status: Ordered multivitamin Multiple Vitamins oral tablet 1 tablet, By Mouth, Daily, # 90 tablet, 3 Refills, Maintenance, 10/03/17 3:35:19 EDT, Tablet, 1 tablet By Mouth Daily Start Date: 10/03/17 Status: Ordered nystatin topical 501435 u/gm powder 1 application, Topically, 2 times [...] capsule, 0 Refills, Maintenance, 07/23/19 16:09:00EDT, Capsule, [facility]/pharmacy #[id number], 151, cm, 06/06/19 15:24:00 EST, Height, 109.4, kg, 12/11/18 17:10:00 EDT, Dry Weight Start Date: 07/23/19 Status: Ordered traZODone 50 mg oral tablet See Instructions, 0.5 - 1 tablet By Mouth Daily at bedtime, # 30 each, Refills 1, Tot. Refills 1, Maintenance, 07/05/19 9:34:00 EST, Instructions Replace Required Details, Route to Pharmacy Electronically, [facility]/pharmacy #[id number], 151, cm, 06/06/19 15:24:0... Start Date: [...] 5 01/30/19 Active OA (osteoarthritis)(Confirmed) 6 Active *[id number]-Care Partn Jeffery Mackenzie(Confirmed) Active 1followed by Dr. Grayson 2diverticulitis episode 01/04/2011. Went to [facility]. 3refuses colonoscopy secondary to endometrial carcinoma Stage 1A 5Untreated. See sleep medicine phone call: Eqipement to be removed due to non-use 6Arms, bilateral Social History Social History Type Response Smoking Status Never smoker entered on: 09/03/13 Sex
--- OUTSIDE RECORDS SUMMARY | 2023-08-28 06:08 | XMS_ITS | Continuity of Care Document ---
Author Organization [facility] Address [address] [place] [address]- Care Team Providers Care Hadoop Architect Name Role Phone Lazara Thibodeaux MD Primary Care Physician Encounter [facility] [place] Date(s): 07/11/23 - 08/10/23 [facility]/[address] [address]- Allergies, Adverse Reactions, Alerts Substance Reaction Severity [...] a day, for shoulder or back pain. indonesian. wash hands thoroughly after application, # 50 [...] Active OA (osteoarthritis) of hip Confirmed Active *[id number] Rental Sales Associate Kellee Rodriguez Confirmed Active Severe obesity Confirmed Active Urine incontinence Confirmed Active 1followed by Dr. Grayson 2diverticulitis episode 01/04/2011. Went to [facility] 3refuses colonoscopy secondary to endometrial carcinoma Stage 1A 5Untreated. See sleep medicine phone call: Eqipement to be removed due to non-use 6Arms, bilateral Social History Social History Type Response Smoking Status Never (less than 100 in lifetime) entered on: 02/18/21 Sex Patient Care team information Care Team Personnel Name: Celine Max RN Position: [facility] SN RN Member Role: Primary Care Nurse Name: Briana Nicole RN Position: [facility] Onco RN Member Role: Primary Care Nurse Name: Lazara Thibodeaux MD Position: [facility] Physician - Primary Care Member Role: PCP Address: Address: [address] [place] [address]- Name: Magdalena Reyes Position: [facility] Outreach Member Role: Lifetime Consulting Physician Name: Leesa Cross RN Position: [facility] SN RN Member Role: Primary Care Nurse Name: Hermelinda Santacruz RN Position: [facility] RN Member Role: Primary Care Nurse Care Team Related Persons Name: HARMAN BAY Address: home Name: KELSI SCHMID Address: [place] [address]
--- OUTSIDE RECORDS SUMMARY | 2023-08-28 06:08 | XMS_ITS | Continuity of Care Document ---
Author Organization [facility] Address [address] [place] [address]- Care Team Providers Care Construction Technician Name Role Phone Celeste BECKHAM, Aspen Primary Care Physician [phone] Encounter [facility] Date(s): 04/11/19 - 04/18/[address] [facility] [address] [place] [address] Encounter Diagnosis Prediabetes(Discharge Diagnosis) - 04/11/19 Elevated serum creatinine(Discharge Diagnosis) - 04/11/19 Bilateral shoulder pain(Discharge Diagnosis) - 04/11/19 Attending Physician: Aspen Alonso NP Allergies, Adverse [...] 13:24:42 EDT, Route to Pharmacy Electronically, NCPDP_ID- [id number], [facility] - [facility] Start Date: 02/25/19 Status: Ordered aspirin 81 [...] EDT, Compound Start Date: 09/14/18 Status: Ordered Fish Oil 500 mg oral capsule 1 capsule = 500 mg, By Mouth, 2 times a day, # 180 capsule, 3 Refills, Maintenance, 02/25/19 13:34:30 EDT Start Date: 02/25/19 Status: Ordered gabapentin 100 mg oral capsule See Instructions, 1 cap at bedtime x 3 days, 1 cap BID x 3 days, and then 1 cap three times a day thereafter, # 90 each, Refills 1, Tot. Refills 1, Maintenance, 04/11/19 14:34:03 EST, Instructions Replace Required Details, Route to Pharmacy Electronic... Start Date: 04/11/19 Status: Ordered hydrochlorothiazide-losartan 25 mg-100 mg oral tablet 1 tablet, By Mouth, Daily, # 90 tablet, 3 Refills, Maintenance, 11/21/18 14:25:41 EDT, 1 tablet By Mouth Daily Start Date: 11/21/18 Status: Ordered ibuprofen 800 mg oral tablet 800 mg, 1, tablet, By Mouth, 2 times a day, # 60 tablet, Refills 1, Tot. Refills 1, Soft Stop, 04/11/19 14:52:07 EST, Route to Pharmacy Electronically, [id number], [facility]/pharmacy #[id number], 151, cm, 04/11/19 14:01:15 EST, Height, 1... Start Date: 04/11/19 Stop Date: 06/10/19 Status: Ordered lidocaine 5% topical ointment 1 application, Topically, 3 times a day, wash hands thoroughly after application. chinese, # 50 Gm,1 Refills, Maintenance, 02/27/19 16:48:00 [...] Start Date: 10/03/17 Status: Ordered nystatin topical 176197 u/gm powder 1 application, Topically, 2 times a day, # 60 Gm, 3 Refills, Maintenance, 06/07/18 15:38:00 EST, Powder, 1 application Topically 2 times a day Start Date: 06/07/18 Status: Ordered omeprazole 20 mg oral enteric coated capsule 1 capsule = 20 mg, By Mouth, Daily, # 30 capsule, 3 Refills, Maintenance, 02/25/19 14:04:04 EDT, ECCapsule Start Date: 02/25/19 Status: Ordered Ventolin HFA 108 mcg/inh inhalation [...] 0.0-44.9, adult(Confirmed) Active ANGEL (obstructive sleep apnea)(Confirmed) Active OA (osteoarthritis)(Confirmed) 5 Active *[id number]-[facility] Partn sheldonCaleb Mackenzie(Confirmed) Active 1followed by Dr. Grayson 2diverticulitis episode 01/04/2011. Went to [facility]. 3refuses colonoscopy secondary to endometrial carcinoma Stage 1A 5Arms, bilateral Diagnosis Diagnosis Type Effective Dates Health Status Clinical Service Informant Prediabetes Discharge Diagnosis 04/11/19 Elevated serum creatinine Discharge Diagnosis 04/11/19 Bilateral shoulder pain Discharge Diagnosis 04/11/19 Vital Signs Most recent to oldest [Reference Range]: 1 Height 151 cm (04/11/19 2:01 PM) Weight 105.7 kg (04/11/19 2:01 PM) Oxygen Saturation [94-100 %] 95 % (04/11/19 2:01 PM) Pulse Rate [55-90 bpm] 95 bpm *H* (04/11/19 2:01 PM) Body Mass Index [18.5-24.99] 46.36 *>HHI* (04/11/19 2:01 PM) Blood Pressure [90-138/55-84 mm Hg] 110/ 70mm Hg (04/11/19 2:01 PM) Temperature [96.8-100.4 DegF] 98.3 DegF (04/11/19 2:01 PM) Mode of Delivery (Oxygen) Room air (04/11/19 2:01 PM) Blood pressure sites Arm, right (04/11/19 2:01 PM) Temperature Route Oral (04/11/19 2:01 PM) Weight Obtained Via Standing scale (04/11/19 2:01 PM) Social History Social History Type Response Smoking Status Never smoker entered on: 09/03/13 Sex
--- OUTSIDE RECORDS SUMMARY | 2023-08-28 06:08 | XMS_ITS | Continuity of Care Document ---
Author Organization [facility] Address Unknown Care Team Providers Care Van Driver Name Role Phone Maria Howard MD Primary Care Physician Encounter [facility] [place] Date(s): 05/10/21 - 06/09/21 [facility] Attending Physician: AdmtrBenjy Allergies, Adverse Reactions, Alerts [...] Maintenance, 01/20/21 15:16:00 EDT, ER Tablet, [id number], Partial fill upon patient request if the prescription is... Start Date: 01/20/21 Status: Ordered amLODIPine 5 mg oral tablet 5 mg, 1, tablet, By Mouth, Daily, # 90 tablet, Refills 3, Tot. Refills 3, Maintenance, 10/27/20 19:35:00 EDT, Route to Pharmacy Electronically, [facility]/pharmacy #[id number], 149.8, cm, 10/08/20 12:18:00 EDT, Height, [...] Mouth, Daily, # 90 capsule, 1 Refills, [facility] STORE [id number], 149.8, cm, 10/08/20 12:18:00 EDT, Height, 100.4, kg, 12/20/19 12:32:00 EDT, Dry Weight Start Date: 01/06/21 Status: Ordered hydrochlorothiazide-losartan 25 mg-100 mg oral tablet 1 tablet, By Mouth, Daily, # 90 tablet, 3 Refills, Maintenance, 10/27/20 19:34:00 EDT, [facility]/pharmacy#[id number], 1 tablet By Mouth Daily, 149.8, cm, 10/08/20 12:18:00 EDT, Height, 100.4, kg, 12/20/19 12:32:00 EDT, Dry Weight Start Date: 10/27/20 Status: Ordered lidocaine 5% topical ointment 1 application, Topically, 3 times a day, for shoulder or back pain. yakut. wash hands thoroughly after application, # 50 Gm, 2 Refills, Maintenance, 01/29/21 12:22:00 EDT, Ointment, [facility]/pharmacy #[id number], Partial fill upon patient request if the pres... Start Date: 01/29/21 Status: Ordered meclizine 25 mg oral tablet 1 tablet = 25 mg, By Mouth, Daily, PRN for dizziness, # 30 tablet, 1 Refills, Maintenance, 04/07/2114:36:00 EST, Tablet, [facility]/pharmacy #[id number], 149.8, cm, 03/29/21 10:32:00 EST, Height, 100.4, kg, 12/20/19 12:32:00 EDT, Dry Weight Start Date: 04/07/21 Status: Ordered Melatonin 3 mg oral tablet 1-3 tablet, By Mouth, Daily at bedtime, PRN for insomnia, Discontinue tizanidine, # 90 tablet, 0 Refills, Maintenance, 05/25/21 18:09:00 EST, Tablet, [facility] 3, 1-3 tablet By Mouth Daily [...] Refills, Soft Stop, 07/29/20 14:09:00 EDT, Powder, [facility], Partial fill upon patient request if [...] 5 01/30/19 Active OA (osteoarthritis)(Confirmed) 6 Active *[phone] Care Partn sheldon Rodriguez(Confirmed) Active Severe obesity(Confirmed) Active 1followed by Dr. Grayson 2diverticulitis episode 01/04/2011. Went to [facility]. 3refuses colonoscopy secondary to endometrial carcinoma Stage 1A 5Untreated. See sleep medicine phone call: Eqipement to be removed due to non-use 6Arms, bilateral Social History Social History Type Response Smoking Status Never (less than 100 in lifetime) entered on: 02/18/21 Sex
--- OUTSIDE RECORDS SUMMARY | 2023-08-28 06:08 | XMS_ITS | Continuity of Care Document ---
Author Organization [facility] Address [address] [place] [address]- Care Team Providers Care Aviation Safety Technician Name Role Phone Lazara Thibodeaux MD Primary Care Physician [phone] [place]counter [facility] [place] Date(s): 02/22/23 - 03/24/[address] [address] Attending Physician: AdmBenjy douglas Admitting Physician: AdmtrBenjy Referring Physician: Admtr, Ar8 [...] Maintenance, 07/22/22 12:36:00 EDT, ER Tablet, [id number], Partial fill upon patient request if the prescription i... Start Date: 07/22/22 Status: Ordered amLODIPine 5 mg oral tablet 5 mg, 1, tablet, By Mouth, Daily, # 30 tablet, Refills 11, Tot. Refills 11, Maintenance, 07/22/22 12:36:00 EDT, Route to Pharmacy Electronically, [facility]/pharmacy #207, 150, cm, 05/13/22 10:59:00 EST, Height, 108.2, kg, 04/21/21 14:07:00 EST, Dry Weight Start Date: 07/22/22 Status: Ordered Aspercreme Warming Pain Relief Patch 0.025% topical film See Instructions, Topically 3 times a day to affected area, # 42.5 Gm, 11 Refills, Acute 01/15/24 9:20:00 EDT, 01/13/23 9:20:00 EDT, [facility]/pharmacy #[id number], Partial fill [...] Stop 09/11/24 10:40:00 EDT, 09/17/23 10:40:00 EDT, [facility]/pharmacy #207, 150, cm, 01/06/23 9:32:00 EDT, Height, 107.54, kg, 01/06/23 9:32:00 EDT, Dry Weight Start Date: 09/17/23 Stop Date: 09/11/24 Status: Ordered hydrochlorothiazide-losartan 25 mg-100 mg oral tablet 1 tablet, By Mouth, Daily, # 30 tablet, 11 Refills, Maintenance, 07/22/22 12:36:00 EDT, [facility]/pharmacy #[id number], 1 tablet By Mouth Daily, 150, cm, 05/13/22 10:59:00 EST, Height, 108.2, kg, 04/21/21 14:07:00 EST, Dry Weight Start Date: 07/22/22 Status: Ordered lidocaine 5% topical ointment 1 application, Topically, 3 times a day, for shoulder or back pain. burundian. wash hands thoroughly after application, # 50 Gm, 2 Refills, Maintenance, 07/22/22 12:36:00 EDT, Ointment, [facility]/pharmacy #207, Partial fill upon patient request if the pres... Start Date: 07/22/22 Status: Ordered meclizine 25 mg oral tablet 1 tablet = 25 mg, By Mouth, 3 times a day, PRN for dizziness, # 30 tablet, 11 Refills, Acute 01/08/24 10:27:00 EDT, 07/24/23 12:37:00 EDT, Tablet, [facility]/pharmacy #207, Partial fill upon patient request if the prescription is for a schedule II opioid dr... Start Date: 07/24/23 Stop Date: 01/08/24 Status: Ordered Melatonin 3 mg oral tablet 1-3 TABLET, By Mouth, Daily at bedtime, PRN NEEDED FOR SLEEP *STOP TIZANIDINE*, # 270 tablet, 11Refills, Maintenance, 07/22/22 12:36:00 EDT, [facility]/pharmacy #207, 90, 1-3 TABLET By Mouth Daily at bedtime,PRN: NEEDED FOR SLEEP *STOP TIZANIDINE*, 15... Start Date: 07/22/22 Status: Ordered meloxicam 7.5 mg oral tablet 1 tablet = 7.5 mg, By Mouth, Daily, instead of nabumetone, # 30 tablet, 0 Refills, Maintenance, 03/10/23 10:02:00 EDT, Tablet, [facility]/pharmacy #207, Partial fill upon patient request if the prescription is for a schedule II opioid drug., 150, cm, ... Start Date: 03/10/23 Status: Ordered multivitamin Multiple Vitamins oral tablet 1 tablet, By Mouth, Daily, # 30 tablet, 11 Refills, Maintenance, 07/22/22 12:36:00 EDT, Tablet, [facility]/pharmacy #[id number], 1 tablet By Mouth Daily, 150, cm, 05/13/22 10:59:00 EST, Height, 108.2, kg, 04/21/21 14:07:00 EST, Dry Weight Start Date: 07/22/22 Status: Ordered nabumetone 750 mg oral tablet 1 tablet = 750 mg, By Mouth, 2 times a day, # 180 tablet, 3 Refills, Maintenance, 01/06/23 10:23:00EDT, Tablet, [facility]/pharmacy #[id number], Partial fill [...] Gm, 11 Refills,Maintenance, 01/06/23 10:27:00 EDT, Aerosol, [facility]/pharmacy #[id number], 150, cm, 01/06/23 9:32:00 EDT, [...] Active OA (osteoarthritis) of hip Confirmed Active *[id number] Sports Management Internship Kellee Rodriguez Confirmed Active Severe obesity Confirmed Active 1followed by Dr. Grayson 2diverticulitis episode 01/04/2011. Went to [facility] 3refuses colonoscopy secondary to endometrial carcinoma Stage 1A 5Untreated. See sleep medicine phone call: Eqipement to be removed due to non-use 6Arms, bilateral Social History Social History Type Response Smoking Status Never (less than 100 in lifetime) entered on: 02/18/21 Sex Patient Care team information Care Team Personnel Name: Celine Max RN Position: [facility] SN RN Member Role: Primary Care Nurse Name: Briana Nicole RN Position: [facility] Onco RN Member Role: Primary Care Nurse Name: Lazara Thibodeaux MD Position: [facility] Physician - Primary Care Member Role: PCP Address: Address: [address] [place] [id number]- Name: Magdalena Reyes Position: [facility] Outreach Member Role: Lifetime Consulting Physician Name: Leesa Cross RN Position: [facility] RN Member Role: Primary Care Nurse Name: Hermelinda Santacruz RN Position: [facility] RN Member Role: Primary Care Nurse Care Team Related Persons Name: HARMAN BAY Address: home Name: KELSI SCHMID [facility] [place] [address]
--- OUTSIDE RECORDS SUMMARY | 2023-08-28 06:08 | XMS_ITS | Continuity of Care Document ---
Author Organization [facility] Address [address] [place] [address]- Care Team Providers Care Sustainability Officer Name Role Phone Katy De La Torre NP Primary Care Physician Encounter [facility] [place] Date(s): 07/06/20 - 08/05/20 [facility]/[address] [address] Allergies, Adverse Reactions, Alerts Substance Reaction [...] 11:21:00 EST, Powder, Route to Pharmacy Electronically, [id number], [facility]/pharmacy #[id number], 149.8, cm, 06/08/20 10:55:00 EST, Heigh... Start Date: 06/08/20 Status: Ordered amLODIPine 5 mg oral tablet 5 mg, 1, tablet, By Mouth, Daily, # 90 tablet, Refills 1, Tot. Refills 1, Maintenance, 03/02/20 11:53:00 EDT, Route to Pharmacy Electronically, [facility]/pharmacy #[id number], 149.8, cm, 12/26/19 11:12:00 EDT, Height, 100.4, [...] Refills, Maintenance, 07/08/19 8:57:00 EST, EC Capsule, [facility]/pharmacy #207, 151, cm, 06/06/19 15:24:00 EST, Height, 109.4, kg, 12/11/18 17:10:00 EDT, Dry Weight Start Date: 07/08/19 Status: Ordered diclofenac 1% topical gel 1 application, Topically, 4 times a day, # 100 Gm, 5 Refills, Maintenance, 07/29/20 13:23:00 EDT, Gel, [facility]/pharmacy #[id number], Partial fill upon patient [...] tablet, 1 Refills, Maintenance, 05/12/20 14:40:00 EST, [facility]/pharmacy#207, 1 tablet By Mouth Daily, 149.8, cm, 12/26/19 11:12:00 EDT, Height, 100.4, kg, 12/20/19 12:32:00 EDT, Dry Weight Start Date: 05/12/20 Status: Ordered Lac-Hydrin 12% lotion 1 application, Topically, 2 times a day, # 400 Gm, 1 Refills, Maintenance, 09/17/19 11:45:00 EDT, Lotion, [facility]/pharmacy #[id number], 1 application Topically 2 times a day, 151, cm, 06/06/19 15:24:00 EST, Height, 109.4, kg, 12/11/18 17:10:00 EDT, Dry Weight Start Date: 09/17/19 Status: Ordered lidocaine 5% topical ointment 1 application, Topically, 3 times a day, wash hands thoroughly after application. citizen of [place], # 50 Gm,1 Refills, Maintenance, 02/27/19 16:48:00 EDT, Ointment, for bilateral shoulder and arm pain that has not responded to other medications, 1 application... Start Date: 02/27/19 Status: Ordered meclizine 25 mg oral tablet 1 tablet = 25 mg, By Mouth, Daily, PRN for dizziness, # 30 tablet, 1 Refills, Maintenance, 10/30/2009:34:00 EDT, Tablet, [facility]/pharmacy #[id number], 151, cm, 10/31/19 9:51:00 EDT, Height, 109.4, kg, 12/11/18 17:10:00 EDT, Dry Weight Start Date: 10/31/19 Status: Ordered meclizine 25 mg oral tablet 1 tablet = 25 mg, By Mouth, Daily, PRN for dizziness, # 30 tablet, 1 Refills, Maintenance, :25:00 EST, Tablet, [facility]/pharmacy #[id number], 149.8, cm, 06/08/20 10:55:00 EST, Height, [...] 0 Refills, Maintenance, 07/31/20 7:10:00 EDT, Capsule, [facility], 149.8, cm, 07/29/20 13:29:00 EDT, Height, [...] [facility]/pharmacy #[id number], 151, cm, 10/31/19 9:51:0... Start Date: 10/31/19 Status: Ordered Tylenol 8 Hour 650 mg oral tablet, extended release 2 tablet = 1,300 mg, By Mouth, Every 8 hours, PRN as needed for fever, for 30 days, # 200 tablet, 3Refills, Acute 11/26/20 13:34:00 EDT, 07/29/20 13:34:00 EDT, ER Tablet, [facility]/pharmacy #[id number], Partialfill upon patient request if the [...] 5 01/30/19 Active OA (osteoarthritis)(Confirmed) 6 Active *[phone] Care Partn Kellee Rodriguez(Confirmed) Active 1followed by Dr. Grayson 2diverticulitis episode 01/04/2011. Went to [facility]. 3refuses colonoscopy secondary to endometrial carcinoma Stage 1A 5Untreated. See sleep medicine phone call: Eqipement to be removed due to non-use 6Arms, bilateral Social History Social History Type Response Smoking Status Never (less than 100 in lifetime); Tobacco user in household: No entered on: 07/29/20 Sex
--- OUTSIDE RECORDS SUMMARY | 2023-08-28 06:08 | XMS_ITS | Continuity of Care Document ---
Author Organization [facility] Address [address] [place] [address]- Care Team Providers Care Cia Agent Name Role Phone Subha WRIGHT, Chiquita Primary Care Physician Encounter [facility] [place] Date(s): 06/08/20 - 06/15/20 [facility] [address] [place] [address]- [place] Encounter Diagnosis Mild persistent asthma(Discharge Diagnosis) - 06/08/20 Attending Physician: Chiquita Mascorro MD Allergies, Adverse Reactions, Alerts Substance Reaction [...] 11:21:00 EST, Powder, Route to Pharmacy Electronically, [id number], [facility]/pharmacy #[id number], 149.8, cm, 06/08/20 10:55:00 EST, Heigh... Start Date: 06/08/20 Status: Ordered amLODIPine 5 mg oral tablet 5 mg, 1, tablet, By Mouth, Daily, # 90 tablet, Refills 1, Tot. Refills 1, Maintenance, 03/02/20 11:53:00 EDT, Route to Pharmacy Electronically, [facility]/pharmacy #207, 149.8, cm, 12/26/19 [...] Refills, Maintenance, 07/08/19 8:57:00 EST, EC Capsule, [facility]/pharmacy #207, 151, cm, 06/06/19 15:24:00 EST, [...] tablet, 1 Refills, Maintenance, 05/12/20 14:40:00 EST, [facility]/pharmacy#[id number], 1 tablet By Mouth Daily, 149.8, cm, 12/26/19 11:12:00 EDT, Height, 100.4, kg, 12/20/19 12:32:00 EDT, Dry Weight Start Date: 05/12/20 Status: Ordered Lac-Hydrin 12% lotion 1 application, Topically, 2 times a day, # 400 Gm, 1 Refills, Maintenance, 09/17/19 11:45:00 EDT, Lotion, [facility]/pharmacy #[id number], 1 application Topically 2 times a day, 151, cm, 06/06/19 15:24:00 EST, Height, 109.4, kg, 12/11/18 17:10:00 EDT, Dry Weight Start Date: 09/17/19 Status: Ordered lidocaine 5% topical ointment 1 application, Topically, 3 times a day, wash hands thoroughly after application. czech, # 50 Gm,1 Refills, Maintenance, 02/27/19 16:48:00 EDT, Ointment, for bilateral shoulder and arm pain that has not responded to other medications, 1 application... Start Date: 02/27/19 Status: Ordered meclizine 25 mg oral tablet 1 tablet = 25 mg, By Mouth, Daily, PRN for dizziness, # 30 tablet, 1 Refills, Maintenance, 10/30/2009:34:00 EDT, Tablet, [facility]/pharmacy #[id number], 151, cm, 10/31/19 [...] Replace Required Details, Route to Pharmacy Electronically, [facility]/pharmacy #[id number], 151, cm, 10/31/19 9:51:0... Start Date: 10/31/19 Status: Ordered Ventolin HFA 108 mcg/inh inhalation aerosol with adapter 2 puffs, Inhalation, Every 6 hours, PRN for wheezing, use with spacer chamber, # 8 Gm, 6 Refills, Maintenance, 06/08/20 11:14:00 EST, Aerosol, [facility]/pharmacy #[id number], 149.8, cm, 06/08/20 10:55:00 EST, [...] 5 01/30/19 Active OA (osteoarthritis)(Confirmed) 6 Active *[id number] Care Partn Kellee Rodriguez(Confirmed) Active 1followed by Dr. Grayson 2diverticulitis episode 01/04/2011. Went to [facility]. 3refuses colonoscopy secondary to endometrial carcinoma Stage 1A 5Untreated. See sleep medicine phone call: Eqipement to be removed due to non-use 6Arms, bilateral Diagnosis Diagnosis Type Effective Dates Health Status Clinical Service Informant Mild persistent asthma Discharge Diagnosis 06/08/20 Vital Signs Most recent to oldest [Reference Range]: 1 2 Height 149.8 cm (06/08/20 10:55 AM) 149.8 cm (06/01/20 1:26 PM) Social History Social History Type Response Smoking Status Never smoker entered on: 09/03/13 Sex
[2023-08-28 07:30] VITALS: BP 197/74; PULSE 72; RESP 16; TEMP 36.7; O2SAT 96
[2023-08-28] MEDS: Meclizine HCl 25 MG TABLET PO (07:37)
--- NOTE | 2023-08-28 07:39 | PC.NURSE ---
this RN resumed care of pt at this time. a&ox4. vss and up to date aside from being hypertensive - pt states she did not take morning meds. ED provider notified/aware. nsr on the hall monitor. pt c/o dizziness that worsens w/ movement. nureos intact. pt denies change in vision. 1:1 assist to the restroom as pt usually uses a cane to ambulate baseline. pt seen by ED provider/aware of plan of care. medication administered per provider order. pt waiting to go to CT. no sob/wob noted. respirations even and unlabored. plan of care ongoing. call leal placed within reach.
[2023-08-28 07:42] VITALS: BP 188/70
--- NOTE | 2023-08-28 07:51 | ED_ITS ---
HPI - Dizziness General Chief Complaint: Dizziness Stated Complaint: DIZZINESS Time Seen by Provider: 08/28/23 07:02 Source: patient and old records reviewed Mode of arrival: EMS Limitations: no limitations History of Present Illness HPI Narrative: 77 yo female with PMH of vertigo, asthma, HTN, here with c/o intermittent room spinning and feeling dizzy when she moves particularly turning head to the left starting yesterday AM. She also notes nausea. No head trauma, numbness, weakness, loss of vision. She did try a pill for it yesterday but no effect. She denies recent URI symptoms. She did not take her BP medications this AM MD elicited complaint: dizziness and lightheadedness Pertinent past history: BPPV Onset (ago): day(s) (yesterday AM) Timing: sudden onset and intermittent Severity: moderate Description: room spinning Context: change in body position History of similar symptoms: Yes Exacerbating factors: movement/ambulation and change in body position Relieving factors: remaining still and keeping eyes closed Associated symptoms: nausea Related Data Home Medications ?Medication ?Instructions ?Recorded ?Confirmed acetaminophen 650 mg 0 mg PO 12/29/21 tablet,extended release albuterol sulfate 90 mcg/actuation 0 mcg inhalation 12/29/21 aerosol inhaler (Ventolin HFA) amlodipine 5 mg tablet 5 mg PO DAILY 12/29/21 brimonidine 0.1 % eye drops 1 drp ophthalmic (eye) BID 12/29/21 (Alphagan P) fluticasone 250 mcg-salmeterol 50 1 ea inhalation BID 12/29/21 mcg/dose blistr powdr for inhalation (Wixela Inhub) losartan 100 1 tab PO DAILY 12/29/21 mg-hydrochlorothiazide 25 mg tablet multivitamin with folic acid 400 0 tab PO 12/29/21 mcg tablet (Daily-Clementina (with folic acid)) Previous Rx's ?Medication ?Instructions ?Recorded lidocaine 5 % topical patch 1 patch topical DAILY PRN pain #15 04/01/22 ea oxycodone 5 mg tablet 5 mg PO Q6H PRN pain #14 tabs 04/01/22 oxycodone 5 mg tablet 5 mg PO BID PRN pain #10 tabs 03/13/23 Allergies Allergy/AdvReac Type Severity Reaction Status Date / Time Diltiazem HCl Allergy Unknown disoriented Uncoded 08/28/23 05:24 Review of Systems 2 Review of Systems: Constitutional : No Fever, No Chills, No Fatigue ENT/Mouth : No sore throat, No Rhinorrhea Eyes: No Eye Pain, No Swelling, No Redness Cardiovascular : No Chest Pain, No SOB, No Dyspnea on Exertion Respiratory : No Cough, No Sputum Gastrointestinal : No Nausea, No Vomiting, No Diarrhea, No abdominal Pain Genitourinary : No Dysuria, No Urinary Frequency, No Hematuria, Musculoskeletal : No joint pain, No Myalgias, No Joint Swelling Skin : No Skin Lesions, No rash Neuro : No Weakness, No Numbness, pos Dizziness, no Headache Psych : No Anxiety/Panic, No Depression Heme/Lymph: No Bruising, No Bleeding,No Lymphadenopathy Endocrine : No Polyuria, No Polydipsia All other systems reviewed and are negative [facility] Past Medical History Attestation statement: The following information was validated with the patient. Source: old records reviewed Medical History Vertigo HTN (hypertension) Social History Social History Alcohol intake: never Smoked in Last 30 Days: No Use of substances other than those prescribed or required for medical reasons: No Advance Directives: No Advance Directives Information Provided: No Physical Exam 2 Vital Signs: Vital Signs: Last Vital Signs Temp 98.1 F 08/28/23 08:36 Pulse 62 08/28/23 08:36 Resp 16 08/28/23 08:36 BP 161/52 H 08/28/23 08:36 Pulse Ox 98 08/28/23 08:36 O2 Del Method Room Air 08/28/23 08:36 BMI result Body Mass Index 44.4 Appearance: Alert. Oriented X3. No acute distress. Eyes: Pupils equal, round and reactive to light. ENT: Pharynx normal. Neck: Normal inspection. Neck supple. CVS: Normal heart rate and rhythm. Pulses normal. Respiratory: No respiratory distress. Breath sounds normal. Abdomen: Soft and nontender. Skin: Skin warm and dry. Normal skin color. Normal skin turgor. Extremities: No lower extremity edema. No calf ttp Neuro: Oriented X 3. No motor deficit. No sensory deficit. no drift, no dysarthria, no vision changes, symptoms much worse when turning head to left Course Course Course Narrative: BP is coming down, has no CP, trop under delta no ischemia likely due to elevated BP Medications Administered Discontinued Medications Generic Name Dose Route Start Last Admin Trade Name Amalia PRN Reason Stop Dose Admin Amlodipine Besylate 5 mg 08/28/23 07:45 08/28/23 07:54 Amlodipine Besylate 5 Mg Tablet PO 08/28/23 07:46 5 mg ONCE ONE Administration Protocol Losartan Potassium 100 mg 08/28/23 07:45 08/28/23 07:54 Losartan Potassium 50 Mg Tablet PO 08/28/23 07:46 100 mg ONCE ONE Administration Protocol Meclizine HCl 25 mg 08/28/23 07:29 08/28/23 07:37 Meclizine Hcl 25 Mg Tablet PO 08/28/23 07:30 25 mg ONCE ONE Administration Medical Decision Making Medical Decision Making [facility] Narrative: 77 yo female with PMH of vertigo, asthma, HTN here with c/o intermittent dizziness when she moves her head or gets up and turns to the left at this time no focal deficits will need basic labs, CT head of mass, oral BP medications and antivert. Suspect peripheral causea has no CP/SOB to suggest ACS/VTE. Differential Diagnosis Differential Diagnoses: The differential diagnosis associated with the presentation includes vertigo, doubt posterior stroke has no other symptoms and resolves with rest Admission/Observation Consideration of admission/observation: Escalation of care including admission/observation considered trop not over delta range no chest pain up and walking dizziness improved worse with turning head to the left seems atypical for posterior stroke no ataxia on ambulation Lab Data [facility] Lab Attestation statement: I reviewed the patient's lab results. 08/28/23 05:44 08/28/23 05:44 Labs: Lab Results 08/28/23 08/28/23 Range/Units 05:44 09:13 WBC 6.3 (4.8-10.8) X10*3/uL RBC 4.33 (4.20-5.50) X10*6/uL Hgb 12.7 (12.0-16.0) g/dl Hct 38.4 (37.0-47.0) % MCV 88.7 (80.0-98.0) fL MCH 29.3 (27.0-33.0) pg MCHC 33.1 (31.0-35.0) g/dl RDW 14.1 (11.0-16.0) % Plt Count 219 (160-400) X10*3/uL MPV 9.0 L (9.4-12.3) fL Immature Gran % (Auto) 0.3 (0.0-0.4) % Neut % (Auto) 60.0 (45-73) % Lymph % (Auto) 28.8 (20-40) % Overton % (Auto) 8.0 (2-11) % Eos % (Auto) 2.6 (0-4) % Baso % (Auto) 0.3 (0-2) % Lymph # (Auto) 1.8 (1.2-4.9) X10*3/uL Overton # (Auto) 0.5 (0.1-1.2) X10*3/uL Eos # (Auto) 0.2 (0.0-0.4) X10*3/uL Baso # (Auto) 0.0 (0.0-0.2) X10*3/uL Abs Immat Gran (auto) 0.02 (0.00-0.03) X10*3/uL Absolute Neuts (auto) 3.8 (2.0-8.3) x10*3/uL Absolute Nucleated RBC 0.000 (0.0-0.012) X10*3/uL Nucleated RBC % (auto) 0.0 (0.0-0.2) /100WBC Sodium 141 (135-145) mmol/L Potassium 3.7 (3.3-5.1) mmol/L Chloride 107 (96-108) mmol/L Carbon Dioxide 26 (22-29) mmol/L Anion Gap 12 (12-20) BUN 17 H (9-16) mg/dL Creatinine 0.74 (0.5-1.4) mg/dL Estim Creat Clear Calc 65.1 Estimated GFR > 60 Random Glucose 124 H (60-115) mg/dL Calcium 9.1 (8.4-10.2) mg/dL Total Bilirubin 0.4 (0.0-1.0) mg/dL AST 18 (5-31) U/L ALT 15 (0-31) U/L Alkaline Phosphatase 68 (39-117) U/L Troponin I High Sens 37.1 H 42.5 H (<3.5-17.0) ng/L Total Protein 7.4 (6.5-8.0) g/dL Albumin 3.8 (3.5-5.0) g/dL Independent Interpretation I performed an independent interpretation of an: EKG and CT Scan (no acute stroke) Interpretation: Rate: 68 Rhythm: NSR [place]: normal Normal P waves. Normal NATALIYA. Normal QRS complex. ST T wave : normal no JOHNSON qTC: 429 prior studies: no acute ischemia The study has been interpreted contemporaneously by me. . Radiology Impression Discussion of test interpretation with radiology: I have reviewed the radiologist's reading. External Record Review External record reviewed: Outpatient record Prescription Management I considered prescription management with: Other Discharge Plan Discharge Clinical Impression: Hypertension, Dizziness Patient Disposition: Home, Self-Care Instructions: Dizziness (ED), Hypertension (ED) Additional Instructions: your blood pressure was very high when you came in we gave you your losartan and amlodipine please do not take it today. please return for worsening symptoms, chest pain, shortness of breath, weakness, numbness, change in vision, increased dizziness or any other concerns. Prescriptions: No Action oxycodone 5 mg tablet 5 mg PO Q6H PRN (Reason: pain) Qty: 14 0RF Rx Instructions: Patient may request partial refill; Partial Fill upon patient request. lidocaine 5 % adhesive patch,medicated 1 patch topical DAILY PRN (Reason: pain) Qty: 15 0RF Rx Instructions: leave on most painful area for up to 12 hrs oxycodone 5 mg tablet 5 mg PO BID PRN (Reason: pain) Qty: 10 0RF Rx Instructions: Partial Fill upon patient request. losartan-hydrochlorothiazide 100-25 mg tablet 1 tab PO DAILY fluticasone propion-salmeterol [Wixela Inhub] 250-50 mcg/dose blister with device 1 ea inhalation BID albuterol sulfate [Ventolin HFA] 90 mcg/actuation HFA aerosol inhaler 0 mcg inhalation Alphagan P 0.1 % drops 1 drp ophthalmic (eye) BID multivitamin with folic acid [Daily-Clementina (with folic acid)] 400 mcg tablet 0 tab PO amlodipine 5 mg tablet 5 mg PO DAILY acetaminophen 650 mg tablet extended release 0 mg PO Print Language: Romanian
[2023-08-28] MEDS: Losartan Potassium 50 MG TABLET 100 MG PO (07:54)
[2023-08-28] MEDS: amLODIPine Besylate 5 MG TABLET PO (07:54)
--- NOTE | 2023-08-28 07:54 | PC.NURSE ---
BP medication administered per provider order. effectiveness pending.
[2023-08-28 08:36] VITALS: BP 161/52; PULSE 62; RESP 16; TEMP 36.7; O2SAT 98
[2023-08-28 08:50] LABS: Troponin-I High Sensitivity 37.1 ng/L (<3.5-17.0)
[2023-08-28 09:37] LABS: Troponin-I High Sensitivity 42.5 ng/L (<3.5-17.0)
--- NOTE | 2023-08-28 09:51 | PC.NURSE ---
pt tolerated ambulation trial well. pt verbalizes that sx have decreased post medication administration and she is feeling much better compared to when she came in. ED provider notified/aware. plan of care ongoing. call leal placed within reach.
[2023-08-28 10:04] VITALS: BP 157/90; PULSE 76; RESP 16; TEMP 36.6; O2SAT 99
== END 2023-08-28 10:14 | disposition home or self-care (01) ==
PROVIDERS: Emergency Provider Emergency Medicine
DX: R42 Dizziness and giddiness (principal); I10 Essential (primary) hypertension; J45.909 Unspecified asthma, uncomplicated
CPT/HCPCS: 36415; 70450; 80053; 84484; 85025; 93005; 99284

== ENCOUNTER → 2023-08-28 05:27 | Outpatient (BNV) | payer OTHER, SELFPAY | PROVIDERS: Emergency Provider Emergency Medicine; Visit Provider Internal Medicine Cardiovascular Disease | DX: R42 Dizziness and giddiness (principal) | CPT/HCPCS: 93010 ==

== ENCOUNTER 2024-02-17 08:37 | Emergency (ER) | payer OTHER, SELFPAY ==
[2024-02-17] VITALS (9 sets, daily range): BP systolic 146–220; BP diastolic 48–130; PULSE 61–89; RESP 16–20; TEMP 36.5–36.9; O2SAT 94–98; BMI 44.9
--- NOTE | 2024-02-17 | ECG_ITS ---
Test Reason : SYNCOPE Blood Pressure : / mmHG Vent. Rate : 062 BPM Atrial Rate : 062 BPM P-R Int : 158 ms QRS Dur : 086 ms QT Int : 434 ms P-R-T Axes : 000 -10 066 degrees QTc Int : 440 ms Normal sinus rhythm Normal ECG When compared with ECG of 28-AUG-2023 05:27, No significant change was found Referred By: Generic ED Physician Electronically Signed By:JAIRON RIVERA MD
--- NOTE | ~2024-02-17 | XR_ITS ---
EXAMINATION: XR SHOULDER, LEFT CLINICAL INFORMATION: Fall. Hematoma. COMPARISON: Left shoulder films from 12/13/2018 TECHNIQUE: Two views of the left shoulder. FINDINGS: The patient is status post reverse total left shoulder arthroplasty with the prosthetic components well seated within the tejon bone. No hardware failure or tejon bone fracture is seen. The left acromioclavicular joint is intact. Included left ribs are unremarkable. Mild linear atelectasis in the lung bases is seen. Portions of a hypoinflated right lung are noted. XR/XR shoulder LT min 2V IMPRESSION: Status post reverse total left shoulder arthroplasty with no evidence of hardware failure or tejon bone fracture. Electronically signed by: Audrey Oliveros MD 02/17/2024 12:18 PM EDT
--- NOTE | ~2024-02-17 | CT_ITS ---
EXAMINATION: CT FACIAL BONES CLINICAL INFORMATION: Fall COMPARISON: None TECHNIQUE: Axial sagittal and coronal images acquired of the facial bones. Department standard protocol. Noncontrasted study. This CT examination was performed using dose optimization techniques as appropriate, variously including the following: *Automated exposure control *Adjustment of mA and/or kV according to patient size (this includes techniques or standardized protocols for targeted exams where dose is matched to indication/reason for exam; i.e. extremities or head) *Use of iterative reconstruction technique FINDINGS : SKULL BASE: Included structures at skull base are normal. BONES: Included bony structures skull base are intact., There is a blowout fracture of the right orbit There is a blowout fracture of the right orbit inferior orbital bone with multiple displaced fragments inferiorly into the maxillary sinuses by approximately 5 mm. Partial herniation of inferior rectus muscle into the maxillary sinus. The fracture extends medially to involve the adjacent right ethmoidal air cell. Medial rectus lateral rectus and retro-orbital fat otherwise remain clear., Nasal bone and spine are intact., Maxillary bones otherwise are intact. Left ostiomeatal unit is patent, the right one is occluded by mucosal thickening,, mandibles are intact., Both right and left diaphragmatic arches are normal., and included cervical vertebrae are normal. SALIVARY GLANDS: Unremarkable CT/CT facial bones wo IV con IMPRESSION: 1. Blowout fracture of the right orbit inferior orbital bone with multiple displaced fragments inferiorly into the maxillary sinus by approximately 5 mm. There is partial herniation of the inferior orbital rectus muscle into the maxillary sinus. 2. The fracture extends medially to involve the adjacent right ethmoidal air cell, right ostiomeatal unit is occluded.. Electronically signed by: Princess Colby MD 02/17/2024 10:15 AM EDT
--- NOTE | ~2024-02-17 | CT_ITS ---
EXAMINATION: CT CERVICAL SPINE without contrast CLINICAL INFORMATION: fall head strike COMPARISON: No prior CT available, TECHNIQUE: Computed axial sagittal and coronal images acquired using department's standard protocol. This CT examination was performed using dose optimization techniques as appropriate, variously including the following: *Automated exposure control *Adjustment of mA and/or kV according to patient size (this includes techniques or standardized protocols for targeted exams where dose is matched to indication/reason for exam; i.e. extremities or head) *Use of iterative reconstruction technique CONTRAST: None DLP: 8 mGy-cm FINDINGS: SKULL BASE: Visualized structures at skull base are normal, right maxillary sinus is completely opacified. CERVICAL VERTEBRAE: Seven cervical vertebrae identified maintaining proper height, loss of normal cervical lordosis is a probably spasm., ATLANTOAXIAL AND ATLANTOOCCIPITAL ARTICULATION: Included occipital condyle are properly articulating with C1, measuring of C1 is intact. Proper articulation of the odontoid process with C1. POSTERIOR SPINES and lateral transverse processes: All are intact. DISCS: Narrowing of intervertebral disc spaces and developed small osteophyte from the edges of endplates encroaching on the neural foramen bilaterally at multiple levels. PREVERTEBRAL SOFT TISSUE: Within normal limits, no evidence of prevertebral soft tissue swelling. Visualized portion of the trachea larynx are normal. LUNG APICES: Included lung apices are clear bilaterally. Paravertebral soft tissue including LYMPH NODE AND SALIVARY GLANDS THYROID: Paravertebral soft tissue including cervical lymph nodes are within normal limits. Included paranasal and salivary unremarkable. CT/CT cervical spine wo IV con IMPRESSION: 1. No CT evidence of cervical spine fracture. 2. Narrowing of intervertebral disc spaces suggest degenerative disc disease, developed small osteophyte from the edges of endplates encroaching on the neural foramen bilaterally at multiple levels. 3. Opacification of right maxillary sinus. Electronically signed by: Princess Colby MD 02/17/2024 09:57 AM EDT
--- NOTE | ~2024-02-17 | MR_ITS ---
EXAM: MR head/brain wo con STUDY DATE: 02/17/2024 03:50:00 PM COMPARISON: Head CT on 02/17/2024. INDICATION: dizziness, fall, concern for posterior CVA TECHNIQUE: - Multiplanar multisequence imaging of the brain was performed without the administration of intravenous contrast. - A routine protocol was utilized. FINDINGS: There are patchy periventricular and subcortical white matter T2 hyperintensities. There is no focus of reduced diffusivity or abnormal susceptibility artifact within the brain parenchyma. The midline structures including the corpus callosum, cerebellar vermis, and pituitary gland are normal in appearance. There is no acute intracranial hemorrhage, acute ischemic changes, mass, mass effect, or extra-axial fluid collection. There is no midline shift or hydrocephalus. The basal subarachnoid cisterns and cerebral sulci are not effaced. The major intracranial flow voids are present, and grossly unremarkable. There is degenerative disease at C1/C2. Heterogeneous fluid in the right maxillary sinus. The right facial fractures are not well evaluated on this exam. MR/MR head/brain wo con IMPRESSION: 1. No acute intracranial abnormality. 2. Chronic small vessel ischemic disease. Electronically signed by: Myrna Walters MD 02/17/2024 04:48 PM EDT
--- NOTE | ~2024-02-17 | CT_ITS ---
CT HEAD WITHOUT IV CONTRAST CLINICAL INFORMATION: fall +head strike COMPARISON: Prior CT scan August 2023 TECHNIQUE: Department standard protocol. This CT examination was performed using dose optimization techniques as appropriate, variously including the following: *Automated exposure control *Adjustment of mA and/or kV according to patient size (this includes techniques or standardized protocols for targeted exams where dose is matched to indication/reason for exam; i.e. extremities or head) *Use of iterative reconstruction technique DLP: 2027 mGy-cm FINDINGS: CEREBRAL HEMISPHERES: There is no evidence of intra-axial or extra-axial mass, hemorrhage or acute infarct. BRAIN PARENCHYMA: Deep white matter and paraventricular hypoattenuation, nonspecific; most likely changes secondary to chronic ischemia due to microvascular angiopathy. SUBDURAL SPACE: No bleed. BASAL GANGLIA AND PINEAL GLAND: Unremarkable VENTRICLES: Symmetric and normal in size. CEREBELLUM AND BRAINSTEM: No space-occupying mass, hemorrhage or acute infarct. CEREBELLOPONTINE ANGLES: No lesion found. ORBITS: No intraorbital mass. Right orbital floor bone fractures will be described on CT facial bones. VESSELS: Unremarkable SKULL BASE: Unremarkable INCLUDED SINUSES AT SKULL BASE: There is blood and fluid in the right maxillary sinus. CT/CT head/brain wo IV con IMPRESSION: 1. Deep white matter and periventricular hypoattenuation, nonspecific; most likely sequela of chronic microvascular angiopathy ischemia. 2. Right orbital floor bone fractures will be described on CT facial bones. 3. Blood and fluid in the right maxillary sinus. Electronically signed by: Princess Colby MD 02/17/2024 10:06 AM EDT
--- NOTE | 2024-02-17 08:42 | ED.FALL ---
HPI - Fall General Chief Complaint: Fall Stated Complaint: FELL OFF BED, C-COLLAR ON Time Seen by Provider: 02/17/24 08:42 Source: patient, EMS, RN notes reviewed and old records reviewed Mode of arrival: EMS History of Present Illness ED Provider: Bettye Cruz PA-C HPI Narrative: 78-year-old female with a past medical history of vertigo, hypertension, asthma presenting to the ED via EMS complaining of headache, right-sided facial pain, and left shoulder pain s/p fall this morning while getting out of bed. States got out of bed felt dizzy described as room spinning and fell to floor with + head strike. Denies LOC. States could not get herself off the floor alone, lives home alone, was ED by EMS. Denies anticoagulation use. Denies neck/back pain, CP/SOB, abdominal pain. Denies room spinning dizziness at present. MD complaint: fall Related Data Home Medications ?Medication ?Instructions ?Recorded ?Confirmed acetaminophen 650 mg 0 mg PO 12/29/21 tablet,extended release albuterol sulfate 90 mcg/actuation 0 mcg inhalation 12/29/21 aerosol inhaler (Ventolin HFA) amlodipine 5 mg tablet 5 mg PO DAILY 12/29/21 brimonidine 0.1 % eye drops 1 drp ophthalmic (eye) BID 12/29/21 (Alphagan P) fluticasone 250 mcg-salmeterol 50 1 ea inhalation BID 12/29/21 mcg/dose blistr powdr for inhalation (Wixela Inhub) losartan 100 1 tab PO DAILY 12/29/21 mg-hydrochlorothiazide 25 mg tablet multivitamin with folic acid 400 0 tab PO 12/29/21 mcg tablet (Daily-Clementina (with folic acid)) Previous Rx's ?Medication ?Instructions ?Recorded lidocaine 5 % topical patch 1 patch topical DAILY PRN pain #15 04/01/22 ea oxycodone 5 mg tablet 5 mg PO Q6H PRN pain #14 tabs 04/01/22 oxycodone 5 mg tablet 5 mg PO BID PRN pain #10 tabs 03/13/23 Allergies Allergy/AdvReac Type Severity Reaction Status Date / Time Diltiazem HCl Allergy Unknown disoriented Uncoded 02/17/24 08:52 Review of Systems Review of Systems: Yes all other systems are reviewed and are negative Constitutional: Constitutional: Reports as per HPI Neurologic: Denies Abnormal speech present [facility] Past Medical History Attestation statement: The following information was validated with the patient. Source: old records reviewed Medical History Vertigo HTN (hypertension) Social History Social History Alcohol intake: never Smoked in Last 30 Days: No Use of substances other than those prescribed or required for medical reasons: No Advance Directives: No Advance Directives Information Provided: Yes Do you have a plan to hurt others: No Plan Physical Exam Vital Signs: Vital Signs: Last Vital Signs Temp 98.4 F 02/17/24 10:53 Pulse 65 02/17/24 11:48 Resp 18 02/17/24 10:53 BP 183/91 H 02/17/24 11:48 Pulse Ox 97 02/17/24 10:53 O2 Del Method Room Air 02/17/24 10:53 BMI result Body Mass Index 44.9 Const: General: cooperative, healthy appearing and no acute distress Orientation/consciousness: patient oriented x3 Limitations: no limitations HEENT: Other: + mild right periorbital erythema/ecchymosis and tenderness. No palpable step-off. EOMs intact without entrapment or discomfort Head: Yes normal to inspection Ears: hearing grossly normal bilaterally General nose exam: Normal external nose present Face and sinus: Yes normal facial exam Mouth: no drooling Throat: Yes posterior oropharynx normal Eyes: General: appearance normal, both eyes and all related structures Pupils: Equal, round and reactive pupils present EOM: EOMs intact bilaterally Neck: Other: C-collar in place Neck: Yes normal visual inspection and Yes no meningeal signs Resp: Effort & Inspection: normal respiratory effort and no respiratory distress Cardio: Rate: regular rate Heart sounds: S1 normal heart sound present and S2 normal heart sound present GI: Inspection: Yes normal to inspection Palpation (GI): Soft to palpation, nontender, no guarding and not rigid Skin: Rashes: no rashes Wounds: no wounds Neuro: General: patient oriented x3, tone normal, moves all extremities, no meningeal signs, no focal motor deficits and CN's II-XI intact bilaterally Cranial nerves: Yes CN's II-XII intact bilaterally and Yes Equal, round and reactive pupils present Cognition (Neuro): normal cognition Speech: No Abnormal speech present Gait exam (Neuro): Normal gait present Motor exam (neuro): 5/5 motor strength present throughout Extrem: Other: Right shoulder with appreciable hematoma and ecchymosis/abrasion. Limited ROM secondary to pain. Neurovascularly intact distally Course Course Course Narrative: -1043--chronically elevated BUN. Chronically elevated troponin, will obtain 3 hour repeat -COVID/flu/RSV negative CT head/brain wo IV con IMPRESSION: 1. Deep white matter and periventricular hypoattenuation, nonspecific; most likely sequela of chronic microvascular angiopathy ischemia. 2. Right orbital floor bone fractures will be described on CT facial bones. 3. Blood and fluid in the right maxillary sinus. CT facial bones wo IV con IMPRESSION: 1. Blowout fracture of the right orbit inferior orbital bone with multiple displaced fragments inferiorly into the maxillary sinus by approximately 5 mm. There is partial herniation of the inferior orbital rectus muscle into the maxillary sinus. 2. The fracture extends medially to involve the adjacent right ethmoidal air cell, right ostiomeatal unit is occluded. CT cervical spine wo IV con IMPRESSION: 1. No CT evidence of cervical spine fracture. 2. Narrowing of intervertebral disc spaces suggest degenerative disc disease, developed small osteophyte from the edges of endplates encroaching on the neural foramen bilaterally at multiple levels. 3. Opacification of right maxillary sinus. -troponins flat XR shoulder LT min 2V IMPRESSION: Status post reverse total left shoulder arthroplasty with no evidence of hardware failure or [place] bone fracture. -1414-- patient given dose of p.o. Augmentin in the ED. attempted to speak with OMFS at [facility], however they are having difficulty figuring out who is material controller. Originally Dr. Madrigal was thought to be material controller however deferred to another physician. Call center unclear who actually material controller. Patient without any evidence of entrapment or instability. -orthostatic vital signs negative however patient still reporting dizziness, worse with position changes. States dizziness is chronic however worse than her typical. Family states patient deals with dizziness almost daily however patient does not agree with this. Will obtain brain MRI for further eval to rule out CVA. -spoke with OMFS at [facility], unwilling to see patient for outpatient follow-up without seeing images. Consulted plastics at [facility] to ensure patient has follow-up. 1652--MR head/brain wo con IMPRESSION: 1. No acute intracranial abnormality. 2. Chronic small vessel ischemic disease. > will obtain PT/case management eval. As patient is unsteady on her feet. -1648--spoke with plastic surgeon Dr. Chou from [facility] recommended patient have ophthalmology follow-up outpatient for full ocular exam. Patient can follow-up in his office in 1 week. Recommended sinus precautions including no straws, nasal blowing, sneezing, as well as Augmentin x7 days -170--ED care transferred to ALVAREZ Cantu pending PT/case management Medications Administered Discontinued Medications Generic Name Dose Route Start Last Admin Trade Name Freq PRN Reason Stop Dose Admin Amoxicillin/Clavulanate Potassium 875 mg 02/17/24 11:01 02/17/24 11:34 Amoxicillin/Potassium Clav 875 Mg Tablet PO 02/17/24 11:02 875 mg ONCE ONE Administration Sodium Chloride 500 mls @ 999 mls/hr 02/17/24 09:00 02/17/24 10:01 Ns IV 02/17/24 09:30 Infused .Q31M VIVIANA Infusion Meclizine HCl 25 mg 02/17/24 14:03 02/17/24 14:13 Meclizine Hcl 25 Mg Tablet PO 02/17/24 14:04 25 mg ONCE ONE Administration Medical Decision Making Medical Decision Making [facility] Narrative: 78-year-old female with a past medical history of vertigo, hypertension, asthma presenting to the ED via EMS complaining of headache, right-sided facial pain, and left shoulder pain s/p fall this morning while getting out of bed. States got out of bed felt dizzy described as room spinning and fell to floor with + head strike. On exam vital signs stable, NAD, nontoxic appearing, physical exam as noted above. No focal neuro deficits. Concern for fractures vs ICH vs metabolic/infectious etiologies vs vertigo. Lower suspicion for acute CVA/TIA or ACS Plan: EKG, labs, CXR, CTs, UA, orthostatics, re-evaluate Please refer to course for remaining clinical decision making, interpretation of labs/imaging results, and discussions with consultants and/or family members. Differential Diagnosis Differential Diagnoses: The differential diagnosis associated with the presentation includes As above Admission/Observation Consideration of admission/observation: Escalation of care including admission/observation considered Lab Data [facility] Lab Attestation statement: I reviewed the patient's lab results. 02/17/24 09:06 02/17/24 09:06 Labs: Lab Results 02/17/24 02/17/24 02/17/24 Range/Units 08:51 09:06 10:54 WBC 7.0 (4.8-10.8) X10*3/uL RBC 4.44 (4.20-5.50) X10*6/uL Hgb 13.2 (12.0-16.0) g/dl Hct 39.3 (37.0-47.0) % MCV 88.5 (80.0-98.0) fL MCH 29.7 (27.0-33.0) pg MCHC 33.6 (31.0-35.0) g/dl RDW 12.8 (11.0-16.0) % Plt Count 215 (160-400) X10*3/uL MPV 9.0 L (9.4-12.3) fL Immature Gran % (Auto) 0.4 (0.0-0.4) % Neut % (Auto) 70.5 (45-73) % Lymph % (Auto) 20.1 (20-40) % [place] % (Auto) 6.6 (2-11) % Eos % (Auto) 2.0 (0-4) % Baso % (Auto) 0.4 (0-2) % Lymph # (Auto) 1.4 (1.2-4.9) X10*3/uL [place] # (Auto) 0.5 (0.1-1.2) X10*3/uL Eos # (Auto) 0.1 (0.0-0.4) X10*3/uL Baso # (Auto) 0.0 (0.0-0.2) X10*3/uL Abs Immat Gran (auto) 0.03 (0.00-0.03) X10*3/uL Absolute Neuts (auto) 4.9 (2.0-8.3) x10*3/uL Absolute Nucleated RBC 0.000 (0.0-0.012) X10*3/uL Nucleated RBC % (auto) 0.0 (0.0-0.2) /100WBC PT 11.2 (10.9-12.4) SEC INR 1.0 (0.9-1.1) Sodium 136 (135-145) mmol/L Potassium 4.3 (3.3-5.1) mmol/L Chloride 103 (96-108) mmol/L Carbon Dioxide 22 (22-29) mmol/L Anion Gap 15 (12-20) BUN 23 H (9-16) mg/dL Creatinine 0.84 (0.5-1.4) mg/dL Estim Creat Clear Calc 59.1 Estimated GFR > 60 POC Glucose 170 H (60-115) mg/dL Random Glucose 182 H (60-115) mg/dL Calcium 9.5 (8.4-10.2) mg/dL Total Bilirubin 0.5 (0.0-1.0) mg/dL AST 18 (5-31) U/L ALT 15 (0-31) U/L Alkaline Phosphatase 72 (39-117) U/L Total Creatine Kinase 53 (26-140) U/L Troponin I High Sens 45.3 H 41.8 H (<3.5-17.0) ng/L Total Protein 7.2 (6.5-8.0) g/dL Albumin 3.8 (3.5-5.0) g/dL Influenza Type A (PCR) NEGATIVE (Negative) Influenza Type B (PCR) NEGATIVE (Negative) RSV RNA Qual (PCR) NEGATIVE (Negative) SARS-CoV-2 RNA (RT-PCR) NEGATIVE (Negative) Independent Interpretation I performed an independent interpretation of an: EKG, Plain X-Ray and CT Scan Radiology Impression Discussion of test interpretation with radiology: I have reviewed the radiologist's reading. Independent Historian Clinical information obtained from an independent historian. History obtained from or confirmed by: EMS External Record Review External record reviewed: Inpatient record, Office record, Outpatient record, Prior outpatient labs, Prior outpatient radiology, Primary care record and Outside ED record Tests considered The following testing was considered but not selected: As above Prescription Management I considered prescription management with: Pain Medication Chronic Conditions Patient?s care impacted by: Other Critical Care Time Critical Care Time Critical Care Time: Yes Total Critical Care Time: 40 Attestation: I have personally provided critical care time exclusive of time spent on separately billable procedures. Time includes review of lab data, radiology results, discussion with consultants, and monitoring for potential decompensation. Intervention performed as documented. Discharge Plan Discharge Clinical Impression: Blow-out fracture of orbital floor, Fall, Dizziness Patient Disposition: Still a Patient Prescriptions: No Action oxycodone 5 mg tablet 5 mg PO Q6H PRN (Reason: pain) Qty: 14 0RF Rx Instructions: Patient may request partial refill; Partial Fill upon patient request. lidocaine 5 % adhesive patch,medicated 1 patch topical DAILY PRN (Reason: pain) Qty: 15 0RF Rx Instructions: leave on most painful area for up to 12 hrs oxycodone 5 mg tablet 5 mg PO BID PRN (Reason: pain) Qty: 10 0RF Rx Instructions: Partial Fill upon patient request. losartan-hydrochlorothiazide 100-25 mg tablet 1 tab PO DAILY fluticasone propion-salmeterol [Wixela Inhub] 250-50 mcg/dose blister with device 1 ea inhalation BID albuterol sulfate [Ventolin HFA] 90 mcg/actuation HFA aerosol inhaler 0 mcg inhalation Alphagan P 0.1 % drops 1 drp ophthalmic (eye) BID multivitamin with folic acid [Daily-Clementina (with folic acid)] 400 mcg tablet 0 tab PO amlodipine 5 mg tablet 5 mg PO DAILY acetaminophen 650 mg tablet extended release 0 mg PO Referrals: Robin Chou MD [Other] (Please call on Monday for follow-up in 1 week) Print Language: Persian
[2024-02-17] MEDS: 0.9 % Sodium Chloride 500 ML 999 ML IV (09:10)
[2024-02-17 09:12] LABS: MANUAL DIFF FLAG NO
[2024-02-17 09:13] LABS: Glucose, Whole Blood 170 mg/dL (60-115)
[2024-02-17 09:15] LABS: Basophils Percent Auto 0.4 % (0-2); Eosinophils Absolute Auto 0.1 X10*3/uL (0.0-0.4); Hematocrit 39.3 % (37.0-47.0); Hemoglobin 13.2 g/dl (12.0-16.0); Imm Gran Abs Auto 0.03 X10*3/uL (0.00-0.03); Imm Gran Pct Auto 0.4 % (0.0-0.4); Lymphocytes Absolute Auto 1.4 X10*3/uL (1.2-4.9); Lymphocytes Percent Auto 20.1 % (20-40); Mean Corpuscular HGB Conc 33.6 g/dl (31.0-35.0); Mean Corpuscular Hemoglobin 29.7 pg (27.0-33.0); Mean Corpuscular Volume 88.5 fL (80.0-98.0); Monocytes Absolute Auto 0.5 X10*3/uL (0.1-1.2); Monocytes Percent Auto 6.6 % (2-11); Neutrophils Absolute Auto 4.9 x10*3/uL (2.0-8.3); Neutrophils Percent Auto 70.5 % (45-73); Platelet Count 215 X10*3/uL (160-400); Red Blood Count 4.44 X10*6/uL (4.20-5.50); Red Cell Distribution Width 12.8 % (11.0-16.0)
[2024-02-17 09:20] LABS: Prothrombin Time 11.2 SEC (10.9-12.4)
[2024-02-17 09:28] LABS: Alanine Aminotransferase 15 U/L (0-31); Albumin Level 3.8 g/dL (3.5-5.0); Alkaline Phosphatase 72 U/L (39-117); Anion Gap 15 (12-20); Aspartate Amino Transferase 18 U/L (5-31); Bilirubin Total 0.5 mg/dL (0.0-1.0); Blood Urea Nitrogen 23 mg/dL (9-16); Calcium 9.5 mg/dL (8.4-10.2); Carbon Dioxide 22 mmol/L (22-29); Chloride 103 mmol/L (96-108); Creatinine Clr Calc Pharmacy 59.1; Estimated Glomerular Filt Rate > 60; Glucose Random 182 mg/dL (60-115); Potassium 4.3 mmol/L (3.3-5.1); Sodium 136 mmol/L (135-145); Total Protein 7.2 g/dL (6.5-8.0)
[2024-02-17 09:35] LABS: Troponin-I High Sensitivity 45.3 ng/L (<3.5-17.0)
--- NOTE | 2024-02-17 10:00 | MHC.EDTECH ---
put patient on bed rehman clean her up and changed her linen
[2024-02-17 10:02] LABS: Influenza A PCR NEGATIVE (Negative); Influenza B PCR NEGATIVE (Negative); Resp Syncy Virus RNA Qual PCR NEGATIVE (Negative); SARS COV2 PCR INHOUSE NEGATIVE (Negative)
[2024-02-17] MEDS: Amoxicillin/Potassium Clav 875 MG TABLET PO ×2 (11:34→21:45)
[2024-02-17 11:48] LABS: Troponin-I High Sensitivity 41.8 ng/L (<3.5-17.0)
--- NOTE | 2024-02-17 11:51 | MHC.EDTECH ---
put patient on bed rehman clean and changed her
--- NOTE | 2024-02-17 11:52 | MHC.EDTECH ---
put patient on the purewick
--- NOTE | 2024-02-17 12:00 | PC.NURSE ---
orthostatic vital signs completed by coroner technician, patient not othostatic however complaining of dizziness still. provider made aware.
--- NOTE | 2024-02-17 12:47 | PC.NURSE ---
daughter heidy would like to be called with updates regarding plan phone number listed in demographics.
[2024-02-17] MEDS: Meclizine HCl 25 MG TABLET PO (14:13)
--- NOTE | 2024-02-17 14:42 | PC.NURSE ---
MRI screening completed with italian tutor. Per central processing technician, should be able to take patient around 1515
[2024-02-17 17:22] LABS: Glucose, Whole Blood 138 mg/dL (60-115)
[2024-02-18 06:00] VITALS: BP 164/72; PULSE 70; RESP 16; TEMP 36.4; O2SAT 94
--- NOTE | 2024-02-18 07:00 | PC.NURSE ---
Report taken from Cady Weathers RN
[2024-02-18 07:55] VITALS: BP 170/65; PULSE 66; RESP 12
[2024-02-18] MEDS: Amoxicillin/Potassium Clav 875 MG TABLET PO ×2 (10:33→23:54)
[2024-02-18 10:35] VITALS: BP 150/55; PULSE 77; RESP 16; TEMP 36.7; O2SAT 98
--- NOTE | 2024-02-18 10:37 | PC.NURSE ---
Pt. medicated per JUL. VSS. Denies concerns or complaints at this time. Purewick remains in place- pt. checked for leakage or incontinence, and she is dry at this time.
--- NOTE | 2024-02-18 12:46 | PHA.MEDREC ---
Addendum entered by Rahul Doran RPh 02/18/24 12:57: Reviewed by [facility] Original Note: Pharmacy Consult ? Medication Reconciliation Pharmacy has completed the medication reconciliation. spoke with patient through an director of orthopedics. All of her medications are as needed or when she feels like it. Patient reports she has not been taking duloxetine because she did not know what it was for, however there are recent and consistent fills for it. She said she is no longer taking losartan + HCTZ however there are recent and consistent fills for that as well. She only takes amlodipine when she feels like her blood pressure is high or when she consumes a lot of salt. She does not check her blood pressure at home. She uses her wixela inhaler prn. She said she still uses prescription lidocaine patches but there are no claims, left on med rec since patient reports still using them. She does not take melatonin. She reports she takes ibuprofen and meclizine very often.
--- NOTE | 2024-02-18 15:02 | MHC.CM.ED ---
Received case management consult overnight. Patient came to the ER due to a fall. Work up essentially negative except patient is still having difficulty ambulating due to dizziness. Met with patient and daughter, Rosa, in regards to discharge planning. Patient is primarily Kazakh speaking. Rosa speaks Kazakh and German. Patient is declining japanese interpreter at this time. Patient lives alone, ambulates with a walker and has a SEGMENT BLOCK LAYER through [employer]. PCP is at [facility] but patient doesn't remember her PCP's name. Copy of HCP obtained from [facility]. Patient and Rosa are aware physical therapy eval is ordered and not available until tomorrow, Sunday 02/18. Patient has never been to short term rehab and is not interested in going now. Patient states she will go home when her dizziness is under control and she knows why she's dizzy. Patient reports experiencing dizziness for over 1 year. Patient states she has reported this to her PCP and Manager Strategic [employer] of [facility] without any response from either constitution party. Patient and Rosa state they were told yesterday they were waiting for test results and then patient would be admitted to [facility] or transferred to [facility]. Kelsie BECKHAM has been made aware of this information and asked to speak with patient and daughter. Unsure of d/c plan at this time.
[2024-02-18 16:13] VITALS: BP 155/67; PULSE 92; RESP 18; TEMP 37.6; O2SAT 94
--- NOTE | 2024-02-18 16:15 | PC.NURSE ---
Pt. incontinent of urine in bed. Incontinence care and fresh blankets provided. Pt. does not offer any concerns or complaints at this time. Call leal within reach.
--- NOTE | 2024-02-18 19:41 | PC.NURSE ---
pt helped to bedside commode, steady gait, assisted back to stretcher. call leal within reach.
[2024-02-18 22:00] VITALS: BP 178/69; PULSE 85; RESP 16; TEMP 37; O2SAT 95
[2024-02-19] VITALS: BP 168/75; PULSE 81; RESP 16; TEMP 36.8; O2SAT 94
--- NOTE | 2024-02-19 00:23 | MHC.EDTECH ---
This tech took over care of patient at 2300,rounding and introduced self to patient,vitals taken,patient is resting quietly,call leal in reach
--- NOTE | 2024-02-19 00:43 | PC.NURSE ---
pt helped to bedside commode, steady gait, assisted back to stretcher. call leal within reach.
--- NOTE | 2024-02-19 01:44 | MHC.EDTECH ---
Patient placed in hospital at this time for comfort,patient ambulated with a steady gait,call leal in reach
[2024-02-19 06:21] VITALS: BP 163/67; PULSE 82; RESP 16; TEMP 36.8; O2SAT 97
--- NOTE | 2024-02-19 06:38 | MHC.EDTECH ---
Hourly rounds/vitals completed,set patient up for breakfast,pt is sitting on the side of the bed,call leal in reach
[2024-02-19 10:38] VITALS: RESP 16
--- NOTE | 2024-02-19 10:38 | PC.NURSE ---
pt come sin to ED via EMS from [facility] Pt arrived on CPap with spo2 reported by EMS in the low 90s. They arrived at the SNF to find the pt very short of breath, on a nasal cannula with spo2 in the 80s, CPAP started. IN ED pt switched to BiPap and then high flow nasal cannula. Spo2 has maintained in the high 90s with good waveform. labs drawn, blod cultures drawn, IVs placed. Fluids started per protocol and ABX given. Upon arrivial pt was minimally responsive. He was not blinking, following commands or tracking. Now, pt is speaking a little though in a muffled voice. He answers questions yes or no.
[2024-02-19] MEDS: amLODIPine Besylate 5 MG TABLET PO (10:55)
[2024-02-19] MEDS: Amoxicillin/Potassium Clav 875 MG TABLET PO ×2 (10:55→21:28)
[2024-02-19] MEDS: Multivitamin TABLET 1 TAB PO (10:55)
[2024-02-19] MEDS: Ibuprofen 600 MG TABLET PO (10:56)
[2024-02-19 14:13] VITALS: BP 163/67
--- NOTE | 2024-02-19 14:28 | MHC.CM.PN ---
EMR REVIEWED, P.T. RECOMMENDING OUTPT P.T. FOR BPPV, CM CONTACTED PT'S DTR/HCP KELSI WHO REPORTS SHE JUST RECEIVED A CALL FROM [facility] SAYING THEY WILL KEEP PT FOR FURTHER WORKUP OF HER DIZZINESS AND PT WILL NOT BE DISCHARGING TODAY, CM DID LET KELSI KNOW P.T. RECOMMENDATIONS AND THAT PT WILL NEED A PCP APPT FOR REFERRAL FOR OUTPT P.T. HER PCP WILL NEED TO SEND REFERRAL, KELSI REPORTS SHE DOES NOT KNOW NAME OF PCP WHEN ASKED TO UPDATE RECORDS. CM WILL CONT TO FOLLOW.
--- NOTE | 2024-02-19 23:45 | PC.NURSE ---
Assumed care of pt at 2300. Pt resting in bed, eyes closed, RR even and unlabored, no apparent distress at this time.
[2024-02-20 05:46] VITALS: BP 181/74; PULSE 84; RESP 17; TEMP 36.8; O2SAT 95
[2024-02-20 06:20] VITALS: BP 181/74
[2024-02-20] MEDS: amLODIPine Besylate 5 MG TABLET PO (06:20)
--- NOTE | 2024-02-20 06:22 | PC.NURSE ---
BP elevated this am, aware and ok to give PRN amlodipine at this time.
--- NOTE | 2024-02-20 07:26 | PC.NURSE ---
report received from previous RN, patient resting comfortably on stretcher at this time, offering no complaints, awaiting breakfast tray, plan of care ongoing
[2024-02-20 07:46] VITALS: BP 169/74; PULSE 84; RESP 16; TEMP 36.7; O2SAT 95
--- NOTE | 2024-02-20 07:52 | PC.NURSE ---
patient provided with breakfast tray
[2024-02-20 07:56] VITALS: BP 169/74; PULSE 84; RESP 16; TEMP 36.7
[2024-02-20] MEDS: Amoxicillin/Potassium Clav 875 MG TABLET PO (08:29)
[2024-02-20] MEDS: Multivitamin TABLET 1 TAB PO (08:29)
--- NOTE | 2024-02-20 11:45 | PC.NURSE ---
patient provided with lunch tray
--- NOTE | 2024-02-20 12:59 | PC.NURSE ---
patient requesting to go home, daughter heidy called to come pick patient up, complex case manager made aware , patient OK to be discharged, awaiting provider disposition. PIV removed
[2024-02-20 13:09] VITALS: BP 184/80; PULSE 97; RESP 16; TEMP 37.2; O2SAT 96
== END 2024-02-20 13:43 | disposition still patient (30) ==
PROVIDERS: Physician Assistant; Emergency Provider Emergency Medicine
DX: S02.31XA Fracture of orbital floor, right side, initial encounter for closed fracture (principal); W06.XXXA Fall from bed, initial encounter; R42 Dizziness and giddiness; I10 Essential (primary) hypertension; Y93.89 Activity, other specified; Y92.032 Bedroom in apartment as the place of occurrence of the external cause; Y99.9 Unspecified external cause status; Z03.818 Encounter for observation for suspected exposure to other biological agents ruled out
CPT/HCPCS: 0241U; 36415; 70450; 70486; 70551; 72125; 73030; 80053; 82550; 82947; 84484; 85025; 85610; 93005; 96360; 97161; 99285

== ENCOUNTER → 2024-02-17 08:48 | Outpatient (BNV) | payer OTHER, SELFPAY | PROVIDERS: Emergency Provider Emergency Medicine; Visit Provider Internal Medicine Cardiovascular Disease | DX: R55 Syncope and collapse (principal) | CPT/HCPCS: 93010 ==

== ENCOUNTER 2024-10-23 08:48 | Emergency (ER) | payer OTHER, SELFPAY ==
[2024-10-23 08:49] VITALS: BP 155/80; PULSE 80; RESP 16; TEMP 36.4; O2SAT 98; BMI 45.4
--- NOTE | 2024-10-23 09:13 | ED.GENADULT ---
HPI - General Adult General Chief complaint: General Medical Stated complaint: Lump lower abd Time Seen by Provider: 10/23/24 09:13 Source: patient Mode of arrival: ambulatory Limitations: no limitations History of Present Illness ED Provider: Kam Gay PA-C HPI narrative: 79-year-old female with medical history of vertigo, asthma, HTN presents to the ED today due to lump of her pannus. Patient states the left side of her pannus has always been larger than the right, but 1 week ago she started noticing a small painful ?lump? of the left distal pannus. She states this area has not had any drainage. Denies sick contacts, recent travel, fever, chills, chest pain, shortness of breath, abdominal pain, nausea, vomiting, black/tarry stool Onset (ago): week(s) (1) Location: abdomen (Left pannus) Radiation: non-radiation Severity: mild Quality: other (Tender to palpation) Relieving factors: none Exacerbating factors: none Associated symptoms: denies other symptoms Treatments prior to arrival: none Related Data Home Medications ?Medication ?Instructions ?Recorded ?Confirmed albuterol sulfate 90 mcg/actuation 2 puff inhalation Q4-6H PRN 12/29/21 02/18/24 aerosol inhaler (Ventolin HFA) Shortness Of Breath Or Wheezing amlodipine 5 mg tablet 5 mg PO DAILY PRN high blood 12/29/21 02/18/24 pressure fluticasone 250 mcg-salmeterol 50 1 ea inhalation BID PRN Shortness 12/29/21 02/18/24 mcg/dose blistr powdr for Of Breath Or Wheezing inhalation (Wixela Inhub) ibuprofen 600 mg tablet 600 mg PO Q8H PRN Pain 02/18/24 02/18/24 meclizine 25 mg tablet 25 mg PO TID PRN Dizziness 02/18/24 02/18/24 multivitamin 1 tab PO DAILY 02/18/24 02/18/24 Previous Rx's ?Medication ?Instructions ?Recorded lidocaine 5 % topical patch 1 patch topical DAILY PRN pain #15 04/01/22 ea amoxicillin 875 mg-potassium 1 tab PO BID #10 tabs 02/20/24 clavulanate 125 mg tablet Allergies Allergy/AdvReac Type Severity Reaction Status Date / Time Diltiazem HCl Allergy Unknown disoriented Uncoded 10/23/24 08:51 Review of Systems Review of Systems: CONST: Negative for fever, body aches and chills. HENT: Negative for neck pain/stiffness, headache, congestion, sore throat, swelling. EYES: Negative for discharge/pain or vision changes. RESP: Negative for cough/hemoptysis and shortness of breath. CV: Negative chest pain, difficulty breathing, palpitations. ABD: Negative pain, nausea, vomiting. POS tender lump of left medial pannus : Negative increase frequency, dysuria, blood in urine or stool. MUSC: Negative for muscle aches, edema. SKIN: Negative rash, lesions/sores. NEURO: Negative headache, dizziness, weakness. Yes all other systems are reviewed and are negative PMFSH Past Medical History Attestation statement: The following information was validated with the patient. Source: old records reviewed and nursing notes reviewed Medical History Vertigo HTN (hypertension) Social History Social History Alcohol intake: never Smoked in Last 30 Days: No Use of substances other than those prescribed or required for medical reasons: No Advance Directives: No Advance Directives Information Provided: Yes Do you have a plan to hurt others: No Plan Physical Exam ED Vital Signs: Vital Signs - 24 hr 10/23/24 08:49 10/23/24 10:14 Temperature 97.6 F 97.6 F Pulse Rate 80 80 Respiratory Rate 16 16 Blood Pressure 155/80 H 155/80 H Pulse Oximetry 98 98 Oxygen Delivery Method Room Air Room Air BMI result Body Mass Index 45.4 GENERAL APPEARANCE: ?AxOx4, generally well-appearing, no acute distress. HEENT: ?NC, AT. MMM. EOMI, clear conjunctiva, oropharynx clear. HEART:? Normal rate and regular rhythm, normal S1/S1, no m/r/g LUNGS:? CTAB, moving air well. No crackles or wheezes are heard. ABDOMEN: ?Soft, nontender, nondistended with good bowel sounds heard. [id number] tender lump of the left, medial, inferior pannus, without drainage, erythema, warmth. EXTREMITIES: ?Without cyanosis, clubbing or edema. NEUROLOGICAL: ?Grossly nonfocal. Alert and oriented, moving all 4 extremities. Observed to ambulate with normal gait. Skin: ?Warm and dry without any rash. Medical Decision Making Medical Decision Making MDM Narrative: 79-year-old female with medical history of vertigo, asthma, HTN presents to the ED today due to lump of her pannus. Patient states the left side of her pannus has always been larger than the right, but 1 week ago she started noticing a small painful ?lump? of the left distal pannus. She states this area has not had any drainage. VSS, in no acute distress, nontoxic appearing. On physical exam there is a 1.5 x 1 cm firm lump of the left, medial, inferior pannus. There is no drainage, overlying skin changes. Unable to discern if this area is a possible lipoma. Lump is indurated and firm, non drainable. Do not suspect infection at this time. Does not need prophylactic antibiotics. Patient is nondiabetic, does not use insulin, does not inject anything into the abdomen including GLP 1 medications. Lump is only mildly tender, patient is able to tolerate palpation-less likely hernia. Counseled the patient to watch the area for any overlying skin changes or growth, urged to follow up with PCP for ongoing management of this area. Counseled patient on strict return precautions including growth of the lump, warmth, drainage, fever, chills. Differential Diagnosis Differential Diagnoses: The differential diagnosis associated with the presentation includes Abscess Lipoma Cyst Hernia Admission/Observation Consideration of admission/observation: Escalation of care including admission/observation considered External Record Review External record reviewed: Inpatient record, Office record and Outpatient record Chronic Conditions Patient?s care impacted by: Hypertension and Other (Asthma, vertigo) Discharge Plan Discharge Clinical Impression: Lump in the abdomen Qualifiers: Abdominal location: left lower quadrant Qualified Code(s): R19.04 - Left lower quadrant abdominal swelling, mass and lump Patient Disposition: Home, Self-Care Additional Instructions: You were evaluated in the ED today due to a lump of your left lower abdomen. The lump is non concerning, without drainage, without warmth, without any redness of the skin. This lump does not seem like an abscess and can not be drained. Unable to tell if this could be a possible lipoma or cyst. This area does not need any antibiotics right now. You should watch this area for any growth, redness, drainage and follow up with your PCP for management. Keep the area clean. Please return to the ED if you develop a fever over 100.4?, chills, growth of the lump, drainage of the lump, redness or any skin changes around the lump, chest pain, shortness of breath, abdominal pain, vomiting or any other new/concerning/worsening symptoms. Prescriptions: No Action lidocaine 5 % adhesive patch,medicated 1 patch topical DAILY PRN (Reason: pain) Qty: 15 0RF Rx Instructions: leave on most painful area for up to 12 hrs multivitamin Tablet 1 tab PO DAILY meclizine 25 mg tablet 25 mg PO TID PRN (Reason: Dizziness) ibuprofen 600 mg tablet 600 mg PO Q8H PRN (Reason: Pain) amoxicillin-pot clavulanate 875-125 mg tablet 1 tab PO BID Qty: 10 0RF fluticasone propion-salmeterol [Wixela Inhub] 250-50 mcg/dose blister with device 1 ea inhalation BID PRN (Reason: Shortness Of Breath Or Wheezing) albuterol sulfate [Ventolin HFA] 90 mcg/actuation HFA aerosol inhaler 2 puff inhalation Q4-6H PRN (Reason: Shortness Of Breath Or Wheezing) amlodipine 5 mg tablet 5 mg PO DAILY PRN (Reason: high blood pressure) Patient Comments: Patient will take when she feels like her BP is high or when she consumes a lot of salt. Interventions: ED Discharge Assessment Last Done: 10/23/24 10:14 Discharge Date/Time: 10/23/24 10:15 Print Language: Albanian
[2024-10-23 10:14] VITALS: BP 155/80; PULSE 80; RESP 16; TEMP 36.4; O2SAT 98
--- OUTSIDE RECORDS SUMMARY | 2024-10-23 11:09 | XMS_ITS | Clinical Summary ---
Author Organization Group [facility] Address [address] [place] [address] Care Team Providers Care Marketing Traffic Coordinator Name Role Phone Derick Rivera MD Primary Care Provider [phone] Surgical History Surgery Date Site/Laterality Comments OTHER SURGICAL HISTORY PROCEDURE: LAP INC/VENT HERNIA REPAIR Medical History Medical History Date Comments High cholesterol DX:High cholest debra Hypertension DX:Hypertension Arthritis DX:Arthritis Family History Medical History Relation Name Comments Other: heart attack Father Lung cancer Mother Relation Name Status Comments Father Mother Social History Tobacco Use Types Packs/Day Years Used Date Smoking Tobacco: Never Smokeless Tobacco: Never Alcohol Use Standard Drinks/Week Comments No 0 (1 standard drink = 0.6 oz pur e alcohol) Comments Unknown Sex and Gender Information Value Date Recorded Sex Assigned at Not on file Legal Sex Female 11:45 PM EST Gender Identity Not on file Sexual Orientation Not on file Obstetrics History Last Filed Vital Signs Vital Sign Reading Time Taken Comments Blood Pressure 151/80 11/16/2021 3:09 PM EDT Pulse 74 11/16/2021 3:09 PM EDT Temperature - - Respiratory Rate - - Oxygen Saturation - - Inhaled Oxygen Concentration - - Weight 103 kg (226 lb) 11/16/2021 3:09 PM EDT Height 149.9 cm (4' 11 ) 11/16/2021 3:09 PM EDT Body Mass Index 45.65 11/16/2021 3:09 PM EDT Plan of Treatment Health Maintenance Due Date Last Done Comments DTaP,Tdap,and Td Vaccines (1 - Tdap) 10/20/1964 Pneumococcal Vaccine: 50+ Ye ars (1 of 1 - PCV) 1994 Zoster Vaccines (1 of 2) 1994 RSV Immunization Adult Patie nts (1 - 1-dose 75+ series) 10/20/2019 Cholesterol Screening (Lipid Panel) 04/10/2022 Depression Screening 04/10/2022 Falls Risk Assessment 04/10/2022 Hepatitis C Screening 04/10/2022 Osteoporosis Screening (Bone Density Screening) 04/10/2022 Social Influencers of Health Screening 04/10/2022 Hypertension/CHF/CAD Annual BMP Blood Test 04/14/2022 COVID-19 Vaccine ( - 2023-2 5 season) 2024 Influenza Vaccine (Season Ended) 2025 HIB Vaccines Aged Out No longer eligi ble based on patient's age to complete this topic HPV Vaccines Aged Out No longer eligi ble based on patient's age to complete this topic Hepatitis A Vaccines Aged Out No long er eligible based on patient's age to complete this topic Hepatitis B Vaccines Aged Out No long er eligible based on patient's age to complete this topic IPV Vaccines Aged Out No longer eligi ble based on patient's age to complete this topic MMR Vaccines Aged Out No longer eligi ble based on patient's age to complete this topic Meningococcal ACWY Vaccine Aged Out N o longer eligible based on patient's age to complete this topic Meningococcal B Vaccine Aged Out No l onger eligible based on patient's age to complete this topic RSV Immunization Patients Un binh 20 months Aged Out No longer eligible b ased on patient's age to complete this topic Varicella Vaccines Aged Out No longer eligible based on patient's age to complete this topic Care Teams Marketing Traffic Coordinator Relationship Specialty Start Date End Date Derick Rivera MD [address] [place] [id number] PCP - General 01/08/08
== END 2024-10-23 10:15 | disposition home or self-care (01) ==
PROVIDERS: Emergency Provider Emergency Medicine
DX: R19.04 Left lower quadrant abdominal swelling, mass and lump (principal); I10 Essential (primary) hypertension; J45.909 Unspecified asthma, uncomplicated
CPT/HCPCS: 99283

== ENCOUNTER 2024-12-02 08:55 | Emergency (ER) | payer OTHER, SELFPAY ==
[2024-12-02 09:04] VITALS: BP 176/59; PULSE 76; RESP 16; TEMP 36.6; O2SAT 98; BMI 45.4
[2024-12-02 11:02] VITALS: BP 176/84; PULSE 74; RESP 16; TEMP 36.6; O2SAT 99
--- NOTE | 2024-12-02 11:41 | ED.SKABFB ---
HPI - Skin/Abscess/Foreign Bdy General Chief complaint: Skin/Abscess/Foreign Body Stated complaint: open wound on back Time Seen by Provider: 12/02/24 11:10 Source: patient and diplomatic interpreter/translator Mode of arrival: ambulatory History of Present Illness ED Provider: HPI narrative: Last week patient had mole removed by water hydrant installer and using some kind of cream prescribed by them and states the areas itchy, sounds like her daughter was squeezing of the area as well. There was no apparent report of purulence. Related Data Home Medications ?Medication ?Instructions ?Recorded ?Confirmed albuterol sulfate 90 mcg/actuation 2 puff inhalation Q4-6H PRN 12/29/21 02/18/24 aerosol inhaler (Ventolin HFA) Shortness Of Breath Or Wheezing amlodipine 5 mg tablet 5 mg PO DAILY PRN high blood 12/29/21 02/18/24 pressure fluticasone 250 mcg-salmeterol 50 1 ea inhalation BID PRN Shortness 12/29/21 02/18/24 mcg/dose blistr powdr for Of Breath Or Wheezing inhalation (Wixela Inhub) ibuprofen 600 mg tablet 600 mg PO Q8H PRN Pain 02/18/24 02/18/24 meclizine 25 mg tablet 25 mg PO TID PRN Dizziness 02/18/24 02/18/24 multivitamin 1 tab PO DAILY 02/18/24 02/18/24 Previous Rx's ?Medication ?Instructions ?Recorded lidocaine 5 % topical patch 1 patch topical DAILY PRN pain #15 04/01/22 ea amoxicillin 875 mg-potassium 1 tab PO BID #10 tabs 02/20/24 clavulanate 125 mg tablet Allergies Allergy/AdvReac Type Severity Reaction Status Date / Time Diltiazem HCl Allergy Unknown disoriented Uncoded 12/02/24 09:06 Review of Systems Constitutional: Constitutional: Reports as per HPI [facility] Past Medical History Medical History Vertigo HTN (hypertension) Social History Social History Unable to assess alcohol history related to: Unknown Alcohol intake: never Smoked in Last 30 Days: No Use of substances other than those prescribed or required for medical reasons: Unknown Advance Directives: No Advance Directives Information Provided: Yes Do you have a plan to hurt others: No Plan Physical Exam Vital Signs: Vital Signs: Last Vital Signs Temp 97.9 F 12/02/24 11:02 Pulse 74 12/02/24 11:02 Resp 16 12/02/24 11:02 BP 176/84 H 12/02/24 11:02 Pulse Ox 99 12/02/24 11:02 O2 Del Method Room Air 12/02/24 11:02 BMI result Body Mass Index 45.4 Const: Other: Alert and oriented x4 Examined sitting up Examination of the back reveals a dime-sized area of prior skin excision for biopsy, minimally erythematous edges which is consistent with recent procedure without any evidence of streaking, no drainage, healing quite nicely Medical Decision Making Medical Decision Making MDM Narrative: Patient has a healing area of prior superficial biopsy, no evidence for abscess, cellulitis, infected cyst, deep space infection necessitating antibiotics or further ointments Differential Diagnosis Differential Diagnoses: The differential diagnosis associated with the presentation includes (See above) Discharge Plan Discharge Clinical Impression: Status post biopsy Patient Disposition: Home, Self-Care Additional Instructions: You have an area new back that was biopsied, the wound looks clean dry does not appear to be infected, I recommend that you picking tech bacitracin ointment which has petroleum or you can use vitamin a and E ointment which is also petroleum based and applied to the area, do not scratch of the area, do not squeeze the area, when the skin is healing it may itch, but if you irritated it may get infected. Follow up with the provider that did the procedure. For itching you can also apply Benadryl ointment it is [id number] it also expiratory him based, and unless otherwise specified I do not recommend steroid creams unless you already using it from the water hydrant installer. Tiene mary jane terri nueva en la espalda que le realizaron mary jane biopsia. La herida se ve limpia y seca, april no parece estar infectada. Le recomiendo usar fritz?ento de bacitracina con vaselina o fritz?ento de vitaminas A y E, tambi?n a base de vaselina, y aplicarlo en la terri afectada. No se rasque ni se apriete. Cuando la piel est? sanando, puede picar, april si se irrita, podr?a infectarse. Consulte con el m?dico que realiz? el procedimiento. Para la picaz?n, tambi?n puede aplicar fritz?ento Benadryl, que es de venta artie y a base de vaselina. A menos que se especifique lo contrario, no recomiendo cremas con esteroides a menos que ya las est? usando el dermat?logo. Prescriptions: No Action lidocaine 5 % adhesive patch,medicated 1 patch topical DAILY PRN (Reason: pain) Qty: 15 0RF Rx Instructions: leave on most painful area for up to 12 hrs multivitamin Tablet 1 tab PO DAILY meclizine 25 mg tablet 25 mg PO TID PRN (Reason: Dizziness) ibuprofen 600 mg tablet 600 mg PO Q8H PRN (Reason: Pain) amoxicillin-pot clavulanate 875-125 mg tablet 1 tab PO BID Qty: 10 0RF fluticasone propion-salmeterol [Wixela Inhub] 250-50 mcg/dose blister with device 1 ea inhalation BID PRN (Reason: Shortness Of Breath Or Wheezing) albuterol sulfate [Ventolin HFA] 90 mcg/actuation HFA aerosol inhaler 2 puff inhalation Q4-6H PRN (Reason: Shortness Of Breath Or Wheezing) amlodipine 5 mg tablet 5 mg PO DAILY PRN (Reason: high blood pressure) Patient Comments: Patient will take when she feels like her BP is high or when she consumes a lot of salt. Print Language: Persian
[2024-12-02 11:46] VITALS: BP 176/84; PULSE 74; RESP 16; TEMP 36.6; O2SAT 99
--- OUTSIDE RECORDS SUMMARY | 2024-12-02 11:53 | XMS_ITS | Data Portability ---
Author Organization [facility] Address [address] [place] [address] Care Team Providers Care Rand Butting Machine Operator Name Role Phone [facility] Referring Prov ider [facility] Referring Provider Assessment Encounter Date Assessment Date Assessment LastModified by Organization Details LastModified Time 12/21/2022 12/21/2022 77 YOF with hx of htn being seen for L chest pain EKG NSR without ischemic changes Discussed red flag symptoms and pt will proceed to ED for new or concerning symtoms [email or web address] Not available 12/21/2022 14:11:09 Plan of Treatment Reminders Order Date Submit Date Provider Last Modified By Organization Details Last Modified Time Details Appointments None record ed. Lab None record ed. Referral None record ed. Procedures None record ed. Surgeries None record ed. Imaging None record ed. Medication Orders None record ed. Patient TargetsNo targets recorded. Patient InstructionsNo instructions recorded. Reason for Referral None Reported. Medical Equipment None Reported. Medications Name Sig Start Date Stop Date Status Note LastModified by Organization Details LastModified Time nabumetone 750 mg tablet TAKE 1 TABLET BY MOUTH TWICE A DAY active Not Available Not Available No t Available melatonin 3 mg tablet TAKE 1-3 TABLETS BY MOUTH DAILY AT BEDTIME NEEDED FOR SLEEP *STOP TIZANIDINE * active Not Available Not Available No t Available amlodipine 5 mg tablet TAKE 1 TABLET BY MOUTH EVERY DAY active Not Available Not Available No t Available acetaminophen ER 650 mg tablet,extend ed release TAKE 1 OR 2 TABLETS BY MOUTH EVERY 8 HOURS NEEDED FOR PAIN MAX 6 TABS DAILY active Not Available Not Available N ot Available ketorolac 0.5 % eye drops INSTILL STARTING TWO DAYS BEFORE SURGERY 1 DROP TWICE A DAY IN OPERATIVE EYE active Not Available Not Available No t Available losartan 100 mg-hydrochlor othiazide 25 mg tablet TAKE 1 TABLET BY MOUTH EVERY DAY active Not Available Not Available No t Available meclizine 25 mg tablet TAKE 1 TABLET BY MOUTH THREE TIMES A DAY NEEDED FOR DIZZINESS active Not Available Not Available No t Available albuterol sulfate HFA 90 mcg/actuation aerosol inhaler INHALE 2 PUFFS BY MOUTH EVERY 6 HOURS NEEDED FOR WHEEZE active Not Available Not Available No t Available oxycodone 5 mg tablet TAKE 1 TABLET BY MOUTH EVERY 6 HOURS NEEDED FOR PAIN active Not Available Not Available No t Available cyclosporine 0.05 % eye drops in a dropperette INSTILL 1 DROP INTO BOTH EYES TWICE A DAY active Not Available Not Available No t Available duloxetine 20 mg capsule,delay ed release TAKE 1 CAPSULE BY MOUTH EVERY DAY active Not Available Not Available No t Available diclofenac 1 % topical gel PLACE 2G TOPICALLY 4 TIMES DAILY active Not Available Not Available No t Available Wixela Inhub 250 mcg-50 mcg/dose powder for inhalation INHALE 1 PUFF BY MOUTH TWICE A DAY active Not Available Not Available No t Available Daily-Clementina (with folic acid) 400 mcg tablet TAKE 1 TABLET BY MOUTH EVERY DAY active Not Available Not Available No t Available Vitals Date Recorded Body temperature Oxygen saturation Oxygen saturation in Arterial blood by Pulse oximetry Body weight Respiratory rate Heart rate Body height Heart rate Systolic And Diastolic Systolic And Diastolic Provider Name and Address Organization Details Last Updated DateTime 4 97.8 [degF] 98 % 98 % 347167. 2 g 18 /min 90 /min 149.86 cm 80 /min 190/96 mm[Hg] 192/106 mm[Hg] Not Available [employer] 4 11:03:52 Date Recorded Oxygen saturation Oxygen saturation in Arterial blood by Pulse oximetry Body weight Heart rate Respiratory rate Body temperature Systolic And Diastolic Provider Name and Address Organization Details Last Updated DateTime 3 98 % 98 % 055568. 16 g 82 /min 18 /min 97.1 [degF] 184/85 mm[Hg] Not Available [employer] 3 14:09:27 Social History None recorded. Functional Status None recorded. Mental Status None recorded. Family History Nothing Reported. Medical History No medical history recorded. Gynecological HistoryNo gynecological history recorded. Obstetrics History GPAL:G 0 P 0 0 0 0 Past Encounters Encounter ID Performer Location Encounter Start Date Encounter Closed Date Diagnosis/Indication Diagnosis SNOMED-CT Code Diagnosis ICD10 Code Diagnosis Note [id number] Jayden Chong MD [facility] [address] [place] [id number] 12/21/2022 14:09:14 12/21/2022 23:24:34 Chest pain 03519678 R07.9 Jabari Parnell MD [facility] [address] [place] [address] [id number] 07/03/2023 11:03:39 07/04/2023 10:34:33 Dizziness and giddiness 269580905 R42 This 77-year-ol d female called [facility] rosa isela shah of intermitte nt mild dizziness for several days with no other associated symptoms. Her dizziness was not postural. Her EKG was normal and she seemed to be back at her baseline except her blood pressure was a bit high. She has been taking her BP medication s. I recommende d that she follow-up with her PCP and monitor her BP. The patient agreed with this plan. Health Concerns Section Related Observation LastModified by Organization Detai ls LastModified Time None Recorded Concern Status LastModified by Organization Details LastModified Time None Recorded Advance Directives Directive None Recorded Payers Insurance Date Sequence Insurance Name Policy Number Policy [id number] Covered Member ID [id number] Member ID Guarantor Name 07/03/2023 1 [facility] - DOS ON OR AFTER 2022 - DUAL ELIGIBLE - [facility] OPTIONS AND ONE CARE (MEDICARE REPLACEMENT/ADV ANTAGE - HMO) Liberty Munoz [id number] Liberty Munoz OBGyn Episode No OBEpisode recorded.
--- OUTSIDE RECORDS SUMMARY | 2024-12-02 11:53 | XMS_ITS | Encounter Summary ---
Author Organization [facility] Address [address] [place] [address] Phone Care Team Providers Care Hooking Machine Operator Name Role Phone Katy De La Torre DENTAL MANAGER Primary Care Provider [phone] Encounter Details Date Type Department Care Team (Late st Contact Info) Description 03/29/2022 Documentation Only [facility], [address] [place] [id number] Yenni Church PA Social History Tobacco Use Types Packs/Day Years Used Date Smoking Tobacco: Never Alcohol Use Standard Drinks/Week Comments No 0 (1 standard drink = 0.6 oz pur e alcohol) Comments Unknown Sex and Gender Information Value Date Recorded Sex Assigned at Not on file Legal Sex Female 4:33 PM EST Gender Identity Not on file Sexual Orientation Not on file documented as of this encounter Plan of Treatment Not on file documented as of this encounter Visit Diagnoses Not on filedocumented in this encounter Care Teams Hooking Machine Operator Relationship Specialty Start Date End Date Katy De La Torre NP [address] [place] [phone] PCP - General Nurse Practitioner 09/17/20 documented as of this encounter
--- OUTSIDE RECORDS SUMMARY | 2024-12-02 11:53 | XMS_ITS | Clinical Summary ---
Author Organization [address] [place] [address] Address [address] [place] [address] Phone Care Team Providers Care Mail Processing Equipment Mechanic Name Role Phone Derick Rivera MD Primary Care Provider [phone] Surgical History Surgery Date Site/Laterality Comments OTHER [...] Health Maintenance Due Date Last Done Comments Diabetes: Annual GFR (Glomerular Filtration Rate) 1944 Diabetes: Annual Foot Exam 1954 Diabetes: Annual Retina Eye Exam 1954 Zoster Vaccines (2 of 3) 05/12/2014 03/17/2014 RSV Immunization Adult Patients (1 - 1-dose 75+ series) 10/20/2019 Cholesterol Screening (Lipid Panel) 04/10/2022 Falls Risk Assessment 04/10/2022 Medicare Annual Wellness Visit 04/10/2022 Osteoporosis Screening (Bone Density Screening) 04/10/2022 Social Influencers of Health Screening 04/10/2022 Hypertension/CHF/CAD Annual BMP Blood Test 04/14/2022 DTaP,Tdap,and Td Vaccines (2 - Td or Tdap) 11/22/2023 11/21/2013 COVID-19 Vaccine (3 - 2023-2 5 season) 2024 09/10/2020, 08/20/2020 Depression Screening 05/08/2024 Diabetes: Annual Urine Albumin-Creatinine Ratio (uACR) 11/08/2024 Diabetes: Blood Sugar Contro l Test (HGBA1C) 11/08/2024 03/26/2020 Influenza Vaccine (#1) 2025 6, 03/11/2014 Pneumococcal Vaccine: 50+ Years Completed 01/13/2015, 11/21/2013 HIB Vaccines Aged Out No longer eligi [...] to complete this topic RSV Immunization Patients Under 20 months Aged Out No longer eligible b ased on patient's age to complete this topic Varicella Vaccines Aged Out No longer eligible based on patient's age to complete this topic Insurance [facility] INTERMEDIATE OPTIONS Member Subscriber Plan / Payer (Ef fective 2024-Present) Name:Liberty Munoz Relation to Subscriber:Self Name:Liberty Munoz Payer ID:[id number] Group ID:Not on file Type:Not on file Address: [place] [address] [address] [address] Care Teams Mail Processing Equipment Mechanic Relationship Specialty Start Date End Date Derick Rivera MD [address] [place] [phone] PCP - General 01/08/08
--- OUTSIDE RECORDS SUMMARY | 2024-12-02 11:53 | XMS_ITS | Encounter Summary ---
Author Organization [facility] Address [address] [place] [address] Phone Care Team Providers Care Cartography Supervisor Name Role Phone Unknown, Unknown Primary Care Provider Judson bethea Encounter Details Date Type Department Care Team (Latest Contact Info) Description 01/15/2019 Ancillary Orders [facility] Department of Orthopaedic Surgery, Shoulder Service [address] [facility] [facility], [address], [address] [place] [address] Amado Garcia Jp, MD [address] [place], [place] [address] [place] [id number] [email or web address] Pain of both shoulder joints Social History Tobacco Use Types Packs/Day Years Used Date Smoking Tobacco: Never Assessed Comments Unknown Sex and Gender Information Value Date Recorded Sex Assigned at Not on file Legal Sex Female 12:00 PM EDT Gender Identity Not on file Sexual Orientation Not on file documented as of this encounter Plan of Treatment Not on file documented as of this encounter Visit Diagnoses Diagnosis Pain of both shoulder joints documented in this encounter Care Teams Cartography Supervisor Relationship Specialty Start Date End Date Unknown, Unknown, PCP - General 08/23/18 documented as of this encounter Additional Source Comments The information contained in this document represents components of the legal health record. It is not the complete legal health record.[facility]
== END 2024-12-02 11:46 | disposition home or self-care (01) ==
PROVIDERS: Emergency Provider Emergency Medicine; PCP Family Medicine
DX: L29.89 Other pruritus (principal); Z98.890 Other specified postprocedural states
CPT/HCPCS: 99284